=== PATIENT | female | born 1990 | race Caucasian/White ===

== ENCOUNTER 2020-12-25 11:16 | Emergency (ER) | payer OTHER, SELFPAY | END 2020-12-25 12:45 | disposition left against medical advice (07) | PROVIDERS: Emergency Provider Emergency Medicine; PCP Internal Medicine | DX: J45.909 Unspecified asthma, uncomplicated (principal) ==

== ENCOUNTER 2020-12-26 02:28 | Emergency (ER) | payer OTHER, SELFPAY ==
--- NOTE | ~2020-12-26 | XR_ITS ---
EXAMINATION: XR CHEST CLINICAL INFORMATION: Chest tightness COMPARISON: 06/10/2019 TECHNIQUE: 2 views of the chest were obtained. FINDINGS: No significant abnormality is noted involving the heart, lungs, mediastinum, bony thorax or soft tissues. XR/XR chest 2V IMPRESSION: Unremarkable examination.
[2020-12-26 02:38] VITALS: BP 138/81; PULSE 95; RESP 18; TEMP 36.7; O2SAT 100; BMI 29.4
[2020-12-26] MEDS: Albuterol Sulfate (0.083%) 2.5 MG/3 ML VIAL.NEB 5 MG INHALE ×2 (04:51→05:17)
[2020-12-26 04:52] VITALS: PULSE 86; O2SAT 100
--- NOTE | 2020-12-26 05:09 | ED.ASTHMA ---
HPI - Asthma General Chief Complaint: Asthma Stated Complaint: Asthma Time Seen by Provider: 12/26/20 03:57 Source: patient Mode of arrival: ambulatory History of Present Illness HPI Narrative: This is a patient with worsening shortness of breath for the past 3 days and states that her nebulizer machine was broken, but states she has been using her inhaler every 4 hours. Her last exacerbation was in August but she states she typically has 1 in the spring as well. She denies any fevers, chills, GI or symptoms. Related Data Previous Rx's Medication Instructions Recorded prednisone 40 mg PO DAILY 4 Days #8 tab 12/26/20 Allergies Allergy/AdvReac Type Severity Reaction Status Date / Time shellfish derived Allergy Severe ANAPHYLAXIS Unverified 12/26/20 04:48 [SHELLFISH DERIVED] ibuprofen [IBUPROFEN] Allergy Unknown UNKNOWN Unverified 12/26/20 04:48 pineapple [PINEAPPLE] Allergy Unknown RASH Unverified 12/26/20 04:48 SEASONAL ALLERGIES Allergy Unknown UNKNOWN Uncoded 12/26/20 04:48 Review of Systems Review of Systems: Pertinent positives and negatives as stated in HPI 10 point review of systems is otherwise negative. [facility] Past Medical History Source: nursing notes reviewed Social History Social History Advance Directives: No Advance Directives Information Provided: No Physical Exam Vital Signs: Vital Signs: Last Vital Signs Temp 98.1 F 12/26/20 02:38 Pulse 104 H 12/26/20 05:17 Resp 18 12/26/20 02:38 BP 138/81 12/26/20 02:38 Pulse Ox 100 12/26/20 02:38 Body Mass Index 29.4 VITAL SIGNS: Reviewed. GENERAL: Well developed, well nourished, in no acute distress. HEAD: Normocephalic/atraumatic NOSE: Nares patent bilateral OROPHARYNX: no oral lesions noted, posterior pharynx clear NECK: Supple, no adenopathy LUNGS: Diminished breath sounds bilaterally. Minimal expiratory wheezing expiratory bilateral, no retractions noted. SpO2<100> CARDIOVASCULAR: Regular rate and rhythm without noted murmurs ABDOMEN: Soft, non-tender, non-distended with bowel sounds. NEUROLOGIC: Alert and oriented x 4. Course Course Course Narrative: This is a 30-year-old female with evidence of mild asthma exacerbation and treated in the emergency department with 2 rounds of 5 mg hour long albuterol as as well as initial dose of prednisone 50 mg. On review of investigations and on re-evaluation on chest x-ray and patient reports complete resolution of her exacerbation symptoms. She was discharged in stable condition. Discharge Plan Discharge Clinical Impression: Asthma with acute exacerbation Patient Disposition: Home, Self-Care Instructions: Asthma (ED) Additional Instructions: Do not hesitate to return to the emergency department should you experience any acute worsening of your symptoms. Prescriptions: New prednisone 20 mg tablet 40 mg PO DAILY 4 Days Qty: 8 RF: 0 Referrals: Gigi Grimm MD [Primary Care Provider] - 2 days (Re-evaluation for asthma after being seen in the emergency department for acute exacerbation.)
[2020-12-26 05:17] VITALS: PULSE 104; O2SAT 99
[2020-12-26] MEDS: predniSONE 10 MG TABLET 50 MG PO (05:53)
== END 2020-12-26 06:22 | disposition home or self-care (01) ==
PROVIDERS: Emergency Provider Student in an Organized Health Care Education/Training Program; PCP Internal Medicine
DX: J45.901 Unspecified asthma with (acute) exacerbation (principal); Z79.899 Other long term (current) drug therapy
CPT/HCPCS: 71046; 94640; 94644; 94645; 99283; 99284

== ENCOUNTER 2021-02-15 17:05 | Emergency (ER) | payer OTHER, SELFPAY ==
--- NOTE | ~2021-02-15 | CT_ITS ---
EXAMINATION: CT ANGIOGRAM OF THE CHEST WITH AND WITHOUT CONTRAST (CT PULMONARY ANGIOGRAM FOR PE) CLINICAL INFORMATION: Reason for Exam chest pain, elevated ddimer, hemoptysis COMPARISON: Chest x-ray 02/15/2021 TECHNIQUE: Prior to contrast administration, noncontrast localization images were obtained. Subsequently, multidetector volumetric imaging was performed from the thoracic inlet to below the diaphragms following the administration of 65 mL Omnipaque 350 intravenous contrast. No contrast reaction reported Sagittal, coronal, and MIP oblique sagittal reformatted images were obtained on the CT workstation, uploaded to PACS, and reviewed. This CT examination was performed using dose optimization techniques as appropriate, variously including the following: *Automated exposure control *Adjustment of mA and/or kV according to patient size (this includes techniques or standardized protocols for targeted exams where dose is matched to indication/reason for exam; i.e. extremities or head) *Use of iterative reconstruction technique Total exam dose-length product 264 mGy-cm FINDINGS: QUALITY OF STUDY/CONTRAST BOLUS: Satisfactory. PULMONARY ARTERIES: No central or segmental pulmonary emboli. THORACIC AORTA: No aneurysm or dissection. LUNG: No focal consolidation, nodules or masses. PLEURA: No pleural effusion or pneumothorax. MEDIASTINUM: Normal heart size. No pericardial effusion. No hilar or mediastinal lymphadenopathy. No evidence of septal bowing or right heart strain. CHEST WALL/AXILLA: No axillary or internal mammary lymphadenopathy. OSSEOUS STRUCTURES: No acute or suspicious osseous abnormality. UPPER ABDOMEN: Unremarkable. No reflux of contrast into the hepatic veins to suggest elevated right heart pressures. CT/CT angio chest PE protocol IMPRESSION: Normal CT of chest. No evidence of pulmonary embolism. VTE: negative
--- NOTE | ~2021-02-15 | XR_ITS ---
EXAMINATION: XR CHEST CLINICAL INFORMATION: Shortness of breath. Blood-tinged sputum. COMPARISON: Chest radiograph dated 12/26/2020. TECHNIQUE: 2 views of the chest were obtained. FINDINGS: The lungs are clear. The cardiomediastinal silhouette is normal in size. There is no pleural effusion or pneumothorax. No acute osseous abnormality. XR/XR chest 2V IMPRESSION: No acute cardiopulmonary findings.
[2021-02-15 17:42] VITALS: BP 124/58; PULSE 98; RESP 20; TEMP 36.6; O2SAT 100; BMI 27.2
[2021-02-15 18:22] LABS: COVID-19 Test Positive (Negative)
[2021-02-15 18:24] LABS: UPreg QC Valid YES; Urine Pregnancy NEGATIVE (NEGATIVE)
--- NOTE | 2021-02-15 18:39 | ECG_ITS ---
Test Reason : SOB Blood Pressure : / mmHG Vent. Rate : 074 BPM Atrial Rate : 074 BPM P-R Int : 166 ms QRS Dur : 084 ms QT Int : 422 ms P-R-T Axes : 048 042 -06 degrees QTc Int : 468 ms Normal sinus rhythm Normal ECG No previous ECGs available Referred By: Annette Galvan Electronically Signed By:Yoni Clay
--- NOTE | 2021-02-15 19:02 | ED.ASTHMA ---
HPI - Asthma General Chief Complaint: Asthma Stated Complaint: asthma Time Seen by Provider: 02/15/21 18:39 Source: patient Mode of arrival: ambulatory Limitations: no limitations History of Present Illness MD complaint: asthma attack , shortness of breath and wheezing Onset (ago): day(s) (10) Severity: moderate Context: none known Associated symptoms: productive cough, chest pain and hemoptysis Asthma History: childhood onset Treatments Prior to Arrival: inhaled bronchodilator Related Data Previous Rx's Medication Instructions Recorded prednisone 40 mg PO DAILY 4 Days #8 tab 12/26/20 Allergies Allergy/AdvReac Type Severity Reaction Status Date / Time shellfish derived Allergy Severe ANAPHYLAXIS Verified 02/15/21 17:42 [SHELLFISH DERIVED] ibuprofen [IBUPROFEN] Allergy Unknown UNKNOWN Verified 02/15/21 17:42 pineapple [PINEAPPLE] Allergy Unknown RASH Verified 02/15/21 17:42 SEASONAL ALLERGIES Allergy Unknown UNKNOWN Uncoded 12/26/20 04:48 Review of Systems Review of Systems: Constitutional : No Fever, No Chills ENT/Mouth : No Hoarseness, No sore throat, No Rhinorrhea Eyes: No Redness, No Discharge, No Vision Changes Cardiovascular : No Chest Pain, positive SOB, positive Dyspnea on Exertion, No Edema Respiratory : positive Cough, pos Sputum, positive Wheezing, Gastrointestinal : No Nausea, No Vomiting, No Diarrhea, No abdominal Pain Genitourinary : No Dysuria, No Hematuria Musculoskeletal : No joint pain, No Myalgias Skin : No rash Neuro : No Weakness, No Numbness, No Headache Psych : No anxiety, depression Heme/Lymph: No Bruising, No Bleeding Endocrine : No Polyuria, No Polydipsia All other systems reviewed and are negative [facility] Past Medical History Attestation statement: The following information was validated with the patient. Medical History Asthma Social History Social History (Updated 02/15/21 @ 19:15 by Annette Galvan DO) Patient Tobacco Use Status: Never used Tobacco Use of substances other than those prescribed or required for medical reasons: No Advance Directives: No Advance Directives Information Provided: No Patient : No Physical Exam Vital Signs: Vital Signs: Last Vital Signs Temp 97.8 F 02/15/21 17:42 Pulse 71 02/15/21 19:03 Resp 20 02/15/21 17:42 BP 124/58 L 02/15/21 17:42 Pulse Ox 100 02/15/21 17:42 Body Mass Index 27.2 Appearance: Alert. Oriented X3. No acute distress. Eyes: Pupils equal, round and reactive to light. ENT: Pharynx normal. Neck: Normal inspection. Neck supple. CVS: Normal heart rate and rhythm. Pulses normal. Respiratory: No respiratory distress. Breath sounds decreased scant wheezes Abdomen: Soft and nontender. Skin: Skin warm and dry. Normal skin color. Normal skin turgor. Extremities: No lower extremity edema. No calf ttp Neuro: Oriented X 3. No motor deficit. No sensory deficit. Course Course Course Narrative: signed out to Dr. Damon pending CTA MDM - Asthma MDM Narrative Medical decision making narrative: 31 yo female with asthma here with 10 days of shortness of breath, chest tightness, cough with scant flecks of blood noted, HAD COVID VACCINE LAST ONE IN NOVEMBER [facility] AT [facility], at this time will need labs, COVID + from waiting room, IV steroids, neb, ddimer, EKG, CXR dispo per result and findings, no resp distress at this time Lab Data Result diagrams: 02/15/21 19:18 02/15/21 19:18 Labs: Lab Results 02/15/21 02/15/21 02/15/21 Range/Units 18:00 18:09 19:18 WBC 6.5 (4.8-10.8) X10*3/uL RBC 4.80 (4.20-5.50) X10*6/uL Hgb 12.4 (12.0-16.0) g/dl Hct 39.3 (37-47) % MCV 81.9 (80-98) fL MCH 25.8 L (27.0-33.0) pg MCHC 31.6 (31.0-35.0) g/dl RDW 12.4 (11.0-16.0) % Plt Count 234 (160-400) X10*3/uL MPV 9.2 L (9.4-12.3) fL Immature Gran % (Auto) 0.2 (0.0-0.4) % Neut % (Auto) 37.2 L (45-73) % Lymph % (Auto) 55.1 H (20-40) % [place] % (Auto) 6.7 (2-11) % Eos % (Auto) 0.5 (0-4) % Baso % (Auto) 0.3 (0-2) % Lymph # (Auto) 3.6 (1.2-4.9) X10*3/uL [place] # (Auto) 0.4 (0.1-1.2) X10*3/uL Eos # (Auto) 0.0 (0.0-0.4) X10*3/uL Baso # (Auto) 0.0 (0.0-0.2) X10*3/uL Abs Immat Gran (auto) 0.01 (0.00-0.03) X10*3/uL Absolute Neuts (auto) 2.4 (2.0-8.3) X10*3/uL Absolute Nucleated RBC 0.000 (0.0-0.012) X10*3/uL Nucleated RBC % (auto) 0.0 (0.0-0.2) /100WBC D-Dimer NG/ML Sodium (135-145) mmol/L Potassium (3.3-5.1) mmol/L Chloride (96-108) mmol/L Carbon Dioxide (22-29) mmol/L Anion Gap (12-20) BUN (9-16) mg/dL Creatinine (0.5-1.4) mg/dL Estim Creat Clear Calc Estimated GFR Random Glucose (60-115) mg/dL Calcium (8.4-10.2) mg/dL Troponin I High Sens (<3.5-17.0) ng/L Urine Test NEGATIVE (NEGATIVE) COVID-19 (CHIKIS) Positive A (Negative) COVID-19 Clin Com See Note 02/15/21 02/15/21 02/15/21 Range/Units 19:18 19:18 19:18 WBC (4.8-10.8) X10*3/uL RBC (4.20-5.50) X10*6/uL Hgb (12.0-16.0) g/dl Hct (37-47) % MCV (80-98) fL MCH (27.0-33.0) pg MCHC (31.0-35.0) g/dl RDW (11.0-16.0) % Plt Count (160-400) X10*3/uL MPV (9.4-12.3) fL Immature Gran % (Auto) (0.0-0.4) % Neut % (Auto) (45-73) % Lymph % (Auto) (20-40) % [place] % (Auto) (2-11) % Eos % (Auto) (0-4) % Baso % (Auto) (0-2) % Lymph # (Auto) (1.2-4.9) X10*3/uL [place] # (Auto) (0.1-1.2) X10*3/uL Eos # (Auto) (0.0-0.4) X10*3/uL Baso # (Auto) (0.0-0.2) X10*3/uL Abs Immat Gran (auto) (0.00-0.03) X10*3/uL Absolute Neuts (auto) (2.0-8.3) X10*3/uL Absolute Nucleated RBC (0.0-0.012) X10*3/uL Nucleated RBC % (auto) (0.0-0.2) /100WBC D-Dimer 402 NG/ML Sodium 143 (135-145) mmol/L Potassium 3.8 (3.3-5.1) mmol/L Chloride 107 (96-108) mmol/L Carbon Dioxide 25 (22-29) mmol/L Anion Gap 15 (12-20) BUN 13 (9-16) mg/dL Creatinine 0.79 (0.5-1.4) mg/dL Estim Creat Clear Calc 99.5 Estimated GFR > 60 Random Glucose 95 (60-115) mg/dL Calcium 9.1 (8.4-10.2) mg/dL Troponin I High Sens < 3.5 (<3.5-17.0) ng/L Urine Test (NEGATIVE) COVID-19 (CHIKIS) (Negative) COVID-19 Clin Com ECG Data Attestation: I personally reviewed and interpreted this ECG as follows: ECG interpretation date: 02/15/21 ECG interpretation time: 19:03 Interpretation: Rate: 74 Rhythm: NSR [place]: normal Normal P waves. Normal FARZANA. Normal QRS complex. ST T wave : inverted II and aVF, no SANTI qTC: normal prior studies: no acute ischemia The study has been interpreted contemporaneously by me. . Discharge Plan Discharge Clinical Impression: Asthma with acute exacerbation, COVID-19 Prescriptions: No Action prednisone 20 mg tablet 40 mg PO DAILY 4 Days Qty: 8 RF: 0
[2021-02-15 19:03] VITALS: PULSE 71; O2SAT 100
[2021-02-15] MEDS: Albuterol Sulfate (0.083%) 2.5 MG/3 ML VIAL.NEB 5 MG INHALE (19:03)
[2021-02-15] MEDS: methylPREDNISolone Sod Succ 125 MG/2 ML VIAL 60 MG IVPUSH (19:25)
[2021-02-15 19:39] LABS: MANUAL DIFF FLAG NO
[2021-02-15 19:40] LABS: Basophils Percent Auto 0.3 % (0-2); Eosinophils Percent Auto 0.5 % (0-4); Hematocrit 39.3 % (37-47); Hemoglobin 12.4 g/dl (12.0-16.0); Imm Gran Abs Auto 0.01 X10*3/uL (0.00-0.03); Imm Gran Pct Auto 0.2 % (0.0-0.4); Lymphocytes Absolute Auto 3.6 X10*3/uL (1.2-4.9); Lymphocytes Percent Auto 55.1 % (20-40); Mean Corpuscular HGB Conc 31.6 g/dl (31.0-35.0); Mean Corpuscular Hemoglobin 25.8 pg (27.0-33.0); Mean Corpuscular Volume 81.9 fL (80-98); Mean Platelet Volume 9.2 fL (9.4-12.3); Monocytes Absolute Auto 0.4 X10*3/uL (0.1-1.2); Monocytes Percent Auto 6.7 % (2-11); Neutrophils Absolute Auto 2.4 X10*3/uL (2.0-8.3); Neutrophils Percent Auto 37.2 % (45-73); Platelet Count 234 X10*3/uL (160-400); Red Cell Distribution Width 12.4 % (11.0-16.0); White Blood Count 6.5 X10*3/uL (4.8-10.8)
[2021-02-15 19:49] LABS: D Dimer 402 NG/ML
--- NOTE | 2021-02-15 19:54 | PC.NURSE ---
IV PLACED TO RAC, LABS DRAWN TO LAB, PT MEDICATED PER EMAR. PT HAD A BREATHING TREATMENT WITH RESPIRATORY AND STATES I FEEL BETTER . WILL CONTINUE TO MONITOR PT.
[2021-02-15 20:00] VITALS: BP 121/68; PULSE 88; RESP 18; O2SAT 100
[2021-02-15 20:07] LABS: Anion Gap 15 (12-20); Blood Urea Nitrogen 13 mg/dL (9-16); Calcium 9.1 mg/dL (8.4-10.2); Carbon Dioxide 25 mmol/L (22-29); Chloride 107 mmol/L (96-108); Creatinine Clr Calc Pharmacy 99.5; Estimated Glomerular Filt Rate > 60; Glucose Random 95 mg/dL (60-115); Potassium 3.8 mmol/L (3.3-5.1); Sodium 143 mmol/L (135-145)
[2021-02-15 20:16] LABS: Troponin-I High Sensitivity < 3.5 ng/L (<3.5-17.0)
--- NOTE | 2021-02-15 21:40 | PC.NURSE ---
PT RESTING IN STRETCHER AWAITING FOR PE STUDY. PT REQUESTING TO GO HOME. PT STATES IM FEELING BETTER EXPLAINED TO PT SHE SHOULD WAITING FOR STUDY. PT VERBALIZED U/S. WILL CONTINUE TO MONITOR PT.
[2021-02-15 21:43] VITALS: BP 112/54; PULSE 78; RESP 19; TEMP 36.9; O2SAT 99
[2021-02-15] MEDS: diphenhydrAMINE HCL 50 MG/ML VIAL 25 MG IVPUSH (22:30)
--- NOTE | 2021-02-15 22:36 | PC.NURSE ---
pt medicated p/t ct as per emar.
[2021-02-15] MEDS: iohexoL 350 MG/ML 100 ML INFUS..BTL 65 ML IV (23:29)
== END 2021-02-16 00:18 | disposition home or self-care (01) ==
PROVIDERS: Emergency Medicine; Emergency Medicine Emergency Medical Services; Emergency Provider Internal Medicine; PCP Internal Medicine
DX: U07.1 COVID-19 (principal); J45.901 Unspecified asthma with (acute) exacerbation
CPT/HCPCS: 36415; 71046; 71275; 80048; 81025; 84484; 85025; 85379; 87635; 93005; 94640; 94644; 96374; 96375; 99283; 99284; 99285; J1200; J2930; Q9967

== ENCOUNTER 2021-04-12 20:51 | Emergency (ER) | payer OTHER, SELFPAY ==
--- NOTE | ~2021-04-12 | CT_ITS ---
EXAMINATION: CT HEAD WITHOUT CONTRAST CLINICAL INFORMATION: Headache COMPARISON: 03/21/2020. TECHNIQUE: Contiguous axial imaging was performed from the skull base to vertex without intravenous administration of contrast. This CT examination was performed using dose optimization techniques as appropriate, variously including the following: *Automated exposure control *Adjustment of mA and/or kV according to patient size (this includes techniques or standardized protocols for targeted exams where dose is matched to indication/reason for exam; i.e. extremities or head) *Use of iterative reconstruction technique DLP: 798 mGy-cm FINDINGS: There is no evidence of acute intracranial hemorrhage or territorial infarction. No abnormal mass effect or midline shift is seen. Haynes to white matter differentiation is well preserved. No extra-axial fluid collections are identified. The ventricles are normal in size. There is no abnormal attenuation within the brain parenchyma. Right cavernous carotid arterial stent redemonstrated. The osseous structures and soft tissues are normal. The mastoid air cells and visualized portions of the paranasal sinuses are well aerated. CT/CT head/brain wo con IMPRESSION: No acute intracranial pathology.
[2021-04-12 21:00] VITALS: BP 114/63; PULSE 76; RESP 18; TEMP 36.5; O2SAT 99; BMI 28.8
--- NOTE | 2021-04-12 23:34 | ED.HA ---
HPI - Headache General Chief Complaint: Headache Stated Complaint: MIGRAINE Time Seen by Provider: 04/12/21 23:27 Source: patient Mode of arrival: ambulatory Limitations: no limitations History of Present Illness HPI Narrative: 31-year-old female came in for evaluation of headache. Headache started 3 days ago, patient describe it and bilateral temporal headache, associated with nausea, noise and light make it worse, no relieving factors, patient described it as typical for her migraine, pain started gradually 3 days ago and progressively getting worse. Patient is known to have cerebral aneurysm x2 status post coiling of 1 of the aneurysm and there is another small aneurysm is monitored by neurosurgeon patient is scheduled to have cerebral angiogram in 1 week. Related Data Previous Rx's Medication Instructions Recorded prednisone 40 mg PO DAILY 4 Days #8 tab 12/26/20 benzonatate [Tessalon Perles] 100 mg PO TID PRN #20 cap 02/15/21 dexamethasone [Decadron] 6 mg PO DAILY #7 tab 02/15/21 Allergies Allergy/AdvReac Type Severity Reaction Status Date / Time shellfish derived Allergy Severe ANAPHYLAXIS Verified 02/15/21 17:42 [SHELLFISH DERIVED] ibuprofen [IBUPROFEN] Allergy Unknown UNKNOWN Verified 02/15/21 17:42 pineapple [PINEAPPLE] Allergy Unknown RASH Verified 02/15/21 17:42 SEASONAL ALLERGIES Allergy Unknown UNKNOWN Uncoded 12/26/20 04:48 Review of Systems Review of Systems: All other systems are reviewed and are negative Constitutional: Reports as per HPI and Reports no additional constitutional complaints Eyes: Reports as per HPI and Reports no additional eye complaints Reports system reviewed and no additional complaints, except as documented Cardiovascular: Reports as per HPI and Reports no additional cardiovascular complaints Respiratory: Reports as per HPI and Reports no additional respiratory complaints Gastrointestinal: Reports as per HPI and Reports no additional gastrointestinal complaints Genitourinary: Reports no additional female genitourinary complaints Musculoskeletal: Reports no additional musculoskeletal complaints Skin/Breast: Reports system reviewed and no additional complaints, except as docu Psychiatric: Reports no additional psychiatric complaints Endocrine: Reports no additional endocrine complaints Hematologic/Lymphatic: Reports no additional hematologic/lymphatic complaints Allergic/Immunologic: Reports no additional allergic/immunologic complaints Reports system reviewed and no additional complaints, except as documented and Reports Abnormal speech present PMFSH Past Medical History Medical History Asthma Social History Social History Patient Tobacco Use Status: Never used Tobacco Advance Directives: No Advance Directives Information Provided: No Patient : No Physical Exam Vital Signs: Vital Signs: Last Vital Signs Temp 97.7 F 04/12/21 21:00 Pulse 76 04/12/21 21:00 Resp 16 04/13/21 01:23 BP 114/63 04/12/21 21:00 Pulse Ox 99 04/12/21 21:00 Body Mass Index 28.8 Vital signs have been reviewed as appeared to be correct. Blood pressure normal. Heart rate normal. Respiration rate normal. Temperature normal. Oxygen saturation normal. Appearance: Alert. Oriented X3. No acute distress. Head: Normal external exam. Normocephalic. Atraumatic. No [place] signs noted. No raccoon eyes noted Eyes: PERRLA. EOMI. Conjunctiva and sclera normal. Eyelids normal. No photophobia. ENT: TM's Normal. Pharynx normal. Uvula midline. Moist mucous membranes. No trismus noted. No drooling noted. No muffled voice noted. Neck: Normal inspection. Neck supple no stiffness, no rigidity.. FROM. No adenopathy. Thyroid Normal. No meningeal signs. No neck mass noted. CVS: Normal heart rate and rhythm. Heart sound normal. No murmurs noted. Pulses normal throughout. Respiratory: No respiratory distress. Painless inspiration. Breath sounds normal. No wheezes/rales/rhonchi noted. Chest nontender. No accessory muscle usage noted or decreased air movement noted. Abdomen: Soft and nontender. Bowel sounds normal in all 4 quadrants. No distention noted. No organomegaly noted. No visible injury noted. Back: No CVA tenderness. Full range of motion noted. Skin: Skin warm and dry. Normal skin color. Normal skin turgor. No rashes/lesions/lacerations noted. Extremities: No lower extremity edema. Extremities exhibit normal range of motion. Extremities nontender. Neuro: Oriented X 3. No motor deficit. No sensory deficit. Reflexes normal. Course Course Course Narrative: Assessment and plan. Acute on chronic migraine, patient receive narcotic in the past to control her bad migraine in the past, patient had a head CT showed no bleeding, patient schedule next week to have cerebral angiogram to follow-up on her cerebral aneurysm, there is no sign of intracranial bleed there is no meningeal sign, no neck stiffness or rigidity, no photophobia. Reevaluation(s) Reevaluation #1: Patient feels better after received 1 dose of IV morphine. Time: 01:52 MDM - Headache Imaging Data CT scan - head: Radiologist's impression: No acute intracranial pathology. Discharge Plan Discharge Clinical Impression: Migraine Qualifiers: Migraine type: unspecified Intractability: not intractable Patient Disposition: Home, Self-Care Instructions: Migraine Headache (ED) Prescriptions: No Action prednisone 20 mg tablet 40 mg PO DAILY 4 Days Qty: 8 RF: 0 dexamethasone [Decadron] 6 mg tablet 6 mg PO DAILY Qty: 7 RF: 0 benzonatate [Tessalon Perles] 100 mg capsule 100 mg PO TID PRN (Reason: cough) Qty: 20 RF: 0 Referrals: Gigi Grimm MD [Primary Care Provider] - 2 days Stand Alone Forms: Work/School Release
[2021-04-12] MEDS: methylPREDNISolone Sod Succ 125 MG/2 ML VIAL IVPUSH (23:55)
[2021-04-12] MEDS: diphenhydrAMINE HCL 50 MG/ML VIAL 25 MG IVPUSH (23:55)
[2021-04-13] MEDS: 0.9 % Sodium Chloride 1,000 ML 999 ML IVCONT
--- NOTE | 2021-04-13 00:01 | PC.NURSE ---
IV established, pt medicated per NOV. Off to CT.
[2021-04-13 01:23] VITALS: RESP 16
--- NOTE | 2021-04-13 01:23 | PC.NURSE ---
Pt sleeping in bed at this time, resting in NAD. Visible chest rise noted, continue to monitor.
[2021-04-13] MEDS: Morphine Sulfate 2 MG/ML CARTRIDGE IVPUSH (01:35)
[2021-04-13 02:14] VITALS: BP 99/48; PULSE 64; RESP 16; O2SAT 98
--- NOTE | 2021-04-13 02:17 | PC.NURSE ---
This RN at bedside for discharge. Pt continues reporting 8/10 pain to head despite pain medication. Plan for Tylenol, pt agreeable at this time. VSS.
[2021-04-13] MEDS: Acetaminophen 325 MG TABLET 650 MG PO (02:22)
== END 2021-04-13 02:34 | disposition home or self-care (01) ==
PROVIDERS: Emergency Provider Emergency Medicine; PCP Internal Medicine
DX: G43.909 Migraine, unspecified, not intractable, without status migrainosus (principal)
CPT/HCPCS: 70450; 96361; 96374; 96375; 99284; J1200; J2270; J2405; J2930

== ENCOUNTER 2021-12-09 17:51 | Emergency (ER) | payer OTHER, SELFPAY ==
--- NOTE | ~2021-12-09 | XR_ITS ---
EXAMINATION: XR CHEST CLINICAL INFORMATION: Right-sided pneumonia. COMPARISON: Chest x-ray 02/15/2021 TECHNIQUE: Frontal portable view of the chest was obtained. 9:23 PM FINDINGS: No significant abnormality is noted involving the heart, lungs, mediastinum, bony thorax or soft tissues. XR/XR chest 1V IMPRESSION: Unremarkable examination.
[2021-12-09 17:54] VITALS: BP 118/49; PULSE 83; RESP 18; TEMP 36.6; O2SAT 100; BMI 31.8
--- NOTE | 2021-12-09 17:57 | ECG_ITS ---
Test Reason : ASTHMA/CHEST PAIN Blood Pressure : / mmHG Vent. Rate : 074 BPM Atrial Rate : 074 BPM P-R Int : 162 ms QRS Dur : 078 ms QT Int : 380 ms P-R-T Axes : 031 023 -26 degrees QTc Int : 421 ms Normal sinus rhythm T wave abnormality, consider inferior ischemia Abnormal ECG When compared with ECG of 15-FEB-2021 18:58, No significant change was found Referred By: Generic ED Physician Electronically Signed By:LOGAN MAGALLON MD
[2021-12-09 18:40] LABS: MANUAL DIFF FLAG NO
[2021-12-09 18:43] LABS: Basophils Percent Auto 0.2 % (0-2); Eosinophils Absolute Auto 0.1 X10*3/uL (0.0-0.4); Eosinophils Percent Auto 0.5 % (0-4); Hematocrit 37.6 % (37.0-47.0); Hemoglobin 11.8 g/dl (12.0-16.0); Imm Gran Abs Auto 0.04 X10*3/uL (0.00-0.03); Imm Gran Pct Auto 0.3 % (0.0-0.4); Lymphocytes Absolute Auto 3.4 X10*3/uL (1.2-4.9); Lymphocytes Percent Auto 28.1 % (20-40); Mean Corpuscular HGB Conc 31.4 g/dl (31.0-35.0); Mean Corpuscular Volume 82.8 fL (80.0-98.0); Mean Platelet Volume 9.6 fL (9.4-12.3); Monocytes Absolute Auto 0.8 X10*3/uL (0.1-1.2); Monocytes Percent Auto 6.5 % (2-11); Neutrophils Absolute Auto 7.8 x10*3/uL (2.0-8.3); Neutrophils Percent Auto 64.4 % (45-73); Platelet Count 277 X10*3/uL (160-400); Red Blood Count 4.54 X10*6/uL (4.20-5.50); Red Cell Distribution Width 12.5 % (11.0-16.0); White Blood Count 12.2 X10*3/uL (4.8-10.8)
[2021-12-09 19:00] LABS: Anion Gap 13 (12-20); Blood Urea Nitrogen 11 mg/dL (9-16); Calcium 9.4 mg/dL (8.4-10.2); Carbon Dioxide 28 mmol/L (22-29); Chloride 105 mmol/L (96-108); Creatinine Clr Calc Pharmacy 98.4; Estimated Glomerular Filt Rate > 60; Glucose Random 90 mg/dL (60-115); Potassium 3.6 mmol/L (3.3-5.1); Sodium 142 mmol/L (135-145)
[2021-12-09 19:25] LABS: Influenza A PCR NEGATIVE (Negative); Influenza B PCR NEGATIVE (Negative); Resp Syncy Virus RNA Qual PCR NEGATIVE (Negative); SARS COV2 PCR INHOUSE NEGATIVE (Negative)
--- NOTE | 2021-12-09 21:17 | ED_ITS ---
HPI - General Adult General Chief complaint: General Medical Stated complaint: Asthma/Chest tighness Time Seen by Provider: 12/09/21 21:08 Source: patient Mode of arrival: ambulatory Limitations: no limitations History of Present Illness HPI narrative: Patient comes to the emergency room complaining of cough, right back pain every time she coughs, states her inhaler is not working. Patient denies fever chills Related Data Previous Rx's Medication Instructions Recorded prednisone 20 mg tablet 40 mg PO DAILY 4 Days #8 tab 12/26/20 benzonatate 100 mg capsule 100 mg PO TID PRN #20 cap 02/15/21 (Tessalon Perles) dexamethasone 6 mg tablet 6 mg PO DAILY #7 tab 02/15/21 (Decadron) acetaminophen 500 mg tablet 500 mg PO Q6H PRN #20 tab 12/09/21 albuterol sulfate 90 mcg/actuation 2 puff INHALATION Q4-6H PRN #8.5 g 12/09/21 aerosol inhaler guaifenesin 200 mg tablet 400 mg PO Q4H PRN #10 tab 12/09/21 prednisone 50 mg tablet 50 mg PO DAILY #5 tab 12/09/21 Allergies Allergy/AdvReac Type Severity Reaction Status Date / Time shellfish derived Allergy Severe ANAPHYLAXIS Verified 02/15/21 17:42 [SHELLFISH DERIVED] ibuprofen [IBUPROFEN] Allergy Unknown UNKNOWN Verified 02/15/21 17:42 pineapple [PINEAPPLE] Allergy Unknown RASH Verified 02/15/21 17:42 SEASONAL ALLERGIES Allergy Unknown UNKNOWN Uncoded 12/26/20 04:48 Review of Systems Review of Systems: Constitutional : No Weight loss, No Fever, No Chills, No Night Sweats, No Fatigue, No Malaise ENT/Mouth : No Hearing loss, No Ear Pain, No Nasal Congestion, No Sinus Pain, No Hoarseness, No sore throat, No Rhinorrhea, No Swallowing Difficulty Eyes: No Eye Pain, No Swelling, No Redness, No Foreign Body, No Discharge, No Vision Changes Cardiovascular : No Chest Pain, No SOB, No Dyspnea on Exertion, No Orthopnea, No Edema, No Palpitations Respiratory : Complaining of dry cough is causing pain in the right flank/right upper back No Sputum, complaining of intermittent Wheezing, No Smoke Exposure, complaining of intermittent Dyspnea Gastrointestinal : No Nausea, No Vomiting, No Diarrhea, No Constipation, No abdominal Pain, No Hematochezia, No Melena Genitourinary : no irregular bleeding, No Dysuria, No Urinary Frequency, No Hematuria, No Urinary Incontinence, No Urgency, No Flank Pain, No Urinary Flow Changes, No Hesitancy Musculoskeletal : No joint pain, No Myalgias, No Joint Swelling Skin : No Skin Lesions, No rash Neuro : No Weakness, No Numbness, No Paresthesias, No Loss of Consciousness, No Dizziness, No Headache Psych : No Anxiety/Panic, No Depression, No SI/HI/AH/VH, No Social Issues, Heme/Lymph: No Bruising, No Bleeding,No Lymphadenopathy Endocrine : No Polyuria, No Polydipsia, No Temperature Intolerance PMFSH Past Medical History Medical History Asthma Social History Social History Alcohol intake: never Patient Tobacco Use Status: Never used Tobacco Use of substances other than those prescribed or required for medical reasons: No Advance Directives: No Physical Exam ED Vital Signs: Vital Signs - 24 hr 12/09/21 17:54 12/09/21 21:38 Temperature 97.8 F 98.4 F Pulse Rate 83 82 Respiratory Rate 18 16 Blood Pressure 118/49 L 112/64 Pulse Oximetry 100 99 BMI result Body Mass Index 31.8 Const Other: Appearance: Alert. Oriented X3. No acute distress. Eyes: Pupils equal, round and reactive to light. ENT: Pharynx normal. Neck: Normal inspection. Neck supple. No lymph nodes noted. No crepitus CVS: Normal heart rate and rhythm. Pulses normal. Normal S1 and S2 Respiratory: No respiratory distress. Breath sounds normal. No Wheezing, good air movement, No rales , actively coughing, oxygen saturation 100% on room air Abdomen: Soft and nontender. No rigidity. No distention. Skin: Skin warm and dry. Normal skin color. Normal skin turgor. Extremities: No lower extremity edema. No Lacerations. No Rash Neuro: Oriented X 3. No motor deficit. No sensory deficit. Moving all extremi ties. No slurred speech. CN 2 through 12 grossly intact Psych: calm, cooperative, normal affect Course Course Course Narrative: Patient was given p.o. prednisone, no nebulization treatments needed, as patient is not wheezing, has good air movement and off since saturation is 100%. Patient was given 1 dose of p.o. sumatriptan. Patient is allergic to NSAIDs. Medical Decision Making Lab Data Result diagrams: 12/09/21 18:31 12/09/21 18:31 Labs: Lab Results 12/09/21 12/09/21 12/09/21 Range/Units 18:31 18:31 18:31 WBC 12.2 H (4.8-10.8) X10*3/uL RBC 4.54 (4.20-5.50) X10*6/uL Hgb 11.8 L (12.0-16.0) g/dl Hct 37.6 (37.0-47.0) % MCV 82.8 (80.0-98.0) fL MCH 26.0 L (27.0-33.0) pg MCHC 31.4 (31.0-35.0) g/dl RDW 12.5 (11.0-16.0) % Plt Count 277 (160-400) X10*3/uL MPV 9.6 (9.4-12.3) fL Immature Gran % (Auto) 0.3 (0.0-0.4) % Neut % (Auto) 64.4 (45-73) % Lymph % (Auto) 28.1 (20-40) % Mcmullen % (Auto) 6.5 (2-11) % Eos % (Auto) 0.5 (0-4) % Baso % (Auto) 0.2 (0-2) % Lymph # (Auto) 3.4 (1.2-4.9) X10*3/uL Mcmullen # (Auto) 0.8 (0.1-1.2) X10*3/uL Eos # (Auto) 0.1 (0.0-0.4) X10*3/uL Baso # (Auto) 0.0 (0.0-0.2) X10*3/uL Abs Immat Gran (auto) 0.04 H (0.00-0.03) X10*3/uL Absolute Neuts (auto) 7.8 (2.0-8.3) x10*3/uL Absolute Nucleated RBC 0.000 (0.0-0.012) X10*3/uL Nucleated RBC % (auto) 0.0 (0.0-0.2) /100WBC Sodium 142 (135-145) mmol/L Potassium 3.6 (3.3-5.1) mmol/L Chloride 105 (96-108) mmol/L Carbon Dioxide 28 (22-29) mmol/L Anion Gap 13 (12-20) BUN 11 (9-16) mg/dL Creatinine 0.83 (0.5-1.4) mg/dL Estim Creat Clear Calc 98.4 Estimated GFR > 60 Random Glucose 90 (60-115) mg/dL Calcium 9.4 (8.4-10.2) mg/dL Influenza Type A (PCR) NEGATIVE (Negative) Influenza Type B (PCR) NEGATIVE (Negative) RSV RNA Qual (PCR) NEGATIVE (Negative) SARS-CoV-2 RNA (RT-PCR) NEGATIVE (Negative) Discharge Plan Discharge Clinical Impression: Asthma, Headache Patient Disposition: Home, Self-Care Instructions: Asthma (ED), Acute Headache (ED) Additional Instructions: Please follow-up with your primary care physician tomorrow. If you have any worsening or new symptoms, please return to the emergency room or call 911 Prescriptions: New guaifenesin 200 mg tablet 400 mg PO Q4H PRN (Reason: cough) Qty: 10 0RF acetaminophen 500 mg tablet 500 mg PO Q6H PRN (Reason: pain) Qty: 20 0RF prednisone 50 mg tablet 50 mg PO DAILY Qty: 5 0RF albuterol sulfate 90 mcg/actuation HFA aerosol inhaler 2 puff inhalation Q4-6H PRN (Reason: shortness of breath or wheezing) Qty: 8.5 1RF No Action prednisone 20 mg tablet 40 mg PO DAILY 4 Days Qty: 8 0RF dexamethasone [Decadron] 6 mg tablet 6 mg PO DAILY Qty: 7 0RF benzonatate [Tessalon Perles] 100 mg capsule 100 mg PO TID PRN (Reason: cough) Qty: 20 0RF
[2021-12-09] MEDS: Acetaminophen 325 MG TABLET 650 MG PO (21:34)
[2021-12-09] MEDS: predniSONE 20 MG TABLET 60 MG PO (21:34)
[2021-12-09] MEDS: Benzonatate 100 MG CAPSULE PO (21:34)
[2021-12-09 21:38] VITALS: BP 112/64; PULSE 82; RESP 16; TEMP 36.9; O2SAT 99
[2021-12-09] MEDS: SUMAtriptan succinate 50 MG TABLET PO (22:42)
== END 2021-12-09 22:59 | disposition home or self-care (01) ==
PROVIDERS: Emergency Provider Emergency Medicine; PCP Internal Medicine
DX: J45.909 Unspecified asthma, uncomplicated (principal); R51.9 Headache, unspecified; Z20.822 Contact with and (suspected) exposure to COVID-19
CPT/HCPCS: 0241U; 71045; 80048; 85025; 93005; 99283; 99284

== ENCOUNTER 2021-12-16 19:48 | Emergency (ER) | payer OTHER, SELFPAY ==
--- NOTE | ~2021-12-16 | XR_ITS ---
EXAMINATION: XR CHEST CLINICAL INFORMATION: Cough and shortness of breath COMPARISON: Chest x-ray 12/09/2021 TECHNIQUE: 2 views of the chest were obtained. FINDINGS: Normal variant of a mild pectus excavatum. No acute abnormality of the chest. Normal aeration of lungs. Heart size is normal. The cardiac and mediastinal contours normal. There is no pulmonary vascular congestion. There is no pleural effusion and no pneumothorax. XR/XR chest 2V IMPRESSION: Unremarkable examination.
[2021-12-16 20:10] VITALS: BP 105/62; PULSE 90; RESP 18; TEMP 36.7; O2SAT 98; BMI 31.3
[2021-12-16 20:38] LABS: UPreg QC Valid YES; Urine Pregnancy NEGATIVE (NEGATIVE)
[2021-12-16 21:14] LABS: Influenza A PCR NEGATIVE (Negative); Influenza B PCR NEGATIVE (Negative); Resp Syncy Virus RNA Qual PCR NEGATIVE (Negative); SARS COV2 PCR INHOUSE NEGATIVE (Negative)
[2021-12-16] MEDS: Albuterol Sulfate (0.083%) 2.5 MG/3 ML VIAL.NEB 10 MG INHALE (22:18)
[2021-12-16 22:21] VITALS: PULSE 89; RESP 17; O2SAT 98
--- NOTE | 2021-12-16 22:26 | ED_ITS ---
HPI - Asthma General Chief Complaint: Asthma Stated Complaint: asthmatic, migraine,, chest pain when breathing Time Seen by Provider: 12/16/21 21:48 Source: patient Mode of arrival: ambulatory History of Present Illness HPI Narrative: 31-year-old female with a history of asthma just recently completed a prednisone taper and now presents with complaints again of feeling short of breath. Patient denies any associated sore throat, fever, chills but states she has been coughing quite a bit and reports that she does not smoke either marijuana or cigarettes and denies being exposed to either. In addition, patient states that she is taking seasonal allergy medications as well. Patient does have an appointment for follow-up with her primary care provider in January. Related Data Previous Rx's Medication Instructions Recorded prednisone 20 mg tablet 40 mg PO DAILY 4 Days #8 tab 12/26/20 benzonatate 100 mg capsule 100 mg PO TID PRN #20 cap 02/15/21 (Tessalon Perles) dexamethasone 6 mg tablet 6 mg PO DAILY #7 tab 02/15/21 (Decadron) acetaminophen 500 mg tablet 500 mg PO Q6H PRN #20 tab 12/09/21 albuterol sulfate 90 mcg/actuation 2 puff INHALATION Q4-6H PRN #8.5 g 12/09/21 aerosol inhaler guaifenesin 200 mg tablet 400 mg PO Q4H PRN #10 tab 12/09/21 prednisone 50 mg tablet 50 mg PO DAILY #5 tab 12/09/21 Allergies Allergy/AdvReac Type Severity Reaction Status Date / Time shellfish derived Allergy Severe ANAPHYLAXIS Verified 12/16/21 20:10 [SHELLFISH DERIVED] ibuprofen [IBUPROFEN] Allergy Unknown UNKNOWN Verified 12/16/21 20:10 pineapple [PINEAPPLE] Allergy Unknown RASH Verified 12/16/21 20:10 SEASONAL ALLERGIES Allergy Unknown UNKNOWN Uncoded 12/26/20 04:48 Review of Systems Review of Systems: Pertinent positives and negatives as stated in HPI 10 point review of systems is otherwise negative. PMFSH Past Medical History Source: nursing notes reviewed Medical History Asthma Social History Social History Alcohol intake: never Patient Tobacco Use Status: Never used Tobacco Advance Directives: No Advance Directives Information Provided: Yes Patient : No Physical Exam Vital Signs: Vital Signs: Last Vital Signs Temp 98.1 F 12/16/21 20:10 Pulse 111 H 12/16/21 23:16 Resp 22 H 12/16/21 23:16 BP 112/57 L 12/16/21 23:16 Pulse Ox 97 12/16/21 23:16 BMI result Body Mass Index 31.3 VITAL SIGNS: Reviewed. GENERAL: Well developed, well nourished, in no acute distress. HEAD: Normocephalic/atraumatic EYES: PERRLA, EOMI EARS: Ext canals without abnormality OROPHARYNX: no oral lesions noted, posterior pharynx clear LUNGS: Normal breath sounds , no stridor, minimal expiratory wheeze noted, no tachypnea. SpO2<98> CARDIOVASCULAR: Regular rate and rhythm without noted murmurs ABDOMEN: Soft, non-tender, non-distended with bowel sounds. SKIN: Inspection of the skin reveals no rashes NEUROLOGIC: Alert and oriented x 4. Strength and sensation to light touch were grossly intact x 4. Course Course Course Narrative: 31-year-old female with history and clinical presentation with persistent and recurring asthma symptoms. Patient will receive an hour long albuterol treatment but I am reluctant to place her on steroids again as there are minimal clinical findings to suggest asthma exacerbation. Will treat headache with Tylenol and cough with Tessalon. Review of all investigations otherwise negative for acute findings on re- evaluation patient is noted to be sleeping comfortably in bed and oxygenating well on room air without evidence of tachypnea. MDM - Asthma Lab Data Labs: Lab Results 12/16/21 12/16/21 Range/Units 20:21 20:25 Urine Test NEGATIVE (NEGATIVE) Influenza Type A (PCR) NEGATIVE (Negative) Influenza Type B (PCR) NEGATIVE (Negative) RSV RNA Qual (PCR) NEGATIVE (Negative) SARS-CoV-2 RNA (RT-PCR) NEGATIVE (Negative) Discharge Plan Discharge Clinical Impression: Asthma Patient Disposition: Home, Self-Care Instructions: Asthma (ED), Fluticasone (Into the nose), Loratadine (By mouth) Additional Instructions: 1. Recommend maximizing seasonal allergy, [id number] medications. May consider using Benadryl at night and non drowsy allergy medication throughout the day to include fluticasone ( Flonase). 2. In addition continue to use your inhaler, 2 puffs, every 4-6 hours. 3. Please follow-up with your primary care provider on Monday morning, a copy of this note will be sent over to the office. Return to the ER for worsening symptoms. Prescriptions: No Action prednisone 20 mg tablet 40 mg PO DAILY 4 Days Qty: 8 0RF dexamethasone [Decadron] 6 mg tablet 6 mg PO DAILY Qty: 7 0RF benzonatate [Tessalon Perles] 100 mg capsule 100 mg PO TID PRN (Reason: cough) Qty: 20 0RF guaifenesin 200 mg tablet 400 mg PO Q4H PRN (Reason: cough) Qty: 10 0RF acetaminophen 500 mg tablet 500 mg PO Q6H PRN (Reason: pain) Qty: 20 0RF prednisone 50 mg tablet 50 mg PO DAILY Qty: 5 0RF albuterol sulfate 90 mcg/actuation HFA aerosol inhaler 2 puff inhalation Q4-6H PRN (Reason: shortness of breath or wheezing) Qty: 8.5 1RF Referrals: Gigi Grimm III, MD [Primary Care Provider] - 2 days
[2021-12-16 23:16] VITALS: BP 112/57; PULSE 111; RESP 22; O2SAT 97
[2021-12-16] MEDS: Acetaminophen 325 MG TABLET 975 MG PO (23:18)
[2021-12-16] MEDS: Benzonatate 100 MG CAPSULE 200 MG PO (23:18)
[2021-12-17] MEDS: Butalb/Acetamin/Caff 50/325/40 TABLET 1 TAB PO (00:25)
== END 2021-12-17 01:13 | disposition home or self-care (01) ==
PROVIDERS: Emergency Provider Student in an Organized Health Care Education/Training Program; PCP Internal Medicine
DX: J45.909 Unspecified asthma, uncomplicated (principal); Z20.822 Contact with and (suspected) exposure to COVID-19; R51.9 Headache, unspecified
CPT/HCPCS: 0241U; 71046; 81025; 94640; 94644; 99284

== ENCOUNTER 2022-06-21 14:23 | Emergency (ER) | payer OTHER, SELFPAY ==
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
[2022-06-21 14:33] VITALS: BP 106/00; PULSE 78; O2SAT 99
[2022-06-21 14:35] VITALS: BP 104/56; PULSE 66; RESP 16; O2SAT 97; BMI 31.8
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
[2022-06-21] MEDS: Acetaminophen 325 MG TABLET 650 MG PO (15:09)
[2022-06-21] MEDS: Cyclobenzaprine HCl 10 MG TABLET PO (15:09)
[2022-06-21] MEDS: Ondansetron ODT 4 MG TAB.RAPDIS TRANSLINGU (17:45)
[2022-06-21] MEDS: Butalb/Acetamin/Caff 50/325/40 TABLET 1 TAB PO (17:56)
== END 2022-06-21 18:12 | disposition home or self-care (01) ==
PROVIDERS: Emergency Provider Emergency Medicine; PCP Internal Medicine
DX: S13.4XXA Sprain of ligaments of cervical spine, initial encounter (principal); M54.2 Cervicalgia; R51.9 Headache, unspecified; M54.50 Low back pain, unspecified; V43.52XA Car driver injured in collision with other type car in traffic accident, initial encounter; Y93.9 Activity, unspecified; Y92.410 Unspecified street and highway as the place of occurrence of the external cause; Y99.9 Unspecified external cause status; Z79.899 Other long term (current) drug therapy
CPT/HCPCS: 70450; 72125; 99283; 99284

== ENCOUNTER 2023-08-25 07:56 | Emergency (ER) | payer OTHER, SELFPAY ==
--- NOTE | 2023-08-25 08:04 | ED_ITS ---
HPI - General Adult General Chief complaint: Eye Problems Stated complaint: eye problem Time Seen by Provider: 08/25/23 08:03 Source: patient Mode of arrival: ambulatory Limitations: no limitations History of Present Illness HPI narrative: Patient is a 33 year old assigned female at with a history of being 29 weeks presenting to the emergency department today with right eye pain. Patient states that over the last day she has had right eye pain with mild swelling and itchiness. Patient denies any dizziness, lightheadedness, abdominal pain, nausea, vomiting, fever, chills, blurry vision, double vision, loss of vision, chest pain, difficulty breathing, shortness of breath, back pain, night sweats, pain with urination, increased urinary frequency, increased urinary urgency, blood in her urine or stool, syncope or a near syncopal episode, recent trauma or falls, bowel incontinence, bladder incontinence, bowel retention, bladder retention, or any other complaints at this time. Onset (ago): day(s) (1) Location: eyes and right Radiation: non-radiation Severity: mild Severity scale (1-10): 3 Quality: aching and dull Pain Consistency: constant Relieving factors: none Exacerbating factors: none Associated symptoms: denies other symptoms Treatments prior to arrival: none Related Data Previous Rx's Medication Instructions Recorded prednisone 20 mg tablet 40 mg (2 x 20 mg) PO DAILY 4 days 12/26/20 #8 tabs benzonatate 100 mg capsule 100 mg PO TID PRN cough #20 caps 02/15/21 (Tessalon Perles) dexamethasone 6 mg tablet 6 mg PO DAILY #7 tabs 02/15/21 (Decadron) acetaminophen 500 mg tablet 500 mg PO Q6H PRN pain #20 tabs 12/09/21 albuterol sulfate 90 mcg/actuation 2 puff inhalation Q4-6H PRN 12/09/21 aerosol inhaler shortness of breath or wheezing #8.5 grams guaifenesin 200 mg tablet 400 mg (2 x 200 mg) PO Q4H PRN 12/09/21 cough #10 tabs prednisone 50 mg tablet 50 mg PO DAILY #5 tabs 12/09/21 acetaminophen 500 mg tablet 500 mg PO Q6H PRN fever or pain 06/21/22 (Tylenol Extra Strength) #14 tabs cyclobenzaprine 5 mg tablet 5 mg PO Q8H PRN pain (scale score 06/21/22 7-10) 5 days #14 tabs lidocaine 5 % topical patch 1 patch topical DAILY PRN pain #30 06/21/22 (Lidoderm) ea erythromycin 5 mg/gram (0.5 %) eye 0.5 inch ophthalmic (eye) Q4H #3.5 08/25/23 ointment grams Allergies Allergy/AdvReac Type Severity Reaction Status Date / Time shellfish derived Allergy Severe ANAPHYLAXIS Verified 12/16/21 20:10 [SHELLFISH DERIVED] ibuprofen [IBUPROFEN] Allergy Unknown UNKNOWN Verified 12/16/21 20:10 pineapple [PINEAPPLE] Allergy Unknown RASH Verified 12/16/21 20:10 SEASONAL ALLERGIES Allergy Unknown UNKNOWN Uncoded 12/26/20 04:48 Review of Systems Constitutional: Constitutional: Reports no additional constitutional complaints, Denies chills, Denies fever(s) and Denies night sweats Eyes: Eyes: Reports no additional eye complaints, Denies blurry vision, Denies change in vision, Denies diplopia, Denies eye discharge, Reports irritation (right eye), Denies loss of vision and Reports eye pain (right eye) ENT: Denies dizziness Cardiovascular: Cardiovascular: Reports no additional cardiovascular complaints, Denies chest pain, Denies lightheadedness, Denies Loss of Consciousness and Denies dyspnea Respiratory: Respiratory: Reports no additional respiratory complaints and Denies dyspnea Gastrointestinal: Gastrointestinal: Reports no additional gastrointestinal complaints, Denies abdominal pain, Denies melena, Denies hematochezia, Denies change in bowel habits and Denies change in stool character Genitourinary: Genitourinary: Denies hematuria, Denies urinary frequency, Denies dysuria, Denies urinary incontinence, Denies urinary hesitancy and Denies urinary urgency Musculoskeletal: Musculoskeletal: Reports no additional musculoskeletal complaints, Denies numbness and Denies tingling Neurologic: Denies dizziness, Denies loss of vision, Denies numbness and Denies tingling Psychiatric: Psychiatric: Reports no additional psychiatric complaints Endocrine: Endocrine: Reports no additional endocrine complaints Hematologic/Lymphatic: Hematologic/Lymphatic: Reports no additional hematologic/lymphatic complaints Allergic/Immunologic: Allergic/Immunologic: Reports no additional allergic/immunologic complaints PMFSH Past Medical History Attestation statement: The following information was validated with the patient. Source: old records reviewed and nursing notes reviewed Medical History Asthma Social History Social History Alcohol intake: never Patient Tobacco Use Status: Never used Tobacco Smoked in Last 30 Days: No Advance Directives: No Advance Directives Information Provided: Yes Patient : Yes Physical Exam ED Vital Signs: Vital Signs - 24 hr 08/25/23 08:05 08/25/23 08:23 Temperature 97.9 F 97.9 F Pulse Rate 80 80 Respiratory Rate 16 16 Blood Pressure 115/49 L 115/49 L Pulse Oximetry 99 99 Oxygen Delivery Method Room Air Room Air BMI result Body Mass Index 37.1 Const General: cooperative, no acute distress, alert and awake Nutritional Appearance: well nourished Orientation/consciousness: patient oriented x3 Limitations: no limitations HENMT Head: Yes normal to inspection and Yes atraumatic Ears: hearing grossly normal bilaterally and external ears normal General nose exam: Normal external nose present, no nasal discharge noted and no epistaxis Face and sinus: Yes normal facial exam, No abrasion and No laceration Mouth: Normal oral and palatal mucosa present, no drooling and no muffled voice Eyes Other: minimal swelling to the surrounding right eye structures and irritation of the right eye present Conjunctivae: conjunctivae normal Pupils: Equal, round and reactive pupils present EOM: EOMs intact bilaterally Neck Neck: Yes normal visual inspection, Yes full ROM and Yes no lymphadenopathy Chest Chest palpation & inspection: normal inspection of the chest Resp Effort & Inspection: normal respiratory effort and able to speak in complete sentences GI Inspection: Yes normal to inspection Neuro General: patient oriented x3 and moves all extremities Cranial nerves: Yes Equal, round and reactive pupils present Cognition (Neuro): normal cognition Motor exam (neuro): 5/5 motor strength present throughout Sensory Exam: Normal double simultaneous stimulation for sensation Coordination: [id number] test normal Extrem General: Yes normal to inspection, Yes full ROM and Yes capillary refill normal Psych Appearance: grossly normal Mental Status: mental status grossly normal Affect: normal affect Attitude: cooperative Thought process: Normal thought process present Thought content: Normal thought content present Insight: Good insight present (Psych) Medical Decision Making Medical Decision Making MDM Narrative: Patient is a 33 year old assigned female at with a history of being 29 weeks presenting to the emergency department today with right eye pain / irritation. Patient's physical exam was as noted in the physical exam portion of this note. I explained my physical exam findings to the patient. I answered all questions asked by the patient. I stressed the importance of the patient taking her medication as prescribed. I stressed the importance of the patient following up with her primary care provider. I stressed the importance of the patient returning to the emergency department immediately if her symptoms were to worsen or if she were to develop any dizziness, shortness of breath, difficulty breathing, chest pain, blurry vision, loss of vision, nausea, vomiting, abdominal pain, fever, chills, back pain, or any other complaints. Patient verbalized agreement and understanding with this treatment plan and discharge. Differential Diagnosis Differential Diagnoses: The differential diagnosis associated with the present ation includes Conjunctivitis Eye irritation Seasonal allergies Prescription Management I considered prescription management with: Antibiotic (patient prescribed an antibiotic for right sided conjunctivitis) Discharge Plan Discharge Clinical Impression: Conjunctivitis Patient Disposition: Home, Self-Care Instructions: Conjunctivitis (ED) Additional Instructions: Follow up with your primary care provider. Return to the emergency department immediately if your symptoms worsen or if you develop any dizziness, shortness of breath, difficulty breathing, chest pain, blurry vision, loss of vision, nausea, vomiting, abdominal pain, fever, chills, back pain, or any other complaints. Prescriptions: New erythromycin 5 mg/gram (0.5 %) ointment 0.5 inch ophthalmic (eye) Q4H Qty: 3.5 0RF No Action prednisone 20 mg tablet 40 mg PO DAILY 4 Days Qty: 8 0RF dexamethasone [Decadron] 6 mg tablet 6 mg PO DAILY Qty: 7 0RF benzonatate [Tessalon Perles] 100 mg capsule 100 mg PO TID PRN (Reason: cough) Qty: 20 0RF guaifenesin 200 mg tablet 400 mg PO Q4H PRN (Reason: cough) Qty: 10 0RF acetaminophen 500 mg tablet 500 mg PO Q6H PRN (Reason: pain) Qty: 20 0RF prednisone 50 mg tablet 50 mg PO DAILY Qty: 5 0RF albuterol sulfate 90 mcg/actuation HFA aerosol inhaler 2 puff inhalation Q4-6H PRN (Reason: shortness of breath or wheezing) Qty: 8.5 1RF acetaminophen [Tylenol Extra Strength] 500 mg tablet 500 mg PO Q6H PRN (Reason: fever or pain) Qty: 14 0RF lidocaine [Lidoderm] 5 % adhesive patch,medicated 1 patch topical DAILY MDD remove after 12 hours PRN (Reason: pain) Qty: 30 0RF Rx Instructions: leave on most painful area for up to 12 hrs cyclobenzaprine 5 mg tablet 5 mg PO Q8H PRN (Reason: pain (scale score 7-10)) 5 Days Qty: 14 0RF Referrals: [facility] [place] [facility] [place]] (Call to establish and follow up with a primary care provider. If you already have a primary care provider, please follow up with them.) [facility] [place] [facility]] (Call to establish and follow up with a primary care provider. If you already have a primary care provider, please follow up with them.) [facility] [place] [facility] [[facility]] (Call to establish and follow up with a primary care provider. If you already have a primary care provider, please follow up with them.) Interventions: ED Discharge Assessment Last Done: 08/25/23 08:29 Discharge Date/Time: 08/25/23 08:42 Print Language: Welsh
[2023-08-25 08:05] VITALS: BP 115/49; PULSE 80; RESP 16; TEMP 36.6; O2SAT 99; BMI 37.1
[2023-08-25 08:23] VITALS: BP 115/49; PULSE 80; RESP 16; TEMP 36.6; O2SAT 99
== END 2023-08-25 08:42 | disposition home or self-care (01) ==
PROVIDERS: Emergency Provider Emergency Medicine; PCP Internal Medicine
DX: H10.9 Unspecified conjunctivitis (principal); Z79.899 Other long term (current) drug therapy
CPT/HCPCS: 99283; 99284

== ENCOUNTER 2024-04-17 11:37 | Emergency (ER) | payer OTHER, SELFPAY ==
--- NOTE | ~2024-04-17 | US_ITS ---
EXAMINATION: US ABDOMEN LIMITED CLINICAL INFORMATION: Right upper quadrant pain. COMPARISON: CT abdomen pelvis dated 06/16/2020. TECHNIQUE: Real-time imaging of the right upper quadrant abdominal viscera. FINDINGS: PANCREAS: Normal. LIVER: Normal. The liver is normal in size. The liver contour is normal. Parenchymal echogenicity is normal. No focal hepatic lesion. There is no intrahepatic biliary duct dilatation seen. GALLBLADDER: Normal. The gallbladder is physiologically distended without evidence of stones, sludge, polyps, wall thickening or pericholecystic fluid. COMMON BILE DUCT: Normal in caliber measuring 0.3 cm in diameter. RIGHT KIDNEY: No hydronephrosis. No renal calculi or focal parenchymal lesions. The kidney measures 11.1 cm in maximum dimension. FREE FLUID: None. US/US abdomen limited IMPRESSION: Normal right upper quadrant ultrasound.
[2024-04-17 11:44] VITALS: BP 127/61; PULSE 65; RESP 16; TEMP 36.8; O2SAT 100; BMI 32.4
--- NOTE | 2024-04-17 11:44 | ED_ITS ---
HPI - Abdominal Pain General Chief Complaint: Abdominal Pain Stated Complaint: Vomiting, pain upper R abd Time Seen by Provider: 04/17/24 12:06 Source: patient and old records reviewed Mode of arrival: ambulatory Limitations: no limitations History of Present Illness ED Provider: KATALINA CHOUDHURY narrative: 34 yo female with PMH of asthma has IUD not here with c/o RUQ pain fever on Monday - resolved n/v/d. Denies travel, sick contacts, food exposures. Has hx of fatty heavy foods bothering stomach so she tries to avoid. Last able to really eat something on Monday. Did not eat today. MD elicited complaint: abdominal pain Pertinent past history: none Onset (ago): day(s) (Monday) Pain Consistency: constant Location: RUQ Severity: severe Quality: stabbing Radiation: R flank and back Migration to: no migration Exacerbating factors: eating and movement Relieving factors: nothing Context: history of similar episodes Associated symptoms: nausea, vomiting, diarrhea, fever and chills Related Data Previous Rx's ?Medication ?Instructions ?Recorded prednisone 20 mg tablet 40 mg (2 x 20 mg) PO DAILY 4 days 12/26/20 #8 tabs benzonatate 100 mg capsule 100 mg PO TID PRN cough #20 caps 02/15/21 (Tessalon Perles) dexamethasone 6 mg tablet 6 mg PO DAILY #7 tabs 02/15/21 (Decadron) acetaminophen 500 mg tablet 500 mg PO Q6H PRN pain #20 tabs 12/09/21 albuterol sulfate 90 mcg/actuation 2 puff inhalation Q4-6H PRN 12/09/21 aerosol inhaler shortness of breath or wheezing #8.5 grams guaifenesin 200 mg tablet 400 mg (2 x 200 mg) PO Q4H PRN 12/09/21 cough #10 tabs prednisone 50 mg tablet 50 mg PO DAILY #5 tabs 12/09/21 acetaminophen 500 mg tablet 500 mg PO Q6H PRN fever or pain 06/21/22 (Tylenol Extra Strength) #14 tabs cyclobenzaprine 5 mg tablet 5 mg PO Q8H PRN pain (scale score 06/21/22 7-10) 5 days #14 tabs lidocaine 5 % topical patch 1 patch topical DAILY PRN pain #30 06/21/22 (Lidoderm) ea erythromycin 5 mg/gram (0.5 %) eye 0.5 inch ophthalmic (eye) Q4H #3.5 08/25/23 ointment grams omeprazole 20 mg capsule,delayed 20 mg PO DAILY #90 caps 04/17/24 release ondansetron 4 mg disintegrating 4 mg PO Q8H PRN nausea and 04/17/24 tablet vomiting #20 tabs Allergies Allergy/AdvReac Type Severity Reaction Status Date / Time shellfish derived Allergy Severe ANAPHYLAXIS Verified 04/17/24 11:46 [SHELLFISH DERIVED] ibuprofen [IBUPROFEN] Allergy Unknown UNKNOWN Verified 04/17/24 11:46 pineapple [PINEAPPLE] Allergy Unknown RASH Verified 04/17/24 11:46 SEASONAL ALLERGIES Allergy Unknown UNKNOWN Uncoded 12/26/20 04:48 Review of Systems Review of Systems Constitutional : No Weight loss, pos Fever, pos Chills ENT/Mouth : No sore throat, No Rhinorrhea Eyes: No Swelling, No Redness Cardiovascular : No Chest Pain, No SOB, NoEdema Respiratory : No Cough, No Sputum, No Wheezing Gastrointestinal : Positive Nausea, Positive Vomiting, positive Diarrhea, positive abdominal Pain, No Hematochezia, No Melena Genitourinary : No Dysuria, No Urinary Frequency, No Hematuria, No Urgency Musculoskeletal : No joint pain, No Myalgias, No Joint Swelling Skin : No Skin Lesions, No rash Neuro : No Weakness, No Numbness, No Dizziness, No Headache All other systems reviewed and are negative. [facility] Past Medical History Attestation statement: The following information was validated with the patient. Source: old records reviewed Medical History Asthma Social History Social History Alcohol intake: never Patient Tobacco Use Status: Never used Tobacco Advance Directives: No Advance Directives Information Provided: No Physical Exam ED Vital Signs: Vital Signs - 24 hr 04/17/24 11:44 04/17/24 14:43 Temperature 98.3 F 98.3 F Pulse Rate 65 57 Respiratory Rate 16 16 Blood Pressure 127/61 137/61 Pulse Oximetry 100 100 Oxygen Delivery Method Room Air Room Air BMI result Body Mass Index 32.4 Appearance: Alert. Oriented X3. No acute distress. Eyes: Pupils equal, round and reactive to light. ENT: Pharynx normal. Neck: Normal inspection. Neck supple. CVS: Normal heart rate and rhythm. Pulses normal. Respiratory: No respiratory distress. Breath sounds normal. Abdomen: Soft and moderate ttp in RUQ + manzanares's sign Skin: Skin warm and dry. Normal skin color. Normal skin turgor. Extremities: No lower extremity edema. Neuro: Oriented X 3. No motor deficit. No sensory deficit. Course Course Course Narrative: This is a Rapid Medical Examination (RME) performed by Moni Adler PA-C in triage. Full HPI, ROS, assessment and treatment plan per primary provider in the Main ED. 34 yo female here for eval of vomiting, loose watery stools, and RUQ abd pain x3d. reports pain radiation to right shoulder. no chest pain, palpitations, sob. No one else at home w/ similar symptoms. called PCP who advised to come to ED. Denies fever/chills, flank pain, dysuria, hematuria. pshx of hernia repair. no other abdominal surgeries. no travel outside [place]. no recent abx. + ttp of RUQ/ epigastric region. no rebound or guarding. Plan: labs, UA, +/- imaging Reevaluation(s) Reevaluation #1: no wbc count no shift not tachycardic afebrile here doubt perforation or acute infection if symptoms since Monday Medical Decision Making Medical Decision Making [facility] Narrative: 34 yo female with PMH of asthma here with c/o fevers, n/v/d and RUQ pain + manzanares's. At this time labs, IVF, IV morphine for pain, US to evaluate for biliary colic. Does not take NSAIDs low susp for perforation. No ACS risk factors it is very much reproduceable abdominal pain doubt VTE. Differential Diagnosis Differential Diagnoses: The differential diagnosis associated with the presentation includes gastritis, biliary colic, colitis Admission/Observation Consideration of admission/observation: Escalation of care including admission/observation considered labs and US reassuring slight blood in urine but R kidney normal at this time stable for DC Lab Data [facility] Lab Attestation statement: I reviewed the patient's lab results. 04/17/24 12:01 04/17/24 12:01 Labs: Lab Results 04/17/24 04/17/24 Range/Units 12:01 12:02 WBC 6.7 (4.8-10.8) X10*3/uL RBC 4.70 (4.20-5.50) X10*6/uL Hgb 12.4 (12.0-16.0) g/dl Hct 38.8 (37.0-47.0) % MCV 82.6 (80.0-98.0) fL MCH 26.4 L (27.0-33.0) pg MCHC 32.0 (31.0-35.0) g/dl RDW 13.0 (11.0-16.0) % Plt Count 220 (160-400) X10*3/uL MPV 9.3 L (9.4-12.3) fL Immature Gran % (Auto) 0.2 (0.0-0.4) % Neut % (Auto) 50.3 (45-73) % Lymph % (Auto) 41.4 H (20-40) % [place] % (Auto) 6.8 (2-11) % Eos % (Auto) 0.8 (0-4) % Baso % (Auto) 0.5 (0-2) % Lymph # (Auto) 2.8 (1.2-4.9) X10*3/uL [place] # (Auto) 0.5 (0.1-1.2) X10*3/uL Eos # (Auto) 0.1 (0.0-0.4) X10*3/uL Baso # (Auto) 0.0 (0.0-0.2) X10*3/uL Abs Immat Gran (auto) 0.01 (0.00-0.03) X10*3/uL Absolute Neuts (auto) 3.4 (2.0-8.3) x10*3/uL Absolute Nucleated RBC 0.000 (0.0-0.012) X10*3/uL Nucleated RBC % (auto) 0.0 (0.0-0.2) /100WBC Sodium 140 (135-145) mmol/L Potassium 3.8 (3.3-5.1) mmol/L Chloride 105 (96-108) mmol/L Carbon Dioxide 30 H (22-29) mmol/L Anion Gap 9 L (12-20) BUN 10 (9-16) mg/dL Creatinine 0.82 (0.5-1.4) mg/dL Estim Creat Clear Calc 101.4 Estimated GFR > 60 Random Glucose 93 (60-115) mg/dL Calcium 9.4 (8.4-10.2) mg/dL Magnesium 2.1 (1.6-2.6) mg/dL Total Bilirubin 1.0 (0.0-1.0) mg/dL AST 13 (5-31) U/L ALT 10 (0-31) U/L Alkaline Phosphatase 41 (39-117) U/L Troponin I High Sens < 2.7 (<3.5-17.0) ng/L Total Protein 7.0 (6.5-8.0) g/dL Albumin 4.2 (3.5-5.0) g/dL Lipase 14 (8-78) U/L Urine Color Yellow Urine Appearance Clear Urine pH 7.0 (5.0-9.0) Ur Specific [place] 1.025 (1.005-1.025) Urine Protein Trace (Neg-Trace) mg/dL Urine Glucose (UA) Negative (Negative) mg/dL Urine Ketones Trace (Negative) mg/dL Urine Blood Small (1+) H (Negative) Urine Nitrite Negative (Negative) Ur Leukocyte Esterase Trace H (Negative) Urine RBC >20 H (0-2) /HPF Urine WBC 0-5 (0-5) /HPF Ur Squamous Epith Cells 6-10 (0-2) /HPF Urine Bacteria None Seen (None Seen) Hyaline Casts 0-2 (0-2) /LPF Urine Test NEGATIVE (NEGATIVE) Independent Interpretation I performed an independent interpretation of an: Ultrasound (normal ) Radiology Impression Discussion of test interpretation with radiology: I have reviewed the radiologist's reading. External Record Review External record reviewed: Inpatient record Prescription Management I considered prescription management with: Pain Medication and Other Medications Administered Discontinued Medications Generic Name Dose Route Start Last Admin Trade Name Freq PRN Reason Stop Dose Admin Lactated Ringer's 1,000 mls @ 999 mls/hr 04/17/24 12:06 04/17/24 13:24 Lr IV 04/17/24 13:06 Infused .Q1H1M ONE Infusion Morphine Sulfate 4 mg 04/17/24 12:06 04/17/24 12:19 Morphine Sulfate 4 Mg/Ml Cartridge IVPUSH 04/17/24 12:07 4 mg ONCE ONE Administration Protocol Ondansetron HCl 4 mg 04/17/24 12:06 04/17/24 12:21 Ondansetron Hcl 4 Mg/2 Ml Vial IVPUSH 04/17/24 12:07 4 mg ONCE ONE Administration Discharge Plan Discharge Clinical Impression: Abdominal pain Qualifiers: Abdominal location: right upper quadrant Qualified Code(s): R10.11 - Right upper quadrant pain Patient Disposition: Home, Self-Care Instructions: Abdominal Pain (ED) Additional Instructions: labs reassuring no elevated white blood cell count, normal liver, kidney, pancreas only thing abnormal was slight blood in urine but kidney on R side no stones, no swelling, no sighs of blockage at this time will treat as possible gastritis - zofran and antacids return for any worsening pain, return of fevers, or any other concerns FINDINGS: PANCREAS: Normal. LIVER: Normal. The liver is normal in size. The liver contour is normal. Parenchymal echogenicity is normal. No focal hepatic lesion. There is no intrahepatic biliary duct dilatation seen. GALLBLADDER: Normal. The gallbladder is physiologically distended without evidence of stones, sludge, polyps, wall thickening or pericholecystic fluid. COMMON BILE DUCT: Normal in caliber measuring 0.3 cm in diameter. RIGHT KIDNEY: No hydronephrosis. No renal calculi or focal parenchymal lesions. The kidney measures 11.1 cm in maximum dimension. FREE FLUID: None. US/US abdomen limited IMPRESSION: Normal right upper quadrant ultrasound. Prescriptions: New ondansetron 4 mg tablet,disintegrating 4 mg PO Q8H PRN (Reason: nausea and vomiting) Qty: 20 0RF omeprazole 20 mg capsule,delayed release(DR/EC) 20 mg PO DAILY Qty: 90 0RF Rx Instructions: take daily for 2 weeks then as needed daily for stomach upset No Action prednisone 20 mg tablet 40 mg PO DAILY 4 Days Qty: 8 0RF dexamethasone [Decadron] 6 mg tablet 6 mg PO DAILY Qty: 7 0RF benzonatate [Tessalon Perles] 100 mg capsule 100 mg PO TID PRN (Reason: cough) Qty: 20 0RF guaifenesin 200 mg tablet 400 mg PO Q4H PRN (Reason: cough) Qty: 10 0RF acetaminophen 500 mg tablet 500 mg PO Q6H PRN (Reason: pain) Qty: 20 0RF prednisone 50 mg tablet 50 mg PO DAILY Qty: 5 0RF albuterol sulfate 90 mcg/actuation HFA aerosol inhaler 2 puff inhalation Q4-6H PRN (Reason: shortness of breath or wheezing) Qty: 8.5 1RF acetaminophen [Tylenol Extra Strength] 500 mg tablet 500 mg PO Q6H PRN (Reason: fever or pain) Qty: 14 0RF lidocaine [Lidoderm] 5 % adhesive patch,medicated 1 patch topical DAILY MDD remove after 12 hours PRN (Reason: pain) Qty: 30 0RF Rx Instructions: leave on most painful area for up to 12 hrs cyclobenzaprine 5 mg tablet 5 mg PO Q8H PRN (Reason: pain (scale score 7-10)) 5 Days Qty: 14 0RF erythromycin 5 mg/gram (0.5 %) ointment 0.5 inch ophthalmic (eye) Q4H Qty: 3.5 0RF Stand Alone Forms: Work/School Release Interventions: ED Discharge Assessment Last Done: 04/17/24 14:43 Discharge Date/Time: 04/17/24 14:49 Print Language: Montenegrin
[2024-04-17 12:06] LABS: MANUAL DIFF FLAG NO
[2024-04-17 12:07] LABS: Basophils Percent Auto 0.5 % (0-2); Eosinophils Absolute Auto 0.1 X10*3/uL (0.0-0.4); Eosinophils Percent Auto 0.8 % (0-4); Hematocrit 38.8 % (37.0-47.0); Hemoglobin 12.4 g/dl (12.0-16.0); Imm Gran Abs Auto 0.01 X10*3/uL (0.00-0.03); Imm Gran Pct Auto 0.2 % (0.0-0.4); Lymphocytes Absolute Auto 2.8 X10*3/uL (1.2-4.9); Lymphocytes Percent Auto 41.4 % (20-40); Mean Corpuscular Hemoglobin 26.4 pg (27.0-33.0); Mean Corpuscular Volume 82.6 fL (80.0-98.0); Mean Platelet Volume 9.3 fL (9.4-12.3); Monocytes Absolute Auto 0.5 X10*3/uL (0.1-1.2); Monocytes Percent Auto 6.8 % (2-11); Neutrophils Absolute Auto 3.4 x10*3/uL (2.0-8.3); Neutrophils Percent Auto 50.3 % (45-73); Platelet Count 220 X10*3/uL (160-400); White Blood Count 6.7 X10*3/uL (4.8-10.8)
[2024-04-17 12:09] LABS: Appearance Urine Clear; Color Urine Yellow; Glucose Urine UA Negative (Negative); Leukocyte Esterase Urine Trace (Negative); Nitrite Urine Negative (Negative); Specific Gravity - Urine 1.025 (1.005-1.025); UMIC TRIGGER UACC YES; Urine Blood Small (1+) (Negative); Urine Ketones Trace mg/dL (Negative); Urine Protein Trace mg/dL (Neg-Trace)
[2024-04-17 12:10] LABS: UPreg QC Valid YES; Urine Pregnancy NEGATIVE (NEGATIVE)
[2024-04-17 12:14] LABS: Bacteria Urine None Seen (None Seen); Hyaline Casts Urine 0-2 /LPF (0-2); RBC Urine >20 /HPF (0-2); WBC Urine 0-5 /HPF (0-5)
[2024-04-17] MEDS: Lactated Ringers 1,000 ML 999 ML IV (12:19)
[2024-04-17] MEDS: Morphine Sulfate 4 MG/ML CARTRIDGE IVPUSH (12:19)
[2024-04-17] MEDS: ondansetron HCL 4 MG/2 ML VIAL IVPUSH (12:21)
--- OUTSIDE RECORDS SUMMARY | 2024-04-17 12:21 | XMS_ITS | Continuity of Care Document ---
Author Organization [facility] Address [address] [address]- Care Team Providers Care Dumper Operator Name Role Phone Alfa ROSADO MD, Gigi Hahn Primary Care Physician Encounter [facility] Date(s): 06/17/20 - 07/17/20 [facility] [address] [address]- [facility] Allergies, Adverse Reactions, Alerts Substance Reaction Severity Status ibuprofen throat swelling body rash Active shellfish Active Pineapple Active Lobster Dust allergy Dogs Allergy to cats Active Immunizations Given and Recorded Vaccine Date Status Refusal Reason tetanus/diphtheria/pertussis, acel(Tdap) 01/25/17 Given pneumococcal 23-valent vaccine 03/31/16 Given Medications acetaminophen/butalbital/caffeine 325 mg-50 mg-40 mg oral tablet 1 tablet, By Mouth, Every 4 hours, PRN for headache, 0 Refills, Maintenance, 10/09/19 16:41:00 EST,Tablet Start Date: 10/09/19 Status: Ordered albuterol CFC free 90 mcg/inh inhalation aerosol 180 mcg, 2, puffs, Inhalation, Every 4 hours, PRN, # 1 each, Refills 2, Tot. Refills 2, Maintenance, 10/11/19 11:43:00 EST, Inhaler, Route to Pharmacy Electronically, [id number], [facility][id number], 160, cm, 10/11/19... Start Date: 10/11/19 Status: Ordered Aspirin Enteric Coated 81 mg oral delayed release tablet 1 tablet = 81 mg, By Mouth, Daily Start Date: 10/09/19 Status: Ordered clopidogrel 75 mg oral tablet 75 mg, 1, tablet, By Mouth, Daily, Refills 0, Maintenance, 10/09/19 16:40:00 EST Start Date: 10/09/19 Status: Ordered Colace sodium 100 mg oral capsule 100 mg, 1, capsule, By Mouth, 2 times a day, PRN, # 20 capsule, Refills 0, Tot. Refills 0, Maintenance, for constipation, 06/19/20 10:03:00 EDT, Route to Pharmacy Electronically, [facility][id number], 160, cm, 06/19/20 9:41:00 EDT, Height, 80.7... Start Date: 06/19/20 Status: Ordered fluconazole 150 mg oral tablet 1 tablet = 150 mg, By Mouth, Once, # 1 tablet, 0 Refills, Soft Stop, 07/10/20 14:15:00 EDT, Tablet,[facility] #[id number], 160, cm, 07/09/20 8:55:00 EDT, Height, 80.7, kg, 10/10/19 18:15:00 EST, Dry Weight Start Date: 07/10/20 Status: Ordered Liletta 52 mg intrauterine device 1 each = 52 mg, Once, 0 Refills, Maintenance, 10/09/19 16:58:00 EST Start Date: 10/09/19 Status: Ordered MiraLax oral powder for reconstitution = 17 Gm, By Mouth, Daily, dissolve in water before taking, # 527 Gm, 0 Refills, Maintenance, 06/19/20 10:23:00 EDT, REC Powder, [facility] #[id number], 17 Gm By Mouth Daily,Instr:dissolve in water before taking, 160, cm, 06/19/20 9:41:00 EDT, Hei... Start Date: 06/19/20 Status: Ordered Multivitamin Tablet 1 tablet, By Mouth, Daily, 0 Refills, Maintenance, 10/09/19 16:58:00 EST Start Date: 10/09/19 Status: Ordered Multivitamins with Folic Acid 1 mg oral tablet 1 tablet, By Mouth, Daily, # 30 tablet, 11 Refills, Maintenance, 02/05/20 17:12:00 EDT, [facility] #[id number], 1 tablet By Mouth Daily, 160, cm, 12/10/19 14:16:00 EDT, Height, 80.7, kg, 10/10/19 18:15:00 EST, Dry Weight Start Date: 02/05/20 Status: Ordered Vitamin B12 0 Refills, Maintenance, 06/19/20 9:45:00 EDT Start Date: 06/19/20 Status: Ordered Zofran 4 mg oral tablet 1 tablet = 4 mg, By Mouth, Every 8 hours, PRN Nausea & Vomiting, # 10 tablet, 0 Refills, Maintenance, 10/11/19 10:15:00 EST, Tablet, [facility] #[id number], 160, cm, 10/11/19 5:03:00 EST, Height, 80.7, kg, 10/10/19 18:15:00 EST, Dry Weight Start Date: 10/11/19 Status: Ordered Problem List Condition Effective Dates Status Health Status Inform ant Right ovarian cyst(Confirmed) Active Infertility, Female, Associa violette with Anovulation(Confirmed) Active Brain aneurysm(Confirmed) Active Asthma, mild intermittent(Confirmed) Active Pain in female pelvis(Confirmed) Active Encounter for liletta IUD insertion(Confirmed) 01/11/19 Active PCOS - Polycystic ovarian syndrome(Confirmed) Active Social History Social History Type Response Smoking Status Never (less than 100 in lifetime) entered on: 04/16/19 Sex
--- OUTSIDE RECORDS SUMMARY | 2024-04-17 12:22 | XMS_ITS | Continuity of Care Document ---
Author Organization [facility] Address [address] [place] [address], [address]t [address] [place] [id number]- Care Team Providers Care Water Meter Mechanic Name Role Phone Alfa ROSADO MD, Gigi Hahn Primary Care Physician En[facility] Date(s): 02/15/23 - 03/17/23 [facility] [address] [place] [address], [address]th [address] [place] [id number] Allergies, Adverse Reactions, Alerts Substance Reaction Severity Status ibuprofen throat swelling body rash Active shellfish Anaphylaxis Active Latex Rash Active Lobster Anaphylaxis Dust allergy Dogs Allergy to cats Active Pineapple Anaphylaxis Active Immunizations Given and Recorded Vaccine Date [...] 11:43:00 EST, Inhaler, Route to Pharmacy Electronically, [id number], [facility] #[id number], 160, cm, 10/11/19... Start Date: 10/11/19 Status: Ordered amiTRIPTYLINE By Mouth, Daily at bedtime, 0 Refills, Maintenance, 11/30/20 21:49:00 EDT, Partial fill upon patient request if the prescription is for a schedule II opioid drug. Start Date: 11/30/20 Status: Ordered Aspirin Enteric Coated 81 mg oral delayed release tablet 1 tablet = 81 mg, By Mouth, Daily Start Date: 10/09/19 Status: Ordered levothyroxine 0.025 mg oral tablet 1 tablet = 25 mcg, By Mouth, Daily, 0 Refills, Maintenance, 03/09/23 14:14:00 EDT, Partial fill upon patient request if the prescription is for a schedule II opioid drug. Start Date: 03/09/23 Status: Ordered Multivitamins with Folic Acid 1 mg oral tablet 1 tablet, By Mouth, Daily, # 30 tablet, 11 Refills, Maintenance, 02/03/23 17:52:00 EDT, Tablet, [facility]/pharmacy #[id number], Partial fill upon patient request if the prescription is for a schedule II opioid drug., 1 tablet By Mouth Daily, 163, cm, 02/03/23 16:... Start Date: 02/03/23 Status: Ordered Senna 8.6 mg oral tablet 1 or 2 tablets, By Mouth, Daily at bedtime, PRN, # 60 tablet, Refills 0, Tot. Refills 0, Maintenance, Constipation, 03/14/23 16:14:00 EDT, Route to Pharmacy Electronically, [facility]/pharmacy #[id number] Tablet,Partial fill upon patient request if the prescripti... Start Date: 03/14/23 Status: Ordered Problem List Condition Confirmation Course Effective Dates Status [facility] Informant Right ovarian cyst Confirmed Active Infertility, Female, Associated with Anovulation Confirmed Active Brain aneurysm Confirmed Active Migraine Confirmed Active Asthma, mild intermittent Confirmed Active Obese class I Confirmed Active Pain in female pelvis Confirmed Active Encounter for IUD removal Confirmed Active control counseling Confirmed Active PCOS - Polycystic ovarian syndrome Confirmed Active Social History Social History Type Response Smoking Status Never smoker; Tobacc o user in household: No entered on: 11/01/17 Sex Female Patient Care team information Care Team Personnel Name: Gigi Grimm III, MD Position: Reference Physician Member Role: PCP Address: Address: [address] [place] [address]- Name: Naila Martinez RN Position: [facility] RN Member Role: Primary Care Nurse Name: Lo Vernon RN Position: [facility] OB RN Member Role: Primary Care Nurse Name: Elena Cabrera RN Position: [facility] HBO Wound Member Role: Primary Care Nurse Care Team Related Persons Name: CHERELLE STINSON Address: home [address] Name: TOREY JIMENEZ Address: home [address] Name: TOREY JIMENEZ Address: home [address] Name: JAMIE JIMENEZ Address: home [address] [place] [address] Name: JAMIE JIMENEZ Address: home [address] [place] [address] Name: TOREY TRIVEDI Address: home [address] [place], [place] Name: JOCELYN SANTIAGO Address: home [address] [place] [address]
--- OUTSIDE RECORDS SUMMARY | 2024-04-17 12:22 | XMS_ITS | Continuity of Care Document ---
Author Organization [facility] Address [address] [address]- Care Team Providers Care Passenger Conductor Name Role Phone Alfa ROSADO MD, Gigi Hahn Primary Care Physician [place] [facility] [place] 07/[place]/22 [facility] [address] [address] Allergies, Adverse Reactions, Alerts Substance [...] 11:43:00 EST, Inhaler, Route to Pharmacy Electronically, [id number], [facility][id number], 160, cm, 10/11/19... Start Date: 10/11/19 Status: Ordered amiTRIPTYLINE By Mouth, Daily at bedtime, 0 Refills, Maintenance, 11/30/20 21:49:00 EDT, Partial fill upon patient request if the prescription is for a schedule II opioid drug. Start Date: 11/30/20 Status: Ordered Aspirin Enteric Coated 81 mg oral delayed release tablet 1 tablet = 81 mg, By Mouth, Daily Start Date: 10/09/19 Status: Ordered Lottie 0.35 mg oral tablet 1 tablet = 0.35 mg, By Mouth, Daily, # 84 tablet, 4 Refills, Maintenance, 07/08/22 8:47:00 EDT, Tablet, [id number], Partial fill upon patient request if the prescription is for a schedule II opioid drug., 163, cm, 07/08/22 8:40:00 EDT, Height,... Start Date: 07/08/22 Stop Date: 09/01/23 Status: Ordered Janie 30 mg oral tablet 1 tablet = 30 mg, By Mouth, Once, # 1 tablet, 1 Refills, Soft Stop, 07/08/22 8:53:00 EDT, Tablet, [id number], Partial fill upon patient request if the prescription is for a schedule II opioiddrug., 163, cm, 07/08/22 8:40:00 EDT, Height, 84.6,... Start Date: 07/08/22 Status: Ordered Multivitamins with Folic Acid 1 mg oral tablet 1 tablet, By Mouth, Daily, # 30 tablet, 11 Refills, Maintenance, 02/01/22 14:21:00 EDT, Tablet, [id number], Partial fill upon patient request if the prescription is for a schedule II opioid drug., 1 tablet By Mouth Daily, 163, cm, 02/01/22 13:... Start Date: 02/01/22 Status: Ordered Problem List Condition Confirmation Course Effective Dates Status Health [facility] atus Informant Right ovarian cyst Confirmed [...] in household: No entered on: 11/01/17 Sex Patient Care team information Care Team Personnel Name: Alfa ROSADO MD, Gigi Hahn Position: [facility] Ambulatory (view) Member Role: PCP Address: Address: [address] [place] [address]- Name: Naila Martinez RN Position: [facility] OB RN Member Role: Primary Care Nurse Name: Lo Vernon RN Position: [facility] OB RN Member Role: Primary Care Nurse Name: Elena Cabrera RN Position: [facility] HBO Wound Member Role: Primary Care Nurse Care Team Related Persons Name: CHERELLE STINSON Address: home [address] Name: TOREY JIMENEZ Address: home [address] Name: TOREY JIMENEZ Address: home [address] [address] Name: JAMIE JIMENEZ Address: home [address] [place] [address] Name: JAMIE JIMENEZ Address: home [address] [place] [address] Name: TOREY TRIVEDI Address: home [address] [place], [place] Name: JOCELYN SANTIAGO Address: home [address] [place] [address]
--- OUTSIDE RECORDS SUMMARY | 2024-04-17 12:22 | XMS_ITS | Continuity of Care Document ---
Author Organization [facility] Address Unknown Care Team Providers Care Community Health Nursing Director Name Role Phone Alfa ROSADO MD, Gigi Hahn Primary Care Physician [place] [facility] [place] 04/[place]/[facility] Allergies, Adverse Reactions, Alerts Substance Reaction Severity [...] 11:43:00 EST, Inhaler, Route to Pharmacy Electronically, [id number], [facility] #[id number], 160, cm, 10/11/19... Start Date: 10/11/19 Status: Ordered amiTRIPTYLINE By Mouth, Daily at bedtime, 0 Refills, Maintenance, 11/30/20 21:49:00 EDT, Partial fill upon patient request if the prescription is for a schedule II opioid drug. Start Date: 11/30/20 Status: Ordered Aspirin Enteric Coated 81 mg oral delayed release tablet 1 tablet = 81 mg, By Mouth, Daily Start Date: 10/09/19 Status: Ordered Benefiber oral powder for reconstitution = 3.5 Gm, By Mouth, 3 times a day, PRN as needed for constipation, # 477 Gm, 0 Refills, Maintenance, 01/25/21 9:00:00 EDT, REC Powder, [facility]/pharmacy #[id number], Partial fill upon patient request if the prescription is for a schedule II opioid drug., 3.5 Gm... Start Date: 01/25/21 Stop Date: 02/24/21 Status: Ordered Depo-Provera Contraceptive 150 mg/mL intramuscular suspension 1 mL = 150 mg, Intramuscular, Every 3 months, # 1 mL, 3 Refills, Maintenance, 02/04/21 10:33:00 EDT, Suspension, [id number], Partial fill upon patient request if the prescription is for a schedule II opioid drug., 160, cm, 02/04/21 10:18:00 ED... Start Date: 02/04/21 Status: Ordered Janie 30 mg oral tablet 1 tablet = 30 mg, By Mouth, Once, # 1 tablet, 0 Refills, Soft Stop, 04/22/22 17:13:00 EDT, Tablet, [id number], Partial fill upon patient request if the prescription is for a schedule II opioid drug., 163, cm, 04/12/22 15:12:00 EDT, Height, 82,... Start Date: 04/22/22 Status: Ordered Estrace 2 mg oral tablet 1 tablet = 2 mg, By Mouth, 2 times a day, # 42 tablet, 0 Refills, Maintenance, 03/07/22 15:02:00 EDT, Tablet, [id number], Partial fill upon patient request if the prescription is for a schedule II opioid drug., 163, cm, 02/01/22 13:49:00 EDT,... Start Date: 03/07/22 Stop Date: 03/28/22 Status: Ordered glycerin adult rectal suppository 1 supp, Rectally, Daily, PRN for constipation, # 24 supp, 6 Refills, Maintenance, 02/04/21 10:20:00EDT, Suppository, [id number], Partial fill upon patient request if the prescription is for a schedule II opioid drug., 160, cm, 01/25/21 8:23:0... Start Date: 02/04/21 Status: Ordered PNV Plus oral tablet 1 tablet, By Mouth, Daily, # 30 tablet, 11 Refills, Maintenance, 12/07/21 9:53:00 EDT, [id number], Partial fill upon patient request if the prescription is for a schedule II opioid drug., 1 tablet By Mouth Daily, 163, cm, 10/27/21 18:02:00 EST... Start Date: 12/07/21 Status: Ordered Multivitamins with Folic Acid 1 mg oral tablet 1 tablet, By Mouth, Daily, # 30 tablet, 11 Refills, Maintenance, 02/01/22 14:21:00 EDT, Tablet, [id number], Partial fill upon patient request if the prescription is for a schedule II opioid drug., 1 tablet By Mouth Daily, 163, cm, 02/01/22 13:... Start Date: 02/01/22 Status: Ordered Provera 10 mg oral tablet 10 mg, 1, tablet, By Mouth, Daily, # 10 tablet, Refills 0, Tot. Refills 0, Maintenance, 03/07/22 15:02:00 EDT, Route to Pharmacy Electronically, [id number], Partial fill upon patient request if the prescription is for a schedule II opioid drug... Start Date: 03/07/22 Stop Date: 03/17/22 Status: Ordered Provera 10 mg oral tablet 10 mg, 1, tablet, By Mouth, Daily, # 10 tablet, Refills 0, Tot. Refills 0, Maintenance, 02/04/22 15:01:00 EDT, Route to Pharmacy Electronically, [id number], Partial fill upon patient request if the prescription is for a schedule II opioid drug... Start Date: 02/04/22 Stop Date: 02/14/22 Status: Ordered Problem List Condition Effective Dates Status Health Status Inform ant Right ovarian cyst(Confirmed) Active Infertility, Female, Associa violette with Anovulation(Confirmed) Active Brain aneurysm(Confirmed) Active Migraine(Confirmed) Active Asthma, mild intermittent(Confirmed) Active Obese class I(Confirmed) Active Pain in female pelvis(Confirmed) Active Encounter for liletta IUD insertion(Confirmed) 01/11/19 Active PCOS - Polycystic ovarian syndrome(Confirmed) Active Social History Social History Type Response Smoking Status Never smoker; Tobacc o user in household: No entered on: 11/01/17 Sex
--- OUTSIDE RECORDS SUMMARY | 2024-04-17 12:22 | XMS_ITS | Continuity of Care Document ---
Author Organization [facility] Address [address] [place] [id number]- Care Team Providers Care Stamp Clerk Name Role Phone Alfa ROSADO MD, Gigi Hahn Primary Care Physician [phone] Encounter [facility] Date(s): 06/21/23 - 07/21/[address] [address] Allergies, Adverse Reactions, Alerts Substance Reaction Severity Status ibuprofen throat swelling body rash Active shellfish Anaphylaxis Active Pineapple Anaphylaxis Active Latex Rash Active Lobster Anaphylaxis Dust allergy Dogs Allergy to cats Active Immunizations Given and Recorded Vaccine Date Status Refusal Reason SARS-CoV-2 mRNA (xoauijb-[id number]-syqoe) vax 10/17/21 Recorded SARS-CoV-2 mRNA (taasqri-dmcp-zhbzu) vax 12/25/20 Recorded SARS-CoV-2 mRNA (lliprqn-ttea-ksqeq) vax 12/04/20 Recorded tetanus/diphtheria/pertussis, acel(Tdap) 01/25/17 Given pneumococcal 23-valent vaccine [...] 11:43:00 EST, Inhaler, Route to Pharmacy Electronically, [id number], [facility] #[id number], 160, cm, 10/11/19... Start Date: 10/11/19 Status: Ordered aspirin 81 mg oral tablet, chewable 162 mg, 2, tablet, Chew, Daily, # 180 tablet, Refills 3, Tot. Refills 3, Maintenance, 05/03/23 15:24:00 EDT, Route to Pharmacy Electronically, [facility]/pharmacy #[id number], Partial fill upon patient request ifthe prescription is for a schedule II opioid drug.,... Start Date: 05/03/23 Stop Date: 04/27/24 Status: Ordered levothyroxine 0.025 mg oral tablet 1 tablet = 25 mcg, By Mouth, Daily, 0 Refills, Maintenance, 03/09/23 14:14:00 EDT, Partial fill upon patient request if the prescription is for a schedule II opioid drug. Start Date: 03/09/23 Status: Ordered ondansetron 4 mg oral tablet, disintegrating 1 tablet = 4 mg, By Mouth, Every 8 hours, PRN as needed for nausea/vomiting, # 30 tablet, 1 Refills, Maintenance, 04/07/23 2:01:00 EDT, DIS Tablet, [facility]/pharmacy #[id number], Partial fill upon patient request if the prescription is for a schedule II opioid d... Start Date: 04/07/23 Status: Ordered ondansetron 8 mg oral tablet, disintegrating 1 tablet = 8 mg, By Mouth, 2 times a day, # 12 tablet, 0 Refills, Maintenance, 04/29/23 7:48:00 EDT, DIS Tablet, [facility]/pharmacy #[id number], Partial fill upon patient request if the prescription is for a schedule II opioid drug., 165, cm, 04/24/23 13:25:00 ED... Start Date: 04/29/23 Status: Ordered Multivitamins with Folic Acid 1 mg oral tablet 1 tablet, By Mouth, Daily, # 30 tablet, 11 Refills, Maintenance, 02/03/23 17:52:00 EDT, Tablet, [facility]/pharmacy #[id number], Partial fill upon patient request if the prescription is for a schedule II opioid drug., 1 tablet By Mouth Daily, 163, cm, 02/03/23 16:... Start Date: 02/03/23 Status: Ordered promethazine 25 mg rectal suppository 1 supp = 25 mg, Rectally, Every 4 hours, PRN for nausea/vomiting, # 12 supp, 0 Refills, Maintenance, 04/25/23 11:26:00 EDT, Suppository, [facility]/pharmacy #[id number], Partial fill upon patient request if the prescription is for a schedule II opioid drug., 165,... Start Date: 04/25/23 Status: Ordered pyridoxine 25 mg oral tablet 1 tablet = 25 mg, By Mouth, 3 times a day, PRN Nausea & Vomiting, # 100 tablet, 8 Refills, Maintenance, 03/27/23 17:46:00 EDT, Tablet, [facility]/pharmacy #[id number], Partial fill upon patient request if theprescription is for a schedule II opioid drug., 163, cm... Start Date: 03/27/23 Status: Ordered Reglan 10 mg oral tablet 1 tablet = 10 mg, By Mouth, 3 times a day, PRN Nausea & Vomiting, # 28 tablet, 2 Refills, Maintenance, 03/30/23 19:35:00 EDT, [facility]/pharmacy #[id number], Partial fill upon patient request if the prescription is for a schedule II opioid drug., 163, cm, ... Start Date: 03/30/23 Status: Ordered Senna 8.6 mg oral tablet 1 or 2 tablets, By Mouth, Daily at bedtime, PRN, # 60 tablet, Refills 0, Tot. Refills 0, Maintenance, Constipation, 03/14/23 16:14:00 EDT, Route to Pharmacy Electronically, [facility]/pharmacy #[id number] Tablet,Partial fill upon patient request if the prescripti... Start Date: 03/14/23 Status: Ordered Unisom 25 mg oral tablet 1 tablet = 25 mg, By Mouth, Daily at bedtime, PRN for sleep, # 32 tablet, 1 Refills, Maintenance, 07/21/23 15:16:00 EDT, Tablet, [id number], Partial fill upon patient request if the prescription is for a schedule II opioid drug., 165, cm, ... Start Date: 11/3/23 Status: Ordered Problem List Condition Confirmation Course Effective Dates Status H ealth Status Informant History of blood transfusion Confirmed Active Hx of preeclampsia, prior , currently Confirmed Active Hypothyroidism in Confirmed Active Brain aneurysm Confirmed Active Migraine Confirmed Active Asthma, mild intermittent Confirmed Active Nausea and vomiting during Confirmed Active Obese class I Confirmed Active Obesity in Confirmed Active Obstructive sleep apnea Confirmed Active PCOS - Polycystic ovarian syndrome Confirmed Active Confirmed Active Social History Social History Type Response Smoking Status Never smoker; Tobacc o user in household: No entered on: 11/01/17 Sex Female Patient Care team information Care Team Personnel Name: Alfa ROSADO MD, Gigi Hahn Position: Reference Physician Member Role: PCP Address: Address: [address] [place] [address]- Name: Naila Martinez RN Position: S OB RN Member Role: Primary Care Nurse Name: Lo Vernon RN Position: S OB RN Member Role: Primary Care Nurse Name: Elena Cabrera RN Position: S HBO Wound Member Role: Primary Care Nurse Care Team Related Persons Name: CHERELLE STINSON Address: home [address] Name: TOREY JIMENEZ Address: home [address] Name: TOREY JIMENEZ Address: home [address] Name: JAMIE JIMENEZ Address: home [address] [place], [place] Name: JAMIE JIMENEZ Address: home [address] [place] [address] Name: TOREY QUESADA Address: home [address] [place], [place] Name: JOCELYN SANTIAGO Address: home [address] [place] [address]
--- OUTSIDE RECORDS SUMMARY | 2024-04-17 12:22 | XMS_ITS | Continuity of Care Document ---
Author Organization [facility] ter Address [address] [place] [id number]- Care Team Providers Care Agricultural Engineering Technicians Name Role Phone Gigi Grimm III, MD Primary Care Physician Encounter [facility] [place] Date(s): 11/04/23 - 11/07/[address] [id number] Discharge Disposition: A-D/C Home Attending Physician: Rush RICHEY [OB], Neha Munroe Admitting Physician: Rush RICHEY [OB], Neha Munroe Referring Physician: Rush RICHEY [OB]Neha Allergies, Adverse Reactions, Alerts Substance Reaction Severity Status ibuprofen throat swelling body rash Active Pineapple Anaphylaxis Active shellfish Anaphylaxis Active Latex Rash Active Lobster Anaphylaxis Dust allergy Dogs Allergy to cats Active Immunizations Given and Recorded Vaccine Date Status Refusal Reason tetanus/diphtheria/pertussis, acel(Tdap) 08/18/23 Given tetanus/diphtheria/pertussis, acel(Tdap) 01/25/17 Given SARS-CoV-2 mRNA (nzhoxgx-tskl-hlfrd) vax 10/17/21 Recorded SARS-CoV-2 mRNA (alqovil-pnba-dfrlq) vax 12/25/20 Recorded SARS-CoV-2 mRNA (ktukrdw-ehph-wqbyp) vax 12/04/20 Recorded pneumococcal 23-valent vaccine 03/31/16 Given Varicella Virus Vaccine 08/14/13 Recorded Medications acetaminophen 325 mg oral tablet 975 mg, 3, tablet, By Mouth, Every 6 hours, PRN, # 50 tablet, Refills 0, Tot. Refills 0, Maintenance, Pain , Moderate, 11/07/23 7:35:00 EST, Route to Pharmacy Electronically, [facility]/pharmacy #[id number], Partial fill upon patient request if the prescription is... Start Date: 11/07/23 Status: Ordered Acetaminophen Tablet 650 mg, Tablet, By Mouth, Every 4 hours, PRN for Pain , Mild, (1-3), may give 325mg per patient preference and re-dose with 325mg within 4 hours, if needed. Patient should only receive a total of 650mg of Acetaminophen every 4 hours., Routine, 11/05... Start Date: 11/05/23 Stop Date: 11/07/23 Status: Discontinued albuterol CFC free 90 mcg/inh inhalation aerosol 180 mcg, 2, puffs, Inhalation, Every 4 hours, PRN, # 1 each, Refills 2, Tot. Refills 2, Maintenance, 10/11/19 11:43:00 EST, Inhaler, Route to Pharmacy Electronically, [id number], [facility] #[id number], 160, cm, 10/11/19... Start Date: 10/11/19 Status: Ordered aspirin 81 mg oral tablet 2 tablet = 162 mg, By Mouth, Daily, # 180 tablet, 2 Refills, Maintenance, 09/19/23 15:50:00 EST, Tablet, [facility]/pharmacy #[id number], Partial fill upon patient request if the prescription is for a schedule IIopioid drug., 165, cm, 09/19/23 15:26:00 EST, Heigh... Start Date: 09/19/23 Status: Ordered levothyroxine 0.025 mg oral tablet 1 tablet = 25 mcg, By Mouth, Daily, 0 Refills, Maintenance, 03/09/23 14:14:00 EDT, Partial fill upon patient request if the prescription is for a schedule II opioid drug. Start Date: 03/09/23 Status: Ordered magnesium oxide 400 mg oral tablet 1 tablet = 400 mg, By Mouth, Daily, for 7 days, # 7 tablet, 0 Refills, Acute 11/08/23 17:44:00 EST,11/01/23 17:44:00 EST, Tablet, [facility]/pharmacy #[id number], Partial fill upon patient request if the prescription is for a schedule II opioid drug., 165, cm, 02... Start Date: 11/01/23 Stop Date: 11/08/23 Status: Ordered MiraLax oral powder for reconstitution = 17 Gm, By Mouth, Daily, dissolve in water before taking, # 255 Gm, 0 Refills, Maintenance, 11/07/23 7:35:00 EST, REC Powder, [facility]/pharmacy #[id number], Partial fill upon patient request if the prescription is for a schedule II opioid drug., 17 Gm By Mouth... Start Date: 11/07/23 Status: Ordered Multivitamins with Folic Acid 1 mg oral tablet 1 tablet, By Mouth, Daily, # 30 tablet, 11 Refills, Maintenance, 02/03/23 17:52:00 EDT, Tablet, [facility]/pharmacy #[id number], Partial fill upon patient request if the prescription is for a schedule II opioid drug., 1 tablet By Mouth Daily, 163, cm, 02/03/23 16:... Start Date: 02/03/23 Status: Ordered Problem List Condition Confirmation Course Effective Dates Status H ealth Status Informant Hx of preeclampsia, prior , currently Confirmed Active Hypothyroidism in Confirmed Active Brain aneurysm Confirmed Active Migraine Confirmed Active Asthma, mild intermittent Confirmed Active Nausea and vomiting during Confirmed Active Obesity in Confirmed Active Obstructive sleep apnea Confirmed Active PCOS - Polycystic ovarian syndrome Confirmed Active Confirmed Active Vital Signs Most recent to oldest [Reference Range]: 1 2 3 Height 165 cm (11/07/23 7:48 AM) 165 cm (11/07/23 12:02 AM) 165 cm (11/06/23 3:59 PM) Weight 97.6 kg (11/04/23 4:38 PM) Oxygen Saturation [94-100 %] 96 % (11/07/23 12:02 AM) 100 % (11/05/23 3:17 PM) 100 % (11/05/23 9:05 AM) Pulse Rate [55-90 bpm] 75 bpm (11/07/23 7:48 AM) 75 bpm (11/07/23 12:02 AM) 80 bpm (11/06/23 3:59 PM) Body Mass Index [18.5-24.99 kg/m2] 35.85 kg/m2 *>HHI* (11/04/23 4:38 PM) Blood Pressure [90-138/55-84 mm Hg] 115/63mm Hg (11/07/23 7:48 AM) 115/57mm Hg (11/07/23 12:02 AM) 115/65mm Hg (11/06/23 5:53 PM) Respiratory Rate [16-30 br/min] 18 br/min (11/07/23 7:48 AM) 18 br/min (11/07/23 12:02 AM) 19 br/min (11/06/23 4:52 PM) Temperature [96.8-100.4 DegF] 98.7 DegF (11/07/23 7:48 AM) 98.8 DegF (11/07/23 12:02 AM) 98.2 DegF (11/06/23 3:59 PM) Mode of Delivery (Oxygen) Room air (11/07/23 12:02 AM) Room air (11/05/23 3:17 PM) Blood pressure sites Arm, right (11/07/23 7:48 AM) Arm, right (11/06/23 3:59 PM) Arm, right (11/06/23 8:58 AM) Temperature Route Oral (11/07/23 7:48 AM) Oral (11/07/23 12:02 AM) Oral (11/06/23 3:59 PM) Dry Weight 97.6 kg (11/04/23 4:38 PM) Social History Social History Type Response Smoking Status Never smoker; Tobacc o user in household: No entered on: 11/01/17 Sex Female History and physical note * Sylvia Bo MD: PERFORM Event Display: History and Physical Hospital Authored Date: [id number] Patient: ??CHRYSTAL TRIVEDI ? Age:??33 Years?Sex:??Female?:??1990?? OB Reason for Admission OB Reason for Admission Reason for admission: Induction of labor Reason for Induction: Other: bilateral cerebral aneurysms LMP/EGA/JV Gestational Age (EGA) and JV? * Note: EGA calculated as of 11/04/2023 ?? JV:??11/11/2023?EGA*:??39 weeks ? History?(1,0,2,1)?Method:??Last Menstrual Period??(02/04/2023) History of Present Illness Chrystal??is a 33 yo at 39+0 admitted for IOL for bilateral brain aneurysms. This has been complicated by bilateral renal dilation. The patient has a history??of hypothyroidism on levothyroxine, mild intermittent asthma, and migraines. She is allergic to latex and ibuprofen (stomachupset and itching).?? 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 Denies vaginal bleeding, leakage of fluid, and dfm.?? Physical Exam Vitals & Measurements T:??98.2?F?? HR:??76??(Peripheral)?? RR:??18?? BP:??129/71?? HT:??165??cm?? WT:??97.6??kg?? BMI:??35.85?? Constitutional:??Well-appearing. No acute distress. Respiratory:??Comfortable work of breathing on room air Cardiovascular:??No signs of fluid overload, skin warm and well perfused Abdomen/GI:??Soft, non-tender Extremities:??Normal ROM, no??calf asymmetry??or edema. Skin:??No rash or jaundice. Neurological/Psychiatric:??Mood and affect congruent and stable.?? EFW 3100 SVE 2/40/-3 Vtx by US OB Assessment Cervical Cervical Dilatation2 cm Cervical Fhbkywoubn92% Station-3 Assessment/Plan Assessment:??Chrystal??is a 33 yo at 39+0 admitted for IOL for bilateral brain aneurysms. FHTCat 1. Plan for induction with misoprostol and tipton. ?? Asthma, mild intermittent (J45.20):??Hasn't used inhaler in 3 months. Avoid hemabate. ?? Brain aneurysm (I67.1):? 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 Subsequently had diverter stenosis and angioplasty 10/2020. 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 Right ICA flow diverter with mild to moderate stenosis. Note: the left ICA aneurysm was alsoseen in 2019, stable since that time - Dr Travon Morgan (neurosurgery), last visit 04/29/22 at [facility]. Was supposed to go recently (gets yearly imaging) but he cancelled the imaging due to . ?? Hx of preeclampsia, prior , currently (O09.299):? Normotensive this , on babyscripts ?? Hypothyroidism in (O99.280):? 04/04: TSH high, T4 normal, started on Levothyroxine - Levothyroxine 25mcg daily; compliant - TSH, reflex T4 in each trimester (x) 1st tri: TSH wnl at NOB (x) 2nd tri: TSH wnl (x) 3rd tri: TSH 3.04 wnl ?? Migraine (G43.909):? - Follows with Neurology at [facility] - Receives Botox injections for migraine prevention - discussed at [facility] visit Botox can be continuedsafely if needed - Continue follow-up w/ neurology ?? Obstructive sleep apnea (G47.33):??CPAP ordered ?? Abnormal ultrasound (R93.89):? - At anatomy scan - Bilateral renal urinary dilation in the renal??pelvis (x) U/S at 32 weeks - persistent bilateral renal dilation (x) Pedi surg consult requested: Renal bladder ultrasound after 1 week of life, see note for additional recommendations ?? Obesity in (O99.210):? - BMI 31 at NOB - Patient could not tolerate??early 1hr GTT due to N/V (x) Fasting POC and early 1hr GTT in June normal (x) 28 week GTT; wnl (x) 32 week growth scan: EFW 14th %tile ?? Patient was seen by and plan of care discussed with Dr. Beverly,??attending physician Sylvia Bo, PGY1 OB History History?(1,0,2,1)? # 1 ?Baby 1 ?Outcome Date:??11/2015 ?Outcome or Result:??Spontaneous ?Gest Age:??-- ? Outcome:? Sex:??-- ?? # 2 ?Baby 1 ?Outcome Date:??05/2016 ?Outcome or Result:??Spontaneous ?Gest Age:??-- ? Outcome:? Sex:??-- ?? # 3 ?Baby 1 ?Outcome Date:??04/20/2017?Outcome or Result:??Vaginal ?Gest Age:??40 weeks ? Outcome:??Live ? Sex:??Female?Wt:?3930 g ?Maternal Complications:??Pre-eclampsia ?Hospital:??[facility] ?Comment:??BLood transfusion Labs Labs Labs & Tests Antibody Screen: Negative (10/31/23) Blood Type: A Positive (10/31/23) Chlamydia Trachomatis Amplified Probe: NEGATIVE (07/30/23) Creatinine-Blood: 0.6 mg/dL (04/24/23) Down Syndrome Age Risk FTS: Age Risk: (05/02/23) Down Syndrome Scrn Risk FTS: Screening Risk: (05/02/23) Glucose 50 Gm, +60 Minutes: 104 mg/dL (08/21/23) Hct:??30.8 %??Low (10/31/23) Hepatitis B Surface Antigen: NEGATIVE (04/24/23) Hepatitis C Ab: NEGATIVE (04/24/23) Hgb:??9.6 Gm/dL??Low (10/31/23) HIV 4th Generation Ab-Ag Result: NEGATIVE (04/24/23) RPR Titer Result: NOT INDICATED (08/21/23) Rubella IgG Ab: POSITIVE (04/24/23) Syphilis Screen by [facility]: NEGATIVE (08/21/23) Trisomy 18 Scrn Risk FTS: Screening Risk: (05/02/23) Urine Culture: Urine Culture (10/12/23) Varicella IgG Ab: NEGATIVE (04/24/23) Problem List Active Active Problem List Asthma, mild intermittent: (Medical) Brain aneurysm: (Medical) Hx of preeclampsia, prior , currently : (Medical) Hypothyroidism in : (Medical) Migraine: (Medical) Nausea and vomiting during : (Medical) Obesity in : (Medical) Obstructive sleep apnea: (Medical) PCOS - Polycystic ovarian syndrome: (Medical) : (Obstetric) (02/04/23) : (Medical) Procedure/Surgical History Colonoscopy: 07/01/21 Brain aneurysm: 07/29/19 Tonsillectomy and adenoidectomy: 1992 Hernia repair: 1991 Carotid artery Insertion of IUD Eye excision Shoulder incision Home Medications Albuterol: 180 mcg = 2 puffs, Inhalation, Every 4 hours, PRN (Wheezing/Shortness of Breath) Aspirin: 162 mg = 2 tablet, By Mouth, Daily Durable Medical Equipment: See Instructions, Abdominal Band for Levothyroxine: 25 mcg = 1 tablet, By Mouth, Daily Magnesium Oxide: 400 mg = 1 tablet, By Mouth, Daily Multivitamin, : 1 tablet, By Mouth, Daily Allergies Latex??(Rash) Lobster??(Anaphylaxis, Dust allergy, Dogs, Allergy to cats) Pineapple??(Anaphylaxis) ibuprofen??(throat swelling, body rash) shellfish??(Anaphylaxis) Social History Alcohol Other: Not with . Electronic Cigarette/Vaping Electronic Cigarette Use: Never. 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 Exercise Self assessment: Good condition. Regular exercise: Yes. Exercise type: Walking. Home/Environment Living situation: Home/Independent. Lives with: Children. Nutrition/Health Caffeine intake amount: 1 cup/day. Sexual Sexually involved in last 6 months: Yes. Gender identity: Identifies as female. Self described orientation: Straight or heterosexual. Substance Abuse Use: Never. Tobacco Never smoker, Tobacco user in household: No. Family History Mother: Asthma; Hypertension; Migraine; Thyroid disease Brother: Blood clot; Hypertension; Von Willebrand disease ?01-JUL-2016 21:52:25<$> Brother: Asthma; Kidney disease ?24-JAN-2015 22:16:31<$> Sister: Cancer of ovary; Hypertension; Sickle cell trait ? 02-JUL-2016 04:31:52<$> Mat. Grandmother: Diabetes mellitus Plan No Data Found * Rush RICHEY [OB], Neha R: PERFORM Event Display: History and Physical Hospital Authored Date: ?Attending Attestation:??I have seen and evaluated this patient. ??I have discussed the caseand its management with the resident and agree with the findings and plan as documented above in the resident???s note. ? Hospital Progress note * Isadora Adler RN: PERFORM, SIGN, VERIFY Event Display: Progress Note Hospital Authored Date: Patient: CHRYSTAL TRIVEDI Age: 33 years Sex: Female : 1990 Associated Diagnoses: None Author: Vitor LIZAMA, Isadora assumed care pt awake sitting in bed holding plan for today discussed self care reviewed infant care feeding and safety including safe sleep supplies for home given pt assessment and vs performed notified ob and pedi would be in pt aware of discharge plan encouraged to call for follow up appt for in 1-2 days call veloz at bedside po fluids given has ordered breakfast * Sylvia Bo MD: PERFORM Event Display: Progress Note Hospital Authored Date: [id number] Patient: ??CHRYSTAL TRIVEDI ? Age:??33 Years?Sex:??Female?:??1990?? Subjective Patient is feeling well with no acute concerns. States her pain is well controlled with PO pain medications. Her lochia is??like a normal period. She is ambulating, voiding spontaneously, and tolerating regular diet. Denies fever, chills, chest pain, shortness of breath,??persistent headache, vision changes, RUQ pain, calf tenderness, nausea, vomiting, or other??acute concerns.?? Review of Systems as per HPI Physical Exam Vitals & Measurements T:??97.9?F?? HR:??73??(Peripheral)?? RR:??18?? BP:??122/71?? SpO2:??100%?? HT:??165??cm?? WT:??97.6??kg?? BMI:??35.85?? Constitutional:??No acute distress, resting comfortably. Respiratory:??Comfortable work of breathing on room air Cardiovascular:??No signs of fluid overload, skin warm and well perfused? Abdomen/GI:??Soft, non-distended, no guarding, no rebound tenderness.??Fundus firm at??umbilicus with mild tenderness. Gynecologic:??Scant??lochia. No swelling or hematoma. Extremities:??No calf tenderness or edema. Skin:??No rash or jaundice. Neurological/Psychiatric:??Mood and affect congruent and stable. Assessment/Plan Assessment:??Chrystal??is a 33 yo at 39+0 admitted for IOL for bilateral brain aneurysms. Shehad a of a male on 11/05 over an intact perineum. She received a postplacental IUD. ?? Asthma, mild intermittent (J45.20):??Hasn't used inhaler in 3 months. Avoid hemabate. ?? Brain aneurysm (I67.1):? 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 Subsequently had diverter stenosis and angioplasty 10/2020. 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 Right ICA flow diverter with mild to moderate stenosis. Note: the left ICA aneurysm was alsoseen in 2019, stable since that time - Dr Travon Morgan (neurosurgery), last visit 04/29/22 at [facility]. Was supposed to go recently (gets yearly imaging) but he cancelled the imaging due to . ?? Hx of preeclampsia, prior , currently (O09.299):? Normotensive this , on babyscripts ?? Hypothyroidism in (O99.280):? 04/04: TSH high, T4 normal, started on Levothyroxine - Levothyroxine 25mcg daily; compliant - TSH, reflex T4 in each trimester (x) 1st tri: TSH wnl at NOB (x) 2nd tri: TSH wnl (x) 3rd tri: TSH 3.04 wnl ?? Migraine (G43.909):? - Follows with Neurology at [facility] - Receives Botox injections for migraine prevention - discussed at [facility] visit Botox can be continuedsafely if needed - Continue follow-up w/ neurology ?? Obstructive sleep apnea (G47.33):??CPAP ordered ?? state (Z39.2):? Continue routine care ?? Pain Management: continue Ibuprofen & Tylenol, ice packs on perineum ?? Lacerations/repairs: intact ?? Infant feeding:??both ?? Contraception: ppIUD placed at delivery ?? Circumcision:??Yes Plan for discharge: anticipate PPD2 ?? Follow up at [facility] in 6 weeks ?? Abnormal ultrasound (R93.89):? - At anatomy scan - Bilateral renal urinary dilation in the renal??pelvis (x) U/S at 32 weeks - persistent bilateral renal dilation (x) Pedi surg consult requested: Renal bladder ultrasound after 1 week of life, see note for additional recommendations ?? Obesity in (O99.210):? - BMI 31 at NOB - Patient could not tolerate??early 1hr GTT due to N/V (x) Fasting POC and early 1hr GTT in June normal (x) 28 week GTT; wnl (x) 32 week growth scan: EFW 14th %tile ?? OB Summary : 4 . Baby A - Weight: 3.033 kg Baby A - Date, Time of : 11/05/23 08:50:00 Baby A - Gender: Male Baby A - Complications: None EGA at Documented Date, Time: 39W 1D Weight at Delivery Baby A - Delivery Type: Vaginal Delivery Complications: None OB History History?(1,0,2,1)? # 1 ?Baby 1 ?Outcome Date:??11/2015 ?Outcome or Result:??Spontaneous ?Gest Age:??-- ? Outcome:? Sex:??-- ?? # 2 ?Baby 1 ?Outcome Date:??05/2016 ?Outcome or Result:??Spontaneous ?Gest Age:??-- ? Outcome:? Sex:??-- ?? # 3 ?Baby 1 ?Outcome Date:??04/20/2017?Outcome or Result:??Vaginal ?Gest Age:??40 weeks ? Outcome:??Live ? Sex:??Female?Wt:?3930 g ?Maternal Complications:??Pre-eclampsia ?Hospital:??[facility] ?Comment:??BLood transfusion Active Problem List Active Problem List Asthma, mild intermittent: (Medical) Brain aneurysm: (Medical) Hx of preeclampsia, prior , currently : (Medical) Hypothyroidism in : (Medical) Migraine: (Medical) Nausea and vomiting during : (Medical) Obesity in : (Medical) Obstructive sleep apnea: (Medical) PCOS - Polycystic ovarian syndrome: (Medical) : (Obstetric) (02/04/23) : (Medical) Home Medications Albuterol: 180 mcg = 2 puffs, Inhalation, Every 4 hours, PRN (Wheezing/Shortness of Breath) Aspirin: 162 mg = 2 tablet, By Mouth, Daily Durable Medical Equipment: See Instructions, Abdominal Band for Levothyroxine: 25 mcg = 1 tablet, By Mouth, Daily Magnesium Oxide: 400 mg = 1 tablet, By Mouth, Daily Multivitamin, : 1 tablet, By Mouth, Daily Medications Medications (6) Active SCHEDULED: (1) Levothyroxine 25 mcg Tablet (levothyroxine 0.025 mg oral tablet) ??25 mcg, By Mouth, Daily CONTINUOUS: (0) PRN: (5) Acetaminophen 325 mg Tablet (Acetaminophen Tablet) ??650 mg, By Mouth, Every 4 hours Albuterol 90mcg/Inhalation Inhaler HFA (albuterol CFC free 90 mcg/inh inhalation aerosol) ??180 mcg2 puffs, Inhalation, Every 4 hours Calcium Carbonate 500 mg (Calcium 200 mg) Chewable Tablet (Tums 500 mg Tablet) ??1,000 mg 2 tablet,Chew, 3 times a day Docusate Sodium 100 mg Capsule (Docusate Sodium Capsule) ??100 mg 1 capsule, By Mouth, 2 times a day Ondansetron 2mg/mL Inj (2mL Vial) (Ondansetron Inj) ??4 mg, IV Push, Every 8 hours * Naila Martinez RN: PERFORM, SIGN, VERIFY Event Display: Progress Note Hospital Authored Date: [id number] Patient: CHRYSTAL TRIVEDI Age: 33 years Sex: Female : 1990 Associated Diagnoses: None Author: Naila Martinez RN Findings Narrative/Incidental Pt out of bed ad richard ambulating in room frequently. Taking in food and fluids well without nausea as well as passing flatus and voiding without difficulty. Pt states pain is well controlled on current medication regime. Scant rubera flow with no clots noted. Involution process occurring. +Bonding with infant. VSS. Obstretrically stable. Frequent rounding in place. Call veloz in reach. . Discharge Information Case Management Discharge Plan : Case Management Discharge Plan Data 11/01/2023 18:15 EST Discharge Level of Care at Discharge Home/Penitentiary/[facility] Pulmonary Rehab Discharge : Pulmonary Rehab Discharge Status 11/04/2023 23:00 EST CPAP/BiPAP Mask Type Full CPAP/BiPAP Mask Size Large Note * Shena Melvin: PERFORM Event Display: Care Team Progress Note Authored Date: [id number] Patient: ??CHRYSTAL TRIVEDI ? Age:??33 Years?Sex:??Female?:??1990?? Subjective Mother. Mom rep baby fdg well. Offering formula between . Feeding up to??30-35 mlformula.??Mom's goal is to continue combo fdg. Feels confident with BFing. Exp BF 1st child for 3 yrs. Assessment/Plan Mom was at time of visit.?? Reviewed feeding frequency and duration to build and protect milk supply. Disc. benefits to paced btl fdg and recommended amounts of fmla per feed. All questions answered. Mom??going home today. No further concerns. ?? Provided mom with outpatient services information. ? OB Summary : 4 . Baby A - Weight: 3.033 kg Baby A - Date, Time of : 11/05/23 08:50:00 Baby A - Gender: Male Baby A - Complications: None EGA at Documented Date, Time: 39W 1D Weight at Delivery Baby A - Delivery Type: Vaginal Delivery Complications: None OB History History?(1,0,2,1)? # 1 ?Baby 1 ?Outcome Date:??11/2015 ?Outcome or Result:??Spontaneous ?Gest Age:??-- ? Outcome:? Sex:??-- ?? # 2 ?Baby 1 ?Outcome Date:??05/2016 ?Outcome or Result:??Spontaneous ?Gest Age:??-- ? Outcome:? Sex:??-- ?? # 3 ?Baby 1 ?Outcome Date:??04/20/2017?Outcome or Result:??Vaginal ?Gest Age:??40 weeks ? Outcome:??Live ? Sex:??Female?Wt:?3930 g ?Maternal Complications:??Pre-eclampsia ?Hospital:??[facility] ?Comment:??BLood transfusion Active Problem List Active Problem List Asthma, mild intermittent: (Medical) Brain aneurysm: (Medical) Hx of preeclampsia, prior , currently : (Medical) Hypothyroidism in : (Medical) Migraine: (Medical) Nausea and vomiting during : (Medical) Obesity in : (Medical) Obstructive sleep apnea: (Medical) PCOS - Polycystic ovarian syndrome: (Medical) : (Obstetric) (02/04/23) : (Medical) Home Medications Acetaminophen: 975 mg = 3 tablet, By Mouth, Every 6 hours, PRN (Pain , Moderate) Albuterol: 180 mcg = 2 puffs, Inhalation, Every 4 hours, PRN (Wheezing/Shortness of Breath) Aspirin: 162 mg = 2 tablet, By Mouth, Daily Levothyroxine: 25 mcg = 1 tablet, By Mouth, Daily Magnesium Oxide: 400 mg = 1 tablet, By Mouth, Daily Multivitamin, : 1 tablet, By Mouth, Daily Polyethylene Glycol 3350: 17 Gm, By Mouth, Daily, dissolve in water before taking Medications Medications (7) Active SCHEDULED: (2) Aspirin 81 mg Chew Tablet (aspirin 81 mg oral tablet, chewable) ??81 mg, By Mouth, Daily Levothyroxine 25 mcg Tablet (levothyroxine 0.025 mg oral tablet) ??25 mcg, By Mouth, Daily CONTINUOUS: (0) PRN: (5) Acetaminophen 325 mg Tablet (Acetaminophen Tablet) ??650 mg, By Mouth, Every 4 hours Albuterol 90mcg/Inhalation Inhaler HFA (albuterol CFC free 90 mcg/inh inhalation aerosol) ??180 mcg2 puffs, Inhalation, Every 4 hours Calcium Carbonate 500 mg (Calcium 200 mg) Chewable Tablet (Tums 500 mg Tablet) ??1,000 mg 2 tablet,Chew, 3 times a day Docusate Sodium 100 mg Capsule (Docusate Sodium Capsule) ??100 mg 1 capsule, By Mouth, 2 times a day Ondansetron 2mg/mL Inj (2mL Vial) (Ondansetron Inj) ??4 mg, IV Push, Every 8 hours * Arceri Kanika LIZAMA: PERFORM Event Display: Discharge/Transfer Note Hospital Authored Date: [id number] Nursing Discharge Note Entered On: 11/07/2023 12:07 EST Performed On: 11/07/2023 12:05 EST by Kanika Warren RN Nursing Discharge Note 2 Discharge Time : 11/07/2023 12:05 EST Discharge Level of Care at Discharge : Home/Penitentiary/Foster Care Patient Left Unit Via : Ambulatory Patient Accompanied Off Unit with : Responsible adult DC Instructions Provided & Signed by Pt : Yes Patient Understands D/C Instructions : Yes Patient Instructions Discharge Signed : Yes Did Pt have Specialty Bed or Wound Vac : No Kanika Warren RN - 11/07/2023 12:06 EST * Sylvia Bo MD: PERFORM Event Display: Discharge/Transfer Note Hospital Authored Date: [id number] Patient: ??CHRYSTAL TRIVEDI ? Age:??33 Years?Sex:??Female?:??1990?? Admit Date Admission Date: 11/04/2023 Discharge Date 11/07/2023 OB Reason for Admission OB Reason for Admission Reason for admission: Induction of labor Reason for Induction: Other: bilateral cerebral aneurysms [facility] Course Chrystal??is a 33 yo at 39+0 admitted for IOL for bilateral brain aneurysms. This has been complicated by bilateral renal dilation. The patient has a history??of hypothyroidism on levothyroxine, mild intermittent asthma, and migraines. She is allergic to latex and ibuprofen (stomachupset and itching).?? of??male ??11/05??with intact perineum??and IUD insertion. Lower extremity swelling noted but stable without concern for DVT or pre-e. Remaining course uncomplicated.? Patient is feeling well with no acute concerns. States her pain is well controlled with PO pain medications. Her lochia is??like a normal period. She is ambulating, voiding spontaneously, and tolerating regular diet. Denies fever, chills, chest pain, shortness of breath,??persistent headache, vision changes, RUQ pain, calf tenderness, nausea, vomiting, or other??acute concerns.??Mood is??appropriate and she is bonding well with her baby. Patient??reports that she has a??good support system at home. ?? Discussed warning signs such as fever/increased bleeding/unmanageable pain, signs of pre-eclampsia (unresolving KUMAR, vision changes, RUQ pain, extremity swelling), and signs of post- depression (inability to care for self/baby, not finding enjoyment in usual activities, depressed mood). Encouraged patient to call clinic with any concerning symptoms.?? Objective/Physical Exam on Day of Discharge Vitals & Measurements T:??98.8?F?? HR:??75??(Peripheral)?? RR:??18?? BP:??115/57?? SpO2:??96%?? HT:??165??cm?? WT:??97.6??kg?? BMI:??35.85?? Constitutional:??No acute distress, resting comfortably. Respiratory:??Comfortable work of breathing on room air Cardiovascular:??No signs of fluid overload, skin warm and well perfused? Abdomen/GI:??Soft, non-distended, no guarding, no rebound tenderness.??Fundus firm at??umbilicus with mild tenderness. Gynecologic:??Scant??lochia. No swelling or hematoma. Extremities:??No calf tenderness or edema. Skin:??No rash or jaundice. Neurological/Psychiatric:??Mood and affect congruent and stable. Assessment/Plan/Discharge Diagnosis Assessment:??Chrystal??is a 33 yo at 39+0 admitted for IOL for bilateral brain aneurysms. Shehad a of a male on 11/05 over an intact perineum. She received a postplacental IUD. She is meeting milestones and appropriate for discharge home. ?? Asthma, mild intermittent (J45.20):??Continue albuterol prn ?? Brain aneurysm (I67.1):? 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 Subsequently had diverter stenosis and angioplasty 10/2020. 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 Right ICA flow diverter with mild to moderate stenosis. Note: the left ICA aneurysm was alsoseen in 2019, stable since that time - Dr Travon Morgan (neurosurgery), last visit 04/29/22 at [facility]. Was supposed to go recently (gets yearly imaging) but he cancelled the imaging due to . - Continue ASA 81 mg ?? Hx of preeclampsia, prior , currently (O09.299):? Normotensive this , on babyscripts DC on babyscripts w/ 3 day BP check ?? Hypothyroidism in (O99.280):? 04/04: TSH high, T4 normal, started on Levothyroxine - Levothyroxine 25mcg daily; compliant - TSH, reflex T4 in each trimester (x) 1st tri: TSH wnl at NOB (x) 2nd tri: TSH wnl (x) 3rd tri: TSH 3.04 wnl ?? Migraine (G43.909):? - Follows with Neurology at [facility] - Receives Botox injections for migraine prevention - discussed at [facility] visit Botox can be continuedsafely if needed - Continue follow-up w/ neurology ?? Obstructive sleep apnea (G47.33):??CPAP ordered ?? state (Z39.2):? Continue routine care Pain Management: continue Ibuprofen & Tylenol, ice packs on perineum Lacerations/repairs: intact feeding:??both Contraception: ppIUD placed at delivery Circumcision:??Deferred to pediatric surgery given family history of von Willebrand disease Plan for discharge: anticipate PPD2 Follow up at [facility] in 6 weeks ?? Abnormal ultrasound (R93.89):? - At anatomy scan - Bilateral renal urinary dilation in the renal??pelvis (x) U/S at 32 weeks - persistent bilateral renal dilation (x) Pedi surg consult requested: Renal bladder ultrasound after 1 week of life, see note for additional recommendations not circumcised during admission due to family history of von Willebrand disease. Will defer timing of vWD testing and circumcision to pediatric surgery. Patient had plan for follow-up after renal bladder ultrasound. ?? Obesity in (O99.210):? - BMI 31 at NOB - Patient could not tolerate??early 1hr GTT due to N/V (x) Fasting POC and early 1hr GTT in June normal (x) 28 week GTT; wnl (x) 32 week growth scan: EFW 14th %tile ?? Patient was seen by and plan of care discussed with Steven Reina,??CNM Sylvia Bo, PGY1 Care: monitoring for hypertension Future Appointments Monday 2:20 PM EDT ?? With: Lise RICHEY, Aniya Where: [facility] - Primary [employer] Education Teacher [address] [place] [address]- Status: Pending Delivery Summary Delivery Summary Maternal Information ??Labor Information ?Baby A ?Labor Onset Methods: ??Induced ?Induction Methods: ??Amniotomy, Pitocin ??Delivery Information ?Gestational Age at Delivery: ??39W 1D ?Anesthesia OB: ??Epidural ??11/05/23 11:39:38, Epidural ??11/05/23 06:16:00 ?Obstetrical Laceration: ??Perineum intact ?Delivery Complications: ??None ?Blood Loss(ml): ??300 mL ? Baby A ??Delivery Information ?Delivery Type: ??Vaginal ?Date, Time of : ??11/05/23 08:50:00 ? Position: ??Semi-De Leon ?Foot of bed removed: ??No ?Delayed Cord Clamping: ??Yes ?Placenta Delivery Date/Time: ??11/05/23 08:55:00 ?Placenta Delivery Method: ??Assisted ?Placenta Appearance: ??Normal ?Placenta to Pathology: ??No ??Care Team ?Attending Provider: ??Jevon Burns MD ?Delivery Physician: ??Flakita Strickland MD ?Stone Cleaner Provider #1: ??Bhanu Cano DO ?plant hr manager #1: ??Sierra RN, Angelic ?plant hr manager #2: ??Jules RN, Lillie ?Manager Video: ??Perfecto Fuller DO ?Anesthesiology Attending: ??Wolf Arias DO ??Labor Information ?ROM Date, Time: ??11/05/23 07:38:00 ?ROM to Delivery Total Time: ??72 min ?3rd Stage, Length of Labor: ??5 min ? monitoring: ??External monitor ?? Information ? Outcome: ??Live ? Weight: ??3.033 kg ? Score 1 minute: ??8 ? Score 5 minute: ??9 ? Score 10 minute: ??9 ?Transferred To: ?? Care area with Family ?Umbilical Cord Description: ??3 vessel cord ? Complications: ??None ?Gender: ??Male ? Procedures Performed Vaginal delivery IUD insertion ?? Discharge Medications ???Acetaminophen (acetaminophen 325 mg oral tablet)???Albuterol (albuterol CFC free 90 mcg/inh inhalation aerosol)???Aspirin (aspirin 81 mg oral tablet)???Levothyroxine (levothyroxine 0.025 mg oral tablet)???Magnesium Oxide (magnesium oxide 400 mg oral tablet)???Multivitamin, ( Mult ivitamins with Folic Acid 1 mg oral tablet)???Polyethylene Glycol 3350 (MiraLax oral powder for reconstitution) Stop taking these medications ???Durable Medical Equipment ( Cradle) Immunizations during Hospitalization Vaccine Date Status tetanus/diphtheria/pertussis, acel(Tdap) 08/18/2023 Given SARS-CoV-2 mRNA (aavsfod-emdp-byjgu) vax 10/17/2021 Recorded SARS-CoV-2 mRNA (iejzoeq-qzhl-ksfyt) vax 12/25/2020 Recorded SARS-CoV-2 mRNA (tgocwsy-chtj-kqmls) vax 12/04/2020 Recorded tetanus/diphtheria/pertussis, acel(Tdap) 01/25/2017 Given pneumococcal 23-valent vaccine 03/31/2016 Given Varicella Virus Vaccine 08/14/2013 Recorded Contraception Post placental IUD ? Feeding Method [place] Feeding Method: (11/05/23 15:17:00) * Poppy Reina CNM: PERFORM Event Display: Discharge/Transfer Note Hospital Authored Date: [id number] This note was completed??by PGY1 Dr Bo, ??I personally performed all components of the visitincluding a chart review, the HPI, ROS, examination, and medical decision making. The note has beenverified for accuracy and I agree as written above.?? Pt continues to deny headaches and states shehas a follow up with her neurologist w/ imaging in November.?? Danger signs reviewed. Follow up in theoffice on December 17 and with neuro in November, sooner with any headaches. ?? * Kelvin LIZAMA, Kanika: PERFORM Event Display: Patient Education/Instruction Authored Date: [id number] Inpatient Adult Discharge Instructions. [place] [id number] Name: CHRYSTAL TRIVEDI : 1990?? Visit: 11/04/2023 16:11?? Current Date: 11/07/2023 10:47 ?? Account: [id number]?? Inpatient Adult Discharge Instructions We would like to thank you for allowing us to assist you with your healthcare needs. The following includes patient education materials and information regarding your injury/illness. Our entire staffstrives to provide an excellent experience for our patients and their families. PLEASE ENSURE YOU FOLLOW-UP PER THE INSTRUCTIONS BELOW! ?? YOUR OPINION IS IMPORTANT TO US! Please complete the survey you may receive by mail or email. Your feedback will be used to make improvements to the healthcare experiences of our patients and their families. Surveys are administered by [employer] ?? If further treatment with your primary care physician or another doctor is recommended, it is important for you to keep the appointment. Call your primary care physician or return to the Emergency Department immediately if your condition worsens, fails to improve, or new symptoms develop. If you need to find a doctor, you can call [facility] for a referral at [phone] or toll free at [phone]) or log in to [email or web address].. ?? [facility], in keeping with [facility] guidance, no longer requires face masks for staff, patientsor visitors in most situations. Similiar to time spent indoors at other locations, there is the chance that you were exposed to repiratory viruses during your time with us (such as flu or COVID-19). If you develop symptoms concerning for a viral respiratory infection, please seek testing (and treatment if indicated) from your medical provider or home test kit. ?? You can view and manage your care through the patient portal or by using a health care ambrocio of your choosing. [employer] is a website that allows you to securely view your medical information including your hospital discharge summary, office visit summaries, medications and follow-up visits. You can also request appointments, renew medications, and request access to your medical information using a health care ambrocio of your choosing, or just ask a question. You can enroll at [email or web address] or register during your next office visit. You have been discharged from [facility], Patient Care Unit: [facility]??. If you have any questions regarding these instructions, including results of studies pending, afteryou leave, please call us and we will be happy to assist you 10/04. [facility] Your Care Team Attending Physician Rush RICHEY [OB], Neha Munroe?? Consulting Providers Rush RICHEY [OB]Neha?? Discharging Providers Sylvia Bo MD Your Diagnosis Asthma, mild intermittent Brain aneurysm Hx of preeclampsia, prior , currently Hypothyroidism in Migraine Obstructive sleep apnea Encounter for induction of labor state Abnormal ultrasound Obesity in Tests Performed Below is a partial list of the tests performed during your hospitalization. You may have had other tests and procedures not included in this list. Please discuss all test results with your provider. CBC Type and Screen No tests performed during this visit.?? Primary Care Provider Gigi Grimm III, MD? Discharge Vitals Temperature: 98.7 DegF Height: 165 cm Pulse Rate: 75 bpm Weight: 97.6 kg Respiratory Rate: 18 br/min Body Mass Index:??35.85 kg/m2??Critical Systolic Blood Pressure: 115 mm Hg Body surface area: 2.12 Diastolic Blood Pressure: 63 mm Hg ?? Oxygen Saturation: 96 % ?? Studies Pending All studies ordered during this hospital stay have been completed unless listed below. Please discuss all pending results with your provider listed above in these instructions. ?? No incomplete studies found?? What to do next Instructions From Your Doctor ?? Orders? 11/07/23 10:34:00 EST?? Instructions from your Care Team Discharge Care Instructions for the New Mom?? Please take a few moments to read through these helpful instructions before you leave the hospital.??Your nurse will be glad to answer any questions you may have. ??You can also find this and more information throughout the purple??Becoming a Family??booklet,??[facility] New Beginnings Guide??and the?? Consultation Services Guide??given to you after the of your baby. ??You may also phone our nurses stations if you have further questions. ??[facility]: ??First Floor ([phone]), Second Floor ([phone]). ?? Please call your provider if you have any questions or concerns ??before your next appointment. For ongoing support??please?Like?us on our Facebook page?[facility] Beginnings?and sign up for our email newsletter at??[email or web address]. ??News and information will be sent to you??until your baby???s third birthday. Instructions for the New Mother Activity:?? For the next 2 weeks at home?no heavy lifting, avoid unnecessary stair climbing, and no driving (especially if you are taking medicine that may make you sleepy or feel that you are sleep deprived). ?? For the next 4-6 weeks - no tampons, no douches, no sexual intercourse. Use your hailey bottle to rinse your perineum until your vaginal flow stops. ??If you have stitches in your bottom, they generally dissolve within 7-10 days. ??Apply Tucks/witch miguel angel pads until your soreness subsides. ??Use your bathroom at home every 3 to 4 hours, rinse, and change your pads. Warm showers feel great on achy muscles, sore backs and sore bottoms. Exercise: Walking is the best form of exercise. ??Wait until your follow up appointment with your provider in4-6 weeks before engaging in more strenuous activity. Diet: Drink plenty of fluids to avoid constipation and to help support your recovery. Eat plenty of iron rich foods such as red meat, iron fortified cereals like Total and Cream of Wheat, raisins, prunes, greens and spinach. ??These will help to build your blood count back up as all women lose some blood after delivery. ??Also add foods rich in Vitamin C such as strawberries, oranges, papayas, kale and veloz peppers. Continue to take your vitamins if you are . ??If you are not follow the instructions of your provider. ??If you were prescribed iron supplements such as ferrous sulfate, it is important to continue these until your doctor or validation software facilitator tells you to stop. Breast Care for Nursing Mothers: Wear a comfortable fitting, supportive nursing bra. ??An underwire bra is not recommended. Express drops of breast milk and rub over your nipples and areola (brown area) before and after each feeding to protect and heal sensitive skin and then air dry your nipples. ??If you are experiencing any soreness, you may purchase nipple cream such as TenderCare or Lansinoh. ??Use it in the following manner: ??finish your feeding or pumping session, self-express colostrum onto your nipple and air dry, apply the nipple cream to the nipple and areola. ??Use only small amounts for best results. If you are having difficulty getting the baby to latch onto the breast due to swelling of the areola, try applying pressure with your fingers for a couple of minutes above and below your nipple and walk your fingers outward softening the area and pushing the swelling away. ??This technique is knownas reverse pressure softening. ??For demonstrations of this and other techniques such as the [place] Hand Expression technique, please refer to the resources section of the Consultation Services Guide that you received from services.?? When your milk first comes in, usually within 3 to 5 days after delivery, you may experience engorgement. ??Your breasts may become swollen and very tender. ??Cold compresses work great to help with discomfort and reduce swelling. It will get better in a couple of days. ??Continue to nurse your baby frequently. ?? Call [facility]???s Consultation Service at [phone], press 1 to schedule an outpatient appointment or press 3??and a telecommunications consultant will return your call that day or the next if you call after 3pm. Breast Care for Bottle Feeding Mothers: Engorgement may occur within the first week after delivery. ??Your breasts may become hard and verytender. ??A cool compress of cleaned raw green cabbage leaves applied to the breast and changed as leaves wilt has been proven helpful for many women. ??Ice packs or frozen bags of peas also work nicely to ease the discomfort. ??The soreness will only last a couple of days. Keep your back turned to the water while showering to decrease breast stimulation. Wear a snug fitting bra such as a sports bra. Control: Your doctor or validation software facilitator will discuss control methods with you [facility] or at your checkup. ??Be sure to let your provider know if you are . You had a Paragard IUD placed on . ??This control method is effective for 10 years. You had a Liletta placed on . ??This control method is effective for up to 5 years. You had a Nexplanon placed on . ??This control method is effective for up to 3 years. You received a Depo Provera injection on . ??This control method is effective as longas you repeat it every 3 months.?Schedule your next dose before . You have a prescription for control pills . ??It is important to take a pill everyday at around the same time of day for effective control protection. ?? Pain Management: Cramping after is common and increases in strength with each baby you have. ??If you experience painful cramps, and have no allergies to acetaminophen (Tylenol) or ibuprofen (Motrin), you may continue to take these medications as you did in the hospital. ??Ibuprofen is also helpful with back aches following epidurals, perineal pain following a vaginal delivery, and moderate incisional pain after a section or a tubal ligation. ?? If you experience gas distention, especially after surgery, you may take an over the counter medication called simethicone. ??Take these chewable tablets 4 times a day as needed and directed on the package. ??Keep moving. ??Walking or rocking in a chair, will help to move the gas along. ??Christopher tea made with heated christopher rosario (instead of water) and a tea bag, stirred to dissolve carbonation (bubbles) is a helpful drink to soothe a gassy stomach. Warning Signs of a Problem to Notify Your Doctor or Post Graduate Internship of: Heavy vaginal bleeding?which is??soaking a pad every hour??with bright red blood. Passing blood clots the size of an egg or larger. An incision that is not healing. A temperature greater than or equal to 100.4 especially if accompanied by any of the following symptoms?painful, frequent urination; extreme back or flank pain; lower belly pain with a foul smell to your vaginal flow; a red hard hot area on your breast. ?? Severe headache that does not go away after taking acetaminophen or ibuprofen. ?? A headache that changes your vision, including seeing spots or blurring. Right sided upper abdominal pain along the rib cage area. Pain in your legs that is warm and tender to the touch. depression signs may include?loss of interest in your baby, weepiness, difficulty focusing, weight loss with no appetite, exhaustion, feeling overwhelmed or anxious, feelings??of despair, or thoughts of harming yourself or your baby. ??These symptoms are important and should be discussed with your doctor or validation software facilitator. depression may develop over a period of time and needs prompt medical attention. ??Do not suffer in silence. ??In both the??Becoming a Family??booklet and the??[facility]??New Beginnings Guide??there is a screening tool used to identify women at risk, called the [place] Scale which you have taken in the office prior to delivery and again during your ho spital stay. ??Three to four weeks after your delivery, and before your check with your provider, take this test and share your results with your provider. ??Be sure to mention any score of 10 or more. ?? Many women, and even some partners, may experience the?baby blues?? . ??This is a state of feeling overwhelmed and weepy. ??Discomfort from childbirth, hormonal changes, exhaustion, changes to your body and lifestyle are a few of the things that contribute to the highs and lows new parents go through. ??Don???t be afraid to ask your partner or family and friends for some help at home so you can get some rest and a few minutes to yourself. ??The blues will quickly pass. Personal Safety: Every person has the right to feel safe at home and live free from physical or emotional harm. ??Ifyou have suffered mental or physical abuse at home, you are not alone. ??There is help. ??Please call HOTLINE or the [employer] [facility] Program at [phone]. Scheduled Follow-Up Appointments Monday 2:20 PM EDT ?? With: Aniya Lezama MD Where: [facility] - Primary Special Education Teacher [address] [place] [id number]- Status: Pending Discharge Medications CHRYSTAL TRIVEDI :1990 Visit Date:11/04/2023 Medications: Please continue your medications until treatment is completed or stopped by your provider. Medications not listed below should be discontinued. Discuss any questions related to medications with your provider. What How Much When Why Instructions Next Dose New Acetaminophen (acetaminophen 325 mg oral tablet) 3 tab(s) Oral Every 6 hours as needed for Pain , Moderate Asthma, mild intermittent Brain aneurysm Hx of preeclampsia, prior , currently Hypothyroidism in Migraine Obstructive sleep apnea Encounter for induction of labor state Pickup at [facility]/pharmacy #[id number] New Polyethylene Glycol 3350 (MiraLax oral powder for reconstitution) 17 gram Oral Daily Asthma, mild intermittent Brain aneurysm Hx of preeclampsia, prior , currently Hypothyroidism in Migraine Obstructive sleep apnea Encounter for induction of labor state dissolve in water before taking ?? Pickup at [facility]/pharmacy #[id number] Unchanged Albuterol (albuterol CFC free 90 mcg/ inh inhalation aerosol) 2 puff(s) Inhalation Every 4 hours as needed for Wheezing/Shortness of Breath Unchanged Aspirin (aspirin 81 mg oral tablet) 2 tab(s) Oral Daily Unchanged Levothyroxine (levothyroxine 0.025 mg oral tablet) 1 tab(s) Oral Daily Unchanged Magnesium Oxide (magnesium oxide 400 mg oral tablet) 1 tab(s) Oral Daily Duration: 7 Days Unchanged Multivitamin, ( Multivitamins with Folic Acid 1 mg oral tablet) 1 tab(s) Oral Daily Pharmacy Information [facility]/pharmacy #[id number]: [id number] [place] [phone] ?? What How Much When Comments Stop Taking Durable Medical Equipment ( Cradle) See instructions Abdominal Band for ?? Prescription Given During Visit Acetaminophen (acetaminophen 325 mg oral tablet) - 3 tablet = 975 mg, By Mouth, Every 6 hours, # 50tablet, 0 Refills, [facility] [facility]acy #[id number], [address] [place] [address] [phone]?? Polyethylene Glycol 3350 (MiraLax oral powder for reconstitution) - 17 Gm, By Mouth, Daily, # 255 Gm, 0 Refills, dissolve in water before taking, [facility]/pharmacy #[id number], [address] [place] [address] [id number]?? Laboratory Results Below is a partial list of the most recent Laboratory test results done prior to this discharge. You may have had other tests and procedures not included in this list. Please discuss all test resultswith your provider. CBC (11/04/2023) ???WBC - 9.1 k/mm3???RBC - 3.87 m/mm3???Hgb - 9.8 Gm/dL???Hct - 31.5 %???MCV - 81.4 femtoliters???MCH - 25.3 pg???MCHC - 31.1 g/dL???Platelet Count - 172 k/mm3???RDW-SD - 39.9 femtoliters???MPV - 11.5 femtoliters???Nucleated RBC (Automated) - 0.0 #/100 WBC'S???Abs. NRBC - 0.0 k/mm3 Type and Screen (11/04/2023) ???Blood Type - A Positive???Antibody Screen - Negative Allergies (NKA means No Known Allergies) Latex??(Rash) Lobster??(Anaphylaxis, Dust allergy, Dogs, Allergy to cats) Pineapple??(Anaphylaxis) ibuprofen??(throat swelling, body rash) shellfish??(Anaphylaxis) Problems Active Problems??(11) Asthma, mild intermittent?? Brain aneurysm?? Hx of preeclampsia, prior , currently ?? Hypothyroidism in ?? Migraine?? Nausea and vomiting during ?? Obesity in ?? Obstructive sleep apnea?? PCOS - Polycystic ovarian syndrome? Education Materials Below is the list of Educational Leaflet Providered with your Discharge Instructions. Valuables and Belongings I fully understand and agree that [facility] accepts no responsibility for all my personal property including clothing, toilet articles, radios, jewelry, dentures, hearing aids, rings, money, or any other property that is in my possession or is brought to me after admission. I understand certain valuables may be placed in a hospital safe for a short period of time. I understand that the hospital is not liable for loss or damage due to accident, fire, or other natural occurrence while said property is in the safe. I accept full responsibility for any personal property that I keep with me, and will not hold the hospital responsible in case of loss or disappearance. I acknowledge that i have been encouraged to send valuables and belongings home. ?? Review of Valuable and Belonging List: With patient Date for Pt to Sign Valuables/Belongings: 11/05/23 00:18:00 ?? Other Discharge Information ? Pulmonary Rehab Status?? Pulmonary Rehab Discharge Status?? CPAP/BiPAP Mask Type: Full CPAP/BiPAP Mask Size: Large Respiratory Rate: 18 br/min ? Common Emergency Awareness Tips IS IT A STROKE? Act FAST and Check for these signs: FACE Does the face look uneven? ARM Does one arm drift down? SPEECH Does their speech sound strange? TIME Call at any sign of stroke ?? Heart Attack Signs Chest discomfort: Most heart attacks involve discomfort in the center of the chest and lasts more than a few minutes, or goes away and comes back. It can feel like uncomfortable pressure, squeezing, fullness or pain. Discomfort in upper body: Symptoms can include pain or discomfort in one or both arms, back, neck, jaw or stomach. Shortness of breath: With or without discomfort. Other signs: Breaking out in a cold sweat, nausea, or lightheaded. Remember, MINUTES DO MATTER. If you experience any of these heart attack warning signs, call to get immediate medical attention! ?? Smoking can increase your chances of developing chronic health problems and can cause harmful effects to other family members in your house. If you smoke, you are strongly encouraged to quit. Please call [facility] at [phone] or [phone] ([phone]) or log in to [email or web address] for referrals to smoking cessation programs. ?? 295 Suicide & Crisis Lifeline is available 10/04 if you or someone you know needs to find a reason to keep living. By calling 864 you'll be connected to a skilled, trained counselor at a crisis center in your area. INPATIENT DISCHARGE INSTRUCTIONS SIGNATURE PAGE FAROOQMARYANNCHRYSTAL Location:[facility] Registration Date and Time:11/04/2023 16:11 EST Primary Care Physician: Alfa ROSADO MD, Gigi Hahn, Attending Physician: Rush RICHEY [OB], Neha Munroe, I CHRYSTAL TRIVEDI, have received the above patient education materials/instructions and have verbalized understanding. If ambulance or transport services are being used I further acknowledge being given a choice of service. ?? If you need to contact me, please call me at this number: . Patient/Box Maker Name: Patient/Box Maker Signature: Relationship to Patient: Witness Name/Signature: Date: * Shena Melvin: PERFORM Event Display: Care Team Progress Note Authored Date: Patient: ??CHRYSTAL TRIVEDI ? Age:??33 Years?Sex:??Female?:??1990?? Subjective . 27 hrs old. 2 wet diapers and 4 stools in last??24 hrs. Mom rep. BFing going well. Using mostly??football hold??while nursing.??Exp some soreness in nipples. Requested nipple cream. Hx of BFing first child for 3 yrs.??Goal is to breastfeed as long this time around. Rep??hx of??brain aneurysm.??Interested in pumping and possibly??supplementing with formula in the future.??Concerns about safety of contrast media used for scans while . Mom feels confident with . Decl. helping or observing feed. Mom needs help getting a pump for home. Assessment/Plan Disc. expectations and behavior. Enc. frequent feedings at the breast to promote lactogenesis. Disc. when to introduce pumping. Disc. safety and compatibility??of contrast media??with . Disc. nipple care.??Assisted mom with getting pump through insurance. ?? Basic education discussed with??motherincluding:? Positioning infant for optimal feeding Frequent breast stimulation for initiation and maintenance of milk supply Engorgement prevention and management Hand expression When to use a breast pump Consultation reference guide given to mother with contact information for services and ongoing support as needed.? Patient is aware she could still request visit while in hosp. Provided mom with outpatient servicess. ? OB Summary : 4 . Baby A - Weight: 3.033 kg Baby A - Date, Time of : 11/05/23 08:50:00 Baby A - Gender: Male Baby A - Complications: None EGA at Documented Date, Time: 39W 1D Weight at Delivery Baby A - Delivery Type: Vaginal Delivery Complications: None OB History History?(1,0,2,1)? # 1 ?Baby 1 ?Outcome Date:??11/2015 ?Outcome or Result:??Spontaneous ?Gest Age:??-- ? Outcome:? Sex:??-- ?? # 2 ?Baby 1 ?Outcome Date:??05/2016 ?Outcome or Result:??Spontaneous ?Gest Age:??-- ? Outcome:? Sex:??-- ?? # 3 ?Baby 1 ?Outcome Date:??04/20/2017?Outcome or Result:??Vaginal ?Gest Age:??40 weeks ? Outcome:??Live ? Sex:??Female?Wt:?3930 g ?Maternal Complications:??Pre-eclampsia ?Hospital:[facility] ?Comment:??[facility] Active Problem List Active Problem List Asthma, mild intermittent: (Medical) Brain aneurysm: (Medical) Hx of preeclampsia, prior , currently : (Medical) Hypothyroidism in : (Medical) Migraine: (Medical) Nausea and vomiting during : (Medical) Obesity in : (Medical) Obstructive sleep apnea: (Medical) PCOS - Polycystic ovarian syndrome: (Medical) : (Obstetric) (02/04/23) : (Medical) Home Medications Albuterol: 180 mcg = 2 puffs, Inhalation, Every 4 hours, PRN (Wheezing/Shortness of Breath) Aspirin: 162 mg = 2 tablet, By Mouth, Daily Durable Medical Equipment: See Instructions, Abdominal Band for Levothyroxine: 25 mcg = 1 tablet, By Mouth, Daily Magnesium Oxide: 400 mg = 1 tablet, By Mouth, Daily Multivitamin, : 1 tablet, By Mouth, Daily Medications Medications (6) Active SCHEDULED: (1) Levothyroxine 25 mcg Tablet (levothyroxine 0.025 mg oral tablet) ??25 mcg, By Mouth, Daily CONTINUOUS: (0) PRN: (5) Acetaminophen 325 mg Tablet (Acetaminophen Tablet) ??650 mg, By Mouth, Every 4 hours Albuterol 90mcg/Inhalation Inhaler HFA (albuterol CFC free 90 mcg/inh inhalation aerosol) ??180 mcg2 puffs, Inhalation, Every 4 hours Calcium Carbonate 500 mg (Calcium 200 mg) Chewable Tablet (Tums 500 mg Tablet) ??1,000 mg 2 tablet,Chew, 3 times a day Docusate Sodium 100 mg Capsule (Docusate Sodium Capsule) ??100 mg 1 capsule, By Mouth, 2 times a day Ondansetron 2mg/mL Inj (2mL Vial) (Ondansetron Inj) ??4 mg, IV Push, Every 8 hours Patient Care team information Care Team Personnel Name: Alfa ROSADO MD, Gigi Hahn Position: Reference Physician Member Role: PCP Address: Address: [address] [place] [address] - Name: Naila Martinez RN Position: S OB RN Member Role: Primary Care Nurse Name: Lo Vernon RN Position: S OB RN Member Role: Primary Care Nurse Name: Elena Cabrera RN Position: S HBO Wound Member Role: Primary Care Nurse Name: Naila Martinez RN Position: [facility] OB RN Name: Mae Norton RN Position: S OB RN Member Role: OB RN Care Team Related Persons Name: CHERELLE STINSON Address: home [address] Name: TOREY JIMENEZ Address: home [address] Name: TOREY JIMENEZ Address: home [address] Name: JAMIE JIMENEZ Address: home [address] [place] [address] Name: JAMIE JIMENEZ Address: home [address] [address] Name: TOREY QUESADA Address: home [address] [place] [address] Name: CHRYSTAL TRIVEDI Address: [id number] Address: home [address] [place] [address] Address: temporary 0 Name: JOCELYN SANTIAGO Address: home [address] [place] [address]
--- OUTSIDE RECORDS SUMMARY | 2024-04-17 12:22 | XMS_ITS | Continuity of Care Document ---
Author Organization [facility] Address [address] [place] [id number]- Care Team Providers Care French Translator Name Role Phone Alfa ROSADO MD, Gigi Hahn Primary Care Physician Encounter [facility] Date(s): 07/30/23 - 07/31/[address] [address] Discharge Disposition: A-D/C Home Attending Physician: Jevon Burns MD Admitting Physician: Jevon Burns MD Referring Physician: Jevon Burns MD Allergies, Adverse Reactions, Alerts Substance Reaction Severity Status ibuprofen throat swelling body rash Active Pineapple Anaphylaxis Active shellfish Anaphylaxis Active Latex Rash Active Lobster Anaphylaxis Dust allergy Dogs Allergy to cats Active Immunizations Given and Recorded Vaccine Date Status Refusal Reason SARS-CoV-2 mRNA (poiymcr-tqls-xaaot) vax 10/17/21 Recorded SARS-CoV-2 mRNA (jfdjecb-erci-aeems) vax 12/25/20 Recorded SARS-CoV-2 mRNA (yiefazn-gruy-zhgoz) vax 12/04/20 Recorded tetanus/diphtheria/pertussis, acel(Tdap) 01/25/17 Given [...] 11:43:00 EST, Inhaler, Route to Pharmacy Electronically, [id number], [id number], 160, cm, 10/11/19... Start Date: 10/11/19 Status: Ordered aspirin 81 mg oral tablet, chewable 162 mg, 2, tablet, Chew, Daily, # 180 tablet, Refills 3, Tot. Refills 3, Maintenance, 05/03/23 15:24:00 EDT, Route to Pharmacy Electronically, [facility] #[id number], Partial fill upon patient [...] Refills, Maintenance, 04/07/23 2:01:00 EDT, DIS Tablet, [id number], Partial fill upon patient request if the prescription is for a schedule II opioid d... Start Date: 04/07/23 Status: Ordered ondansetron 8 mg oral tablet, disintegrating 1 tablet = 8 mg, By Mouth, 2 times a day, # 12 tablet, 0 Refills, Maintenance, 04/29/23 7:48:00 EDT, DIS Tablet, [id number], Partial fill upon patient request if the prescription is for a schedule II opioid drug., 165, cm, 04/24/23 13:25:00 ED... Start Date: 04/29/23 Status: Ordered Multivitamins with Folic Acid 1 mg oral tablet 1 tablet, By Mouth, Daily, # 30 tablet, 11 Refills, Maintenance, 02/03/23 17:52:00 EDT, Tablet, [id number], Partial fill upon patient request if the prescription is for a schedule II opioid drug., 1 tablet By Mouth Daily, 163, cm, 02/03/23 16:... Start Date: 02/03/23 Status: Ordered promethazine 25 mg rectal suppository 1 supp = 25 mg, Rectally, Every 4 hours, PRN for nausea/vomiting, # 12 supp, 0 Refills, Maintenance, 04/25/23 11:26:00 EDT, Suppository, [facility]/pharmacy #[id number], Partial fill upon patient request if the prescription is for a schedule II opioid drug., 165,... Start Date: 04/25/23 Status: Ordered pyridoxine 25 mg oral tablet 1 tablet = 25 mg, By Mouth, 3 times a day, PRN Nausea & Vomiting, # 100 tablet, 8 Refills, Maintenance, 03/27/23 17:46:00 EDT, Tablet, [facility]/pharmacy #[id number], Partial fill upon patient request if theprescription is for a schedule II opioid drug., 163, cm... Start Date: 03/27/23 Status: Ordered Reglan 10 mg oral tablet 1 tablet = 10 mg, By Mouth, 3 times a day, PRN Nausea & Vomiting, # 28 tablet, 2 Refills, Maintenance, 03/30/23 19:35:00 EDT, [facility]/pharmacy #[id number], Partial fill upon patient request if the prescription is for a schedule II opioid drug., 163, cm, ... Start Date: 03/30/23 Status: Ordered Senna 8.6 mg oral tablet 1 or 2 tablets, By Mouth, Daily at bedtime, PRN, # 60 tablet, Refills 0, Tot. Refills 0, Maintenance, Constipation, 03/14/23 16:14:00 EDT, Route to Pharmacy Electronically, [id number] Tablet,Partial fill upon patient request if the prescripti... Start Date: 03/14/23 Status: Ordered Unisom 25 mg oral tablet 1 tablet = 25 mg, By Mouth, Daily at bedtime, PRN for sleep, # 32 tablet, 1 Refills, Maintenance, 07/21/23 15:16:00 EDT, Tablet, [id number], Partial fill upon patient request if the prescription is for a schedule II opioid drug., 165, cm, 110... Start Date: 07/21/23 Status: Ordered Problem List Condition Confirmation Course [...] Polycystic ovarian syndrome Confirmed Active Confirmed Active Results Orders for Microbiology Reports Name Date Urine Culture 07/30/23 Microbiology Reports TEST:Urine Culture STATUS:Auth (Verified) BODY SITE: SOURCE:URINE COLLECTED DATE/TIME:07/30/23 8:40 PM Urine Culture SPECIMEN DESCRIPTION : URINE CLEAN CATCH/MIDSTREAM SPECIAL REQUESTS : NONE CULTURE : <10,000 COL/ML REPORT STATUS : FINAL 07/31/2023 Radiology Reports * Exam Date Time Procedure Performing Provider Status 07/30/23 10:42 PM US Retroperitoneum Comp Jules Addison ey; Auth (Verified) Notes: (US Retroperitoneum Comp) Reason For Exam: Right flank pain;Pain RESULT: US Retroperitoneum Comp US Retroperitoneum Comp REASON: Pain; Right flank pain COMPARISON: None. FINDINGS: Right kidney: 12.7 cm in length. No hydronephrosis. Normal parenchymal thickness and echotexture. No stones. No suspicious mass. Left kidney: 12.2 cm in length. No hydronephrosis. Normal parenchymal thickness and echotexture. Nostones. No suspicious mass. Urinary bladder: Incompletely distended, but no evidence of stone, mass or debris. IMPRESSION: Normal kidneys and underdistended bladder. I have personally reviewed the images and I agree with this report. WSN: [id number] Ordering Physician: Suzanna Elmore Dictated By: Elly Sosa MD Dictated Date/Time: 07/30/23 11:15 p Reviewed By: Poppy Alatorre MD Signed By: Poppy Alatorre MD Signed Date/Time: 07/30/23 11:20 pm Transcribed By: CECIL Transcribed Date/Time: 07/30/23 10:54 pm Vital Signs Most recent to oldest [Reference Range]: 1 2 Weight 88.4 kg (07/30/23 8:10 PM) Oxygen Saturation [94-100 %] 100 % (07/30/23 8:10 PM) Pulse Rate [55-90 bpm] 74 bpm (07/30/23 8:10 PM) Blood Pressure [90-138/55-84 mm Hg] 106/ 52mm Hg (07/30/23 8:37 PM) 119/59mm Hg (07/30/23 8:10 PM) Respiratory Rate [16-30 br/min] 18 br/mi n (07/30/23 8:10 PM) Temperature [96.8-100.4 DegF] 98.3 DegF (07/30/23 8:10 PM) Mode of Delivery (Oxygen) Room air (07/30/23 8:10 PM) Blood pressure sites Arm, right (07/30/23 8:10 PM) Temperature Route Oral (07/30/23 8:10 PM) Dry Weight 88.4 kg (07/30/23 8:10 PM) Weight Obtained Via Standing scale (07/30/23 8:10 PM) Dry Weight Obtained Via Standing scale (07/30/23 8:10 PM) Social History Social History Type Response Smoking Status Never smoker; Tobacc o user in household: No entered on: 11/01/17 Sex Female Note * Mae Espinoza RN: PERFORM Event Display: Discharge/Transfer Note Hospital Authored Date: Nursing Discharge Note Entered On: 07/31/2023 0:26 EST Performed On: 07/31/2023 0:25 EST by Mae Espinoza RN Nursing Discharge Note 2 Discharge Time : 07/31/2023 0:25 EST Discharge Level of Care at Discharge : Home/Chcf/Foster Care Patient Left Unit Via : Ambulatory Patient Accompanied Off Unit with : Other: self DC Instructions Provided & Signed by Pt : Yes Patient Understands D/C Instructions : Yes Patient Instructions Discharge Signed : Yes Did Pt have Specialty Bed or Wound Vac : No Mae Espinoza RN - 07/31/2023 0:25 EST * Event Display: Discharge/Transfer Note Hospital Authored Date: * Mae Espinoza RN: PERFORM Event Display: Patient Education/Instruction Authored Date: Inpatient Adult Discharge Instructions [address] [id number] Name: JOSE TRIVEDI : 1990 Visit: 07/30/2023 20:07:00 Current Date: 07/30/2023 23:59 Account: [id number] Inpatient Adult Discharge Instructions We would like [...] and their families. Surveys are administered by [employer] ?? If further treatment with your primary care physician or another doctor is recommended, it is important for you to keep the appointment. Call your primary care physician or return to the Emergency Department immediately if your condition worsens, fails to improve, or new symptoms develop. If you need to find a doctor, you can call [facility] [employer] Link for a referral at [phone] or toll free at [phone] or log in to [email or web address].. ?? [facility], in keeping with [facility] guidance, no longer requires face masks for [...] a health care ambrocio of your choosing. [employer] is a website that allows you to securely view your medical information including your hospital discharge summary, office visit summaries, medications and follow-up visits. You can also request appointments, renew medications, and request access to your medical information using a health care ambrocio of your choosing, or just ask a question. You can enroll at [email or web address] or register during your next office visit. You have been discharged from [facility], Patient Care Unit: [id number]. If you have any questions regarding these instructions after you leave, please call us and we will be happy to assist you. [facility] Your Care Team Attending Physician Jevon Burns MD Tests Performed Below is a partial list of the tests performed during your hospitalization. You may have had other tests and procedures not included in this list. Please discuss all test results with your provider. Complete Urinalysis Retroperitoneum Comp US Primary Care Provider Gigi Grimm III, MD Advance Directive Health Care Proxy on File No Discharge Vitals Temperature: 98.3 DegF Weight: 88.4 kg Pulse Rate: 74 bpm ?? Respiratory Rate: 18 br/min ?? Systolic Blood Pressure: 106 mm Hg ?? Diastolic Blood Pressure:??52 mm Hg??Low ?? Oxygen Saturation: 100 % ?? Studies Pending All tests and labs ordered during this hospital stay have been completed unless listed below. Please discuss all pending results with your provider listed above in these instructions. ?? Chlamydia/N. Gonorrhoeae TMA (NAAT) Urine Culture What to do next Instructions From Your Doctor Discharge Orders Scheduled Follow-Up Appointments Monday 10:20 AM EST ?? With: Bhanu Cano DO Where: [facility] [address] [place] [id number]- Status: Pending Monday 11:40 AM EST ?? With: Bhanu Cano DO Where: [facility] [address] [place] [id number]- Status: Pending You Need to Schedule the Following Appointments Follow Up with??[facility] [phone] Discharge Medications JOSE TRIVEDI :1990 Visit Date:07/30/2023 Medications: Please continue your medications until treatment is completed or stopped by your provider. Medications not listed below should be discontinued. Discuss any questions related to medications with your provider. What How Much When Instructions Next Dose Unchanged Acetaminophen/ Butalbital/ Caffeine (acetaminophen/ butalbital/ caffeine 325 mg-50 mg-40 mg oral tablet) 1 tab(s) Oral Every 4 hours as needed for for headache Unchanged Albuterol (albuterol CFC free 90 mcg/ inh inhalation aerosol) 2 puff(s) Inhalation Every 4 hours as needed for Wheezing/Shortness of Breath Unchanged Aspirin (aspirin 81 mg oral tablet, chewable) 2 tab(s) Chew Daily Duration: 90 Days Unchanged Doxylamine (Unisom 25 mg oral tablet) 1 tab(s) Oral Daily at Bedtime as needed for for sleep Unchanged Levothyroxine (levothyroxine 0.025 mg oral tablet) 1 tab(s) Oral Daily Unchanged Metoclopramide (Reglan 10 mg oral tablet) 1 tab(s) Oral 3 times a day as needed for Nausea & Vomiting Unchanged Multivitamin, ( Multivitamins with Folic Acid 1 mg oral tablet) 1 tab(s) Oral Daily Unchanged Ondansetron (ondansetron 4 mg oral tablet, disintegrating) 1 tab(s) Oral Every 8 hours as needed for as needed for nausea/vomiting Unchanged Ondansetron (ondansetron 8 mg oral tablet, disintegrating) 1 tab(s) Oral Twice a day Unchanged Promethazine (promethazine 25 mg rectal suppository) 1 suppository(ies) Per rectum Every 4 hours as needed for for nausea/vomiting Unchanged Pyridoxine (pyridoxine 25 mg oral tablet) 1 tab(s) Oral 3 times a day as needed for Nausea & Vomiting Unchanged Senna (Senna 8.6 mg oral tablet) 1 or 2 tablets Oral Daily at Bedtime as needed for Constipation Test Results Below is a partial list of the most recent Laboratory test results done prior to this discharge. You may have had other tests and procedures not included in this list. Please discuss all test resultswith your provider. Complete Urinalysis (07/30/2023) ???Appear/Color, Urine - LIGHT YELLOW???Specific Anderson, Urine - 1.014???pH, Urine - 6.5???Albumin, Urine - NEGATIVE???Glucose, Urine - NEGATIVE???Ketones, Urine - NEGATIVE???Bilirubin, Urine - NEGATIVE???Hemoglobin, Urine - TRACE???Nitrite, Urine - NEGATIVE???Leukocyte, Urine - NEGATIVE???Urobilinogen - NORMAL???WBC's, Urine - NONE SEEN???RBC's, Urine - 4 /HPF???Squamous Epith - 1 /HPF???Mucus - SLIGHT Allergies (NKA means No Known Allergies) Latex??(Rash) Lobster??(Anaphylaxis, Dust allergy, Dogs, Allergy to cats) Pineapple??(Anaphylaxis) ibuprofen??(throat swelling, body rash) shellfish??(Anaphylaxis) Problems Active Problems??(13) Asthma, mild intermittent?? Brain aneurysm?? History of blood transfusion?? Hx of preeclampsia, prior , currently ?? Hypothyroidism in ?? Migraine?? Nausea and vomiting during ?? Obese class I?? Obesity in ?? Obstructive sleep apnea?? PCOS - Polycystic ovarian syndrome? Education Materials Below is the list of Educational Leaflet Providered with your Discharge Instructions. Kidney Stone with Pain?? Comfort Tips During ?? Adapting to : Second Trimester?? Valuables and Belongings I fully understand and agree that [facility] accepts no responsibility for all my [...] encouraged to send valuables and belongings home. ? Other Discharge Information ? Pulmonary Rehab Status?? Pulmonary Rehab Discharge Status?? Respiratory Rate: 18 br/min ? Common Emergency [...] are strongly encouraged to quit. Please call [facility] [employer] Link at [phone] or [phone] or log in to [email or web address] for referrals to smoking cessation programs. ?? 909 Suicide & Crisis Lifeline is available 10/04 if you or someone you know needs to find a reason to keep living. By calling 204 you'll be connected to a skilled, trained counselor at a crisis center in your area. INPATIENT DISCHARGE INSTRUCTIONS SIGNATURE PAGE JOSE TRIVEDI Location:[facility] Registration Date and Time:07/30/2023 20:07 EST Primary Care Physician: Alfa ROSADO MD, Gigi Hahn, Attending Physician: Jevon Burns MD, I JOSE TRIVEDI, have received the above patient education materials/instructions and have verbalized understanding. If ambulance or transport services are being used I further acknowledge being given a choice of service. ?? If you need to contact me, please call me at this number: . Patient/Assistant Floor Covering Printer Name: Patient/Assistant Floor Covering Printer Signature: Relationship to Patient: Witness Name/Signature: Date: * Mae Espinoza RN: PERFORM Event Display: Patient Education Leaflets Authored Date: Kidney Stone with Pain ?? [id number] Kidney Stone with Pain The sharp cramping pain on either side of your lower back and nausea or vomiting that you have are because of??a small stone that has formed in the kidney. It's now passing down a narrow tube (ureter) on its way to your bladder. Once the stone reaches your bladder, the pain will often decrease. Butit may come back as the stone continues to pass out of the bladder and through the urethra. The ston e may pass in your urine stream in 1 piece. The size may be 1/16 inch to 1/4 inch (1 mm to 6 mm). Or the stone may break up into juana-like fragments that you may not even notice. Once you have had a kidney stone, you may be at risk of getting another one in the future. There are 4 types of kidney stones. Eighty percent are calcium stones???mostly calcium oxalate but also somewith calcium phosphate. The other 3 types include uric acid stones, struvite stones (from a preceding infection) and, rarely, cystine stones. Most stones will pass on their own. But they may take from a few hours to a few days. Sometimes thestone is too large to pass by itself. In that case, the healthcare provider will need to use??otherways to remove the stone. These methods include: ??? Shock Wave Lithotripsy. This??noninvasive procedure uses high energy sound waves to break up the stone and allow it to easily pass. ??? Ureteroscopy. This??procedure inserts a tool through the urethra and bladder and into the ureter to pull out the stone. This procedure is done under anesthesia. ??? Surgery. You may need surgery to remove the stone. Home care The following are general care guidelines: ??? Drink plenty of fluids. This means at least 12, 8-ounce glasses of fluid???mostly water???a day. ??? Each time you pee (urinate), do so in a jar. Pour the urine from the jar through the strainer and into the toilet. Continue doing this until 24 hours after your pain stops. By then, if there was a kidney stone, it should pass from your bladder. Some stones dissolve into sand-like particles and pass right through the strainer. In that case, you won???t ever see a stone. ??? Save any stone that you find in the strainer and bring it to your healthcare provider for a detailed exam. It may be possible to stop certain types of stones from forming. Forthis reason, it's important to know what kind of stone you have. ??? Try to stay as active as possible. This will help the stone pass. Don't stay in bed unless your pain keeps you from getting up. You may notice a red, pink, or brown color to your urine. This is normal while passing a kidney stone.??? If you develop pain, you may take ibuprofen or naproxen for pain, unless another medicine was pr escribed.??Talk with your healthcare provider before using these medicines if you have chronic liver or kidney disease. Or if you've??had a stomach ulcer or digestive bleeding. ?? Preventing??stones Each year for the next 5 to??7 years,??you are at risk that??a??new stone will form. Your risk is a50% chance over this time period.??The risk is higher??if you have a family history of kidney stones or have certain chronic illnesses like high blood pressure, obesity, or??diabetes.?Making changes to your lifestyle and diet may lower your??risk for another stone. Most kidney stones are made of calcium. The following is advice for preventing another??calcium stone.??If you don???t know the type of stone you have, follow this advice until the cause of your stone is found. Things that help: ??? The most important thing you can do is to drink plenty of fluids each day. See home care above.? Eat foods that contain phytates. These include??wheat, rice, rye, barley, and beans. Phytates are substances that may lower your risk for??any type of stone to form. ??? Eat more fruits and vegetables.??Choose those that are??high in potassium. ??? Eat foods high in natural citrate, such as??fruit and low-sugar fruit juices, such as lemon juice. Citrate can protect againstkidney stones because it stops crystals from turning into stones ??? Having too little calcium in your diet can put you at risk for??calcium??kidney stones. Eat a normal amount of calcium in your diet and talk??with your healthcare provider??if you are taking calcium supplements. Cutting back on your calcium intake may raise your risk.??New research shows that eating calcium-rich and oxalate-richfoods together lowers your risk for stones by binding the minerals in the stomach and intestines before they can reach the kidneys. ? Limit salt intake to 2??grams (1??teaspoon) per day. High sodium in your diet will increase the amount of calcium sent into your urine. This can increase your chances of developing another stone. Use limited amounts when cooking, and don???t add salt at the table.??Processed and canned foods are usually high in salt.? Spinach, rhubarb, peanuts, cashews, almonds, grapefruit, and grapefruit juice are all high oxalate foods. You should limit how much of these you eat or??eat them with??calcium-rich foods. These include dairy products, dark leafy greens, soy products, and calcium-enriched foods. ??? Reducing the amount of animal meat, shellfish, and high protein foods in your diet may lower your risk for uric acid stones. These foods have high amounts of a natural chemical compound called purines. Eating a lot of food with purines can make your body produce more uric acid. Limiting alcohol is also recommended to decrease uric acid production. ??? Limit the amount of sugar (sucrose) and soft drinks with fructose in??your??diet.? If you take vitamin C as a supplement, don't take more than 1,000 mg a day. ??? A dietitian or your healthcareprovider can give you??information about??changes in your diet that will help prevent more??kidney stones from forming. ?? Follow-up care Follow up with your??healthcare provider, or as advised,??if the pain lasts more than 48 hours. Talk with your provider about urine and blood tests to find out the cause of your stone. If you had an X-ray, CT scan, or other diagnostic test, you will be told of any new findings that may affect your care. ?? Call 911 Call 911 if you have: ??? Weakness, dizziness, or fainting ?? When to get medical care Call your healthcare provider right away if any of these occur: ??? Pain that is not controlled by the medicine given ??? Repeated vomiting or unable to keep down fluids ??? Fever of 100.4??F (38??C)or higher, or as advised by your provider ??? Passage of solid red or brown urine (can't see through it) or urine with lots of blood clots ??? Foul-smelling or cloudy urine ??? Unable to pee for 8 hours and increasing bladder pressure ?? Last Reviewed Date: 2022 ?? 3084-5644 [employer]. All rights reserved. This information is not intended as a substitute for professional medical care. Always follow your healthcare professional's instructions. ?? * Mae Espinoza RN: PERFORM Event Display: Patient Education Leaflets Authored Date: [id number] Comfort Tips During ?? 50959 Comfort Tips During can bring discomfort of different kinds. Below are tips for ways to feel better.??Talk with your??healthcare provider before using pain-relieving medicine at any time during your . First trimester tips Easing nausea ??? Get up slowly. Eat a few unsalted crackers before you get out of bed. ??? Stay away from smellsthat bother you. ??? Eat small,??bland, low-fat, high- protein meals at frequent intervals. ??? Sip on water, weak??tea, or clear soft drinks, like christopher rosario.??Eat ice chips. ??? Try taking vitamin B6. Coping with fatigue ??? Take catnaps when you can. ??? Get regular exercise. ??? Accept help from others. ??? Practice good sleep habits, like going to bed and getting up at the same time each day. Use your bed only forsleep and sex. Calming mood swings ??? Talk about your feelings with others, including other mothers. ??? Limit sugar, chocolate, and caffeine. ??? Eat a healthy diet. Don???t skip meals. ??? Get regular exercise. Soothing headaches ??? Get fresh air and exercise. ??? Relax and get enough rest. ??? Check with your healthcare provider before taking any pain medicines. ?? Second trimester tips ??? To limit ankle swelling, sit with your feet raised or wear support hose. ??? If you have pain in your groin and stomach??(round ligament pain), don't make sudden twisting movements with your body. ??? For leg cramps, flexing your foot often brings immediate relief. Also try massaging your calf in long, downward strokes, or stretching your legs before going to bed. Get enough exercise and wear shoes with flexible soles. Eat foods rich in calcium. ?? Third trimester tips Reducing heartburn ??? Eat small, light meals throughout the day rather than 3 large ones. ??? Sleep with your upper body raised 6 inches. Don???t lie down until 2 hours after you eat. ??? Don't eat greasy, fried, or spicy foods. ??? Don't have citrus fruits or juices. Treating constipation ??? Eat foods high in fiber, such as whole-grain foods, and fresh fruit and vegetables. ??? Drink plenty of water. ??? Get regular exercise. ??? Ask about your healthcare provider about medicines that have docusate or psyllium. Taking care of your breasts ??? Don't use harsh soaps or alcohol, which can make your skin too dry. ??? Wear nursing bras. Theyprovide more support than regular bras and can be used after if you breastfeed. Getting a good night???s sleep ??? Take a warm shower before bed. ??? Sleep on a firm mattress. ???Lie on your side with one leg crossed over the other. ??? Use pillows to support your arms, legs, and belly. ?? Last Reviewed Date: 2023 ?? [employer]. All rights reserved. This information is not intended as a substitute for professional medical care. Always follow your healthcare professional's instructions. ?? * Mae Espinoza RN: PERFORM Event Display: Patient Education Leaflets Authored Date: [id number] Adapting to : Second Trimester ?? 76905 Adapting to : Second Trimester Keep up the healthy habits you started in your first trimester. You might be a little more tired than normal. So plan your day wisely. Look at the tips below and choose the ones that suit your lifestyle. Note If you have any questions, talk with your healthcare provider. ?? If you work If you can, adjust your work with your employer to fit your needs. Try these tips: ??? If you standfor long periods, find ways to do some tasks while sitting. Also, try to stand with 1 foot resting on a low stool or ledge. Shift your weight from foot to foot often. Wear low-heeled shoes. ??? If you sit, keep your knees level with your hips. Rest your feet on a firm surface. Sit tall with supportfor your low back. ??? If you work long hours, ask about adjusting your schedule. Try taking shorter breaks more often. ?? When you travel The second trimester may be the best time for any travel. Talk to your healthcare provider about any special plans you may need to make. Always: ??? Wear a seat belt. Fasten the lap part under your belly. Wear the shoulder part also. ??? Take breaks often during long trips by car or plane. Move around to stretch your legs. ??? Drink plenty of fluids on flights. The air in plane cabins is very dry. ??? Stay out of hot climates or high altitudes if you are not used to them. ??? Stay away from places where the food and water might make you sick. ??? Make sure you are up-to-date on all vaccines, including the flu vaccine. This is especially important when traveling overseas. ?? Taking time to relax Find time to rest and relax at work or at home: ??? Take short time-outs daily. Do relaxation exercises. ??? Breathe deeply during stressful times.??? Try not to take on too much. Plan tasks for times when you have the most energy. ??? Take naps when you can. Or just sit and relax. ??? After week 16, don't lie on your back for more than a few minutes. Instead, lie on your side. Switch sides often. ?? Having sex Unless your healthcare provider tells you otherwise, there is no reason to stop having sex now. Blood supply increases to the pelvic area in the second trimester. Because of this, sex might be more enjoyable. Try different positions and see what???s best. Also talk with your partner about any changes in desire. Spotting may happen after sex. Let your healthcare provider know if there is heavy bleeding. ?? Keeping your environment safe You can still clean your house and use scented products. Just take some simple precautions: ??? Wear gloves when using cleaning fluids. ??? Open windows to let in fresh air. Use a fan if you paint. ??? Stay away from secondhand smoke. ??? Don???t breathe fumes from nail chinese, hair spray, cleansers, or other chemicals. ?? How daily issues affect your health Many things in your daily life impact your health. This can include transportation, money problems,housing, access to food, and rn maternal child. If you can???t get to medical appointments, you may not receive the care you need. When money is tight, it may be difficult to pay for medicines. And living far from a grocery store can make it hard to buy healthy food. If you have concerns in any of these or other areas, talk with your healthcare team. They may know of local resources to assist you. Or they may have a staff person who can help. ?? Last Reviewed Date: 2021 ?? 3068-3398 [employer]. All rights reserved. This information is not intended as a substitute for professional medical care. Always follow your healthcare professional's instructions. ?? Patient Care team information Care Team Personnel Name: Alfa ROSADO MD, Gigi Hahn Position: Reference Physician Member Role: PCP Address: Address: [address] [place] [address], [place] - Name: Naila Martinez RN Position: S OB RN Member Role: Primary Care Nurse Name: Lo Vernon RN Position: [facility] OB RN Member Role: Primary Care Nurse Name: Elena Cabrera RN Position: S HBO Wound Member Role: Primary Care Nurse Name: Mae Espinoza RN Position: [facility] OB RN Member Role: OB RN Care Team Related Persons Name: CHERELLE STINSON Address: home [address] Name: TOREY JIMENEZ Address: home [address] Name: TOREY JIMENEZ Address: home [address] Name: JAMIE JIMENEZ Address: home [address] [address] Name: JAMIE JIMENEZ Address: home [address] [place], [place] Name: TOREY UQESADA Address: home [address], [place] Name: JOCELYN SANTIAGO Address: home [address] [place] [address]
--- OUTSIDE RECORDS SUMMARY | 2024-04-17 12:22 | XMS_ITS | Continuity of Care Document ---
Author Organization [facility] Address [address] [place] [address]- Care Team Providers Care Blanket Inspector Name Role Phone Alfa ROSADO MD, Gigi Hahn Primary Care Physician Encounter [facility] [place] Date(s): 10/20/23 - 10/20/[address] [address] Discharge Disposition: A-D/C Home Attending Physician: Genoveva Powers DO Admitting Physician: Genoveva Powers DO Referring Physician: Genoveva Powers DO Allergies, Adverse Reactions, Alerts Substance Reaction Severity Status ibuprofen throat swelling body rash Active shellfish Anaphylaxis Active Latex Rash Active Pineapple Anaphylaxis Active Lobster Anaphylaxis Dust allergy Dogs Allergy to cats Active Immunizations Given and Recorded Vaccine Date Status Refusal Reason tetanus/diphtheria/pertussis, acel(Tdap) 08/18/23 Given tetanus/diphtheria/pertussis, acel(Tdap) 01/25/17 Given SARS-CoV-2 mRNA (cnpkltt-hafs-kuwho) vax 10/17/21 Recorded SARS-CoV-2 mRNA (xasjzpw-zefs-yezab) vax 12/25/20 Recorded SARS-CoV-2 mRNA (kuamqqf-kahi-zfqwi) vax 12/04/20 Recorded pneumococcal 23-valent vaccine 03/31/16 Given Varicella Virus Vaccine 08/14/13 Recorded Medications albuterol CFC free 90 mcg/inh inhalation aerosol 180 mcg, 2, puffs, Inhalation, Every 4 hours, PRN, # 1 each, Refills 2, Tot. Refills 2, Maintenance, 10/11/19 11:43:00 EST, Inhaler, Route to Pharmacy Electronically, [id number], [facility] #[id number], 160, cm, 10/11/19... Start Date: 10/11/19 Status: Ordered aspirin 81 mg oral tablet 2 tablet = 162 mg, By Mouth, Daily, # 180 tablet, 2 Refills, Maintenance, 09/19/23 15:50:00 EST, Tablet, [facility]/pharmacy #[id number], Partial fill upon patient request [...] opioid drug. Start Date: 03/09/23 Status: Ordered Cradle See Instructions, # 1 capsule, Maintenance, Abdominal Band for , 08/06/23 4:02:00 EST, Compound, 165, cm, 07/21/23 14:34:00 EDT, Height, 88.4, kg, 07/30/23 20:29:00 EST, Dry Weight Start Date: 08/06/23 Status: Ordered Multivitamins with Folic Acid 1 mg oral tablet 1 tablet, By Mouth, Daily, # 30 tablet, 11 Refills, Maintenance, 02/03/23 17:52:00 EDT, Tablet, [facility]/pharmacy #[id number], Partial fill upon patient request if the [...] entered on: 11/01/17 Sex Female Note * Trenton Garcia RN: PERFORM Event Display: Patient Education/Instruction Authored Date: [id number] Inpatient Adult Discharge Instructions. [address] [address] Name: JOSE TRIVEDI : 1990?? Visit: 10/20/2023 10:51?? Current Date: 10/20/2023 11:33 ?? Account: [id number]?? Inpatient Adult Discharge Instructions We would like [...] and their families. Surveys are administered by [employer] ?? If further treatment with your primary care physician or another doctor is recommended, it is important for you to keep the appointment. Call your primary care physician or return to the Emergency Department immediately if your condition worsens, fails to improve, or new symptoms develop. If you need to find a doctor, you can call [facility] [place] [facility] Link for a referral at [phone] or toll free at [phone] ([phone]) or log in to [email or web address].. ?? [facility] [place] [facility], in keeping with [facility] guidance, no longer requires face [...] a health care ambrocio of your choosing. [employer] is a website that allows you to securely view your medical information including your hospital discharge summary, office visit summaries, medications and follow-up visits. You can also request appointments, renew medications, and request access to your medical information using a health care ambrocio of your choosing, or just ask a question. You can enroll at [email or web address] or register during your next office visit. You have been discharged from [facility], Patient Care Unit: WETU1??. If you have any questions regarding these instructions, including results of studies pending, afteryou leave, please call us and we will be happy to assist you 10/04. [facility] Your Care Team Attending Physician Genoveva Powers DO?? Consulting Providers Genoveva Powers DO?? Tests Performed Below is a partial list of the tests performed during your hospitalization. You may have had other tests and procedures not included in this list. Please discuss all test results with your provider. No tests performed during this visit.?? Primary Care Provider Alfa ROSADO MD, Gigi Hahn? Studies Pending All studies ordered during this hospital stay have been completed unless listed below. Please discuss all pending results with your provider listed above in these instructions. ?? No incomplete studies found?? What to do next Instructions From Your Doctor ?? Orders?? Scheduled Follow-Up Appointments Monday 9:00 AM EST ?? With: Ruth RICHEY [facility] Where: [facility] [employer] [facility] [address] [place] [address]- Status: Pending Monday 3:40 PM EST ?? With: Ca Gamino MD Where: [facility] [address] [place] [address]- Status: Pending Monday 3:20 PM EST ?? With: Mae Odonnell DO Where: [facility] [address] [place] [address]- Status: Pending Monday 4:40 PM EST ?? With: Mae Odonnell DO Where: [facility] [address] [place] [address]- Status: Pending Discharge Medications JOSE TRIVEDI :1990 Visit Date:10/20/2023 Medications: Please continue your medications until treatment is completed or stopped by your provider. Medications not listed below should be discontinued. Discuss any questions related to medications with your provider. What How Much When Instructions Next Dose Unchanged Albuterol (albuterol CFC free 90 mcg/ inh inhalation aerosol) 2 puff(s) Inhalation Every 4 hours as needed for Wheezing/Shortness of Breath Unchanged Aspirin (aspirin 81 mg oral tablet) 2 tab(s) Oral Daily Unchanged Durable Medical Equipment ( Cradle) See instructions Abdominal Band for ?? Unchanged Levothyroxine (levothyroxine 0.025 mg oral tablet) 1 tab(s) Oral Daily Unchanged Multivitamin, ( Multivitamins with Folic Acid 1 mg oral tablet) 1 tab(s) Oral Daily Prescription Given During Visit No new medications prescribed at time of discharge.?? Laboratory Results Below is a partial list of the most recent Laboratory test results done prior to this discharge. You may have had other tests and procedures not included in this list. Please discuss all test resultswith your provider. Allergies (NKA means No Known Allergies) Latex??(Rash) [...] Educational Leaflet Providered with your Discharge Instructions. Kick Counts?? Valuables and Belongings I fully understand and agree that [facility] accepts no responsibility for all my personal [...] to send valuables and belongings home. ? Common Emergency Awareness Tips IS IT [...] are strongly encouraged to quit. Please call [facility] Link at [phone] or 1-283-548-OjOs.com ([phone]) or log in to [email or web address] for referrals to smoking cessation programs. ?? 750 Suicide & Crisis Lifeline is available 10/04 if you or someone you know needs to find a reason to keep living. By calling 207 you'll be connected to a skilled, trained counselor at a crisis center in your area. INPATIENT DISCHARGE INSTRUCTIONS SIGNATURE PAGE JOSE TRIVEDI Location:[facility] Registration Date and Time:10/20/2023 10:51 EST Primary Care Physician: Alfa ROSADO MD, Gigi Hahn, Attending Physician: Genoveva Powers DO, I TRIVEDIMARYANNJOSE, have received the above patient education materials/instructions and have verbalized understanding. If ambulance or transport services are being used I further acknowledge being given a choice of service. ?? If you need to contact me, please call me at this number: . Patient/District Medical Examiner Name: Patient/District Medical Examiner Signature: Relationship to Patient: Witness Name/Signature: Date: * Trenton Garcia RN: PERFORM Event Display: Patient Education Leaflets Authored Date: [id number] Kick Counts ?? [address] Kick Counts It???s normal to worry about your baby???s health. Generally, you will feel your baby start to movein your 2nd trimester at around 16 to 24 weeks. Getting to know the pattern of your baby's movements is one way to know what's normal for you and baby. This is called a kick count. Talk with your healthcare provider about kick counts and your specific situation. Always follow your provider's instructions. How to count kicks Here is just one way to do kick counts. Always follow your healthcare provider's instructions. Starting at 28 weeks, count your baby's movements daily. Time how long it takes you to feel 10 kicks, flutters, swishes, or rolls. Ideally, you want to feel at least 10 movements in 2 hours. You will likely feel 10 movements in less time than that. Here are tips for counting kicks: ??? Choose a time when the baby is active, such as after a meal.? Sit comfortably or lie on your side.? The first time the baby moves,??write down??the time.? Count each movement until the baby has moved?? 10??times. This can take from 20 minutes to 2??hours.? If you haven't felt 10 kicks by the end of the second hour, wait a few hours. Then try again. ??? Try to do it at the same time each day. ?? When to call your healthcare provider Follow your provider's instructions about when to call about your baby's movements. Don't hesitate to call if you have concerns. Call your healthcare provider?? right away??if: ??? You do a couple sets of kick counts during the day and your baby moves fewer than 10??times in??2??hours. ??? Your baby moves much less often than on the??days before. ??? You haven't felt your baby move all day. ?? Last Reviewed Date: 2022 ?? 4725-5158 [employer]. All rights reserved. This information is not intended as a substitute for professional medical care. Always follow your healthcare professional's instructions. ?? Patient Care team information Care Team Personnel Name: Gigi Grimm III, MD Position: Reference Physician Member Role: PCP Address: Address: [address] [place] [address] Name: Naila Martinez RN Position: [facility] OB RN Member Role: Primary Care Nurse Name: Lo Vernon RN Position: [facility] OB RN Member Role: Primary Care Nurse Name: Elena Cabrera RN Position: [facility] HBO Wound Member Role: Primary Care Nurse Care Team Related Persons Name: CHERELLE STINSON Address: home [address] [address] Name: TOREY JIMENEZ Address: home [address] [address] Name: TOREY JIMENEZ Address: home [address] [facility] [address] [place], [place] Name: JAMIE JIMENEZ Address: home [address] [place] [address] Name: JAMIE JIMENEZ Address: home [address] [place] [address] Name: TOREY QUESADA Address: home [address] [place] [address] Name: JOCELYN SANTIAGO Address: home [address] [place] [address]
--- OUTSIDE RECORDS SUMMARY | 2024-04-17 12:22 | XMS_ITS | Continuity of Care Document ---
Author Organization [facility] Address [address] [address]- Care Team Providers Care Road Driver Name Role Phone Gigi Grimm III, MD Primary Care Physician [id number] [address] [address] Attending Physician: Not on Staff, Attending MD Referring Physician: Sandra Gomez CNM Allergies, Adverse Reactions, Alerts Substance Reaction Severity Status ibuprofen throat swelling body rash Active shellfish Active Latex Active Lobster Dust allergy Dogs Allergy to cats Active Pineapple Active Immunizations Given and Recorded Vaccine Date [...] 11:43:00 EST, Inhaler, Route to Pharmacy Electronically, [id number], [facility] #[id number], 160, cm, 10/11/19... Start Date: 10/11/19 Status: [...] Refills, Maintenance, 01/25/21 9:00:00 EDT, REC Powder, [id number], Partial fill upon patient request [...] 10:18:00 ED... Start Date: 02/04/21 Status: Ordered glycerin adult rectal suppository 1 supp, Rectally, Daily, PRN for constipation, # 24 supp, 6 Refills, Maintenance, 02/04/21 10:20:00EDT, Suppository, [id number], Partial fill upon patient request if the prescription is for a schedule II opioid drug., 160, cm, 01/25/21 8:23:0... Start Date: 02/04/21 Status: Ordered MiraLax oral powder for reconstitution = 17 Gm, By Mouth, Daily, for 30 days, dissolve in water before taking, # 510 Gm, 1 Refills, Acute 03/26/21 8:59:00 EDT, 01/25/21 8:59:00 EDT, REC Powder, [id number], Partial fill upon patient request if the prescription is for a schedule II o... Start Date: 01/25/21 Stop Date: 03/26/21 Status: Ordered NuLYTELY with Flavor Packs oral powder for reconstitution See Instructions, 4 liters By Mouth Once for colonoscopy, # 1 each, 0 Refills, Maintenance, 01/25/21 9:13:00 EDT, [facility] #[id number], Partial fill upon patient request if the prescription is for a schedule II opioid drug., 4 liters By Mouth Once for c... Start Date: 01/25/21 Status: Ordered Plavix 75 mg oral tablet 75 mg, 1, tablet, By Mouth, Daily, # 90 tablet, Refills 0, Maintenance, 11/30/20 21:48:00 EDT, Partial fill upon patient request if the prescription is for a schedule II opioid drug. Start Date: 11/30/20 Status: Ordered Problem List Condition Effective Dates Status Health Status Inform ant Right ovarian cyst(Confirmed) Active Infertility, Female, Associa violette with Anovulation(Confirmed) Active Brain aneurysm(Confirmed) Active Migraine(Confirmed) Active Asthma, mild intermittent(Confirmed) Active Pain in female pelvis(Confirmed) Active Encounter for liletta IUD insertion(Confirmed) 01/11/19 Active PCOS - Polycystic ovarian syndrome(Confirmed) Active Social History Social History Type Response Smoking Status Never smoker; Tobacc o user in household: No entered on: 11/01/17 Sex
--- OUTSIDE RECORDS SUMMARY | 2024-04-17 12:22 | XMS_ITS | Continuity of Care Document ---
Author Organization [facility] Address [address] [place] [address]- Care Team Providers Care Small Animal Veterinarian Name Role Phone Alfa ROSADO MD, Gigi Hahn Primary Care Physician Encounter [facility] [place] Date(s): 02/10/21 - 07/28/[address] [address] Attending Physician: Bernadine Funes MD Admitting Physician: Bernadine Funes MD Allergies, Adverse Reactions, Alerts Substance Reaction [...] 11:43:00 EST, Inhaler, Route to Pharmacy Electronically, [id number], [facility] #[id number], 160, cm, 10/11/19... Start Date: 10/11/19 Status: [...] 01/25/21 8:23:0... Start Date: 02/04/21 Status: Ordered Problem List Condition Effective Dates [...]
--- OUTSIDE RECORDS SUMMARY | 2024-04-17 12:22 | XMS_ITS | Continuity of Care Document ---
Author Organization [facility] Address [address] [place] [id number]- Care Team Providers Care Topstitcher Zigzag Name Role Phone Alfa ROSADO MD, Gigi Hahn Primary Care Physician [phone] [place] [facility] [facility] [place]): [place]23 - 06/02/23 [facility] [address] [place] [address] Attending Physician: Admtr, Ar8 Admitting Physician: Admtr, Ar8 Referring Physician: Admtr, Ar8 Allergies, Adverse Reactions, Alerts Substance Reaction Severity Status ibuprofen throat swelling body rash Active Pineapple Anaphylaxis Active shellfish Anaphylaxis Active Latex Rash Active Lobster Anaphylaxis Dust allergy Dogs Allergy to cats Active Immunizations Given and Recorded Vaccine Date Status Refusal Reason SARS-CoV-2 mRNA (xzjiwxe-yvss-bqiex) vax 10/17/21 Recorded SARS-CoV-2 mRNA (ghcrndv-rjaq-bgkwu) vax 12/25/20 Recorded SARS-CoV-2 mRNA (rfnclqt-xqdn-kkidd) vax 12/04/20 Recorded tetanus/diphtheria/pertussis, acel(Tdap) 01/25/17 Given [...] 11:43:00 EST, Inhaler, Route to Pharmacy Electronically, [id number], [id number], 160, cm, 10/11/19... Start Date: 10/11/19 Status: Ordered aspirin 81 mg oral tablet, chewable 162 mg, 2, tablet, Chew, Daily, # 180 tablet, Refills 3, Tot. Refills 3, Maintenance, 05/03/23 15:24:00 EDT, Route to Pharmacy Electronically, [facility]/pharmacy #[id number], Partial fill upon patient request [...] Refills, Maintenance, 04/07/23 2:01:00 EDT, DIS Tablet, [facility]/pharmacy #[id number], Partial fill upon patient request [...] 0 Refills, Maintenance, 04/25/23 11:26:00 EDT, Suppository, [facility]/pharmacy #[id number], Partial fill upon patient request if the prescription is for a schedule II opioid drug., 165,... Start Date: 04/25/23 Status: Ordered pyridoxine 25 mg oral tablet 1 tablet = 25 mg, By Mouth, 3 times a day, PRN Nausea & Vomiting, # 100 tablet, 8 Refills, Maintenance, 03/27/23 17:46:00 EDT, Tablet, [facility]/pharmacy #[id number], Partial fill upon patient request if theprescription is for a schedule II opioid drug., 163, cm... Start Date: 03/27/23 Status: Ordered Reglan 10 mg oral tablet 1 tablet = 10 mg, By Mouth, 3 times a day, PRN Nausea & Vomiting, # 28 tablet, 2 Refills, Maintenance, 03/30/23 19:35:00 EDT, [facility]/pharmacy #[id number], Partial fill upon patient request if the prescription is for a schedule II opioid drug., 163, cm, 2... Start Date: 03/30/23 Status: Ordered Senna 8.6 mg oral tablet 1 or 2 tablets, By Mouth, Daily at bedtime, PRN, # 60 tablet, Refills 0, Tot. Refills 0, Maintenance, Constipation, 03/14/23 16:14:00 EDT, Route to Pharmacy Electronically, [facility]/pharmacy #[id number] Tablet,Partial fill upon patient request if the prescripti... Start Date: 03/14/23 Status: Ordered Unisom 25 mg oral tablet 1 tablet = 25 mg, By Mouth, Daily at bedtime, PRN for sleep, # 32 tablet, 0 Refills, Maintenance, 03/27/23 17:46:00 EDT, Tablet, [facility]/pharmacy #[id number], Partial fill upon patient request if the prescription is for a schedule II opioid drug., 163, cm, 07/0... Start Date: 03/27/23 Status: Ordered Problem List Condition Confirmation Course [...] Reference Physician Member Role: PCP Address: Address: [address] [place] [id number] Name: Naila Martinez RN Position: [facility] RN Member Role: Primary Care Nurse Name: Lo Vernon RN Position: [facility] RN Member Role: Primary Care Nurse Name: Elena Cabrera RN Position: [facility] Wound Member Role: Primary Care Nurse Care Team Related Persons Name: CHERELLE STINSON Address: home [address] Name: TOREY JIMENEZ Address: home [address] Name: TOREY JIMENEZ Address: home [address] Name: JAMIE JIMENEZ Address: home [address] [place] [address] Name: JAMIE JIMENEZ Address: home [address] [place], [place] Name: TOREY QUESADA Address: home [address] [place], [place] Name: JOCELYN SANTIAGO Address: home [address] [place] [address]
--- OUTSIDE RECORDS SUMMARY | 2024-04-17 12:22 | XMS_ITS | Continuity of Care Document ---
Author Organization [facility] Address [address] [place] [address]- Care Team Providers Care Joint Setter Name Role Phone Alfa ROSADO MD, Gigi Hahn Primary Care Physician Encounter [facility] [place] Date(s): 04/21/23 - 04/22/[address] [address] Discharge Disposition: A-D/C Home Attending Physician: Zaida Jasso MD Admitting Physician: Zaida Jasso MD Referring Physician: Zaida Jasso MD Allergies, Adverse Reactions, Alerts Substance Reaction Severity Status ibuprofen throat swelling body rash Active shellfish Anaphylaxis Active Pineapple Anaphylaxis Active Latex Rash Active Lobster Anaphylaxis Dust allergy Dogs Allergy to cats Active Immunizations Given and Recorded Vaccine Date Status Refusal Reason SARS-CoV-2 mRNA (kgriyws-jtmz-ucddu) vax 10/17/21 Recorded SARS-CoV-2 mRNA (zvkfjyh-laye-dlipi) vax 12/25/20 Recorded SARS-CoV-2 mRNA (cpjucol-vrxn-zzvpm) vax 12/04/20 Recorded tetanus/diphtheria/pertussis, acel(Tdap) 01/25/17 Given [...] 11:43:00 EST, Inhaler, Route to Pharmacy Electronically, [id number], [facility] #[id number], 160, cm, 10/11/19... Start Date: 10/11/19 Status: [...] opioid d... Start Date: 04/07/23 Status: Ordered Multivitamins with Folic Acid 1 mg oral tablet 1 tablet, By Mouth, Daily, # 30 tablet, 11 Refills, Maintenance, 02/03/23 17:52:00 EDT, Tablet, [id number], Partial fill upon patient request if the prescription is for a schedule II opioid drug., 1 tablet By Mouth Daily, 163, cm, 02/03/23 16:... Start Date: 02/03/23 Status: Ordered pyridoxine 25 mg oral tablet 1 tablet = 25 mg, By Mouth, 3 times a day, PRN Nausea & Vomiting, # 100 tablet, 8 Refills, Maintenance, 03/27/23 17:46:00 EDT, Tablet, [id number], Partial fill upon patient request if theprescription is for a schedule II opioid drug., 163, cm... Start Date: 03/27/23 Status: Ordered Reglan 10 mg oral tablet 1 tablet = 10 mg, By Mouth, 3 times a day, PRN Nausea & Vomiting, # 28 tablet, 2 Refills, Maintenance, 03/30/23 19:35:00 EDT, [id number], Partial fill upon patient request [...] 0 Refills, Maintenance, 03/27/23 17:46:00 EDT, Tablet, [id number], Partial fill upon patient request if the prescription is for a schedule II opioid drug., 163, cm, ... Start Date: 03/27/23 Status: Ordered Problem List Condition Confirmation Course Effective Dates Status Health St atus Informant History of blood transfusion Confirmed Active Hx of preeclampsia, prior , currently Confirmed Active Brain aneurysm Confirmed Active Migraine Confirmed Active Asthma, mild intermittent Confirmed Active Obese class I Confirmed Active Obstructive sleep apnea Confirmed Active control counseling Confirmed Active PCOS - Polycystic ovarian syndrome Confirmed Active Vital Signs Most recent to oldest [Reference Range]: 1 Weight 84.3 kg (04/21/23 10:14 PM) Oxygen Saturation [94-100 %] 100 % (04/21/23 10:23 PM) Blood Pressure [90-138/55-84 mm Hg] 127/ 63mm Hg (04/21/23 10:23 PM) Respiratory Rate [16-30 br/min] 16 br/mi n (04/21/23 10:23 PM) Temperature [96.8-100.4 DegF] 97.5 DegF (04/21/23 10:14 PM) Mode of Delivery (Oxygen) Room air (04/21/23 10:23 PM) Blood pressure sites Arm, right (04/21/23 10:23 PM) Temperature Route Oral (04/21/23 10:14 PM) Dry Weight 84.3 kg (04/21/23 10:14 PM) Weight Obtained Via Standing scale (04/21/23 10:14 PM) Dry Weight Obtained Via Standing scale (04/21/23 10:14 PM) Social History Social History Type Response Smoking Status Never smoker; Tobacc o user in household: No entered on: 11/01/17 Sex Female Note * Amita Saenz RN: PERFORM Event Display: Discharge/Transfer Note Hospital Authored Date: [id number] Nursing Discharge Note Entered On: 04/22/2023 2:44 EDT Performed On: 04/22/2023 2:44 EDT by Amita Saenz RN Nursing Discharge Note 2 Discharge Time : 04/22/2023 2:44 EDT Discharge Level of Care at Discharge : Home/Care Home/Foster Care Patient Left Unit Via : Ambulatory Patient Accompanied Off Unit with : Other: self DC Instructions Provided & Signed by Pt : Yes Patient Understands D/C Instructions : Yes Verbalized Understanding of D/C Plan By : Patient Patient Instructions Discharge Signed : Yes Did Pt have Specialty Bed or Wound Vac : No Amita Saenz RN - 04/22/2023 2:44 EDT * Amita Saenz RN: PERFORM Event Display: Patient Education/Instruction Authored Date: [id number] Inpatient Adult Discharge Instructions [address] [address] Name: JOSE TRIVEDI : 1990 Visit: 04/21/2023 22:03:00 Current Date: 04/22/2023 02:08 Account: [id number] Inpatient Adult Discharge Instructions We would like [...] and their families. Surveys are administered by [employer] ?? If further treatment with your primary care physician or another doctor is recommended, it is important for you to keep the appointment. Call your primary care physician or return to the Emergency Department immediately if your condition worsens, fails to improve, or new symptoms develop. If you need to find a doctor, you can call [facility] [employer] for a referral at [phone] or toll free at [phone] ([phone]) or log in to [email or web address] [email or web address].. ?? You can view and manage your care through the patient portal or by using a health care ambrocio of your choosing. [employer] is a website that allows you to securely view your medical information including your hospital discharge summary, office visit summaries, medications and follow-up visits. You can also request appointments, renew medications, and request access to your medical information using a health care ambrocio of your choosing, or just ask a question. You can enroll at [email or web address] or register during your next office visit. You have been discharged from [facility], Patient Care Unit: WETU1. If you have any questions regarding these instructions after you leave, please call us and we will be happy to assist you. [facility] Your Care Team Attending Physician Zaida Jasso MD Tests Performed Below is a partial list of the tests performed during your hospitalization. You may have had other tests and procedures not included in this list. Please discuss all test results with your provider. Primary Care Provider Gigi Grimm III, MD Advance Directive Health Care Proxy on File No Patient has a Designated Caregiver: No Discharge Vitals Temperature: 97.5 DegF Weight: 84.3 kg Respiratory Rate: 16 br/min ?? Systolic Blood Pressure: 127 mm Hg ?? Diastolic Blood Pressure: 63 mm Hg ?? Oxygen Saturation: 100 % ?? Studies Pending All tests and labs ordered during this hospital stay have been completed unless listed below. Please discuss all pending results with your provider listed above in these instructions. ?? No incomplete studies found What to do next Instructions From Your Doctor Discharge Orders Scheduled Follow-Up Appointments Monday 1:00 PM EDT ?? With: Mae Odonnell DO Where: [facility] [address] [place] [address]- Status: Pending Discharge Medications JOSE TRIVEDI :1990 Visit Date:04/21/2023 Medications: Please continue your medications until treatment [...] as needed for Wheezing/Shortness of Breath Unchanged amiTRIPTYLINE Oral Daily at Bedtime Unchanged Aspirin (Aspirin Enteric Coated 81 mg oral delayed release tablet) 1 tab(s) Oral Daily Unchanged Doxylamine (Unisom 25 mg oral tablet) [...] needed for as needed for nausea/vomiting Unchanged Pyridoxine (pyridoxine 25 mg [...] ibuprofen??(throat swelling, body rash) shellfish??(Anaphylaxis) Problems Active Problems??(10) Asthma, mild intermittent?? control counseling?? Brain aneurysm?? History of blood transfusion?? Hx of preeclampsia, prior , currently ?? Migraine?? Obese class I?? Obstructive sleep apnea?? PCOS - Polycystic ovarian syndrome? Education Materials Below is the list of Educational Leaflet Providered with your Discharge Instructions. Morning Sickness: A Daily Struggle?? Hyperemesis Gravidarum?? M-Hyperemesis?? [place] Diet?? Valuables and Belongings I fully understand and agree that [facility] accepts no responsibility for all my [...] Status?? Pulmonary Rehab Discharge Status?? Respiratory Rate: 16 br/min ? Common Emergency Awareness Tips IS [...] are strongly encouraged to quit. Please call [facility] [employer] Link at [phone] or [phone] ([phone]) or log in to [email or web address] for referrals to smoking cessation programs. ?? 913 Suicide & Crisis Lifeline is available 10/04 if you or someone you know needs to find a reason to keep living. By calling 617 you'll be connected to a skilled, trained counselor at a crisis center in your area. INPATIENT DISCHARGE INSTRUCTIONS SIGNATURE PAGE JOSE TRIVEDI Location:[facility] Registration Date and Time:04/21/2023 22:03 EDT Primary Care Physician: Alfa ROSADO MD, Gigi Hahn, Attending Physician: Louisa RICHEY, Zaida Campbell, I JOSE TRIVEDI, have received the above patient education materials/instructions and have verbalized understanding. If ambulance or transport services are being used I further acknowledge being given a choice of service. ?? If you need to contact me, please call me at this number: . Patient/Dog License Officer Supervisor Name: Patient/Dog License Officer Supervisor Signature: Relationship to Patient: Witness Name/Signature: Date: * Amita Saenz RN: PERFORM Event Display: Patient Education Leaflets Authored Date: [id number] Morning Sickness: A Daily Struggle ?? Morning Sickness: A Daily Struggle - Video The challenges of parenthood can start before the baby is even born. Karlene Villagran discusses how she struggled to find food she could eat as she dealt with her morning sickness. To view the video go to this web address: [email or web address] Or, scan this QR code with your smart phone ?? [employer]. All rights reserved. This information is not intended as a substitute for professional medical care. Always follow your healthcare professional's instructions. ?? * Amita Saenz RN: PERFORM Event Display: Patient Education Leaflets Authored Date: [id number] Hyperemesis Gravidarum ?? [id number] Hyperemesis Gravidarum Upset stomach (nausea) and vomiting are common in . It is often called morning sickness. But it can happen at any time of day. Severe nausea and vomiting that doesn???t let up is not normal.This is known as hyperemesis gravidarum. It may develop around the 5th week and last until the 16thweek of . In some women, it may last longer. It can cause too much fluid loss (dehydration). And it can cause weight loss. This can be dangerous for the mother and baby.?? Morning sickness may be caused by an increase in some hormone levels. It is not clear why it???s more severe in some people. It may be more likely if you are carrying twins or more. You may need sometests. These are to check for other health conditions that can cause severe nausea and vomiting. The focus of treatment for severe morning sickness is to: ??? Ease your symptoms ??? Prevent weight loss ??? Prevent too much fluid loss (dehydration) Follow the advice below carefully. If your symptoms don't get better with home care, you may need to stay in the hospital. In the hospital, you may get IV (intravenous) fluids and medicines. In very severe cases, you may need more time in the hospital. You may need IV nutrition or tube feeding. If you need these, your healthcare provider will tell you more. Home care Diet ??? Keep a list of the foods you eat and how they affect your symptoms. Don't eat foods that trigger your symptoms. ??? Eat??small meals often rather than 3 large meals. This can help keep your stomach from being empty. An empty stomach??can make nausea worse. ??? Choose foods that are high in carbohydrates. Eating foods high in protein may also help. Limit greasy or spicy foods. ??? Before getting out of bed in the morning, try eating crackers or dry toast. This may help settle your stomach. ??? Drink cold, clear liquids. Drink small amounts of liquids with electrolytes, such as sports drinks. Medicine If needed, your healthcare provider may prescribe medicines to help ease nausea and vomiting. Your provider may suggest vitamin B6 and christopher. Don???t use any vceu-tya-mwtkpsd medicines or home remedies without talking with your provider first. ?? Follow-up care Follow up with your healthcare provider as advised. ?? When to get medical care Call your healthcare provider right away if you have any of these: ??? Dry mouth and extreme thirst??? Dark urine or small amounts of urine ??? Dizziness, weakness, or fainting ??? Vomiting that won???t stop ??? Inability to keep down liquids ??? Frequent diarrhea ??? Weight loss or no weight gainover a 2-week period ??? Severe constant pain in the lower right abdomen ??? Fever of 100.4??F (38??C) or higher, or as advised ?? Last Reviewed Date: 2021 ?? 0678-7517 [employer]. All rights reserved. This information is not intended as a substitute for professional medical care. Always follow your healthcare professional's instructions. ?? * Amita Saenz RN: PERFORM Event Display: Patient Education Leaflets Authored Date: [id number] M-Hyperemesis ?? 181 Discharge Diet: ??? Resume usual diet at home ??? Increase fluid intake as tolerated ??? Eating a bland diet may decrease nausea ??? Limit spicy foods ?? Activity: ??? No physical activity restrictions ??? Increase as tolerated ?? Special Instructions: Call physician for decreased movement Call physician for temp above 101 Call physician for contractions Call physician if unable to tolerate fluids Call physician for abdominal pain not relieved by Tylenol ? Patient Care team information Care Team Personnel Name: Alfa ROSADO MD, Gigi Hahn Position: Reference Physician Member Role: PCP Address: Address: [address] [place] [address]- Name: Naila Martinez RN Position: [facility] RN Member Role: Primary Care Nurse Name: Lo Vernon RN Position: [facility] RN Member Role: Primary Care Nurse Name: Elena Cabrear RN Position: [facility] Wound Member Role: Primary Care Nurse Care Team Related Persons Name: CHERELLE STINSON Address: home [address] [address] Name: TOREY JIMENEZ Address: home [address] [address] Name: TOREY JIMENEZ Address: home [address] [address] Name: JAMIE JIMENEZ Address: home [address] [place] [address] Name: JAMIE JIMENEZ Address: home [address] [place] [address] Name: TOREY TRIVEDI Address: home [address] [place] [address] Name: JOCELYN SANTIAGO Address: home [address] [place] [address]
--- OUTSIDE RECORDS SUMMARY | 2024-04-17 12:22 | XMS_ITS | Continuity of Care Document ---
Author Organization [facility] Address [address] [place] [address]- Care Team Providers Care Playground Worker Name Role Phone Gigi Grimm III, MD Primary Care Physician [phone] [place] [facility] [place]21 - 07/28/21 [facility] [address] [place] [address]- [place] Allergies, Adverse Reactions, Alerts Substance Reaction Severity [...] 11:43:00 EST, Inhaler, Route to Pharmacy Electronically, [id number], [facility][id number], 160, cm, 10/11/19... Start Date: 10/11/19 Status: [...]
--- OUTSIDE RECORDS SUMMARY | 2024-04-17 12:22 | XMS_ITS | Continuity of Care Document ---
Author Organization [facility] Address [address] [address]- Care Team Providers Care Multigraph Operator Name Role Phone Alfa ROSADO MD, Gigi Hahn Primary [id number] - 10/21/[facility] [address] [place] [address]- [facility] Attending Physician: Admtr, Ar8 Admitting Physician: Admtr, Lito8 Referring Physician: Admtr, Ar8 Allergies, Adverse Reactions, Alerts Substance Reaction Severity Status ibuprofen throat swelling body rash Active shellfish Active Lobster Dust allergy Dogs Allergy to [...] 11:43:00 EST, Inhaler, Route to Pharmacy Electronically, [id number], [facility][id number], 160, cm, 10/11/19... Start Date: 10/11/19 Status: Ordered Aspirin Enteric Coated 81 mg oral delayed release tablet 1 tablet = 81 mg, By Mouth, Daily Start Date: 10/09/19 Status: Ordered clopidogrel 75 mg oral tablet 75 mg, 1, tablet, By Mouth, Daily, Refills 0, Maintenance, 10/09/19 16:40:00 EST Start Date: 10/09/19 Status: Ordered Liletta 52 mg intrauterine device 1 each = 52 mg, Once, 0 Refills, Maintenance, 10/09/19 16:58:00 EST Start Date: 10/09/19 Status: Ordered Multivitamin Tablet 1 tablet, By Mouth, Daily, 0 Refills, Maintenance, 10/09/19 16:58:00 EST Start Date: 10/09/19 Status: Ordered Zofran 4 mg oral tablet 1 tablet = 4 mg, By Mouth, Every 8 hours, PRN Nausea & Vomiting, # 10 tablet, 0 Refills, Maintenance, 10/11/19 10:15:00 EST, Tablet, [facility][id number], 160, cm, 10/11/19 5:03:00 EST, Height, 80.7, kg, 10/10/19 18:15:00 EST, Dry Weight Start Date: 10/11/19 Status: Ordered Problem List Condition Effective Dates Status Health Status Inform ant H/O: (Confirmed) Active Infertility, Female, Associa violette with Anovulation(Confirmed) Active Asthma, mild intermittent(Confirmed) Active Pain in female pelvis(Confirmed) Active Encounter for liletta IUD insertion(Confirmed) 01/11/19 Active PCOS - Polycystic ovarian syndrome(Confirmed) Active Social History Social History Type Response Smoking Status Never (less than 100 in lifetime) entered on: 04/16/19 Sex
[2024-04-17 12:23] LABS: Alanine Aminotransferase 10 U/L (0-31); Albumin Level 4.2 g/dL (3.5-5.0); Alkaline Phosphatase 41 U/L (39-117); Anion Gap 9 (12-20); Aspartate Amino Transferase 13 U/L (5-31); Blood Urea Nitrogen 10 mg/dL (9-16); Calcium 9.4 mg/dL (8.4-10.2); Carbon Dioxide 30 mmol/L (22-29); Chloride 105 mmol/L (96-108); Creatinine Clr Calc Pharmacy 101.4; Estimated Glomerular Filt Rate > 60; Glucose Random 93 mg/dL (60-115); Lipase 14 U/L (8-78); Magnesium 2.1 mg/dL (1.6-2.6); Potassium 3.8 mmol/L (3.3-5.1); Sodium 140 mmol/L (135-145)
--- OUTSIDE RECORDS SUMMARY | 2024-04-17 12:23 | XMS_ITS | Continuity of Care Document ---
Author Organization [facility] Address [address] [place] [address], [address]t [place] [address]- Care Team Providers Care Software Development Specialist Name Role Phone Alfa ROSADO MD, Gigi Hahn Primary Care Phys[id number] [address] [place] [address], 4th [address] [place], [place] [address] Attending Physician: Zohreh Barnes MD Referring Physician: Chris Guthrie CNM Allergies, Adverse Reactions, Alerts Substance Reaction Severity Status ibuprofen throat swelling body rash Active Pineapple Anaphylaxis Active shellfish Anaphylaxis Active Latex Rash Active Lobster Anaphylaxis Dust allergy Dogs Allergy to cats Active Immunizations Given and Recorded Vaccine Date Status Refusal Reason SARS-CoV-2 mRNA (rlssoae-hdav-ixmnq) vax 10/17/21 Recorded SARS-CoV-2 mRNA (afvetlz-ylkz-kmeiw) vax 12/25/20 Recorded SARS-CoV-2 mRNA (dcjjcdq-webi-uksjf) vax 12/04/20 Recorded tetanus/diphtheria/pertussis, acel(Tdap) 01/25/17 Given [...] 11:43:00 EST, Inhaler, Route to Pharmacy Electronically, [id number], [facility][id number], 160, cm, 10/11/19... Start Date: 10/11/19 Status: [...] Refills, Maintenance, 04/07/23 2:01:00 EDT, DIS Tablet, [facility]/pharmacy #[id number], Partial fill upon patient request if the prescription is for a schedule II opioid d... Start Date: 04/07/23 Status: Ordered Multivitamins with Folic Acid 1 mg oral tablet 1 tablet, By Mouth, Daily, # 30 tablet, 11 Refills, Maintenance, 02/03/23 17:52:00 EDT, Tablet, [facility]/pharmacy #[id number], Partial fill upon patient request if the prescription is for a schedule II opioid drug., 1 tablet By Mouth Daily, 163, cm, 02/03/23 16:... Start Date: 02/03/23 Status: Ordered promethazine 25 mg rectal suppository 1 supp = 25 mg, Rectally, Every 4 hours, PRN for nausea/vomiting, # 12 supp, 0 Refills, Maintenance, 04/25/23 11:26:00 EDT, Suppository, [id number], Partial fill upon patient [...] a schedule II opioid drug., 163, cm, 0... Start Date: 03/27/23 Status: Ordered Problem List [...] Reference Physician Member Role: PCP Address: Address: [address] [place] [address]- Name: Naila Martinez RN Position: [facility] OB RN Member Role: Primary Care Nurse Name: Lo Vernon RN Position: [facility] OB RN Member Role: Primary Care Nurse Name: Elena Cabrera RN Position: [facility] HBO Wound Member Role: Primary Care Nurse Care Team Related Persons Name: CHERELLE STINSON Address: home [address] Name: TOREY JIMENEZ Address: home [address] Name: TOREY JIMENEZ Address: home [address] Name: JAMIE JIMENEZ Address: home [address] [place] [address] Name: JAMIE JIMENEZ Address: home [address] [place], [place] Name: TOREY TRIVEDI Address: home [address] [place], [place] Name: JOCELYN SANTIAGO Address: home [address] [place], [place]
--- OUTSIDE RECORDS SUMMARY | 2024-04-17 12:23 | XMS_ITS | Continuity of Care Document ---
Author Organization [facility] ter Address [address] [place] [address]- Care Team Providers Care Pipe Blanks Cut Off Saw Operator Name Role Phone Alfa ROSADO MD, Gigi Hahn Primary Care Physician Encounter [facility] Date(s): 10/09/19 - 10/11/[address] [address]- [facility] Encounter Diagnosis CAP (community acquired pneumonia)(Final) - 10/09/19 Discharge Disposition: A-D/C Home Attending Physician: Jose Nelson MD Admitting Physician: Gurpreet Lopez MD Referring Physician: Not on Staff, Referring MD Allergies, Adverse Reactions, Alerts Substance Reaction [...] 11:43:00 EST, Inhaler, Route to Pharmacy Electronically, [id number], [facility] #[id number], 160, cm, 10/11/19... Start Date: 10/11/19 Status: [...] 16:58:00 EST Start Date: 10/09/19 Status: Ordered oseltamivir 75 mg oral capsule 1 capsule = 75 mg, By Mouth, 2 times a day, for 4 days, # 8 capsule, 0 Refills, Acute 10/15/19 10:14:00 EST, 10/11/19 10:14:00 EST, Capsule, [id number], 160, cm, 10/11/19 5:03:00 EST, Height, 80.7, kg, 10/10/19 18:15:00 EST, Dry Weight Start Date: 10/11/19 Stop Date: 10/15/19 Status: Ordered Multivitamin Tablet 1 tablet, By Mouth, Daily, 0 Refills, Maintenance, 10/09/19 16:58:00 EST Start Date: 10/09/19 Status: Ordered Zofran 4 mg oral tablet 1 tablet = 4 mg, By Mouth, Every 8 hours, PRN Nausea & Vomiting, # 10 tablet, 0 Refills, Maintenance, 10/11/19 10:15:00 EST, Tablet, [facility][id number], 160, cm, 10/11/19 5:03:00 EST, Height, 80.7, kg, 10/10/19 18:15:00 EST, Dry Weight Start Date: 10/11/19 Status: Ordered Problem List Condition Effective Dates Status Health Status Inform ant H/O: (Confirmed) Active Infertility, Female, Associa violette with Anovulation(Confirmed) Active Asthma, mild intermittent(Confirmed) Active Pain in female pelvis(Confirmed) Active Encounter for liletta IUD insertion(Confirmed) 01/11/19 Active PCOS - Polycystic ovarian syndrome(Confirmed) Active Results Orders for Microbiology Reports Name Date Blood Culture 10/09/19 Blood Culture #2 10/09/19 Urine Culture (URINE CULTURE) 10/09/19 Microbiology Reports TEST:Blood Culture, Second Order STATUS:Unauthenticated BODY SITE: SOURCE:Blood COLLECTED DATE/TIME:10/09/19 4:32 PM Blood Culture, Second Order SPECIMEN DESCRIPTION : BLOOD L AC SPECIAL REQUESTS : NONE CULTURE : NO GROWTH AFTER 48 HOURS REPORT STATUS : PRELIMINARY REPORT TEST:Blood Culture STATUS:Unauthenticated BODY SITE: SOURCE:Blood COLLECTED DATE/TIME:10/09/19 4:10 PM Blood Culture SPECIMEN DESCRIPTION : BLOOD RAC SPECIAL REQUESTS : NONE CULTURE : NO GROWTH AFTER 48 HOURS REPORT STATUS : PRELIMINARY REPORT TEST:Urine Culture STATUS:Auth (Verified) BODY SITE: SOURCE:URINE COLLECTED DATE/TIME:10/09/19 3:01 PM Urine Culture SPECIMEN DESCRIPTION : URINE CLEAN CATCH/MIDSTREAM SPECIAL REQUESTS : NONE Reflexed from [id number] CULTURE : Mixed bacterial linda, indicative of urogenital contamination. REPORT STATUS : FINAL 10/10/2019 Radiology Reports * Exam Date Time Procedure Performing Provider Status 10/09/19 8:06 AM Chest 2 Views Frontal and Lat Tiffanie Vasquez; Auth (Verified) Notes: (Chest 2 Views Frontal and Lat) Reason For Exam: Fever;Cough RESULT: Chest 2 Views Frontal and Lat Chest 2 Views Frontal and Lat Refer to EMR; Reason: Cough; Fever; Clinical Question(s): Pneumonia; Hx of Present Illness: Pt with c o Chest pain, coughing, fever, chills, body aches, headaches, nausea, vomiting starting yesterday with rapid progression. 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 FINDINGS: LINES AND TUBES: None. LUNGS AND PLEURA: There is a hazy opacity in the right lower lobe. The left lung is clear. No pleural effusion. No pneumothorax. HEART, MEDIASTINUM AND IVY: Heart is normal in size. Normal mediastinal and hilar contour. BONES AND SOFT TISSUES: No acute abnormality. IMPRESSION: Hazy right lower lobe opacity could represent atelectasis and/or pneumonia. WSN: [id number] Dictated By: Darshan Cerda MD Dictated Date/Time: 10/09/19 8:57 am Reviewed By: Darshan Cerda MD Signed By: Darshan Cerda MD Signed Date/Time: 10/09/19 8:57 am Transcribed By: CECIL Transcribed Date/Time: 10/09/19 8:55 am Vital Signs Most recent to oldest [Reference Range]: 1 2 3 Height 160 cm (10/11/19 5:03 AM) 160 cm (10/10/19 9:24 PM) 160 cm (10/10/19 12:21 PM) Weight 80.7 kg (10/10/19 12:21 PM) Oxygen Saturation [94-100 %] 100 % (10/11/19 5:03 AM) 99 % (10/10/19 9:24 PM) 100 % (10/10/19 4:18 PM) Pulse Rate [55-90 bpm] 84 bpm (10/11/19 5:03 AM) 77 bpm (10/10/19 9:24 PM) 79 bpm (10/10/19 4:18 PM) Body Mass Index [18.5-24.99] 31.52 *>HHI* (10/10/19 12:21 PM) Blood Pressure [90-138/55-84 mm Hg] 101/54mm Hg (10/11/19 5:03 AM) 117/69mm Hg (10/10/19 9:24 PM) 109/70mm Hg (10/10/19 4:18 PM) Respiratory Rate [16-30 br/min] 18 br/min (10/11/19 5:03 AM) 17 br/min (10/11/19 4:51 AM) 17 br/min (10/11/19 3:51 AM) Temperature [96.8-100.4 DegF] 99.0 DegF (10/11/19 5:03 AM) 99.4 DegF (10/10/19 9:24 PM) 98.4 DegF (10/10/19 4:18 PM) Mode of Delivery (Oxygen) Room air (10/11/19 5:03 AM) Room air (10/10/19 9:24 PM) Room air (10/10/19 4:18 PM) Blood pressure sites Arm, left (10/11/19 5:03 AM) Arm, left (10/10/19 9:24 PM) Arm, left (10/10/19 4:18 PM) Temperature Route Oral (10/11/19 5:03 AM) Oral (10/10/19 9:24 PM) Oral (10/10/19 4:18 PM) Dry Weight 80.7 kg (10/10/19 12:21 PM) Sensory deficits None (10/10/19 12:21 PM) Mobility assistance Partial assistance (10/10/19 12:21 PM) Social History Social History Type Response Smoking Status Never (less than 100 in lifetime) entered on: 04/16/19 Sex
--- OUTSIDE RECORDS SUMMARY | 2024-04-17 12:23 | XMS_ITS | Continuity of Care Document ---
Author Organization [facility] Address [address] [place] [address]- Care Team Providers Care Answering Service Telephone Operator Name Role Phone Alfa ROSADO MD, Gigi Hahn Primary Care Physician [place] [facility] Date(s): 03/30/23 - 04/29/[address] [address] Allergies, Adverse Reactions, Alerts Substance Reaction Severity Status ibuprofen throat swelling body rash Active shellfish Anaphylaxis Active Latex Rash Active Lobster Anaphylaxis Dust allergy Dogs Allergy to cats Active Pineapple Anaphylaxis Active Immunizations Given and Recorded Vaccine Date Status Refusal Reason SARS-CoV-2 mRNA (lkeuavq-jrgi-czwjn) vax 10/17/21 Recorded SARS-CoV-2 mRNA (ybvzfxk-kzmz-yffzk) vax 12/25/20 Recorded SARS-CoV-2 mRNA (xsqlefs-oygn-gyobg) vax 12/04/20 Recorded tetanus/diphtheria/pertussis, acel(Tdap) 01/25/17 Given [...] 11:43:00 EST, Inhaler, Route to Pharmacy Electronically, [id number], [id number], 160, cm, 10/11/19... Start Date: 10/11/19 Status: [...] Refills, Maintenance, 04/07/23 2:01:00 EDT, DIS Tablet, [facility]/pharmacy #[id number], Partial fill upon patient request [...] 03/14/23 16:14:00 EDT, Route to Pharmacy Electronically, [facility]/pharmacy #[id number] Tablet,Partial fill upon patient request if [...] Reference Physician Member Role: PCP Address: Address: [address] [place] [address]- Name: Naila Martinez RN Position: S OB RN Member Role: Primary Care Nurse Name: Lo Vernon RN Position: S OB RN Member Role: Primary Care Nurse Name: Elena Cabrera RN Position: [facility] HBO Wound Member Role: Primary Care Nurse Care Team Related Persons Name: CHERELLE STINSON Address: home [address] [address] Name: TOREY JIMENEZ Address: home [address] [address] Name: TOREY JIMENEZ Address: home [address] Name: JAMIE JIMENEZ Address: home [address] [place] [address] Name: JAMIE JIMENEZ Address: home [address] [place] [address] Name: TOREY TRIVEDI Address: home [address] [place], [place] Name: JOCELYN SANTIAGO Address: home [address] [place] [address]
--- OUTSIDE RECORDS SUMMARY | 2024-04-17 12:23 | XMS_ITS | Continuity of Care Document ---
Author Organization [facility] Address [address] [place] [address]- Care Team Providers Care Plastic Fixture Builder Name Role Phone Alfa ROSADO MD, Gigi Hahn Primary Care Physician En[place] [facility] Date(s): 11/02/23 - 12/02/[address] [address]- Allergies, Adverse Reactions, Alerts Substance Reaction Severity Status ibuprofen throat swelling body rash Active shellfish Anaphylaxis Active Pineapple Anaphylaxis Active Latex Rash Active Lobster Anaphylaxis Dust allergy Dogs Allergy to cats Active Immunizations Given and Recorded Vaccine Date Status Refusal Reason tetanus/diphtheria/pertussis, acel(Tdap) 08/18/23 Given tetanus/diphtheria/pertussis, acel(Tdap) 01/25/17 Given SARS-CoV-2 mRNA (rdmnqcw-hcdu-lajnv) vax 10/17/21 Recorded SARS-CoV-2 mRNA (rgeuvhk-mopz-oqroj) vax 12/25/20 Recorded SARS-CoV-2 mRNA (vsvbonh-kacl-nspae) vax 12/04/20 Recorded pneumococcal 23-valent vaccine 03/31/16 Given Varicella Virus Vaccine 08/14/13 Recorded Medications acetaminophen 325 mg oral tablet 975 mg, 3, tablet, By Mouth, Every 6 hours, PRN, # 50 tablet, Refills 0, Tot. Refills 0, Maintenance, Pain , Moderate, 11/07/23 7:35:00 EST, Route to Pharmacy Electronically, [facility]/pharmacy #[id number], Partial fill upon patient request if the prescription is... Start Date: 11/07/23 Status: Ordered albuterol CFC free 90 mcg/inh inhalation aerosol 180 mcg, 2, puffs, Inhalation, Every 4 hours, PRN, # 1 each, Refills 2, Tot. Refills 2, Maintenance, 10/11/19 11:43:00 EST, Inhaler, Route to Pharmacy Electronically, [id number], [facility] #[id number], 160, cm, 10/11/19... Start Date: 10/11/19 Status: Ordered aspirin 81 mg oral tablet 2 tablet = 162 mg, By Mouth, Daily, # 180 tablet, 2 Refills, Maintenance, 09/19/23 15:50:00 EST, Tablet, [id number], Partial fill upon [...] opioid drug. Start Date: 03/09/23 Status: Ordered MiraLax oral powder for reconstitution = 17 Gm, By Mouth, Daily, dissolve in water before taking, # 255 Gm, 0 Refills, Maintenance, 11/07/23 7:35:00 EST, REC Powder, [id number], Partial fill upon [...] Reference Physician Member Role: PCP Address: Address: [address] [place] [address] [facility] Name: Naila Martinez RN Position: S OB RN Member Role: Primary Care Nurse Name: Lo Vernon RN [facility] RN Member Role: Primary Care Nurse Name: Elena Cabrera RN Position: [facility] HBO Wound Member Role: Primary Care Nurse Care Team Related Persons Name: CHERELLE STINSON Address: home [address] Name: JOSS BOBO Address: [address] Address: home [address] [place], [place] Name: TOREY JIMENEZ Address: home [address] Name: TOREY JIMENEZ Address: home [address] Name: JAMIE JIMENEZ Address: home [address] [place] [address] Name: JAMIE JIMENEZ Address: home [address] [address] Name: TOREY QUESADA Address: home [address] [place], [place] Name: JOCELYN SANTIAGO Address: home [address] [place] [address]
--- OUTSIDE RECORDS SUMMARY | 2024-04-17 12:23 | XMS_ITS | Continuity of Care Document ---
Author Organization [facility] Address [address] [address]- Care Team Providers Care Bilingual Teacher Assistant Name Role Phone Alfa ROSADO MD, Gigi Hahn Primary Care Physician [phone] Encounter [facility] Date(s): 07/05/22 - 08/04/22 [facility] [address] [address] Allergies, Adverse Reactions, Alerts Substance Reaction Severity [...] 11:43:00 EST, Inhaler, Route to Pharmacy Electronically, [id number], [facility][id number], 160, cm, 10/11/19... Start Date: 10/11/19 Status: [...] Name: Alfa ROSADO MD, Gigi Hahn Position: [facility] Ambulatory (view) Member Role: PCP Address: Address: [address] [place] [address]- Name: Naila Martinez RN Position: [facility] OB RN Member Role: Primary Care Nurse Name: Lo Vernon RN Position: [facility] OB RN Member Role: Primary Care Nurse Name: Elena Cabrera RN Position: [facility] HBO Wound Member Role: Primary Care Nurse Care Team Related Persons Name: CHERELLE STINSON Address: home [address] Name: TOREY JIMENEZ Address: home [address] Name: TOREY JIMENEZ Address: home [address] [address] Name: JAMIE JIMENEZ Address: home [address] [place] [address] Name: JAMIE JIMENEZ Address: home [address] [place] [address] Name: TOREY TRIVEDI Address: home [address] [place], [place] Name: JOCELYN SANTIAGO Address: home [address] [place] [address]
--- OUTSIDE RECORDS SUMMARY | 2024-04-17 12:23 | XMS_ITS | Continuity of Care Document ---
Author Organization [facility] Address [address] [place] [address]- Care Team Providers Care Small Products Assembler Name Role Phone Alfa ROSADO MD, Gigi Hahn Primary Care Physician [phone] Encounter [facility] Date(s): 03/27/23 - 03/27/[address] [address] Discharge Disposition: A-D/C Home Attending Physician: Unruly Martinez MD Admitting Physician: Unruly Martinez MD Referring Physician: Unruly Martinez MD Allergies, Adverse Reactions, Alerts Substance Reaction [...] 11:43:00 EST, Inhaler, Route to Pharmacy Electronically, [id number], [facility][id number], 160, cm, 10/11/19... Start Date: 10/11/19 Status: [...] 11 Refills, Maintenance, 02/03/23 17:52:00 EDT, Tablet, [facility]/pharmacy #[id number], Partial fill upon patient request if the prescription is for a schedule II opioid drug., 1 tablet By Mouth Daily, 163, cm, 02/03/23 16:... Start Date: 02/03/23 Status: Ordered pyridoxine 25 mg oral tablet 1 tablet = 25 mg, By Mouth, 3 times a day, PRN Nausea & Vomiting, # 100 tablet, 8 Refills, Maintenance, 03/27/23 17:46:00 EDT, Tablet, [facility]/pharmacy #[id number], Partial fill upon patient request if theprescription is for a schedule II opioid drug., 163, cm... Start Date: 03/27/23 Status: Ordered Senna 8.6 mg oral tablet 1 or 2 tablets, By Mouth, Daily at bedtime, PRN, # 60 tablet, Refills 0, Tot. Refills 0, Maintenance, Constipation, 03/14/23 16:14:00 EDT, Route to Pharmacy Electronically, [facility]/pharmacy #[id number] Tablet,Partial fill upon patient request if the prescripti... Start Date: 03/14/23 Status: Ordered Unisom 25 mg oral tablet 1 tablet = 25 mg, By Mouth, Daily at bedtime, PRN for sleep, # 32 tablet, 0 Refills, Maintenance, 03/27/23 17:46:00 EDT, Tablet, [id number], Partial fill upon patient request if the prescription is for a schedule II opioid drug., 163, cm, 070... Start Date: 03/27/23 Status: Ordered Problem List Condition Confirmation Course Effective Dates Status Health St atus Informant Right ovarian cyst Confirmed Active Infertility, Female, Associated with Anovulation Confirmed Active Brain aneurysm Confirmed Active Migraine Confirmed Active Asthma, mild intermittent Confirmed Active Obese class I Confirmed Active Obstructive sleep apnea Confirmed Active Pain in female pelvis Confirmed Active Encounter for IUD removal Confirmed Active control counseling Confirmed Active PCOS - Polycystic ovarian syndrome Confirmed Active Vital Signs Most recent to oldest [Reference Range]: 1 Weight 86.8 kg (03/27/23 1:25 PM) Oxygen Saturation [94-100 %] 100 % (03/27/23 1:25 PM) Pulse Rate [55-90 bpm] 73 bpm (03/27/23 1:25 PM) Blood Pressure [90-138/55-84 mm Hg] 124/ 72mm Hg (03/27/23 1:25 PM) Respiratory Rate [16-30 br/min] 17 br/mi n (03/27/23 1:25 PM) Temperature [96.8-100.4 DegF] 97.9 DegF (03/27/23 1:25 PM) Blood pressure sites Arm, right (03/27/23 1:25 PM) Temperature Route Oral (03/27/23 1:25 PM) Weight Obtained Via Standing scale (03/27/23 1:25 PM) Social History Social History Type Response Smoking Status Never smoker; Tobacc o user in household: No entered on: 11/01/17 Sex Female Note * Socorro Mccrary: PERFORM Event Display: Discharge/Transfer Note Hospital Authored Date: [id number] Nursing Discharge Note Entered On: 03/27/2023 18:20 EDT Performed On: 03/27/2023 18:19 EDT by Socorro Mccrary Nursing Discharge Note 2 Discharge Time : 03/27/2023 18:19 EDT Discharge Level of Care at Discharge : Home/Jail/Foster Care Patient Left Unit Via : Ambulatory Patient Accompanied Off Unit with : Significant other DC Instructions Provided & Signed by Pt : Yes Patient Understands D/C Instructions : Yes Patient Instructions Discharge Signed : Yes Did Pt have Specialty Bed or Wound Vac : No Socorro Mccrary - 03/27/2023 18:19 EDT * Mccrary Socorro: PERFORM Event Display: Patient Education/Instruction Authored Date: [id number] Inpatient Adult Discharge Instructions [address] [address] Name: JOSE TRIVEDI : 1990 Visit: 03/27/2023 12:44:00 Current Date: 03/27/2023 18:02 Account: [id number] Inpatient Adult Discharge Instructions We would like [...] and their families. Surveys are administered by [employer] ?? If further treatment with your primary care physician or another doctor is recommended, it is important for you to keep the appointment. Call your primary care physician or return to the Emergency Department immediately if your condition worsens, fails to improve, or new symptoms develop. If you need to find a doctor, you can call [facility] for a referral at [phone] or toll free at [phone]) or log in to [email or web address].. ?? You can view and manage your care through the patient portal or by using a health care ambrocio of your choosing. [employer] is a website that allows you to securely view your medical information including your hospital discharge summary, office visit summaries, medications and follow-up visits. You can also request appointments, renew medications, and request access to your medical information using a health care ambrocio of your choosing, or just ask a question. You can enroll at [email or web address] or register during your next office visit. You have been discharged from [facility], Patient Care Unit: WETU1. If you have any questions regarding these instructions after you leave, please call us and we will be happy to assist you. [facility] Your Care Team Attending Physician Unruly Martinez MD Your Diagnosis Nausea and vomiting in Tests Performed Below is a partial list of the tests performed during your hospitalization. You may have had other tests and procedures not included in this list. Please discuss all test results with your provider. Primary Care Provider Gigi Grimm III, MD Advance Directive Health Care Proxy on File No Discharge Vitals Temperature: 97.9 DegF Weight: 86.8 kg Pulse Rate: 73 bpm ?? Respiratory Rate: 17 br/min ?? Systolic Blood Pressure: 124 mm Hg ?? Diastolic Blood Pressure: 72 mm Hg ?? Oxygen Saturation: 100 % ?? Studies Pending All tests and labs ordered during this hospital stay have been completed unless listed below. Please discuss all pending results with your provider listed above in these instructions. ?? No incomplete studies found What to do next Instructions From Your Doctor Discharge Orders Scheduled Follow-Up Appointments Monday 10:00 AM EDT ?? Where: [facility] [address] [place] [address]- Status: Pending Monday 8:20 AM EDT ?? Where: [facility] [address] [place] [address]- Status: Pending Monday 9:40 AM EDT ?? 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 Keep scheduled appointments. Call office with questions or concerns. Discharge Medications JOSE TRIVEDI :1990 Visit Date:03/27/2023 Medications: Please continue your medications until treatment [...] oral tablet) 1 tab(s) Oral Daily Unchanged Pyridoxine (pyridoxine 25 mg oral tablet) [...] ibuprofen??(throat swelling, body rash) shellfish??(Anaphylaxis) Problems Active Problems??(12) Asthma, mild intermittent?? control counseling?? Brain aneurysm?? Encounter for IUD removal?? Infertility, Female, Associated with Anovulation?? Migraine?? Obese class I?? Obstructive sleep apnea?? Pain in female pelvis?? PCOS - Polycystic ovarian syndrome? Right ovarian cyst?? Education Materials Below is the list of Educational Leaflet Providered with your Discharge Instructions. Severe Morning Sickness (Hyperemesis Gravidarum)?? Valuables and Belongings I fully understand and agree that [facility] accepts no responsibility for all my personal [...] Status?? Pulmonary Rehab Discharge Status?? Respiratory Rate: 17 br/min ? Common Emergency Awareness Tips IS [...] are strongly encouraged to quit. Please call [facility] Link at [phone] or [phone]) or log in to [email or web address] for referrals to smoking cessation programs. ?? 629 Suicide & Crisis Lifeline is available 10/04 if you or someone you know needs to find a reason to keep living. By calling 894 you'll be connected to a skilled, trained counselor at a crisis center in your area. INPATIENT DISCHARGE INSTRUCTIONS SIGNATURE PAGE JOSE TRIVEDI Location:[facility] Registration Date and Time:03/27/2023 12:44 EDT Primary Care Physician: Alfa ROSADO MD, Gigi Hahn, Attending Physician: Unruly Martinez MD, I JOSE TRIVEDI, have received the above patient education materials/instructions and have verbalized understanding. If ambulance or transport services are being used I further acknowledge being given a choice of service. ?? If you need to contact me, please call me at this number: . Patient/Set Builder Name: Patient/Set Builder Signature: Relationship to Patient: Witness Name/Signature: Date: * Socorro Mccrary: PERFORM Event Display: Patient Education Leaflets Authored Date: [id number] Severe Morning Sickness (Hyperemesis Gravidarum) ?? [address] Severe Morning Sickness (Hyperemesis Gravidarum) Upset stomach (nausea) and vomiting are common in . It is often called morning sickness. But it can happen at any time of day. Severe nausea and vomiting that doesn???t let up is not normal.This is known as?? hyperemesis gravidarum.??It can cause too much fluid loss (dehydration). And it can cause a lot of weight loss. This can be dangerous for the mother and baby. If you have it, your healthcare provider can treat you. This is done to keep you and your baby safe. They can also help you get some relief.?? Symptoms of severe morning sickness Call your healthcare provider if you have symptoms like these: ??? Unable to keep down liquids ??? Severe nausea beyond the first few months of ??? Unable to empty your bladder? Urine that is dark and in small amounts? Dizziness or fainting ?? What causes severe morning sickness? Morning sickness may be caused by an increase in some hormone levels. It is not clear why it's moresevere in some people. It may be more likely if you are carrying twins or more. You may need some tests. These are to check for other health conditions that can cause severe nausea and vomiting. ?? Getting relief from morning sickness To help reduce nausea: ? Eat small amounts of food often. An empty stomach can make nausea worse. ??? Choose dry foods such as crackers. ??? Try sipping cold, clear drinks. ??? Take christopher, if your healthcare provider advises. ??? Your provider may advise that you try vitamin B-6 and a medicine called doxylamine. Thesecan help to ease the nausea. ??? Try acupuncture. In some cases, it can help manage nausea. ? Treating severe morning sickness The focus of treatment for??severe morning sickness??is to: ? Ease your symptoms ??? Prevent weight loss ??? Prevent too much fluid loss (dehydration) ?? If you are dehydrated or losing weight, you may need to be in the hospital for a short time. You will have IV (intravenous) fluids. This is to replace lost fluids. You may be given medicines that ease nausea. In very severe cases, you may need more time in the hospital. You may need IV nutrition ortube feeding. If you need these, your healthcare provider will tell you more. ?? Recovery and follow-up With treatment,??severe morning sickness??can be managed. Follow up with your healthcare provider. They want to make sure you are keeping down fluids. They need to check that you're gaining a healthyamount of weight. ?? When to get medical care Call your healthcare provider right away if you have any of these: ??? Signs of dehydration (see below) ??? Weight loss ??? Dizziness or fainting ??? Racing or pounding heart ??? Blood in your vomit Signs of dehydration include: ? Extreme thirst ??? Headache ??? Small amounts of urine ??? Very dark urine ??? A dry, sticky mouth ? Last Reviewed Date: 2021 ?? 4430-1027 [employer]. All rights reserved. This information is not intended as a substitute for professional medical care. Always follow your healthcare professional's instructions. ?? Patient Care team information Care Team Personnel Name: Alfa ROSADO MD, Gigi Hahn Position: Reference Physician Member Role: PCP Address: Address: [address] [place] [address]- Name: Naila Martinez RN Position: [facility] OB RN Member Role: Primary Care Nurse Name: Lo Vernon RN Position: [facility] OB RN Member Role: Primary Care Nurse Name: Elena Cabrera RN Position: [facility] HBO Wound Member Role: Primary Care Nurse Care Team Related Persons Name: CHERELLE STINSON Address: home [address] [address] Name: TOREY JIMENEZ Address: home [address] Name: TOREY JIMENEZ Address: home [address] [address] Name: JAMIE JIMENEZ Address: home [address] [place] [address] Name: JAMIE JIMENEZ Address: home [address] [address] Name: TOREY TRIVEDI Address: home [address] [place] [address] Name: JOCELYN SANTIAGO Address: home [address] [place] [address]
--- OUTSIDE RECORDS SUMMARY | 2024-04-17 12:23 | XMS_ITS | Continuity of Care Document ---
Author Organization [facility] Address [address] [place] [address]- Care Team Providers Care Metal Box Maker Name Role Phone Alfa ROSADO MD, Gigi Hahn [id number] - 07[facility]26/[address] [address] Attending Physician: Not on Staff, Attending MD Allergies, Adverse Reactions, Alerts Substance Reaction Severity Status ibuprofen throat swelling body rash Active Lobster Anaphylaxis Dust allergy Dogs Allergy to cats Active Pineapple Anaphylaxis Active shellfish Anaphylaxis Active Latex Rash Active Immunizations Given and Recorded Vaccine Date Status Refusal Reason SARS-CoV-2 mRNA (hogtmwn-ukws-sgkkg) vax 10/17/21 Recorded SARS-CoV-2 mRNA (zykqnej-ndqg-dgvnw) vax 12/25/20 Recorded SARS-CoV-2 mRNA (ydysnmv-rydw-hrsjy) vax 12/04/20 Recorded tetanus/diphtheria/pertussis, acel(Tdap) 01/25/17 Given [...] 11:43:00 EST, Inhaler, Route to Pharmacy Electronically, [id number], [facility] #[id number], 160, cm, 10/11/19... Start Date: 10/11/19 Status: Ordered aspirin 81 mg oral tablet, chewable 162 mg, 2, tablet, Chew, Daily, # 180 tablet, Refills 3, Tot. Refills 3, Maintenance, 05/03/23 15:24:00 EDT, Route to Pharmacy Electronically, [facility]/pharmacy #[id number], Partial fill upon patient request [...] 0 Refills, Maintenance, 04/25/23 11:26:00 EDT, Suppository, [facility]/pharmacy #[id number], Partial fill upon patient request if the prescription is for a schedule II opioid drug., 165,... Start Date: 04/25/23 Status: Ordered pyridoxine 25 mg oral tablet 1 tablet = 25 mg, By Mouth, 3 times a day, PRN Nausea & Vomiting, # 100 tablet, 8 Refills, Maintenance, 03/27/23 17:46:00 EDT, Tablet, [facility]/pharmacy #[id number], Partial fill upon patient request if theprescription is for a schedule II opioid drug., 163, cm... Start Date: 03/27/23 Status: Ordered Reglan 10 mg oral tablet 1 tablet = 10 mg, By Mouth, 3 times a day, PRN Nausea & Vomiting, # 28 tablet, 2 Refills, Maintenance, 03/30/23 19:35:00 EDT, [facility]/pharmacy #[id number], Partial fill upon patient request [...] opioid drug., 165, cm, ... Start Date: 07/21/23 Status: Ordered Problem List [...] Reference Physician Member Role: PCP Address: Address: [address] [place] [address] [facility] Name: Naila Martinez RN Position: [facility] OB RN Member Role: Primary Care Nurse Name: Lo Vernon RN Position: [facility] OB RN Member Role: Primary Care Nurse Name: Elena Cabrera RN Position: [facility] HBO Wound Member Role: Primary Care Nurse Care Team Related Persons Name: CHERELLE STINSON Address: home [address] Name: TOREY JIMENEZ Address: home [address] Name: TOREY JIMENEZ Address: home [address] Name: JAMIE JIMENEZ Address: home [address] [place], [place] Name: JAMIE JIMENEZ Address: home [address] [place] [address] Name: TOREY QUESADA Address: home [address] [place], [place] Name: JOCELYN SANTIAGO Address: home [address] [place] [address]
--- OUTSIDE RECORDS SUMMARY | 2024-04-17 12:23 | XMS_ITS | Continuity of Care Document ---
Author Organization [facility] Address Unknown Care Team Providers Care Library Cataloging Technician Name Role Phone Alfa ROSADO MD, Gigi Hahn Primary Care Physician Encounter [facility] Date(s): 08/05/21 - 09/04/21 [facility] Allergies, Adverse Reactions, Alerts Substance Reaction Severity [...] 11:43:00 EST, Inhaler, Route to Pharmacy Electronically, [id number], [facility][id number], 160, cm, 10/11/19... Start Date: 10/11/19 Status: [...]
--- OUTSIDE RECORDS SUMMARY | 2024-04-17 12:23 | XMS_ITS | Continuity of Care Document ---
Author Organization [facility] Address [address] [address]- Care Team Providers Care Soda Flaker Name Role Phone Alfa ROSADO MD, Gigi Hahn Primary Care Physician Encounter [facility] Date(s): 05/01/23 - 05/31/[address] [address] Attending Physician: Admtr, Lito8 Admitting Physician: Admtr, Lito8 Referring Physician: Admtr, Ar8 Allergies, Adverse Reactions, Alerts Substance Reaction Severity Status ibuprofen throat swelling body rash Active shellfish Anaphylaxis Active Latex Rash Active Lobster Anaphylaxis Dust allergy Dogs Allergy to cats Active Pineapple Anaphylaxis Active Immunizations Given and Recorded Vaccine Date Status Refusal Reason SARS-CoV-2 mRNA (cxnrpjn-dztq-zyawt) vax 10/17/21 Recorded SARS-CoV-2 mRNA (shwqlkg-oxln-suymj) vax 12/25/20 Recorded SARS-CoV-2 mRNA (vawdztx-nlhp-betzk) vax 12/04/20 Recorded tetanus/diphtheria/pertussis, acel(Tdap) 01/25/17 Given [...] 11:43:00 EST, Inhaler, Route to Pharmacy Electronically, [id number], [id number], 160, cm, 10/11/19... Start Date: 10/11/19 Status: Ordered aspirin 81 mg oral tablet, chewable 162 mg, 2, tablet, Chew, Daily, # 180 tablet, Refills 3, Tot. Refills 3, Maintenance, 05/03/23 15:24:00 EDT, Route to Pharmacy Electronically, [facility]/pharmacy #[id number], Partial fill upon patient request ifthe [...] 0 Refills, Maintenance, 04/25/23 11:26:00 EDT, Suppository, [facility]/pharmacy #0693, Partial fill upon patient request if the prescription is for a schedule II opioid drug., 165,... Start Date: 04/25/23 Status: Ordered pyridoxine 25 mg oral tablet 1 tablet = 25 mg, By Mouth, 3 times a day, PRN Nausea & Vomiting, # 100 tablet, 8 Refills, Maintenance, 03/27/23 17:46:00 EDT, Tablet, [facility]/pharmacy #0693, Partial fill upon patient request if theprescription is for a schedule II opioid drug., 163, cm... Start Date: 03/27/23 Status: Ordered Reglan 10 mg oral tablet 1 tablet = 10 mg, By Mouth, 3 times a day, PRN Nausea & Vomiting, # 28 tablet, 2 Refills, Maintenance, 03/30/23 19:35:00 EDT, [facility]/pharmacy #0693, Partial fill upon patient request if the prescription is for a schedule II opioid drug., 163, cm, ... Start Date: 03/30/23 Status: Ordered Senna 8.6 mg oral tablet 1 or 2 tablets, By Mouth, Daily at bedtime, PRN, # 60 tablet, Refills 0, Tot. Refills 0, Maintenance, Constipation, 03/14/23 16:14:00 EDT, Route to Pharmacy Electronically, [facility]/pharmacy #0693 Tablet,Partial fill upon patient request if the prescripti... Start Date: 03/14/23 Status: Ordered Unisom 25 mg oral tablet 1 tablet = 25 mg, By Mouth, Daily at bedtime, PRN for sleep, # 32 tablet, 0 Refills, Maintenance, 03/27/23 17:46:00 EDT, Tablet, [facility]/pharmacy #0693, Partial fill upon patient request if [...] Physician Member Role: PCP Address: Address: [address] [place] [address] - Name: Naila Martinez RN Position: [facility] RN Member Role: Primary Care Nurse Name: Lo Vernon RN Position: [facility] OB RN Member Role: Primary Care Nurse Name: Elena Cabrera RN Position: [facility] HBO Wound Member Role: Primary Care Nurse Care Team Related Persons Name: CHERELLE STINSON Address: home [address] Name: TOREY JIMENEZ Address: home [address] Name: TOREY JIMENEZ Address: home [address] Name: JAMIE JIMENEZ Address: home [address] [place] [address] Name: JAMIE JIMENEZ Address: home [address] [place] [address] Name: TOREY QUESADA Address: home [address] [place] [address] Name: JOCELYN SANTIAGO Address: home [address] [place] [address]
--- OUTSIDE RECORDS SUMMARY | 2024-04-17 12:23 | XMS_ITS | Continuity of Care Document ---
Author Organization [facility] Address [address] [place] [address], 4t [address] [place] [address]- Care Team Providers Care Piece Worker Name Role Phone Alfa ROSADO MD, Gigi Hahn Primary Care Physician [place] [facility] [place] 04[place]23 [facility] [address] [place] [address], 4th [address] [place] [address]- Allergies, Adverse Reactions, Alerts Substance Reaction Severity Status ibuprofen throat swelling body rash Active shellfish Anaphylaxis Active Latex Rash Active Lobster Anaphylaxis Dust allergy Dogs Allergy to cats Active Pineapple Anaphylaxis Active Immunizations Given and Recorded Vaccine Date Status Refusal Reason SARS-CoV-2 mRNA (ueaybpz-yhrk-irgwf) vax 10/17/21 Recorded SARS-CoV-2 mRNA (emkziwo-zkcr-tlywy) vax 12/25/20 Recorded SARS-CoV-2 mRNA (ssdlhzn-xmbn-xmnpu) vax 12/04/20 Recorded tetanus/diphtheria/pertussis, acel(Tdap) 01/25/17 Given [...] 11:43:00 EST, Inhaler, Route to Pharmacy Electronically, [id number], [facility] #[id number], 160, cm, 10/11/19... Start Date: 10/11/19 Status: [...] Refills, Maintenance, 04/07/23 2:01:00 EDT, DIS Tablet, [facility]/pharmacy #[id number], Partial fill upon patient request if the prescription is for a schedule II opioid d... Start Date: 04/07/23 Status: Ordered Multivitamins with Folic Acid 1 mg oral tablet 1 tablet, By Mouth, Daily, # 30 tablet, 11 Refills, Maintenance, 02/03/23 17:52:00 EDT, Tablet, [facility]/pharmacy #[id number], Partial fill upon patient [...] tablet, 2 Refills, Maintenance, 03/30/23 19:35:00 EDT, [facility]/pharmacy #[id number], Partial fill upon patient request if the prescription is for a schedule II opioid drug., 163, cm, 2... Start Date: 03/30/23 Status: Ordered Senna 8.6 mg oral tablet 1 or 2 tablets, By Mouth, Daily at bedtime, PRN, # 60 tablet, Refills 0, Tot. Refills 0, Maintenance, Constipation, 03/14/23 16:14:00 EDT, Route to Pharmacy Electronically, [facility]/pharmacy #[id number] Tablet,Partial fill upon patient request if the prescripti... Start Date: 03/14/23 Status: Ordered Unisom 25 mg oral tablet 1 tablet = 25 mg, By Mouth, Daily at bedtime, PRN for sleep, # 32 tablet, 0 Refills, Maintenance, 03/27/23 17:46:00 EDT, Tablet, [facility]/pharmacy #[id number], Partial fill upon patient [...] Reference Physician Member Role: PCP Address: Address: [address] [place] [id number] Name: Naila Martinez RN Position: [facility] RN Member Role: Primary Care Nurse Name: Lo Vernon RN Position: [facility] RN Member Role: Primary Care Nurse Name: Elena Cabrera RN Position: [facility] HBO Wound Member Role: Primary Care Nurse Care Team Related Persons Name: CHERELLE STINSON Address: home [address] Name: TOREY JIMENEZ Address: home [address] Name: TOREY JIMENEZ Address: home [address] Name: JAMIE JIMENEZ Address: home [address] [place] [address] Name: JAMIE JIMENEZ Address: home [address] [place] [address] Name: TOREY TRIVEDI Address: home [address], [place] Name: JOCELYN SANTIAGO Address: home [address] [place] [address]
--- OUTSIDE RECORDS SUMMARY | 2024-04-17 12:23 | XMS_ITS | Continuity of Care Document ---
Author Organization [facility] Address [address] [place] [address]- Care Team Providers Care Drop Worker Name Role Phone Alfa ROSADO MD, Gigi Hahn Primary Care Physician [place] [facility] [place] - 04/26/[address] [address] Allergies, Adverse Reactions, Alerts Substance Reaction Severity Status ibuprofen throat swelling body rash Active Latex Rash Active Pineapple Anaphylaxis Active shellfish Anaphylaxis Active Lobster Anaphylaxis Dust allergy Dogs Allergy to cats Active Immunizations Given and Recorded Vaccine Date Status Refusal Reason SARS-CoV-2 mRNA (qrenult-quvi-zsrit) vax 10/17/21 Recorded SARS-CoV-2 mRNA (cvzbzwm-xssm-enaqv) vax 12/25/20 Recorded SARS-CoV-2 mRNA (oakrywt-hylz-mitnx) vax 12/04/20 Recorded tetanus/diphtheria/pertussis, acel(Tdap) 01/25/17 Given [...] 11:43:00 EST, Inhaler, Route to Pharmacy Electronically, [id number], [facility] #[id number], 160, cm, 10/11/19... Start Date: 10/11/19 Status: [...] Reference Physician Member Role: PCP Address: Address: [address] [place] [address] Name: Naila Martinez RN Position: [facility] RN Member Role: Primary Care Nurse Name: Lo Vernon RN Position: [facility] OB RN Member Role: Primary Care Nurse Name: Elena Cabrera RN Position: [facility] HBO Wound Member Role: Primary Care Nurse Care Team Related Persons Name: CHERELLE STINSON Address: home [address] Name: TOREY JIMENEZ Address: home [address] Name: TOREY JIMENEZ Address: home [address] Name: JAMIE JIMENEZ Address: home [address] [address] Name: JAMIE JIMENEZ Address: home [address] [place] [address] Name: TOREY TRIVEDI Address: home [address] [place], [place] Name: JOCELYN SANTIAGO Address: home [address] [place] [address]
--- OUTSIDE RECORDS SUMMARY | 2024-04-17 12:23 | XMS_ITS | Continuity of Care Document ---
Author Organization [facility] Address Unknown Care Team Providers Care Market President Name Role Phone Gigi Grimm III, MD Primary Care Physician [phone] [place] [facility] [place] 08/05/21 - 09/15/21 [facility] Attending Physician: Not on Staff, Attending MD Referring Physician: Gigi Grimm III, MD Allergies, Adverse Reactions, Alerts Substance Reaction [...] 11:43:00 EST, Inhaler, Route to Pharmacy Electronically, [id number], [facility] #[id number], 160, cm, 10/11/19... Start Date: 10/11/19 Status: [...] Refills, Maintenance, 01/25/21 9:00:00 EDT, REC Powder, [facility]/pharmacy #[id number], Partial fill upon patient request [...]
--- OUTSIDE RECORDS SUMMARY | 2024-04-17 12:23 | XMS_ITS | Continuity of Care Document ---
Author Organization [facility] Address [address] [facility], [address] Floor, [address] [place] [address]- Care Team Providers Care Radiology Technician Name Role Phone Alfa ROSADO MD, Gigi Hahn Primary Care Physician [phone] [place] [facility] [place] Date(s): 06/10/20 - 07/10/20 [facility] [address], 3[address], [address] [place] [address]- [facility] Allergies, Adverse Reactions, Alerts Substance Reaction Severity [...] 11:43:00 EST, Inhaler, Route to Pharmacy Electronically, [id number], [facility] #[id number], 160, cm, 10/11/19... Start Date: 10/11/19 Status: [...] 06/19/20 10:03:00 EDT, Route to Pharmacy Electronically, [id number], 160, cm, 06/19/20 9:41:00 EDT, Height, 80.7... Start Date: 06/19/20 Status: Ordered fluconazole 150 mg oral tablet 1 tablet = 150 mg, By Mouth, Once, # 1 tablet, 0 Refills, Soft Stop, 07/10/20 14:15:00 EDT, Tablet,[facility] #[id number], 160, cm, 07/09/20 8:55:00 EDT, Height, 80.7, [...] Refills, Maintenance, 06/19/20 10:23:00 EDT, REC Powder, [facility] #[id number], 17 Gm By Mouth Daily,Instr:dissolve in water before taking, 160, cm, 06/19/20 9:41:00 EDT, Hei... Start Date: 06/19/20 Status: Ordered Multivitamin Tablet 1 tablet, By Mouth, Daily, 0 Refills, Maintenance, 10/09/19 16:58:00 EST Start Date: 10/09/19 Status: Ordered Multivitamins with Folic Acid 1 mg oral tablet 1 tablet, By Mouth, Daily, # 30 tablet, 11 Refills, Maintenance, 02/05/20 17:12:00 EDT, [facility] #[id number], 1 tablet By Mouth Daily, 160, cm, [...] 0 Refills, Maintenance, 10/11/19 10:15:00 EST, Tablet, [facility] #[id number], 160, cm, 10/11/19 5:03:00 EST, Height, 80.7, [...]
--- OUTSIDE RECORDS SUMMARY | 2024-04-17 12:23 | XMS_ITS | Continuity of Care Document ---
Author Organization [facility] Address [address] [place] [address] [address]- Care Team Providers Care Cosmetic Consultant Name Role Phone Alfa ROSADO MD, Gigi Hahn Primary Care Physician [phone] [id number] Date(s): 03/14/23 - 04/13/[address] [address] Allergies, Adverse Reactions, Alerts Substance Reaction Severity Status ibuprofen throat swelling body rash Active shellfish Anaphylaxis Active Latex Rash Active Lobster Anaphylaxis Dust allergy Dogs Allergy to cats Active Pineapple Anaphylaxis Active Immunizations Given and Recorded Vaccine Date Status Refusal Reason SARS-CoV-2 mRNA (acjkvox-ygil-mayqo) vax 10/17/21 Recorded SARS-CoV-2 mRNA (oglbfap-uukh-mjofp) vax 12/25/20 Recorded SARS-CoV-2 mRNA (ezxrsnm-dhbu-kdmdt) vax 12/04/20 Recorded tetanus/diphtheria/pertussis, acel(Tdap) 01/25/17 Given [...] 11:43:00 EST, Inhaler, Route to Pharmacy Electronically, [id number], [facility] #[id number], 160, cm, 10/11/19... Start Date: 10/11/19 Status: [...] 2 Refills, Maintenance, 03/30/23 19:35:00 EDT, [facility]/pharmacy #[id number], Partial fill upon patient request if the prescription is for a schedule II opioid drug., 163, cm, ... Start Date: 03/30/23 Status: Ordered Senna 8.6 mg oral tablet 1 or 2 tablets, By Mouth, Daily at bedtime, PRN, # 60 tablet, Refills 0, Tot. Refills 0, Maintenance, Constipation, 03/14/23 16:14:00 EDT, Route to Pharmacy Electronically, [facility]/pharmacy #[id number] Tablet,Partial fill upon patient request if the prescripti... Start Date: 03/14/23 Status: Ordered Unisom 25 mg oral tablet 1 tablet = 25 mg, By Mouth, Daily at bedtime, PRN for sleep, # 32 tablet, 0 Refills, Maintenance, 03/27/23 17:46:00 EDT, Tablet, [facility]/pharmacy #[id number], Partial fill upon patient request if [...] Reference Physician Member Role: PCP Address: Address: [address] [place] [id number] Name: Naila Martinez RN Position: [facility] OB RN Member Role: Primary Care Nurse Name: Lo Vernon RN Position: [facility] OB RN Member Role: Primary Care Nurse Name: Elena Cabrera RN Position: [facility] HBO Wound Member Role: Primary Care Nurse Care Team Related Persons Name: CHERELLE STINSON Address: [address] Name: TOREY JIMENEZ Address: home [address] Name: TOREY JIMENEZ Address: home [address] Name: JAMIE JIMENEZ Address: home [address] [place] [address] Name: JAMIE JIMENEZ Address: home [address] [place] [address] Name: TOREY TRIVEDI Address: home [address] [place], [place] Name: JOCELYN SANTIAGO Address: home [address] [place] [address]
--- OUTSIDE RECORDS SUMMARY | 2024-04-17 12:23 | XMS_ITS | Continuity of Care Document ---
Author Organization [facility] Address Unknown Care Team Providers Care Special Order Jeweler Name Role Phone Gigi Grimm III, MD Primary Care Physician [place] [facility] [place] 03/17/22 - 04/16/22 [facility] Allergies, Adverse Reactions, Alerts Substance Reaction Severity [...] 11:43:00 EST, Inhaler, Route to Pharmacy Electronically, [id number], [facility] #[id number], 160, cm, 10/11/19... Start Date: 10/11/19 Status: [...] Refills, Maintenance, 01/25/21 9:00:00 EDT, REC Powder, [facility]/pharmacy #[id number], Partial fill upon patient request [...] # 1 tablet, 0 Refills, Soft Stop, 03/17/22 15:07:00 EDT, Tablet, [facility] #[id number], Partial fill upon patient request if the prescription is for a schedule II opioid drug., 163, cm, 02/01/22 13:49:00 EDT, Height, 82,... Start Date: 03/17/22 Status: Ordered Estrace 2 mg oral tablet [...]
--- OUTSIDE RECORDS SUMMARY | 2024-04-17 12:23 | XMS_ITS | Continuity of Care Document ---
Author Organization [facility] Address [address] [place] [address], 4t [address] [place] [address]- Care Team Providers Care Bun Machine Operator Name Role Phone Alfa ROSADO MD, Gigi Hahn Primary Care Physician En[facility] [id number] Date(s): 04/12/22 - 05/12/22 [facility] [address] [place] [address], [address]th [address] [place] [address] Attending Physician: AdmBaldo dudley Admitting Physician: AdmtrBaldo Referring Physician: Admtr, Ar8 Allergies, Adverse Reactions, Alerts Substance Reaction Severity Status ibuprofen throat swelling body rash Active Latex Rash Active Lobster Anaphylaxis Dust allergy Dogs Allergy to cats Active Pineapple Anaphylaxis Active shellfish Anaphylaxis Active Immunizations Given and Recorded Vaccine [...] 11:43:00 EST, Inhaler, Route to Pharmacy Electronically, [id number], [facility] #[id number], 160, cm, 10/11/19... Start Date: 10/11/19 Status: [...] Refills, Maintenance, 01/25/21 9:00:00 EDT, REC Powder, [facility]/pharmacy #[id number], Partial fill upon patient request if the prescription is for a schedule II opioid drug., 3.5 Gm... Start Date: 01/25/21 Stop Date: 02/24/21 Status: Ordered Depo-Provera Contraceptive 150 mg/mL intramuscular suspension 1 mL = 150 mg, Intramuscular, Every 3 months, # 1 mL, 3 Refills, Maintenance, 02/04/21 10:33:00 EDT, Suspension, [facility]/pharmacy #[id number], Partial fill upon patient request if the prescription is for a schedule II opioid drug., 160, cm, 02/04/21 10:18:00 ED... Start Date: 02/04/21 Status: Ordered Janie 30 mg oral tablet 1 tablet = 30 mg, By Mouth, Once, # 1 tablet, 0 Refills, Soft Stop, 05/02/22 16:13:00 EDT, Tablet, [id number], Partial fill upon patient request if the prescription is for a schedule II opioid drug., 163, cm, 04/12/22 15:12:00 EDT, Height, 82,... Start Date: 05/02/22 Status: Ordered Janie 30 mg oral tablet 1 tablet = 30 mg, By Mouth, Once, # 1 tablet, 1 Refills, Soft Stop, 05/11/22 17:02:00 EDT, Tablet, [id number], Partial fill upon patient request if the prescription is for a schedule II opioid drug., 163, cm, 05/11/22 13:31:00 EDT, Height, 82,... Start Date: 05/11/22 Status: Ordered Estrace 2 mg oral tablet 1 tablet = 2 mg, By Mouth, 2 times a day, # 42 tablet, 0 Refills, Maintenance, 03/07/22 15:02:00 EDT, Tablet, [facility]/pharmacy #[id number], Partial fill upon patient request if the prescription is for a schedule II opioid drug., 163, cm, 02/01/22 13:49:00 EDT,... Start Date: 03/07/22 Stop Date: 03/28/22 Status: Ordered glycerin adult rectal suppository 1 supp, Rectally, Daily, PRN for constipation, # 24 supp, 6 Refills, Maintenance, 02/04/21 10:20:00EDT, Suppository, [facility]/pharmacy #[id number], Partial fill upon patient request if the prescription is for a schedule II opioid drug., 160, cm, 01/25/21 8:23:0... Start Date: 02/04/21 Status: Ordered Paragard IUD See Instructions, # 1 each, Refills 0, Tot. Refills 0, Maintenance, Please deliver device to [address] [place] [address], [address] [place] [address], 05/12/22 10:33:00 EDT, Supply, 163, cm, 05/11/22 13:31:00 EDT, Height, 82, kg, 10/27/21 18:02:00 EST, Dry... Start Date: 05/12/22 Status: Ordered PNV Plus oral tablet 1 [...] 03/07/22 15:02:00 EDT, Route to Pharmacy Electronically, [facility]/pharmacy #[id number], Partial fill upon patient request if the prescription is for a schedule II opioid drug... Start Date: 03/07/22 Stop Date: 03/17/22 Status: Ordered Provera 10 mg oral tablet 10 mg, 1, tablet, By Mouth, Daily, # 10 tablet, Refills 0, Tot. Refills 0, Maintenance, 02/04/22 15:01:00 EDT, Route to Pharmacy Electronically, [facility]/pharmacy #[id number], Partial fill upon patient [...] in household: No entered on: 11/01/17 Sex Care Team Personnel Name: Alfa ROSADO MD, Gigi Hahn Address: [address] [place] [address]
--- OUTSIDE RECORDS SUMMARY | 2024-04-17 12:23 | XMS_ITS | Continuity of Care Document ---
Author Organization [facility] Address [address] [place] [address]- Care Team Providers Care Study Abroad Advisor Name Role Phone Alfa ROSADO MD, Gigi Hahn Primary Care Physician [phone] Encounter [facility] [place] Date(s): 03/05/22 - 03/05/[address] [address] Attending Physician: Maddie Hinojosa MD Allergies, Adverse Reactions, Alerts Substance Reaction [...] 11:43:00 EST, Inhaler, Route to Pharmacy Electronically, [id number], [facility] #[id number], 160, cm, 10/11/19... Start Date: 10/11/19 Status: [...] Refills, Maintenance, 01/25/21 9:00:00 EDT, REC Powder, [facility]/pharmacy #[id number], Partial fill upon patient request if the prescription is for a schedule II opioid drug., 3.5 Gm... Start Date: 01/25/21 Stop Date: 02/24/21 Status: Ordered Depo-Provera Contraceptive 150 mg/mL intramuscular suspension 1 mL = 150 mg, Intramuscular, Every 3 months, # 1 mL, 3 Refills, Maintenance, 02/04/21 10:33:00 EDT, Suspension, [facility]/pharmacy #[id number], Partial fill upon patient request if the prescription is for a schedule II opioid drug., 160, cm, 02/04/21 10:18:00 ED... Start Date: 02/04/21 Status: Ordered glycerin adult rectal suppository 1 supp, Rectally, Daily, PRN for constipation, # 24 supp, 6 Refills, Maintenance, 02/04/21 10:20:00EDT, Suppository, [facility]/pharmacy #[id number], Partial fill upon patient request if the prescription is for a schedule II opioid drug., 160, cm, 01/25/21 8:23:0... Start Date: 02/04/21 Status: Ordered PNV Plus oral tablet 1 tablet, By Mouth, Daily, # 30 tablet, 11 Refills, Maintenance, 12/07/21 9:53:00 EDT, [facility]/pharmacy#0693, Partial fill upon patient request if the prescription is for a schedule II opioid drug., 1 tablet By Mouth Daily, 163, cm, 10/27/21 18:02:00 EST... Start Date: 12/07/21 Status: Ordered Multivitamins with Folic Acid 1 mg oral tablet 1 tablet, By Mouth, Daily, # 30 tablet, 11 Refills, Maintenance, 02/01/22 14:21:00 EDT, Tablet, [facility]/pharmacy #[id number], Partial fill upon patient request if the prescription is for a schedule II opioid drug., 1 tablet By Mouth Daily, 163, cm, 02/01/22 13:... Start Date: 02/01/22 Status: Ordered Provera 10 mg oral tablet 10 mg, 1, tablet, By Mouth, Daily, # 10 tablet, Refills 0, Tot. Refills 0, Maintenance, 02/04/22 15:01:00 EDT, Route to Pharmacy Electronically, [facility]/pharmacy #[id number], Partial fill upon patient request [...]
--- OUTSIDE RECORDS SUMMARY | 2024-04-17 12:24 | XMS_ITS | Continuity of Care Document ---
Author Organization [facility] Address [address] [place] [id number]- Care Team Providers Care Fisheries Management Biologist Name Role Phone Alfa ROSADO MD, Gigi Hahn Primary Care Physician Encounter [facility] [place] Date(s): 08/25/23 - 09/24/[address] [address] Allergies, Adverse Reactions, Alerts Substance Reaction Severity Status ibuprofen throat swelling body rash Active shellfish Anaphylaxis Active Latex Rash Active Lobster Anaphylaxis Dust allergy Dogs Allergy to cats Active Pineapple Anaphylaxis Active Immunizations Given and Recorded Vaccine Date Status Refusal Reason tetanus/diphtheria/pertussis, acel(Tdap) 08/18/23 Given tetanus/diphtheria/pertussis, acel(Tdap) 01/25/17 Given SARS-CoV-2 mRNA ([id number]) vax 10/17/21 Recorded SARS-CoV-2 mRNA ([id number]-bmbk-[id number]) vax 12/25/20 Recorded SARS-CoV-2 mRNA ([id number]-uapn-cnclp) vax 12/04/20 Recorded pneumococcal 23-valent vaccine 03/31/16 Given Medications acetaminophen/butalbital/caffeine [...] 11:43:00 EST, Inhaler, Route to Pharmacy Electronically, [id number], [address] [id number], 160, cm, 10/11/19... Start Date: 10/11/19 Status: Ordered aspirin 81 mg oral tablet 2 tablet = 162 mg, By Mouth, Daily, # 180 tablet, 2 Refills, Maintenance, 09/19/23 15:50:00 EST, Tablet, [facility]/pharmacy #[id number], Partial fill upon patient request if [...] Refills, Maintenance, 04/07/23 2:01:00 EDT, DIS Tablet, [facility]/pharmacy #[id number], Partial fill upon patient request if the prescription is for a schedule II opioid d... Start Date: 04/07/23 Status: Ordered ondansetron 8 mg oral tablet, disintegrating 1 tablet = 8 mg, By Mouth, 2 times a day, # 12 tablet, 0 Refills, Maintenance, 04/29/23 7:48:00 EDT, DIS Tablet, [facility]/pharmacy #[id number], Partial fill upon patient request if the prescription is for a schedule II opioid drug., 165, cm, 04/24/23 13:25:00 ED... Start Date: 04/29/23 Status: Ordered Cradle See Instructions, # 1 capsule, Maintenance, Abdominal Band for , 08/06/23 4:02:00 EST, Compound, 165, cm, 07/21/23 14:34:00 EDT, Height, 88.4, kg, 07/30/23 20:29:00 EST, Dry Weight Start Date: 08/06/23 Status: Ordered Multivitamins with Folic Acid 1 mg oral tablet 1 tablet, By Mouth, Daily, # 30 tablet, 11 Refills, Maintenance, 02/03/23 17:52:00 EDT, Tablet, [facility]/pharmacy #[id number], Partial fill upon patient request if the prescription is for a schedule II opioid drug., 1 tablet By Mouth Daily, 163, cm, 02/03/23 16:... Start Date: 02/03/23 Status: Ordered promethazine 25 mg rectal suppository 1 supp = 25 mg, Rectally, Every 4 hours, PRN for nausea/vomiting, # 12 supp, 0 Refills, Maintenance, 04/25/23 11:26:00 EDT, Suppository, [facility]/pharmacy #[id number], Partial fill upon patient request if the prescription is for a schedule II opioid drug., 165,... Start Date: 04/25/23 Status: Ordered pyridoxine 25 mg oral tablet 1 tablet = 25 mg, By Mouth, 3 times a day, PRN Nausea & Vomiting, # 100 tablet, 8 Refills, Maintenance, 03/27/23 17:46:00 EDT, Tablet, [facility]/pharmacy #[id number], Partial fill upon patient request if theprescription is for a schedule II opioid drug., 163, cm... Start Date: 03/27/23 Status: Ordered Reglan 10 mg oral tablet 1 tablet = 10 mg, By Mouth, 3 times a day, PRN Nausea & Vomiting, # 28 tablet, 2 Refills, Maintenance, 03/30/23 19:35:00 EDT, [facility]/pharmacy #[id number], Partial fill upon patient request if the prescription is for a schedule II opioid drug., 163, cm, ... Start Date: 03/30/23 Status: Ordered Saline Mist 0.65% nasal spray See Instructions, 2 sprays 4 times a day in each nostril, # 1 each, 0 Refills, Maintenance, 09/23/23 17:00:00 EST, [facility]/pharmacy #[id number], Partial fill upon patient request if the prescription is for a schedule II opioid drug., 2 sprays 4 times a day; in... Start Date: 09/23/23 Status: Ordered Senna 8.6 mg oral tablet 1 or 2 tablets, By Mouth, Daily at bedtime, PRN, # 60 tablet, Refills 0, Tot. Refills 0, Maintenance, Constipation, 03/14/23 16:14:00 EDT, Route to Pharmacy Electronically, [facility]/pharmacy #[id number] Tablet,Partial fill upon patient request if the prescripti... Start Date: 03/14/23 Status: Ordered Unisom 25 mg oral tablet 1 tablet = 25 mg, By Mouth, Daily at bedtime, PRN for sleep, # 32 tablet, 1 Refills, Maintenance, 07/21/23 15:16:00 EDT, Tablet, [facility]/pharmacy #[id number], Partial fill upon patient request if [...] Reference Physician Member Role: PCP Address: Address: [address] [place] [id number] Name: Naila Martinez RN Position: [facility] OB RN Member Role: Primary Care Nurse Name: Lo Vernon RN Position: [facility] OB RN Member Role: Primary Care Nurse Name: Elena Cabrera RN Position: [facility] HBO Wound Member Role: Primary Care Nurse Care Team Related Persons Name: CHERELLE STINSON Address: home [address] Name: TOREY JIMENEZ Address: home [address] Name: TOREY JIMENEZ Address: home [address] Name: JAMIE JIMENEZ Address: home [address] [place] [id number] Name: JAMIE JIMENEZ Address: home [address] [place] [id number] Name: TOREY QUESADA Address: home [address] [place] [id number] Name: JOCELYN SANTIAGO Address: home [address] [place] [id number]
--- OUTSIDE RECORDS SUMMARY | 2024-04-17 12:24 | XMS_ITS | Continuity of Care Document ---
Author Organization [facility] Address [address] [place] [address]- Care Team Providers Care Dairy Hand Name Role Phone Alfa ROSADO MD, Gigi Hahn Primary Care Physician Encounter [facility] Date(s): 04/06/23 - 04/07/[address] [address] Discharge Disposition: A-D/C Home Attending Physician: Amita George MD Admitting Physician: Amita George MD Referring Physician: Amita George MD Allergies, Adverse Reactions, Alerts Substance Reaction Severity Status ibuprofen throat swelling body rash Active shellfish Anaphylaxis Active Latex Rash Active Lobster Anaphylaxis Dust allergy Dogs Allergy to cats Active Pineapple Anaphylaxis Active Immunizations Given and Recorded Vaccine Date Status Refusal Reason SARS-CoV-2 mRNA (tsepbuk-wnoz-eoqdy) vax 10/17/21 Recorded SARS-CoV-2 mRNA (dhkjruo-vgvi-wxhrp) vax 12/25/20 Recorded SARS-CoV-2 mRNA (pzrvoac-ootu-rkxti) vax 12/04/20 Recorded tetanus/diphtheria/pertussis, acel(Tdap) 01/25/17 Given [...] 11:43:00 EST, Inhaler, Route to Pharmacy Electronically, [id number], [facility] #[id number], 160, cm, 10/11/19... Start Date: 10/11/19 Status: [...] Refills, Maintenance, 04/07/23 2:01:00 EDT, DIS Tablet, [facility]/pharmacy #[id number], Partial fill upon patient request if the prescription is for a schedule II opioid d... Start Date: 04/07/23 Status: Ordered Multivitamins with Folic Acid 1 mg oral tablet 1 tablet, By Mouth, Daily, # 30 tablet, 11 Refills, Maintenance, 02/03/23 17:52:00 EDT, Tablet, [facility]/pharmacy #[id number], Partial fill upon patient request if the prescription is for a schedule II opioid drug., 1 tablet By Mouth Daily, 163, cm, 02/03/23 16:... Start Date: 02/03/23 Status: Ordered pyridoxine 25 mg oral tablet 1 tablet = 25 mg, By Mouth, 3 times a day, PRN Nausea & Vomiting, # 100 tablet, 8 Refills, Maintenance, 03/27/23 17:46:00 EDT, Tablet, [facility]/pharmacy #[id number], Partial fill upon patient request [...] recent to oldest [Reference Range]: 1 Weight 85.5 kg (04/06/23 7:02 PM) Oxygen Saturation [94-100 %] 100 % (04/06/23 7:02 PM) Pulse Rate [55-90 bpm] 67 bpm (04/06/23 7:02 PM) Blood Pressure [90-138/55-84 mm Hg] 131/ 64mm Hg (04/06/23 7:02 PM) Respiratory Rate [16-30 br/min] 18 br/mi n (04/06/23 7:02 PM) Temperature [96.8-100.4 DegF] 97.9 DegF (04/06/23 7:02 PM) Mode of Delivery (Oxygen) Room air (04/06/23 7:02 PM) Blood pressure sites Arm, right (04/06/23 7:02 PM) Temperature Route Oral (04/06/23 7:02 PM) Dry Weight 85.5 kg (04/06/23 7:02 PM) Weight Obtained Via Standing scale (04/06/23 7:02 PM) Dry Weight Obtained Via Standing scale (04/06/23 7:02 PM) Social History Social History Type Response Smoking Status Never smoker; Tobacc o user in household: No entered on: 11/01/17 Sex Female Admission evaluation note * Ivory Gomez MD: PERFORM Event Display: Admission Note Authored Date: Patient: ??CHRYSTAL TRIVEDI ? Age:??33 Years?Sex:??Female?:??1990?? History of Present Illness Chrystal is a 33 yo at 8w6d gestation presenting with N/V. She reports taking scheduled B6, Unisom and Reglan without significant relief. She denies vaginal bleeding or cramping. Review of Systems ROS is negative except for what has been specified or noted in the history of present illness. Physical Exam Vitals & Measurements T:??97.9?F?? HR:??67??(Peripheral)?? RR:??18?? BP:??131/64?? SpO2:??100%?? WT:??85.5??kg?? Respiratory:??Unlabored respirations. Psych:??Mood and affect stable, appearance appropriate, good eye contact, talkative. Patient was sound asleep prior to discharge. Assessment/Plan Assessment:??33 yo at 8w6d gestation presenting with N/V. Trace ketones noted. We initially tried PO Zofran, however she vomited 1 hour later. Nausea and vomiting then resolved with IV Zofran and D5LR. She was tolerating PO intake (juice and crackers) with mild nausea prior to discharge. We offered Phenergan, however she declined. Prescription sent for Zofran, prn. We reviewed return precautions and answered all questions. ?? Patient seen with Dr. Jasso, attending. ?? Nausea and vomiting in (O21.9):? - Symptoms resolved with IV Zofran and D5LR (x) Prescription sent for PO Zofran - Previously confirmed IUP - Reviewed return precautions ?? 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 Event Name?? Event Result?? Last menstrual period 02/04/23 ? OB History History?(1,0,2,1)? # 1 ?Baby 1 ?Outcome Date:??11/2015 ?Outcome or Result:??Spontaneous ?Gest Age:??-- ? Outcome:? Sex:??-- ?? # 2 ?Baby 1 ?Outcome Date:??05/2016 ?Outcome or Result:??Spontaneous ?Gest Age:??-- ? Outcome:? Sex:??-- ?? # 3 ?Baby 1 ?Outcome Date:??04/20/2017?Outcome or Result:??Vaginal ?Gest Age:??40 weeks ? Outcome:??Live ? Sex:??Female?Wt:?3930 g ?Maternal Complications:??Pre-eclampsia ?Hospital:??[facility] ?Comment:??BLood transfusion Problem List Active and Resolved Active Problem List Asthma, mild intermittent: (Medical) control counseling: (Medical) Brain aneurysm: (Medical) History of blood transfusion: (Medical) Hx of preeclampsia, prior , currently : (Medical) Migraine: (Medical) Obese class I: (Medical) Obstructive sleep apnea: (Medical) PCOS - Polycystic ovarian syndrome: (Medical) : (Obstetric) (02/04/23) Procedure/Surgical History Colonoscopy: 07/01/21 Brain aneurysm: 07/29/19 Tonsillectomy and adenoidectomy: 1992 Hernia repair: 1991 Carotid artery Insertion of IUD Eye excision Shoulder incision Home Medications Acetaminophen/Butalbital/Caffeine: 1 tablet, By Mouth, Every 4 hours, PRN (for headache) Albuterol: 180 mcg = 2 puffs, Inhalation, Every 4 hours, PRN (Wheezing/Shortness of Breath) amiTRIPTYLINE: By Mouth, Daily at bedtime Aspirin: 81 mg = 1 tablet, By Mouth, Daily Doxylamine: 25 mg = 1 tablet, By Mouth, Daily at bedtime, PRN (for sleep) Levothyroxine: 25 mcg = 1 tablet, By Mouth, Daily Metoclopramide: 10 mg = 1 tablet, By Mouth, 3 times a day, PRN (Nausea & Vomiting) Multivitamin, : 1 tablet, By Mouth, Daily Ondansetron: 4 mg = 1 tablet, By Mouth, Every 8 hours, PRN (as needed for nausea/vomiting) Pyridoxine: 25 mg = 1 tablet, By Mouth, 3 times a day, PRN (Nausea & Vomiting) Senna: 1 or 2 tablets, By Mouth, Daily at bedtime, PRN (Constipation) Allergies Latex??(Rash) Lobster??(Anaphylaxis, Dust allergy, Dogs, Allergy [...] Never smoker, Tobacco user in household: No. Note * Mae Martinez RN: PERFORM Event Display: Discharge/Transfer Note Hospital Authored Date: [id number] Nursing Discharge Note Entered On: 04/07/2023 1:51 EDT Performed On: 04/07/2023 1:51 EDT by Mae Martinez RN Nursing Discharge Note 2 Discharge Time : 04/07/2023 1:50 EDT Discharge Level of Care at Discharge : Home/Correction/Foster Care Patient Left Unit Via : Ambulatory Patient Accompanied Off Unit with : Significant other DC Instructions Provided & Signed by Pt : Yes Patient Understands D/C Instructions : Yes Patient Instructions Discharge Signed : Yes Did Pt have Specialty Bed or Wound Vac : No Mae Martinez RN - 04/07/2023 1:51 EDT * Mae Martinez RN: PERFORM Event Display: Patient Education/Instruction Authored Date: [id number] Inpatient Adult Discharge Instructions [address] [address] Name: CHRYSTAL TRIVEDI : 1990 Visit: 04/06/2023 17:03:00 Current Date: 04/07/2023 01:36 Account: [id number] Inpatient Adult Discharge Instructions We would like [...] and their families. Surveys are administered by [employer] ?? If further treatment with your primary care physician or another doctor is recommended, it is important for you to keep the appointment. Call your primary care physician or return to the Emergency Department immediately if your condition worsens, fails to improve, or new symptoms develop. If you need to find a doctor, you can call [facility] Up for a referral at [phone] or toll free at [phone] ([phone]) or log in to [email or web address].. ?? You can view and manage your care through the patient portal or by using a health care ambrocio of your choosing. [employer] is a website that allows you to securely view your medical information including your hospital discharge summary, office visit summaries, medications and follow-up visits. You can also request appointments, renew medications, and request access to your medical information using a health care ambrocio of your choosing, or just ask a question. You can enroll at [email or web address] or register during your next office visit. You have been discharged from [facility], Patient Care Unit: WETU1. If you have any questions regarding these instructions after you leave, please call us and we will be happy to assist you. [facility] Your Care Team Attending Physician Amita George MD Tests Performed Below is a partial list of the tests performed during your hospitalization. You may have had other tests and procedures not included in this list. Please discuss all test results with your provider. Primary Care Provider Gigi Grimm III, MD Advance Directive Health Care Proxy on File No Discharge Vitals Temperature: 97.9 DegF Weight: 85.5 kg Pulse Rate: 67 bpm ?? Respiratory Rate: 18 br/min ?? Systolic Blood Pressure: 131 mm Hg ?? Diastolic Blood Pressure: 64 mm Hg ?? Oxygen Saturation: 100 % [...] EDT ?? With: Mae Odonnell DO Where: [facility] [place] [address] [place] [address]- Status: Pending You Need to Schedule the Following Appointments Follow Up with??Please follow up as scheduled for routine OB visits Discharge Medications CHRYSTAL TRIVEDI :1990 Visit Date:04/06/2023 Medications: Please continue your medications until treatment [...] Discharge Instructions. Morning Sickness: A Daily Struggle?? Common Discomforts During ?? Comfort Tips During ?? Adapting to : First Trimester?? Valuables and Belongings I fully understand and agree that [facility] accepts no responsibility for all [...] are strongly encouraged to quit. Please call [facility] at [phone] or [phone] ([phone]) or log in to [email or web address] for referrals to smoking cessation programs. ?? 270 Suicide & Crisis Lifeline is available 10/04 if you or someone you know needs to find a reason to keep living. By calling 547 you'll be connected to a skilled, trained counselor at a crisis center in your area. INPATIENT DISCHARGE INSTRUCTIONS SIGNATURE PAGE CHRYSTAL TRIVEDI Location:[facility] Registration Date and Time:04/06/2023 17:03 EDT Primary Care Physician: Alfa ROSADO MD, Gigi Hahn, Attending Physician: Amita George MD, I MARYANN TRIVEDIIAM, have received the above patient education materials/instructions and have verbalized understanding. If ambulance or transport services are being used I further acknowledge being given a choice of service. ?? If you need to contact me, please call me at this number: . Patient/Market Developer Name: Patient/Market Developer Signature: Relationship to Patient: Witness Name/Signature: Date: * Mae Martinez RN: PERFORM, SIGN, VERIFY Event Display: Patient Education Handout Authored Date: * Mae Martinez RN: PERFORM Event Display: Patient Education Leaflets Authored Date: Morning Sickness: A Daily Struggle ?? Morning Sickness: A Daily Struggle - Video The challenges of parenthood can start before the baby is even born. Karlene Villagran discusses how she struggled to find food she could eat as she dealt with her morning sickness. To view the video go to this web address: [email or web address] Or, scan this QR code with your smart phone ?? [employer]. All rights reserved. This information is not intended as a substitute for professional medical care. Always follow your healthcare professional's instructions. ?? * Mae Martinez RN: PERFORM Event Display: Patient Education Leaflets Authored Date: Common Discomforts During ?? [id number] Common Discomforts During Symptoms of discomfort due to vary from person to person. Below are some common discomforts. But each bvgjgl-im-[id number] may have different symptoms or none at all: ??? Nausea and vomiting. Abouthalf of all people have nausea and sometimes vomiting in the first trimester. This is alsocalled morning sickness. That's because symptoms are most severe in the morning. Some people may have nausea and vomiting throughout the .??Morning sickness may be due to the changes in hormone levels during . Morning sickness seems to be??made worse??by stress, traveling, and certain foods, like spicy or fatty foods. Eating small meals several times a day may help lessen the symptoms. A diet high in protein and complex carbohydrates (like whole-wheat bread, pasta, bananas, and green, leafy vegetables) may also help reduce the severity of the nausea. If vomiting is severe, causing you to lose fluids and weight, it may??be a sign of??a condition called hyperemesis gravidarum. Hyperemesis can lead to dehydration and may need a hospital stay for intravenous fluids and nutrition. Call your healthcare provider or piping supervisor if you are having constant or severe nausea and vomiting. ??? Fatigue. As the body works overtime to provide a nourishing environment for the fetus, it is no wonder a person often feels tired. In the first trimester, their blood volume and other fluids increase as their body adjusts to the . Sometimes anemia is the underlying cause of the fatigue. Anemia is a drop in the ability of red blood cells to carry oxygen. It is often due to low iron levels. A simple blood test done at a visit will check for anemia. ??? Hemorrhoids. Hemorrhoids are common in late . That's because of the increased pressure on the rectum and perineum, the increased blood volume, and the increased likelihood of becoming constipated as the progresses. Preventing constipation and straining may help to prevent hemorrhoids. Always check with your healthcare provider or piping supervisor before using any medicine to treat this condition.??? Varicose veins. Varicose veins???swollen, purple veins???are common in the legs and around the vaginal opening during late . In most cases, varicose veins are caused by the increased pressure on the legs and the pelvic veins. It is also caused by the increased blood volume. ??? Heartburn and indigestion. Heartburn and indigestion is caused by pressure on the intestines and stomach (which, in turn, pushes stomach contents back up into the esophagus). It can be prevented or reduced by eating smaller meals throughout the day and by not lying down shortly after eating. ??? Bleeding gums. Gums may become more spongy as blood flow increases during . This causes them to bleedeasily. A person should continue to take care of her teeth and gums and go to the dentist for regular checkups. This symptom usually disappears after . ??? Pica. Pica is a rare craving to eat substances other than food, like dirt, brayden, or coal. The craving may be a sign of a nutritional deficiency. ??? Swelling or fluid retention. Mild swelling is common during . But se suyapa swelling that??lasts may??be a sign of??preeclampsia (abnormal condition marked by high blood pressure). Lying on the left side, elevating the legs, and wearing support hose and comfortable shoes may help to relieve the swelling. Be sure to notify your??healthcare provider??or piping supervisor about sudden swelling, especially in the hands or face, or rapid weight gain. ??? Skin changes. Because of changes in hormone levels, including hormones that stimulate pigmentation of the skin, brown, blotchypatches may??happen on the face, forehead, or cheeks. This is often called the mask of , or chloasma. It often disappears soon after delivery. Using sunscreen when outside can reduce the amount of darkening that happens.?? Pigmentation may also increase in the skin surrounding the nipples,called the areola. A dark line??also often appears down the middle of the stomach. Freckles may darken, and moles may grow. ??? Stretch oconnell. Pinkish stretch oconnell may appear on the stomach, breasts, thighs, or buttocks. Stretch oconnell are generally caused by a rapid increase in weight. The oconnell us ually fade after . ??? Yeast infections. Due to hormone changes and increased vaginal discharge, also called leukorrhea, a person is more prone to yeast infections. Yeast infectionscause a thick, whitish discharge from the vagina and itching. Yeast infections are highly treatable. Always talk with your healthcare provider or piping supervisor before taking any medicine for this condition.? Congested or bloody nose. During , the lining of the respiratory tract receives more blood, often making it more congested. This congestion can also cause stuffiness in the nose or nosebleeds. Small blood vessels in the nose are also easily damaged due to the increased blood volume, causing nosebleeds. ??? Constipation. Increased pressure from the on the rectum and intestines can interfere with digestion and bowel movements. Hormone changes may also slow down the food being processed by the body. Increasing fluids, exercising regularly, and increasing the fiber in your diet are some of the ways to prevent constipation. Always check with your healthcare provider or piping supervisor before taking any medicine for this condition.? Backache. As a person's weight increases, their balance changes. Their center of gravity is pulled forward,??straining the back. Pelvic joints that begin to loosen in preparation for childbirth also contribute to this back strain. Correct posture and correct lifting methods throughout the can help reduce the strain on the back.??? Dizziness. Dizziness during is a common symptom. It may be caused by: o Low blood pressure due to the uterus compressing major arteries o Low blood sugar o Low iron o Quickly moving from a sitting position to a standing position o Dehydration To prevent injury from falling during episodes of dizziness, a person should stand up slowly and hold on to the boogie and other stable structures for support and balance. ??? Headaches. Hormonal changes may be the cause of headaches during , especially during the first trimester. Rest, correct nutrition, and adequate fluidintake may help??ease headache symptoms. Always talk with your healthcare provider or piping supervisor??before taking any medicine for this condition. If you have a severe headache or a headache that does notgo away, call your healthcare provider. It may be a sign of preeclampsia.?? Last Reviewed Date: 2022 ?? [id number] [employer]. All rights reserved. This information is not intended as a substitute for professional medical care. Always follow your healthcare professional's instructions. ?? * Mae Martinez RN: PERFORM Event Display: Patient Education Leaflets Authored Date: [id number] Comfort Tips During ?? 85139 Comfort Tips During can bring discomfort of [...] belly. ?? Last Reviewed Date: 2023 ?? [id number] [employer]. All rights reserved. This information is not intended as a substitute for professional medical care. Always follow your healthcare professional's instructions. ?? Patient Care team information Care Team Personnel Name: Alfa ROSADO MD, Gigi Hahn Position: Reference Physician Member Role: PCP Address: Address: [address] [place] [address]- Name: Naila Martinez RN Position: S OB RN Member Role: Primary Care Nurse Name: Lo Vernon RN Position: S OB RN Member Role: Primary Care Nurse Name: Elena Cabrera RN Position: S HBO Wound Member Role: Primary Care Nurse Care Team Related Persons Name: SHANTELL CHERELLE Address: home [address] [address] Name: TOREY JIMENEZ Address: home [address] [address] Name: TOREY JIMENEZ Address: home [address] [address] Name: JAMIE JIMENEZ Address: home [address] [place] [address] Name: JAMIE JIMENEZ Address: home [address] [address] Name: TOREY TRIVEDI Address: home [address] [place] [address] Name: JOCELYN SANTIAGO Address: home [address] [place] [address]
--- OUTSIDE RECORDS SUMMARY | 2024-04-17 12:24 | XMS_ITS | Continuity of Care Document ---
Author Organization [facility] Address [address] [place] [address]- Care Team Providers Care Early Head Start Director Name Role Phone Alfa ROSADO MD, Gigi Hahn [id number] Date[facility] 10/01/20 - 10/31/[address] [address]- Allergies, Adverse Reactions, Alerts Substance Reaction Severity [...] 11:43:00 EST, Inhaler, Route to Pharmacy Electronically, [id number], [facility] #[id number], 160, cm, 10/11/19... Start Date: 10/11/19 Status: Ordered Aspirin Enteric Coated 81 mg oral delayed release tablet 1 tablet = 81 mg, By Mouth, Daily Start Date: 10/09/19 Status: Ordered Lottie 0.35 mg oral tablet 1 tablet = 0.35 mg, By Mouth, Daily, # 90 tablet, 11 Refills, Maintenance, 10/06/20 9:11:00 EST, Tablet, [facility]/pharmacy #[id number], Partial fill upon patient request if the prescription is for a schedule IIopioid drug., 160, cm, 10/06/20 8:49:00 EST, Height... Start Date: 10/06/20 Status: Ordered clopidogrel 75 mg oral tablet 75 mg, 1, tablet, By Mouth, Daily, Refills 0, Maintenance, 10/09/19 16:40:00 EST Start Date: 10/09/19 Status: Ordered Colace sodium 100 mg oral capsule 100 mg, 1, capsule, By Mouth, 2 times a day, PRN, # 20 capsule, Refills 0, Tot. Refills 0, Maintenance, for constipation, 06/19/20 10:03:00 EDT, Route to Pharmacy Electronically, [facility][id number], 160, cm, 06/19/20 9:41:00 EDT, Height, 80.7... Start Date: 06/19/20 Status: Ordered Janie 30 mg oral tablet 1 tablet = 30 mg, By Mouth, Once, # 1 tablet, 0 Refills, Soft Stop, 10/21/20 15:20:00 EST, Tablet, [facility], Partial fill upon patient request if the prescription is for a scheduleII opioid drug., 160, cm, 10/06/20 8:49:00 EST, Hei... Start Date: 10/21/20 Status: Ordered Flagyl 500 mg oral tablet 1 tablet = 500 mg, By Mouth, Every 12 hours, do not drink alcohol, # 14 tablet, 0 Refills, Maintenance, 10/26/20 15:46:00 EST, [facility]/pharmacy #[id number], Partial fill upon patient request if the prescription is for a schedule II opioid drug., 160, cm, ... Start Date: 10/26/20 Stop Date: 11/02/20 Status: Ordered fluconazole 150 mg oral tablet 1 tablet = 150 mg, By Mouth, Once, # 1 tablet, 0 Refills, Soft Stop, 07/10/20 14:15:00 EDT, Tablet,[facility] #[id number], 160, cm, 07/09/20 8:55:00 EDT, Height, 80.7, [...] Refills, Maintenance, 06/19/20 10:23:00 EDT, REC Powder, [facility] #[id number], 17 Gm By Mouth Daily,Instr:dissolve in water before taking, 160, cm, 06/19/20 9:41:00 EDT, Hei... Start Date: 06/19/20 Status: Ordered Plan B One-Step 1.5 mg oral tablet 1.5 mg, 1, tablet, By Mouth, Once, use within 72 hours, # 1 tablet, Refills 1, Tot. Refills 1, SoftStop, 10/19/20 17:29:00 EST, Route to Pharmacy Electronically, [facility]/pharmacy #[id number], Partial fill upon patient request if the prescription is for a sched... Start Date: 10/19/20 Status: Ordered Multivitamin Tablet 1 tablet, By Mouth, Daily, 0 Refills, Maintenance, 10/09/19 16:58:00 EST Start Date: 10/09/19 Status: Ordered Multivitamins with Folic Acid 1 mg oral tablet 1 tablet, By Mouth, Daily, # 30 tablet, 11 Refills, Maintenance, 02/05/20 17:12:00 EDT, [facility] #[id number], 1 tablet By Mouth Daily, 160, cm, [...] 0 Refills, Maintenance, 10/11/19 10:15:00 EST, Tablet, [facility] #[id number], 160, cm, 10/11/19 5:03:00 EST, Height, 80.7, [...]
--- OUTSIDE RECORDS SUMMARY | 2024-04-17 12:24 | XMS_ITS | Continuity of Care Document ---
Author Organization [facility] Address [address] [place] [address]- Care Team Providers Care Caustic Mixer Name Role Phone Alfa ROSADO MD, Gigi Hahn Primary Care Physician Encounter [facility] [place] Date(s): 01/25/21 - 02/24/21 [facility] [address] [place] [address]- Attending Physician: Baldo Nunes Admitting Physician: AdmtrBaldo Referring Physician: Admtr ArRoshan Allergies, Adverse Reactions, Alerts Substance Reaction Severity [...] 11:43:00 EST, Inhaler, Route to Pharmacy Electronically, [id number], [facility] #[id number], 160, cm, 10/11/19... Start Date: 10/11/19 Status: [...] 10:18:00 ED... Start Date: 02/04/21 Status: Ordered GaviLyte-G oral powder for reconstitution See Instructions, 240 mL By Mouth Daily Substitutions allowed, # 4,000 mL, 0 Refills, Maintenance, 02/10/21 10:39:00 EDT, REC Powder, [id number], Partial fill upon patient request if the prescription is for a schedule II opioid drug., 240 mL... Start Date: 02/10/21 Status: Ordered glycerin adult rectal suppository 1 [...] 8:59:00 EDT, 01/25/21 8:59:00 EDT, REC Powder, [facility]/pharmacy #[id number], Partial fill upon patient request if the prescription is for a schedule II o... Start Date: 01/25/21 Stop Date: 03/26/21 Status: Ordered NuLYTELY with Flavor Packs oral powder for reconstitution See Instructions, 4 liters By Mouth Once for colonoscopy, # 1 each, 0 Refills, Maintenance, 01/25/21 9:13:00 EDT, [facility]/pharmacy #[id number], Partial fill upon patient request if [...]
--- OUTSIDE RECORDS SUMMARY | 2024-04-17 12:24 | XMS_ITS | Continuity of Care Document ---
Author Organization [facility] Address [address] [address]- Care Team Providers Care Paper Mill Superintendent Name Role Phone Alfa ROSADO MD, Gigi Hahn Primary Care Physician [place] [facility] [place]20 [facility] and [address] [address]- [facility] Attending Physician: [place], Baldo Admitting Physician: AdmtrBaldo Referring Physician: Admtr, Ar8 [...] 11:43:00 EST, Inhaler, Route to Pharmacy Electronically, [id number], [facility][id number], 160, cm, 10/11/19... Start Date: 10/11/19 Status: [...] 06/19/20 10:03:00 EDT, Route to Pharmacy Electronically, [id number], 160, cm, 06/19/20 9:41:00 EDT, Height, 80.7... Start Date: 06/19/20 Status: Ordered fluconazole 150 mg oral tablet 1 tablet = 150 mg, By Mouth, Once, # 1 tablet, 0 Refills, Soft Stop, 07/10/20 14:15:00 EDT, Tablet,[facility][id number], 160, cm, 07/09/20 8:55:00 EDT, Height, 80.7, [...] Refills, Maintenance, 06/19/20 10:23:00 EDT, REC Powder, [facility] #[id number], 17 Gm By Mouth Daily,Instr:dissolve in water before taking, 160, cm, 06/19/20 9:41:00 EDT, Hei... Start Date: 06/19/20 Status: Ordered Multivitamin Tablet 1 tablet, By Mouth, Daily, 0 Refills, Maintenance, 10/09/19 16:58:00 EST Start Date: 10/09/19 Status: Ordered Multivitamins with Folic Acid 1 mg oral tablet 1 tablet, By Mouth, Daily, # 30 tablet, 11 Refills, Maintenance, 02/05/20 17:12:00 EDT, [id number], 1 tablet By Mouth Daily, 160, cm, [...] 0 Refills, Maintenance, 10/11/19 10:15:00 EST, Tablet, [facility][id number], 160, cm, 10/11/19 5:03:00 EST, Height, 80.7, [...]
--- OUTSIDE RECORDS SUMMARY | 2024-04-17 12:24 | XMS_ITS | Continuity of Care Document ---
Author Organization [facility] Address [address] [address]- Care Team Providers Care Cylinder Block Hole Reliner Name Role Phone Gigi Grimm III, MD Primary Care Physician [id number]/13/[facility] - 05/03/23 [facility] [address] [address] Attending Physician: Not on Staff, Attending MD Referring Physician: Not on Staff, Referring MD Allergies, Adverse Reactions, Alerts Substance Reaction Severity Status ibuprofen throat swelling body rash Active shellfish Anaphylaxis Active Latex Rash Active Lobster Anaphylaxis Dust allergy Dogs Allergy to cats Active Pineapple Anaphylaxis Active Immunizations Given and Recorded Vaccine Date Status Refusal Reason SARS-CoV-2 mRNA (zqeyurz-srar-wmwgr) vax 10/17/21 Recorded SARS-CoV-2 mRNA (ymqehef-xmjx-ausyq) vax 12/25/20 Recorded SARS-CoV-2 mRNA (kgdgpuf-adkr-efbzf) vax 12/04/20 Recorded tetanus/diphtheria/pertussis, acel(Tdap) 01/25/17 Given [...] 11:43:00 EST, Inhaler, Route to Pharmacy Electronically, [id number], [facility] #[id number], 160, cm, 10/11/19... Start Date: 10/11/19 Status: Ordered aspirin 81 mg oral tablet, chewable 162 mg, 2, tablet, Chew, Daily, # 180 tablet, Refills 3, Tot. Refills 3, Maintenance, 05/03/23 15:24:00 EDT, Route to Pharmacy Electronically, [facility]/pharmacy #[id number], Partial fill upon patient request ifthe [...] 0 Refills, Maintenance, 04/25/23 11:26:00 EDT, Suppository, [facility]/pharmacy #[id number], Partial fill upon patient request if the prescription is for a schedule II opioid drug., 165,... Start Date: 04/25/23 Status: Ordered pyridoxine 25 mg oral tablet 1 tablet = 25 mg, By Mouth, 3 times a day, PRN Nausea & Vomiting, # 100 tablet, 8 Refills, Maintenance, 03/27/23 17:46:00 EDT, Tablet, [facility]/pharmacy #[id number], Partial fill upon patient request if theprescription is for a schedule II opioid drug., 163, cm... Start Date: 03/27/23 Status: Ordered Reglan 10 mg oral tablet 1 tablet = 10 mg, By Mouth, 3 times a day, PRN Nausea & Vomiting, # 28 tablet, 2 Refills, Maintenance, 03/30/23 19:35:00 EDT, [facility]/pharmacy #[id number], Partial fill upon patient request [...] a schedule II opioid drug., 163, cm, /0... Start Date: 03/27/23 Status: Ordered Problem List [...] Reference Physician Member Role: PCP Address: Address: [address] [place] [address] Name: Naila Martinez RN Position: S OB RN Member Role: Primary Care Nurse Name: Lo Vernon RN Position: S OB RN Member Role: Primary Care Nurse Name: Elena Cabrera RN Position: [facility] HBO Wound Member Role: Primary Care Nurse Care Team Related Persons Name: CHERELLE STINSON Address: home [address] Name: TOREY JIMENEZ Address: home [address] Name: TOREY JIMENEZ Address: home [address] Name: JAMIE JIMENEZ Address: home [address] [place] [address] Name: JAMIE JIMENEZ Address: home [address], [place] Name: TOREY TRIVEDI Address: home [address] [place], [place] Name: JOCELYN SANTIAGO Address: home [address] [place] [address]
--- OUTSIDE RECORDS SUMMARY | 2024-04-17 12:24 | XMS_ITS | Continuity of Care Document ---
Author Organization [facility] Address [address] [place] [address]- Care Team Providers Care Cop Breaker Name Role Phone Alfa ROSADO MD, Gigi Hahn Primary Care Physician [phone] Encounter [facility] [place] Date(s): 07/03/23 - 08/02/[address] [address] Allergies, Adverse Reactions, Alerts Substance Reaction Severity Status ibuprofen throat swelling body rash Active shellfish Anaphylaxis Active Latex Rash Active Pineapple Anaphylaxis Active Lobster Anaphylaxis Dust allergy Dogs Allergy to cats Active Immunizations Given and Recorded Vaccine Date Status Refusal Reason SARS-CoV-2 mRNA (xdpcuxk-abwu-tukwd) vax 10/17/21 Recorded SARS-CoV-2 mRNA (scsdpsc-xlry-ixjgi) vax 12/25/20 Recorded SARS-CoV-2 mRNA (fifrkeg-oyid-vqhty) vax 12/04/20 Recorded tetanus/diphtheria/pertussis, acel(Tdap) 01/25/17 Given [...] 11:43:00 EST, Inhaler, Route to Pharmacy Electronically, [id number], [id number], 160, cm, 10/11/19... Start Date: 10/11/19 Status: Ordered aspirin 81 mg oral tablet, chewable 162 mg, 2, tablet, Chew, Daily, # 180 tablet, Refills 3, Tot. Refills 3, Maintenance, 05/03/23 15:24:00 EDT, Route to Pharmacy Electronically, [facility]/pharmacy #[id number], Partial fill upon patient request ifthe [...] Refills, Maintenance, 04/07/23 2:01:00 EDT, DIS Tablet, [facility]/pharmacy #[id number], Partial fill upon patient request if the prescription is for a schedule II opioid d... Start Date: 04/07/23 Status: Ordered ondansetron 8 mg oral tablet, disintegrating 1 tablet = 8 mg, By Mouth, 2 times a day, # 12 tablet, 0 Refills, Maintenance, 04/29/23 7:48:00 EDT, DIS Tablet, [facility]/pharmacy #[id number], Partial fill upon patient request if the prescription is for a schedule II opioid drug., 165, cm, 04/24/23 13:25:00 ED... Start Date: 04/29/23 Status: Ordered Multivitamins with Folic Acid 1 mg oral tablet 1 tablet, By Mouth, Daily, # 30 tablet, 11 Refills, Maintenance, 02/03/23 17:52:00 EDT, Tablet, [facility]/pharmacy #[id number], Partial fill upon patient request if the prescription is for a schedule II opioid drug., 1 tablet By Mouth Daily, 163, cm, 02/03/23 16:... Start Date: 02/03/23 Status: Ordered promethazine 25 mg rectal suppository 1 supp = 25 mg, Rectally, Every 4 hours, PRN for nausea/vomiting, # 12 supp, 0 Refills, Maintenance, 04/25/23 11:26:00 EDT, Suppository, [facility]/pharmacy #[id number], Partial fill upon patient request if the prescription is for a schedule II opioid drug., 165,... Start Date: 04/25/23 Status: Ordered pyridoxine 25 mg oral tablet 1 tablet = 25 mg, By Mouth, 3 times a day, PRN Nausea & Vomiting, # 100 tablet, 8 Refills, Maintenance, 03/27/23 17:46:00 EDT, Tablet, [facility]/pharmacy #[id number], Partial fill upon patient request if theprescription is for a schedule II opioid drug., 163, cm... Start Date: 03/27/23 Status: Ordered Reglan 10 mg oral tablet 1 tablet = 10 mg, By Mouth, 3 times a day, PRN Nausea & Vomiting, # 28 tablet, 2 Refills, Maintenance, 03/30/23 19:35:00 EDT, [facility]/pharmacy #[id number], Partial fill upon patient request if the prescription is for a schedule II opioid drug., 163, cm, ... Start Date: 03/30/23 Status: Ordered Senna 8.6 mg oral tablet 1 or 2 tablets, By Mouth, Daily at bedtime, PRN, # 60 tablet, Refills 0, Tot. Refills 0, Maintenance, Constipation, 03/14/23 16:14:00 EDT, Route to Pharmacy Electronically, [facility]/pharmacy #[id number] Tablet,Partial fill upon patient request if the prescripti... Start Date: 03/14/23 Status: Ordered Unisom 25 mg oral tablet 1 tablet = 25 mg, By Mouth, Daily at bedtime, PRN for sleep, # 32 tablet, 1 Refills, Maintenance, 07/21/23 15:16:00 EDT, Tablet, [facility]/pharmacy #[id number], Partial fill upon patient request if [...] Reference Physician Member Role: PCP Address: Address: [address] [place] [address]- Name: Naila Martinez RN Position: S OB RN Member Role: Primary Care Nurse Name: Lo Vernon RN Position: S OB RN Member Role: Primary Care Nurse Name: Elena Cabrera RN Position: [facility] HBO Wound Member Role: Primary Care Nurse Care Team Related Persons Name: CHERELLE STINSON Address: home [address] Name: TOREY JIMENEZ Address: home [address] Name: TOREY JIMENEZ Address: home [address] Name: JAMIE JIMENEZ Address: home [address] [place] [address] Name: JAMIE JIMENEZ Address: home [address] [place] [address] Name: TOREY QUESADA Address: home [address] [place], [place] Name: JOCELYN SANTIAGO Address: home [address] [place] [address]
--- OUTSIDE RECORDS SUMMARY | 2024-04-17 12:24 | XMS_ITS | Continuity of Care Document ---
Author Organization [facility] Address [address] [place] [address]- Care Team Providers Care Direct Care Staffer Name Role Phone Alfa ROSADO MD, Gigi Hahn Primary Care Physician [place] [facility] [place]/14/23 - 09/14/[address] [address] Discharge Disposition: A-D/C Home Attending Physician: Jevon [...] Given tetanus/diphtheria/pertussis, acel(Tdap) 01/25/17 Given SARS-CoV-2 mRNA (lmztbul-rbsf-kaqld) vax 10/17/21 Recorded SARS-CoV-2 mRNA (krwoxsy-mniu-yujvy) vax 12/25/20 Recorded SARS-CoV-2 mRNA (tpxomoi-vgrb-pidtr) vax 12/04/20 Recorded pneumococcal 23-valent vaccine 03/31/16 [...] 11:43:00 EST, Inhaler, Route to Pharmacy Electronically, [id number], [id number], 160, cm, 10/11/19... Start Date: 10/11/19 Status: Ordered aspirin 81 mg oral tablet 2 tablet = 162 mg, By Mouth, Daily, # 180 tablet, 1 Refills, Maintenance, 09/13/23 6:56:00 EST, Tablet, [facility]/pharmacy #[id number], Partial fill upon patient request if the prescription is for a schedule II opioid drug., 165, cm, 09/01/23 11:54:00 EST, Height... Start Date: 09/13/23 Status: Ordered aspirin 81 mg oral tablet, chewable 162 mg, 2, tablet, Chew, Daily, # 180 tablet, Refills 3, Tot. Refills 3, Maintenance, 05/03/23 15:24:00 EDT, Route to Pharmacy Electronically, [facility]/pharmacy #[id number], Partial fill upon patient request ifthe [...] 03/14/23 16:14:00 EDT, Route to Pharmacy Electronically, [facility]/pharmacy #[id number] Tablet,Partial fill upon patient request if the prescripti... Start Date: 03/14/23 Status: Ordered Unisom 25 mg oral tablet 1 tablet = 25 mg, By Mouth, Daily at bedtime, PRN for sleep, # 32 tablet, 1 Refills, Maintenance, 07/21/23 15:16:00 EDT, Tablet, [facility]/pharmacy #0693, Partial fill upon patient request if the prescription is for a schedule II opioid drug., 165, cm, 0... Start Date: 07/21/23 Status: Ordered Problem List [...] Reference Physician Member Role: PCP Address: Address: [address] [place] [address] Name: Naila Martinez RN Position: [facility] OB RN Member Role: Primary Care Nurse Name: Lo Vernon RN Position: [facility] OB RN Member Role: Primary Care Nurse Name: Elena Cabrera RN Position: [facility] HBO Wound Member Role: Primary Care Nurse Name: Lona Salcido RN Position: [facility] OB RN Member Role: Patient Care Provider Care Team Related Persons Name: CHERELLE STINSON Address: home [address] Name: TOREY JIMENEZ Address: home [address] Name: TOREY JIMENEZ Address: home [address] [place], [place] Name: JAMIE JIMENEZ Address: home [address] [place] [address] Name: JAMIE JIMENEZ Address: home [address] [place] [address] Name: TOREY QUESADA Address: home [address] [place] [address] Name: JOCELYN SANTIAGO Address: home [address] [place] [address]
--- OUTSIDE RECORDS SUMMARY | 2024-04-17 12:24 | XMS_ITS | Continuity of Care Document ---
Author Organization [facility] Address Unknown Care Team Providers Care Guide Cruise Name Role Phone Alfa ROSADO MD, Gigi Hahn Primary Care Physician Encounter [facility] [place] Date(s): 10/06/21 - 11/24/21 [facility] Attending Physician: Irlanda Costa CNM Admitting Physician: Irlanda Costa CNM Referring Physician: Irlanda Costa CNM Allergies, Adverse Reactions, Alerts Substance Reaction [...] 11:43:00 EST, Inhaler, Route to Pharmacy Electronically, [id number], [facility] #[id number], 160, cm, 10/11/19... Start Date: 10/11/19 Status: [...] Refills, Maintenance, 01/25/21 9:00:00 EDT, REC Powder, [facility]/pharmacy #[id number], Partial fill upon patient request if the prescription is for a schedule II opioid drug., 3.5 Gm... Start Date: 01/25/21 Stop Date: 02/24/21 Status: Ordered Depo-Provera Contraceptive 150 mg/mL intramuscular suspension 1 mL = 150 mg, Intramuscular, Every 3 months, # 1 mL, 3 Refills, Maintenance, 02/04/21 10:33:00 EDT, Suspension, [facility]/pharmacy #0693, Partial fill upon patient [...] tablet, By Mouth, Daily, # 30 tablet, 0 Refills, Maintenance, 11/08/21 11:38:00 EST, [facility]/pharmacy#0693, Partial fill upon patient request if the prescription is for a schedule II opioid drug., 1 tablet By Mouth Daily, 163, cm, 10/27/21 18:02:00 EST... Start Date: 11/08/21 Status: Ordered Provera 10 mg oral tablet 10 mg, 1, tablet, By Mouth, Daily, # 10 tablet, Refills 0, Tot. Refills 0, Maintenance, 11/08/21 15:07:00 EST, Route to Pharmacy Electronically, [facility]/pharmacy #0883, Partial fill upon patient request if the prescription is for a schedule II opioid drug... Start Date: 11/08/21 Stop Date: 11/18/21 Status: Ordered Problem List Condition Effective Dates [...]
--- OUTSIDE RECORDS SUMMARY | 2024-04-17 12:24 | XMS_ITS | Continuity of Care Document ---
Author Organization [facility] Address Unknown Care Team Providers Care Paralegal Instructor Name Role Phone Alfa ROSADO MD, Gigi Hahn Primary Care Physician Encounter [facility] [place] Date(s): 10/28/21 - 11/27/[address] [facility] and [facility] Allergies, Adverse Reactions, Alerts Substance Reaction [...] 11:43:00 EST, Inhaler, Route to Pharmacy Electronically, [id number], [facility] #[id number], 160, cm, 10/11/19... Start Date: 10/11/19 Status: [...] 3 Refills, Maintenance, 02/04/21 10:33:00 EDT, Suspension, [facility]/pharmacy #0693, Partial fill upon [...] tablet, 0 Refills, Maintenance, 11/08/21 11:38:00 EST, [facility]/pharmacy#0693, Partial fill upon patient request if the prescription is for a schedule II opioid drug., 1 tablet By Mouth Daily, 163, cm, 10/27/21 18:02:00 EST... Start Date: 11/08/21 Status: Ordered Provera 10 mg oral tablet 10 mg, 1, tablet, By Mouth, Daily, # 10 tablet, Refills 0, Tot. Refills 0, Maintenance, 11/08/21 15:07:00 EST, Route to Pharmacy Electronically, [facility]/pharmacy #0641, Partial fill upon patient request if the [...]
--- OUTSIDE RECORDS SUMMARY | 2024-04-17 12:24 | XMS_ITS | Continuity of Care Document ---
Author Organization [facility] Address [address] [place] [address], [address] [place] [address]- Care Team Providers Care Cloth Washer Name Role Phone Alfa ROSADO MD, Gigi Hahn Primary Care Physician [phone] [place] [facility] [place] 11/08/21 - 12/08/21 [facility] Ar[facility]ruddy [facility] [address] [place] [address], [address] [place], [place] [address] Allergies, Adverse Reactions, Alerts Substance Reaction [...] 11:43:00 EST, Inhaler, Route to Pharmacy Electronically, [id number], [facility] #[id number], 160, cm, 10/11/19... Start Date: 1/24/20 Status: Ordered amiTRIPTYLINE By Mouth, Daily at [...] Refills, Maintenance, 01/25/21 9:00:00 EDT, REC Powder, [facility]/pharmacy #[id number], Partial fill upon patient request if the prescription is for a schedule II opioid drug., 3.5 Gm... Start Date: 01/25/21 Stop Date: 02/24/21 Status: Ordered Depo-Provera Contraceptive 150 mg/mL intramuscular suspension 1 mL = 150 mg, Intramuscular, Every 3 months, # 1 mL, 3 Refills, Maintenance, 02/04/21 10:33:00 EDT, Suspension, [facility]/pharmacy #0693, Partial fill upon patient request if [...] tablet, 11 Refills, Maintenance, 12/07/21 9:53:00 EDT, [facility]/pharmacy#0693, Partial fill upon patient request if the prescription is for a schedule II opioid drug., 1 tablet By Mouth Daily, 163, cm, 10/27/21 18:02:00 EST... Start Date: 12/07/21 Status: Ordered Provera 10 mg oral tablet 10 mg, 1, tablet, By Mouth, Daily, # 10 tablet, Refills 0, Tot. Refills 0, Maintenance, 11/08/21 15:07:00 EST, Route to Pharmacy Electronically, [facility]/pharmacy #[id number], Partial fill upon patient request if the [...]
--- OUTSIDE RECORDS SUMMARY | 2024-04-17 12:24 | XMS_ITS | Continuity of Care Document ---
Author Organization [facility] Address [address] [place] [address]- Care Team Providers Care Social Media Campaign Manager Name Role Phone Alfa ROSADO MD, Gigi Hahn Primary Care Physician [phone] [id number] - 06/10/[address] [address] Attending Physician: Baldo Nunes Admitting Physician: AdmtrBaldo Referring Physician: AdmtrBaldo Allergies, Adverse Reactions, Alerts Substance Reaction Severity [...] 11:43:00 EST, Inhaler, Route to Pharmacy Electronically, [id number], [facility] #[id number], 160, cm, 10/11/19... Start Date: 10/11/19 Status: [...] Refills, Maintenance, 01/25/21 9:00:00 EDT, REC Powder, [facility]/pharmacy #0693, Partial fill upon patient request if the prescription is for a schedule II opioid drug., 3.5 Gm... Start Date: 01/25/21 Stop Date: 02/24/21 Status: Ordered Depo-Provera Contraceptive 150 mg/mL intramuscular suspension 1 mL = 150 mg, Intramuscular, Every 3 months, # 1 mL, 3 Refills, Maintenance, 02/04/21 10:33:00 EDT, Suspension, [facility]/pharmacy #0693, Partial fill upon patient request if the prescription is for a schedule II opioid drug., 160, cm, 02/04/21 10:18:00 ED... Start Date: 02/04/21 Status: Ordered Janie 30 mg oral tablet 1 tablet = 30 mg, By Mouth, Once, # 1 tablet, 0 Refills, Soft Stop, 05/02/22 16:13:00 EDT, Tablet, [facility]/pharmacy #0693, Partial fill upon patient request if the prescription is for a schedule II opioid drug., 163, cm, 04/12/22 15:12:00 EDT, Height, 82,... Start Date: 05/02/22 Status: Ordered Janie 30 mg oral tablet 1 tablet = 30 mg, By Mouth, Once, # 1 tablet, 1 Refills, Soft Stop, 05/11/22 17:02:00 EDT, Tablet, [facility]/pharmacy #0693, Partial fill upon patient request if the prescription is for a schedule II opioid drug., 163, cm, 05/11/22 13:31:00 EDT, Height, 82,... Start Date: 05/11/22 Status: Ordered Estrace 2 mg oral tablet 1 tablet = 2 mg, By Mouth, 2 times a day, # 42 tablet, 0 Refills, Maintenance, 03/07/22 15:02:00 EDT, Tablet, [facility]/pharmacy #0693, Partial fill upon patient request if the prescription is for a schedule II opioid drug., 163, cm, 02/01/22 13:49:00 EDT,... Start Date: 03/07/22 Stop Date: 03/28/22 Status: Ordered glycerin adult rectal suppository 1 supp, Rectally, Daily, PRN for constipation, # 24 supp, 6 Refills, Maintenance, 02/04/21 10:20:00EDT, Suppository, [facility]/pharmacy #0693, Partial fill upon patient request if the prescription is for a schedule II opioid drug., 160, cm, 01/25/21 8:23:0... Start Date: 02/04/21 Status: Ordered Paragard IUD See Instructions, # 1 each, Refills 0, Tot. Refills 0, Maintenance, Please deliver device to [address] [place] [address], [address] [place] [address], 05/12/22 10:33:00 EDT, Supply, 163, cm, 05/11/22 13:31:00 EDT, Height, 82, kg, 10/27/21 18:02:00 EST, Dry... Start Date: 05/12/22 Status: Ordered Plan B One-Step 1.5 mg oral tablet 1.5 mg, 1, tablet, By Mouth, Once, # 1 tablet, Refills 0, Tot. Refills 0, Soft Stop, 05/31/22 11:44:00 EDT, Route to Pharmacy Electronically, [id number], Partial fill upon patient request if the prescription is for a schedule II opioid drug.,... Start Date: 05/31/22 Status: Ordered PNV Plus oral tablet 1 [...] on: 11/01/17 Sex Care Team Personnel Name: Gigi Grimm III, MD Address: [address] [place] [address]
--- OUTSIDE RECORDS SUMMARY | 2024-04-17 12:24 | XMS_ITS | Continuity of Care Document ---
Author Organization [facility] ter Address [address] [place] [address]- Care Team Providers Care Specialty Development Consultant Name Role Phone Janette RICHEY, Kiara Abbott Primary Care Physician Encounter [facility] Date(s): 07/06/22 - 08/18/[address] [address] Attending Physician: Shaniqua Angel CNM Admitting Physician: Shaniqua Angel CNM Referring Physician: Shaniqua Angel CNM Allergies, Adverse Reactions, Alerts Substance Reaction [...] 11:43:00 EST, Inhaler, Route to Pharmacy Electronically, [id number], [facility] #[id number], 160, cm, 10/11/19... Start Date: 10/11/19 Status: [...] Care team information Care Team Personnel Name: Naila Martinez RN Position: [facility] OB RN Member Role: Primary Care Nurse Name: Lo Vernon RN Position: [facility] OB RN Member Role: Primary Care Nurse Name: Elena Cabrera RN Position: [facility] HBO Wound Member Role: Primary Care Nurse Name: Kiara Savage MD Position: Reference Physician Member Role: PCP Address: Address: [address] [place] [address] [facility] [address] Care Team Related Persons Name: STINSON CHERELLE Address: home [address] [address] Name: TOREY JIMENEZ Address: home [address] [address] Name: TOREY JIMENEZ Address: home [address] [address] Name: JAMIE JIMENEZ Address: home [address] [place] [address] Name: JAMIE JIMENEZ Address: home [address] [address] Name: TOREY TRIVEDI Address: home [address] [place] [address] Name: JOCELYN SANTIAGO Address: home [address] [place] [address]
--- OUTSIDE RECORDS SUMMARY | 2024-04-17 12:24 | XMS_ITS | Continuity of Care Document ---
Author Organization [facility] Address [address] [place] [address]- Care Team Providers Care Signal Fitter Name Role Phone Alfa ROSADO MD, Gigi Hahn Primary Care Physician [phone] [id number] Date(s): 06/08/23 - 07/08/[address] [address] Allergies, Adverse Reactions, Alerts Substance Reaction Severity Status ibuprofen throat swelling body rash Active shellfish Anaphylaxis Active Latex Rash Active Lobster Anaphylaxis Dust allergy Dogs Allergy to cats Active Pineapple Anaphylaxis Active Immunizations Given and Recorded Vaccine Date Status Refusal Reason SARS-CoV-2 mRNA (fqgqcsi-qyga-tiscy) vax 10/17/21 Recorded SARS-CoV-2 mRNA (uqotttz-itrw-eckjw) vax 12/25/20 Recorded SARS-CoV-2 mRNA (rqbamig-zwjj-gcpsk) vax 12/04/20 Recorded tetanus/diphtheria/pertussis, acel(Tdap) 01/25/17 Given [...] 11:43:00 EST, Inhaler, Route to Pharmacy Electronically, [id number], [id number], 160, cm, 10/11/19... Start Date: 10/11/19 Status: Ordered aspirin 81 mg oral tablet, chewable 162 mg, 2, tablet, Chew, Daily, # 180 tablet, Refills 3, Tot. Refills 3, Maintenance, 05/03/23 15:24:00 EDT, Route to Pharmacy Electronically, [facility]/pharmacy #[id number], Partial fill upon patient request [...] Refills, Maintenance, 04/07/23 2:01:00 EDT, DIS Tablet, [facility]/pharmacy #[id number], Partial fill upon patient request if the prescription is for a schedule II opioid d... Start Date: 04/07/23 Status: Ordered ondansetron 8 mg oral tablet, disintegrating 1 tablet = 8 mg, By Mouth, 2 times a day, # 12 tablet, 0 Refills, Maintenance, 04/29/23 7:48:00 EDT, DIS Tablet, [facility]/pharmacy #[id number], Partial fill upon patient request if the prescription is for a schedule II opioid drug., 165, cm, 04/24/23 13:25:00 ED... Start Date: 04/29/23 Status: Ordered Multivitamins with Folic Acid 1 mg oral tablet 1 tablet, By Mouth, Daily, # 30 tablet, 11 Refills, Maintenance, 02/03/23 17:52:00 EDT, Tablet, [facility]/pharmacy #[id number], Partial fill upon patient request if the prescription is for a schedule II opioid drug., 1 tablet By Mouth Daily, 163, cm, 02/03/23 16:... Start Date: 02/03/23 Status: Ordered promethazine 25 mg rectal suppository 1 supp = 25 mg, Rectally, Every 4 hours, PRN for nausea/vomiting, # 12 supp, 0 Refills, Maintenance, 04/25/23 11:26:00 EDT, Suppository, [facility]/pharmacy #[id number], Partial fill upon patient request if the prescription is for a schedule II opioid drug., 165,... Start Date: 04/25/23 Status: Ordered pyridoxine 25 mg oral tablet 1 tablet = 25 mg, By Mouth, 3 times a day, PRN Nausea & Vomiting, # 100 tablet, 8 Refills, Maintenance, 03/27/23 17:46:00 EDT, Tablet, [facility]/pharmacy #[id number], Partial fill upon patient request if theprescription is for a schedule II opioid drug., 163, cm... Start Date: 03/27/23 Status: Ordered Reglan 10 mg oral tablet 1 tablet = 10 mg, By Mouth, 3 times a day, PRN Nausea & Vomiting, # 28 tablet, 2 Refills, Maintenance, 03/30/23 19:35:00 EDT, [facility]/pharmacy #[id number], Partial fill upon patient request if the prescription is for a schedule II opioid drug., 163, cm, 2... Start Date: 03/30/23 Status: Ordered Senna 8.6 mg oral tablet 1 or 2 tablets, By Mouth, Daily at bedtime, PRN, # 60 tablet, Refills 0, Tot. Refills 0, Maintenance, Constipation, 03/14/23 16:14:00 EDT, Route to Pharmacy Electronically, [facility]/pharmacy #[id number] Tablet,Partial fill upon patient request if the prescripti... Start Date: 03/14/23 Status: Ordered Unisom 25 mg oral tablet 1 tablet = 25 mg, By Mouth, Daily at bedtime, PRN for sleep, # 32 tablet, 0 Refills, Maintenance, 03/27/23 17:46:00 EDT, Tablet, [facility]/pharmacy #[id number], Partial fill upon patient request [...] Reference Physician Member Role: PCP Address: Address: [address] [place] [address] - Name: Naila Martinez RN Position: S OB RN Member Role: Primary Care Nurse Name: Lo Vernon RN Position: S OB RN Member Role: Primary Care Nurse Name: Elena Caberra RN Position: [facility] HBO Wound Member Role: Primary Care Nurse Care Team Related Persons Name: CHERELLE STINSON Address: home [address] Name: TOREY JIMENEZ Address: home [address] Name: TOREY JIMENEZ Address: home [address] Name: JAMIE JIMENEZ Address: home [address] [place], [place] Name: JAMIE JIMENEZ Address: home [address] [place] [address] Name: TOREY QUESADA Address: home [address] [place], [place] Name: JOCELYN SANTIAGO Address: home [address] [place] [address]
--- OUTSIDE RECORDS SUMMARY | 2024-04-17 12:24 | XMS_ITS | Continuity of Care Document ---
Author Organization [facility] Address [address] [place] [address]- Care Team Providers Care Pinball Machine Repairer Name Role Phone Alfa ROSADO MD, Gigi Hahn Primary Care Physician [place] [facility] Date(s): 09/04/23 - 10/04/[address] [address] Allergies, Adverse Reactions, Alerts Substance Reaction Severity Status ibuprofen throat swelling body rash Active shellfish Anaphylaxis Active Latex Rash Active Lobster Anaphylaxis Dust allergy Dogs Allergy to cats Active Pineapple Anaphylaxis Active Immunizations Given and Recorded Vaccine Date Status Refusal Reason tetanus/diphtheria/pertussis, acel(Tdap) 08/18/23 Given tetanus/diphtheria/pertussis, acel(Tdap) 01/25/17 Given SARS-CoV-2 mRNA (zgpqvwz-hquy-xiwqb) vax 10/17/21 Recorded SARS-CoV-2 mRNA (cnvpkld-lcyv-autmp) vax 12/25/20 Recorded SARS-CoV-2 mRNA (vshjinu-ytes-mtfwg) vax 12/04/20 Recorded pneumococcal 23-valent vaccine 03/31/16 Given Varicella Virus Vaccine 08/14/13 Recorded Medications albuterol CFC free 90 mcg/inh inhalation aerosol 180 mcg, 2, puffs, Inhalation, Every 4 hours, PRN, # 1 each, Refills 2, Tot. Refills 2, Maintenance, 10/11/19 11:43:00 EST, Inhaler, Route to Pharmacy Electronically, [id number], [facility] #[id number], 160, cm, 10/11/19... Start Date: 10/11/19 Status: [...] Reference Physician Member Role: PCP Address: Address: [address] [place] [address] [facility] Name: Naila Martinez RN Position: [facility] OB RN Member Role: Primary Care Nurse Name: Lo Vernon RN Position: [facility] OB RN Member Role: Primary Care Nurse Name: Elena Cabrera RN Position: [facility] HBO Wound Member Role: Primary Care Nurse Care Team Related Persons Name: CHERELLE STINSON Address: home [address] Name: TOREY JIMENEZ Address: home [address] Name: TOREY JIMENEZ Address: home [address] [address] Name: JAMIE JIMENEZ Address: home [address] [place] [address] Name: JAMIE JIMENEZ Address: home [address] [address] Name: TOREY QUESADA Address: home [address] [place] [address] Name: JOCELYN SANTIAGO Address: home [address] [place] [address]
--- OUTSIDE RECORDS SUMMARY | 2024-04-17 12:24 | XMS_ITS | Continuity of Care Document ---
Author Organization [facility] [employer] [facility] Address [address] [place] [address], 4t [place] [address]- Care Team Providers Care Production Support Supervisor Name Role Phone Alfa ROSADO MD, Gigi Hahn Primary Care Physician Encounter [facility] Date(s): 09/28/22 - 10/28/22 [facility] [employer] [employer] [facility] [address] [place] [address], 4th Floor [place], [place] [address] Allergies, Adverse Reactions, Alerts [...] 11:43:00 EST, Inhaler, Route to Pharmacy Electronically, [id number], [email or web address][id number], 160, cm, 10/11/19... Start Date: 1/24/20 Status: [...] # 1 tablet, 0 Refills, Soft Stop, 09/28/22 23:54:00 EST, Tablet, [id number], Partial fill upon patient request if the prescription is for a schedule II opioid drug., 163, cm, 07/08/22 8:40:00 EDT, Height, 84.6... Start Date: 09/28/22 Status: Ordered Multivitamins with Folic Acid 1 [...] Personnel Name: Gigi Grimm III, MD Position: [facility] Ambulatory (view) Member Role: PCP Address: Address: [address] [place] [address] - Name: Naila Martinez RN Position: [facility] OB RN Member Role: Primary Care Nurse Name: Lo Vernon RN Position: [facility] OB RN Member Role: Primary Care Nurse Name: Elena Cabrera RN Position: [facility] HBO Wound Member Role: Primary Care Nurse Care Team Related Persons Name: CHERELLE STINSON Address: home [address] Name: TOREY JIMENEZ Address: home [address] Name: TOREY JIMENEZ Address: home [address] Name: JAMIE JIMENEZ Address: home [address] [address] Name: JAMIE JIMENEZ Address: home [address] [place], [place] Name: TOREY TRIVEDI Address: home [address] [place], [place] Name: JOCELYN SANTIAGO Address: home [address] [place] [address]
--- OUTSIDE RECORDS SUMMARY | 2024-04-17 12:24 | XMS_ITS | Continuity of Care Document ---
Author Organization [facility] Address [address] [place] [address]- Care Team Providers Care Lan Engineer Name Role Phone Alfa ROSADO MD, Gigi Hahn Primary Care Physician [id number] Date(s): 06/26/20 - 07/26/[address] [address] Allergies, Adverse Reactions, Alerts [...] 11:43:00 EST, Inhaler, Route to Pharmacy Electronically, [id number], [email or web address] #[id number], 160, cm, 10/11/19... Start Date: 10/11/19 Status: [...] 06/19/20 10:03:00 EDT, Route to Pharmacy Electronically, [facility][id number], 160, cm, 06/19/20 9:41:00 EDT, Height, 80.7... Start Date: 06/19/20 Status: Ordered fluconazole 150 mg oral tablet 1 tablet = 150 mg, By Mouth, Once, # 1 tablet, 0 Refills, Soft Stop, 07/10/20 14:15:00 EDT, Tablet,[facility] #[id number], 160, cm, 07/09/20 8:55:00 EDT, Height, 80.7, [...] Refills, Maintenance, 06/19/20 10:23:00 EDT, REC Powder, [facility] #[id number], 17 Gm By Mouth Daily,Instr:dissolve in water before taking, 160, cm, 06/19/20 9:41:00 EDT, Hei... Start Date: 06/19/20 Status: Ordered Multivitamin Tablet 1 tablet, By Mouth, Daily, 0 Refills, Maintenance, 10/09/19 16:58:00 EST Start Date: 10/09/19 Status: Ordered Multivitamins with Folic Acid 1 mg oral tablet 1 tablet, By Mouth, Daily, # 30 tablet, 11 Refills, Maintenance, 02/05/20 17:12:00 EDT, [facility] #00771, 1 tablet By Mouth Daily, 160, cm, [...] 0 Refills, Maintenance, 10/11/19 10:15:00 EST, Tablet, [facility] #13759, 160, cm, 10/11/19 5:03:00 EST, Height, 80.7, [...]
--- OUTSIDE RECORDS SUMMARY | 2024-04-17 12:25 | XMS_ITS | Continuity of Care Document ---
Author Organization [facility] Address [address] [address]- Care Team Providers Care Real Time Analyst Name Role Phone Alfa ROSADO MD, Gigi Hahn Primary Care Physician En[facility] Date(s): 05/02/22 - 06/01/22 [facility] [address] [address] Allergies, Adverse Reactions, Alerts Substance Reaction [...] 11:43:00 EST, Inhaler, Route to Pharmacy Electronically, [id number], [email or web address] #[id number], 160, cm, 10/11/19... Start Date: 1/24/20 Status: [...] Refills, Maintenance, 01/25/21 9:00:00 EDT, REC Powder, [facility]/pharmacy #[id number], Partial fill upon patient request if the prescription is for a schedule II opioid drug., 3.5 Gm... Start Date: 01/25/21 Stop Date: 02/24/21 Status: Ordered Depo-Provera Contraceptive 150 mg/mL intramuscular suspension 1 mL = 150 mg, Intramuscular, Every 3 months, # 1 mL, 3 Refills, Maintenance, 02/04/21 10:33:00 EDT, Suspension, [facility]/pharmacy #[id number], Partial fill upon patient request if [...] 0 Refills, Maintenance, 03/07/22 15:02:00 EDT, Tablet, [facility]/pharmacy #[id number], Partial fill upon patient request if the prescription is for a schedule II opioid drug., 163, cm, 02/01/22 13:49:00 EDT,... Start Date: 03/07/22 Stop Date: 03/28/22 Status: Ordered glycerin adult rectal suppository 1 supp, Rectally, Daily, PRN for constipation, # 24 supp, 6 Refills, Maintenance, 02/04/21 10:20:00EDT, Suppository, [facility]/pharmacy #[id number], Partial fill upon patient request if the prescription is for a schedule II opioid drug., 160, cm, 01/25/21 8:23:0... Start Date: 02/04/21 Status: Ordered Paragard IUD See Instructions, # 1 each, Refills 0, Tot. Refills 0, Maintenance, Please deliver device to [address] [place] [address], [address] [place] [address], 05/12/22 10:33:00 EDT, Supply, 163, cm, 05/11/22 13:31:00 EDT, Height, 82, kg, 10/27/21 18:02:00 EST, Dry... Start Date: 05/12/22 Status: Ordered Plan B One-Step 1.5 mg oral tablet 1.5 mg, 1, tablet, By Mouth, Once, # 1 tablet, Refills 0, Tot. Refills 0, Soft Stop, 05/31/22 11:44:00 EDT, Route to Pharmacy Electronically, [facility]/pharmacy #[id number], Partial fill upon patient request if the prescription is for a schedule II opioid drug.,... Start Date: 05/31/22 Status: Ordered PNV Plus oral tablet 1 tablet, By Mouth, Daily, # 30 tablet, 11 Refills, Maintenance, 12/07/21 9:53:00 EDT, [facility]/pharmacy#[id number], Partial fill upon patient request if the [...] Personnel Name: Gigi Grimm III, MD Address: [address] [place] [id number]
--- OUTSIDE RECORDS SUMMARY | 2024-04-17 12:25 | XMS_ITS | Continuity of Care Document ---
Author Organization [facility] Address [address] [place] [address]- Care Team Providers Care Vocational Nurse Name Role Phone Alfa ROSADO MD, Gigi Hahn Primary Care Physician Encounter [facility] ACCT R [id number] Date(s): 10/12/23 - 11/11/[address] [address]- Allergies, Adverse Reactions, Alerts Substance Reaction Severity Status ibuprofen throat swelling body rash Active shellfish Anaphylaxis Active Latex Rash Active Lobster Anaphylaxis Dust allergy Dogs Allergy to cats Active Pineapple Anaphylaxis Active Immunizations Given and Recorded Vaccine Date Status Refusal Reason tetanus/diphtheria/pertussis, acel(Tdap) 08/18/23 Given tetanus/diphtheria/pertussis, acel(Tdap) 01/25/17 Given SARS-CoV-2 mRNA (xdeywui-dybg-lisum) vax 10/17/21 Recorded SARS-CoV-2 mRNA (nmosoxo-tjys-mhsot) vax 12/25/20 Recorded SARS-CoV-2 mRNA (ekhmlkr-gsvi-bhkid) vax 12/04/20 Recorded pneumococcal 23-valent vaccine 03/31/16 Given Varicella Virus Vaccine 08/14/13 Recorded Medications acetaminophen 325 mg oral tablet 975 mg, 3, tablet, By Mouth, Every 6 hours, PRN, # 50 tablet, Refills 0, Tot. Refills 0, Maintenance, Pain , Moderate, 11/07/23 7:35:00 EST, Route to Pharmacy Electronically, [facility]acy #[id number], Partial fill upon patient request if the prescription is... Start Date: 11/07/23 Status: Ordered albuterol CFC free 90 mcg/inh inhalation aerosol 180 mcg, 2, puffs, Inhalation, Every 4 hours, PRN, # 1 each, Refills 2, Tot. Refills 2, Maintenance, 10/11/19 11:43:00 EST, Inhaler, Route to Pharmacy Electronically, [id number], [facility] #[id number], 160, cm, 10/11/19... Start Date: 10/11/19 Status: [...] Physician Member Role: PCP Address: Address: [address] [place] [address] [facility] Name: Naila Martinez RN Position: S OB RN Member Role: Primary Care Nurse Name: Lo Vernon RN Position: [facility] OB RN Member Role: Primary Care Nurse Name: Elena Cabrera RN Position: [facility] HBO Wound Member Role: Primary Care Nurse Care Team Related Persons Name: CHERELLE STINSON Address: [address] Name: JOSS BOBO Address: [address] Address: home [address] [place] Name: TOREY JIMENEZ Address: home [address] Name: TOREY JIMENEZ Address: home [address] Name: JAMIE JIMENEZ Address: home [address] [place] [address] Name: JAMIE JIMENEZ Address: home [address] [address] Name: TOREY QUESADA Address: home [address] [place], [place] Name: JOCELYN SANTIAGO Address: home [address] [place] [address]
--- OUTSIDE RECORDS SUMMARY | 2024-04-17 12:25 | XMS_ITS | Continuity of Care Document ---
Author Organization [facility] Address [address] [facility], [address] Floor, [address] [place] [address]- Care Team Providers Care Racehorse Trainer Name Role Phone Gigi Grimm III, MD Primary Care Physician Encounter [facility] Date(s): 07/21/20 - 09/03/20 [facility] [address] [facility], 3rd Floor, [address] [place] [address] Attending Physician: Kevin Tapia MD Admitting Physician: Kevin Tapia MD Referring Physician: Gigi Grimm III, MD [...] 11:43:00 EST, Inhaler, Route to Pharmacy Electronically, [id number], [facility] #[id number], 160, cm, 10/11/19... Start Date: 10/11/19 Status: [...] 06/19/20 10:03:00 EDT, Route to Pharmacy Electronically, [facility][id number], 160, cm, 06/19/20 9:41:00 EDT, Height, 80.7... Start Date: 06/19/20 Status: Ordered fluconazole 150 mg oral tablet 1 tablet = 150 mg, By Mouth, Once, # 1 tablet, 0 Refills, Soft Stop, 07/10/20 14:15:00 EDT, Tablet,[facility] #[id number], 160, cm, 07/09/20 8:55:00 EDT, Height, 80.7, [...] Refills, Maintenance, 06/19/20 10:23:00 EDT, REC Powder, [facility] #[id number], 17 Gm By Mouth Daily,Instr:dissolve in water before taking, 160, cm, 06/19/20 9:41:00 EDT, Hei... Start Date: 06/19/20 Status: Ordered Multivitamin Tablet 1 tablet, By Mouth, Daily, 0 Refills, Maintenance, 10/09/19 16:58:00 EST Start Date: 10/09/19 Status: Ordered Multivitamins with Folic Acid 1 mg oral tablet 1 tablet, By Mouth, Daily, # 30 tablet, 11 Refills, Maintenance, 02/05/20 17:12:00 EDT, [facility] #[id number], 1 tablet By Mouth Daily, 160, cm, [...] 0 Refills, Maintenance, 10/11/19 10:15:00 EST, Tablet, [facility] #[id number], 160, cm, 10/11/19 5:03:00 EST, Height, 80.7, [...]
--- OUTSIDE RECORDS SUMMARY | 2024-04-17 12:25 | XMS_ITS | Continuity of Care Document ---
Author Organization [facility] Address [address] [place] [address]- Care Team Providers Care Proofsheet Corrector Name Role Phone Alfa ROSADO MD, Gigi Hahn Primary Care Physician [phone] En[place] [facility] [place] Date(s): 05/26/23 - 07/21/[address] [address] Attending Physician: Not on Staff, Attending MD Allergies, Adverse Reactions, Alerts Substance Reaction Severity Status ibuprofen throat swelling body rash Active Pineapple Anaphylaxis Active shellfish Anaphylaxis Active Latex Rash Active Lobster Anaphylaxis Dust allergy Dogs Allergy to cats Active Immunizations Given and Recorded Vaccine Date Status Refusal Reason SARS-CoV-2 mRNA (inulhwe-ffmx-yymwq) vax 10/17/21 Recorded SARS-CoV-2 mRNA (mxomclv-fulz-vhguj) vax 12/25/20 Recorded SARS-CoV-2 mRNA (rjcdmho-kciq-rwiqe) vax 12/04/20 Recorded tetanus/diphtheria/pertussis, acel(Tdap) 01/25/17 Given [...] 11:43:00 EST, Inhaler, Route to Pharmacy Electronically, [id number], [facility][id number], 160, cm, 10/11/19... Start Date: 10/11/19 Status: Ordered aspirin 81 mg oral tablet, chewable 162 mg, 2, tablet, Chew, Daily, # 180 tablet, Refills 3, Tot. Refills 3, Maintenance, 05/03/23 15:24:00 EDT, Route to Pharmacy Electronically, [facility]/pharmacy #[id number], Partial fill upon patient request [...] Refills, Maintenance, 04/07/23 2:01:00 EDT, DIS Tablet, [facility]/pharmacy #[id number], Partial fill upon patient request [...] 0 Refills, Maintenance, 04/25/23 11:26:00 EDT, Suppository, [facility]/pharmacy #[id number], Partial fill upon patient request if the prescription is for a schedule II opioid drug., 165,... Start Date: 04/25/23 Status: Ordered pyridoxine 25 mg oral tablet 1 tablet = 25 mg, By Mouth, 3 times a day, PRN Nausea & Vomiting, # 100 tablet, 8 Refills, Maintenance, 03/27/23 17:46:00 EDT, Tablet, [facility]/pharmacy #[id number], Partial fill upon patient request if theprescription is for a schedule II opioid drug., 163, cm... Start Date: 03/27/23 Status: Ordered Reglan 10 mg oral tablet 1 tablet = 10 mg, By Mouth, 3 times a day, PRN Nausea & Vomiting, # 28 tablet, 2 Refills, Maintenance, 03/30/23 19:35:00 EDT, [facility]/pharmacy #[id number], Partial fill upon patient request if the prescription is for a schedule II opioid drug., 163, cm, ... Start Date: 03/30/23 Status: Ordered Senna 8.6 mg oral tablet 1 or 2 tablets, By Mouth, Daily at bedtime, PRN, # 60 tablet, Refills 0, Tot. Refills 0, Maintenance, Constipation, 03/14/23 16:14:00 EDT, Route to Pharmacy Electronically, [facility]/pharmacy #[id number] Tablet,Partial fill upon patient request if the prescripti... Start Date: 03/14/23 Status: Ordered Unisom 25 mg oral tablet 1 tablet = 25 mg, By Mouth, Daily at bedtime, PRN for sleep, # 32 tablet, 1 Refills, Maintenance, 07/21/23 15:16:00 EDT, Tablet, [facility]/pharmacy #[id number], Partial fill upon patient request [...] Reference Physician Member Role: PCP Address: Address: [address] [place] [address] Name: Naila Martinez RN Position: [facility] OB RN Member Role: Primary Care Nurse Name: Lo Vernon RN Position: [facility] OB RN Member Role: Primary Care Nurse Name: Elena Cabrera RN Position: [facility] HBO Wound Member Role: Primary Care Nurse Care Team Related Persons Name: CHERELLE STINSON Address: home [address] Name: TOREY JIMENEZ Address: home [address] Name: TOREY JIMENEZ Address: home [address] Name: JAMIE JIMENEZ Address: home [address] [place], [place] Name: JAMIE JIMENEZ Address: home [address] [place] [address] Name: TOREY QUESADA Address: home [address] [place], [place] Name: JOCLEYN SANTIAGO Address: home [address] [place] [address]
--- OUTSIDE RECORDS SUMMARY | 2024-04-17 12:25 | XMS_ITS | Continuity of Care Document ---
Author Organization [facility] Address [address] [place] [address]- Care Team Providers Care Wheat Cleaner Name Role Phone Alfa ROSADO MD, Gigi Hahn Primary Care Physician [phone] En[facility] [id number] Date(s): 12/20/23 - 01/19/[address] [address] Attending Physician: Admtr, Lito8 Admitting Physician: Admtr, Ar8 Referring Physician: Admtr, Ar8 Allergies, Adverse Reactions, Alerts Substance Reaction Severity Status ibuprofen throat swelling body rash Active shellfish Anaphylaxis Active Latex Rash Active Lobster Anaphylaxis Dust allergy Dogs Allergy to cats Active Pineapple Anaphylaxis Active Immunizations Given and Recorded Vaccine Date Status Refusal Reason tetanus/diphtheria/pertussis, acel(Tdap) 08/18/23 Given tetanus/diphtheria/pertussis, acel(Tdap) 01/25/17 Given SARS-CoV-2 mRNA (mloxkue-tbvu-muksw) vax 10/17/21 Recorded SARS-CoV-2 mRNA (mfvkwqu-aypr-vsfej) vax 12/25/20 Recorded SARS-CoV-2 mRNA (fphswka-nfnc-dqwbc) vax 12/04/20 Recorded pneumococcal 23-valent vaccine 03/31/16 Given Varicella Virus Vaccine 08/14/13 Recorded Medications acetaminophen 325 mg oral tablet 975 mg, 3, tablet, By Mouth, Every 6 hours, PRN, # 50 tablet, Refills 0, Tot. Refills 0, Maintenance, Pain , Moderate, 11/07/23 7:35:00 EST, Route to Pharmacy Electronically, [facility]/pharmacy #[id number], Partial fill upon patient request if the prescription is... Start Date: 11/07/23 Status: Ordered albuterol CFC free 90 mcg/inh inhalation aerosol 180 mcg, 2, puffs, Inhalation, Every 4 hours, PRN, # 1 each, Refills 2, Tot. Refills 2, Maintenance, 10/11/19 11:43:00 EST, Inhaler, Route to Pharmacy Electronically, [id number], [facility] #[id number], 160, cm, 10/11/19... Start Date: 10/11/19 Status: Ordered aspirin 81 mg oral tablet 2 tablet = 162 mg, By Mouth, Daily, # 180 tablet, 2 Refills, Maintenance, 09/19/23 15:50:00 EST, Tablet, [facility]/pharmacy #[id number], Partial fill upon patient request if [...] Refills, Maintenance, 11/07/23 7:35:00 EST, REC Powder, [facility]/pharmacy #[id number], Partial fill upon patient request if the prescription is for a schedule II opioid drug., 17 Gm By Mouth... Start Date: 11/07/23 Status: Ordered Multivitamins with Folic Acid 1 mg oral tablet 1 tablet, By Mouth, Daily, # 30 tablet, 11 Refills, Maintenance, 02/03/23 17:52:00 EDT, Tablet, [facility]/pharmacy #[id number], Partial fill upon patient request if the prescription is for a schedule II opioid drug., 1 tablet By Mouth Daily, 163, cm, 02/03/23 16:... Start Date: 02/03/23 Status: Ordered Problem List Condition Confirmation Course Effective Dates Status Health St atus Informant Brain aneurysm Confirmed Active Migraine Confirmed Active Asthma, mild intermittent Confirmed Active Nausea and vomiting during Confirmed Active Obstructive sleep apnea Confirmed Active PCOS - Polycystic ovarian syndrome Confirmed Active Social History Social History Type Response Smoking Status Never smoker; Tobacc o user in household: No entered on: 11/01/17 Sex Female Patient Care team information Care Team Personnel Name: Elena Reilly RN Position: [facility] HBO Wound Member Role: Primary Care Nurse Name: Gigi Grimm III, MD Position: Reference Physician Member Role: PCP Address: Address: [address] [place] [address] [facility] Name: Naila Martinez RN Position: [facility] OB RN Member Role: Primary Care Nurse Name: Lo Vernon RN Position: [facility] OB RN Member Role: Primary Care Nurse Care Team Related Persons Name: STINSON CHERELLE Address: home [address] [address] Name: JOSS BOBO Address: [address] Address: home [address] [place] [address] Name: TOREY JIMENEZ Address: home [address] [address] Name: TOREY JIMENEZ Address: home [address] [address] Name: JAMIE JIMENEZ Address: home [address] [place] [address] Name: JAMIE JIMENEZ Address: home [address] [place] [address] Name: TOREY QUESADA Address: home [address] [place], [place] Name: JOCELYN SANTIAGO Address: home [address] [place] [address]
--- OUTSIDE RECORDS SUMMARY | 2024-04-17 12:25 | XMS_ITS | Continuity of Care Document ---
Author Organization [facility] Address [address] [place] [address]- Care Team Providers Care Geology Teacher Name Role Phone Alfa ROSADO MD, Gigi Hahn Primary Care Physician [id number] Date(s): 10/21/20 - 11/20/[address] [address] Allergies, Adverse Reactions, Alerts Substance [...] 11:43:00 EST, Inhaler, Route to Pharmacy Electronically, [id number], [facility] #[id number], 160, cm, 10/11/19... Start Date: 10/11/19 Status: Ordered Aspirin Enteric Coated 81 mg oral delayed release tablet 1 tablet = 81 mg, By Mouth, Daily Start Date: 10/09/19 Status: Ordered Depo-Provera Contraceptive 150 mg/mL intramuscular suspension 1 mL = 150 mg, Intramuscular, Every 3 months, # 1 mL, 3 Refills, Maintenance, 11/16/20 14:57:00 EST, Suspension, [id number], Partial fill upon patient request if the prescription is for a schedule II opioid drug., 160, cm, 11/16/20 14:50:00 ES... Start Date: 11/16/20 Status: Ordered Problem List Condition Effective Dates [...]
--- OUTSIDE RECORDS SUMMARY | 2024-04-17 12:25 | XMS_ITS | Continuity of Care Document ---
Author Organization [facility] Address [address] [place] [address]- Care Team Providers Care Transit Planning Director Name Role Phone Alfa ROSADO MD, Gigi Hahn Primary Care Physician [phone] Encounter [facility] [place] Date(s): 09/12/23 - 10/12/[address] [address] Allergies, Adverse Reactions, Alerts Substance Reaction Severity Status ibuprofen throat swelling body rash Active shellfish Anaphylaxis Active Latex Rash Active Lobster Anaphylaxis Dust allergy Dogs Allergy to cats Active Pineapple Anaphylaxis Active Immunizations Given and Recorded Vaccine Date Status Refusal Reason tetanus/diphtheria/pertussis, acel(Tdap) 08/18/23 Given tetanus/diphtheria/pertussis, acel(Tdap) 01/25/17 Given SARS-CoV-2 mRNA (zowpfmk-ltaa-mbcav) vax 10/17/21 Recorded SARS-CoV-2 mRNA (fmaenwy-rulq-gyayb) vax 12/25/20 Recorded SARS-CoV-2 mRNA (booyyyk-pqmw-rcdne) vax 12/04/20 Recorded pneumococcal 23-valent vaccine 03/31/16 Given Varicella Virus Vaccine 08/14/13 Recorded Medications albuterol CFC free 90 mcg/inh inhalation aerosol 180 mcg, 2, puffs, Inhalation, Every 4 hours, PRN, # 1 each, Refills 2, Tot. Refills 2, Maintenance, 10/11/19 11:43:00 EST, Inhaler, Route to Pharmacy Electronically, [id number], [facility] #[id number], 160, cm, 10/11/19... Start Date: 10/11/19 Status: [...] Physician Member Role: PCP Address: Address: [address] [place] [address] [facility] Name: Naila Martinez RN Position: [facility] OB RN Member Role: Primary Care Nurse Name: Lo Vernon RN Position: [facility] OB RN Member Role: Primary Care Nurse Name: Elena Cabrera RN Position: [facility] HBO Wound Member Role: Primary Care Nurse Care Team Related Persons Name: CHERELLE STINSON Address: home [address] Name: TOREY JIMENEZ Address: home [address] Name: TOREY JIMENEZ Address: home [address] [address] Name: JAMIE JIMENEZ Address: home [address] [place] [address] Name: JAMIE JIMENEZ Address: home [address] [address] Name: TOREY QUESADA Address: home [address] [place] [address] Name: JOCELYN SANTIAGO Address: home [address] [place] [address]
--- OUTSIDE RECORDS SUMMARY | 2024-04-17 12:25 | XMS_ITS | Continuity of Care Document ---
Author Organization [facility] Address Unknown Care Team Providers Care Internet Sales Representative Name Role Phone Alfa ROSADO MD, Gigi Hahn Primary Care Physician [phone] Encounter [facility] [place] Date(s): 04/23/21 - 05/23/21 [facility] Attending Physician: Admoctavia, Baldo Admitting Physician: Admtr, Ar8 Referring Physician: Admtr, [...] 11:43:00 EST, Inhaler, Route to Pharmacy Electronically, [id number], [facility] #[id number], 160, cm, 10/11/19... Start Date: 10/11/19 Status: [...] 01/25/21 8:23:0... Start Date: 02/04/21 Status: Ordered NuLYTELY with Flavor Packs oral powder for reconstitution See Instructions, 4 liters By Mouth Once for colonoscopy, # 1 each, 0 Refills, Maintenance, 01/25/21 9:13:00 EDT, [facility]/pharmacy #[id number], Partial fill upon patient [...]
--- OUTSIDE RECORDS SUMMARY | 2024-04-17 12:25 | XMS_ITS | Continuity of Care Document ---
Author Organization [facility] Address [address] [address]- Care Team Providers Care Farm Agent Name Role Phone Alfa ROSADO MD, Gigi Hahn Primary Care Physician [place] [facility] [place] 09[place] - 11/10/19 [facility] [address] [address]- [facility] Attending Physician: Not on Staff, Attending MD Referring Physician: Chris Guthrie CNM Allergies, [...] 11:43:00 EST, Inhaler, Route to Pharmacy Electronically, [id number], [facility] #[id number], 160, cm, 10/11/19... Start Date: 10/11/19 Status: [...] 0 Refills, Maintenance, 10/11/19 10:15:00 EST, Tablet, [facility] #[id number], 160, cm, 10/11/19 5:03:00 EST, Height, 80.7, [...]
--- OUTSIDE RECORDS SUMMARY | 2024-04-17 12:25 | XMS_ITS | Continuity of Care Document ---
Author Organization [facility] Address [address] [address]- Care Team Providers Care Papier Mache' Molder Name Role Phone Alfa ROSADO MD, Gigi Hahn Primary Care Physician [phone] Encounter [facility] [place] Date(s): 03/13/23 - 05/31/[address] [address] Attending Physician: Not on Staff, Attending MD Referring Physician: Not on Staff, Referring MD Allergies, Adverse Reactions, Alerts Substance Reaction Severity Status ibuprofen throat swelling body rash Active Pineapple Anaphylaxis Active shellfish Anaphylaxis Active Latex Rash Active Lobster Anaphylaxis Dust allergy Dogs Allergy to cats Active Immunizations Given and Recorded Vaccine Date Status Refusal Reason SARS-CoV-2 mRNA (tgrioyp-wgkf-omoro) vax 10/17/21 Recorded SARS-CoV-2 mRNA (psvirgz-mmdc-zknha) vax 12/25/20 Recorded SARS-CoV-2 mRNA (lxcokql-taal-cibjk) vax 12/04/20 Recorded tetanus/diphtheria/pertussis, acel(Tdap) 01/25/17 Given [...] 11:43:00 EST, Inhaler, Route to Pharmacy Electronically, [id number], [facility] #[id number], 160, cm, 10/11/19... Start Date: 10/11/19 Status: Ordered aspirin 81 mg oral tablet, chewable 162 mg, 2, tablet, Chew, Daily, # 180 tablet, Refills 3, Tot. Refills 3, Maintenance, 05/03/23 15:24:00 EDT, Route to Pharmacy Electronically, [facility]/pharmacy #[id number], Partial fill upon patient request [...] Refills, Maintenance, 04/25/23 11:26:00 EDT, Suppository, [facility]/pharmacy #[id number], Partial fill upon patient request if the prescription is for a schedule II opioid drug., 165,... Start Date: 04/25/23 Status: Ordered pyridoxine 25 mg oral tablet 1 tablet = 25 mg, By Mouth, 3 times a day, PRN Nausea & Vomiting, # 100 tablet, 8 Refills, Maintenance, 03/27/23 17:46:00 EDT, Tablet, [facility]/pharmacy #[id number], Partial fill upon patient request if theprescription is for a schedule II opioid drug., 163, cm... Start Date: 03/27/23 Status: Ordered Reglan 10 mg oral tablet 1 tablet = 10 mg, By Mouth, 3 times a day, PRN Nausea & Vomiting, # 28 tablet, 2 Refills, Maintenance, 03/30/23 19:35:00 EDT, [facility]/pharmacy #[id number], Partial fill upon patient request [...] Reference Physician Member Role: PCP Address: Address: [address] [place] [address]- Name: Naila Martinez RN Position: [facility] OB RN Member Role: Primary Care Nurse Name: Lo Vernon RN Position: S OB RN Member Role: Primary Care Nurse Name: Elena Cabrera RN Position: [facility] HBO Wound Member Role: Primary Care Nurse Care Team Related Persons Name: CHERELLE STINSON Address: home [address] Name: TOREY JIMENEZ Address: home [address] Name: TOREY JIMENEZ Address: home [address] Name: JAMIE JIMENEZ Address: home [address] [place] [address] Name: JAMIE JIMENEZ Address: home [address] [place], [place] Name: TOREY QUESADA Address: home [address] [place], [place] Name: JOCELYN SANTIAGO Address: home [address] [place] [address]
--- OUTSIDE RECORDS SUMMARY | 2024-04-17 12:25 | XMS_ITS | Continuity of Care Document ---
Author Organization [facility] Address [address] [place] [address]- Care Team Providers Care Sandstone Inspector Repairer Name Role Phone Alfa ROSADO MD, Gigi Hahn Primary Care Physician [phone] Encounter [facility] [place] Date(s): 09/14/23 - 10/14/[address] [address] Allergies, Adverse Reactions, Alerts Substance Reaction Severity Status ibuprofen throat swelling body rash Active shellfish Anaphylaxis Active Latex Rash Active Lobster Anaphylaxis Dust allergy Dogs Allergy to cats Active Pineapple Anaphylaxis Active Immunizations Given and Recorded Vaccine Date Status Refusal Reason tetanus/diphtheria/pertussis, acel(Tdap) 08/18/23 Given tetanus/diphtheria/pertussis, acel(Tdap) 01/25/17 Given SARS-CoV-2 mRNA (ilrhxoy-jreq-laauk) vax 10/17/21 Recorded SARS-CoV-2 mRNA (zehqhcl-tjwg-pgvhs) vax 12/25/20 Recorded SARS-CoV-2 mRNA (nolcdlk-jhgq-aqxgd) vax 12/04/20 Recorded pneumococcal 23-valent vaccine 03/31/16 Given Varicella Virus Vaccine 08/14/13 Recorded Medications albuterol CFC free 90 mcg/inh inhalation aerosol 180 mcg, 2, puffs, Inhalation, Every 4 hours, PRN, # 1 each, Refills 2, Tot. Refills 2, Maintenance, 10/11/19 11:43:00 EST, Inhaler, Route to Pharmacy Electronically, [id number], [facility] #[id number], 160, cm, 10/11/19... Start Date: 10/11/19 Status: [...] Reference Physician Member Role: PCP Address: Address: [address] [place] [address]- Name: Naila Martinez RN Position: S OB RN Member Role: Primary Care Nurse Name: Lo Venron RN Position: S OB RN Member Role: Primary Care Nurse Name: Elena Cabrera RN Position: [facility] HBO Wound Member Role: Primary Care Nurse Care Team Related Persons Name: CHERELLE STINSON Address: home [address] Name: TOREY JIMENEZ Address: home [address] Name: TOREY JIMENEZ Address: home [address] [address] Name: JAMIE JIMENEZ Address: home [address] [place] [address] Name: JAMIE JIMENEZ Address: [address] [address] Name: TOREY QUESADA Address: home [address] [place] [address] Name: JOCELYN SANTIAGO Address: home [address] [place] [address]
--- OUTSIDE RECORDS SUMMARY | 2024-04-17 12:25 | XMS_ITS | Continuity of Care Document ---
Author Organization [facility] Address [address] [place] [address], [address]t [address] [place] [address]- Care Team Providers Care Modeling Analyst Name Role Phone Alfa ROSADO MD, Gigi Hahn Primary Care Physician [place] [facility] [id number] Date(s): 03/09/23 - 04/08/23 [facility] [address] [place] [address], [address]th [address] [place], [place] [address] Attending Physician: Admoctavia, Baldo Admitting Physician: Admtr, Lito8 Referring Physician: Admtr, Ar8 Allergies, Adverse Reactions, Alerts Substance Reaction Severity Status ibuprofen throat swelling body rash Active shellfish Anaphylaxis Active Latex Rash Active Lobster Anaphylaxis Dust allergy Dogs Allergy to cats Active Pineapple Anaphylaxis Active Immunizations Given and Recorded Vaccine Date Status Refusal Reason SARS-CoV-2 mRNA (telgyjx-bqct-cmfmg) vax 10/17/21 Recorded SARS-CoV-2 mRNA (fjndqvz-hkvs-mbgls) vax 12/25/20 Recorded SARS-CoV-2 mRNA (hmbjjys-dnxu-epklt) vax 12/04/20 Recorded tetanus/diphtheria/pertussis, acel(Tdap) 01/25/17 Given [...] 11:43:00 EST, Inhaler, Route to Pharmacy Electronically, [id number], [facility] #[id number], 160, cm, 10/11/19... Start Date: 10/11/19 Status: [...] household: No entered on: 11/01/17 Sex Female Radiology * Jazmin Akins: PERFORM Event Display: Radiology Results Scanned Authored Date: [id number] * Jazmin Akins: PERFORM Event Display: Radiology Results Scanned Authored Date: [id number] * Lona Matthews: PERFORM Event Display: Radiology Results Scanned Authored Date: [id number] Patient Care team information Care Team Personnel Name: Alfa ROSADO MD, Gigi Hahn Position: Reference Physician Member Role: PCP Address: Address: [address] [place] [address] - Name: Naila Martinez RN Position: S OB RN Member Role: Primary Care Nurse Name: Lo Vernon RN Position: S OB RN Member Role: Primary Care Nurse Name: Elena Cabrera RN Position: [facility] HBO Wound Member Role: Primary Care Nurse Care Team Related Persons Name: CHERELLE STINSON Address: home [address] Name: TOREY JIMENEZ Address: home [address] Name: TOREY JIMENEZ Address: home [address] Name: JAMIE JIMENEZ Address: home [address] [place], [place] Name: JAMIE JIMENEZ Address: home [address] [place] [address] Name: TOREY TRIVEDI Address: home [address] [place], [place] Name: JOCELYN SANTIAGO Address: home [address] [place] [address]
--- OUTSIDE RECORDS SUMMARY | 2024-04-17 12:25 | XMS_ITS | Continuity of Care Document ---
Author Organization [facility] Marilu [employer]Block[employer] [facility] Address [address] [place] [address], [address] [place] [address]- Care Team Providers Care Design Printer Balloon Name Role Phone Alfa ROSADO MD, Gigi Hahn Primary Care Physician Encounter [facility] [id number] Date(s): 03/27/23 - 04/26/23 [facility] Paradiseruddy [employer] [facility] [address] [place] [address], [address] [place], [place] [address] Attending Physician: Admtr, [id number] Admitting Physician: Admtr, [id number] Referring Physician: Admtr, Ar8 Allergies, Adverse Reactions, Alerts Substance Reaction Severity Status ibuprofen throat swelling body rash Active shellfish Anaphylaxis Active Latex Rash Active Lobster Anaphylaxis Dust allergy Dogs Allergy to cats Active Pineapple Anaphylaxis Active Immunizations Given and Recorded Vaccine Date Status Refusal Reason SARS-CoV-2 mRNA (wvyzgac-mabp-bpbyz) vax 10/17/21 Recorded SARS-CoV-2 mRNA (mmbrfsv-xwvk-jpmec) vax 12/25/20 Recorded SARS-CoV-2 mRNA (ihkeixp-jgvy-yszpb) vax 12/04/20 Recorded tetanus/diphtheria/pertussis, acel(Tdap) 01/25/17 Given [...] 11:43:00 EST, Inhaler, Route to Pharmacy Electronically, [id number], [facility] #[id number], 160, cm, 10/11/19... Start Date: 10/11/19 Status: [...] Refills, Maintenance, 04/07/23 2:01:00 EDT, DIS Tablet, [facility]/pharmacy #[id number], Partial fill upon patient request if the prescription is for a schedule II opioid d... Start Date: 04/07/23 Status: Ordered Multivitamins with Folic Acid 1 mg oral tablet 1 tablet, By Mouth, Daily, # 30 tablet, 11 Refills, Maintenance, 02/03/23 17:52:00 EDT, Tablet, [facility]/pharmacy #[id number], [...] Reference Physician Member Role: PCP Address: Address: [address] [place], [place] - Name: Naila Martinez RN Position: S OB RN Member Role: Primary Care Nurse Name: Lo Vernon RN Position: S OB RN Member Role: Primary Care Nurse Name: Elena Cabrera RN Position: S HBO Wound Member Role: Primary Care Nurse Care Team Related Persons Name: CHERELLE STINSON Address: home [address] Name: TOREY JIMENEZ Address: home [address] Name: TOREY JIMENEZ Address: home [address] Name: JAMIE JIMENEZ Address: home [address] [place] [id number] Name: JAMIE JIMENEZ Address: home [address] [place] [address] Name: TOREY TRIVEDI Address: home [address] [place] [address] Name: JOCELYN SANTIAGO Address: home [address] [place] [address]
--- OUTSIDE RECORDS SUMMARY | 2024-04-17 12:25 | XMS_ITS | Continuity of Care Document ---
Author Organization [facility] Address [address] [place] [address]- Care Team Providers Care Continuous Pillowcase Cutter Name Role Phone Gigi Grimm III, MD Primary Care Physician Encounter [facility] Date(s): 06/07/22 - 06/07/[address] [address] Discharge Disposition: A-D/C Home Attending Physician: Mio Amador MD Admitting Physician: Mio Amador MD Referring Physician: Gigi Grimm III, MD [...] 11:43:00 EST, Inhaler, Route to Pharmacy Electronically, [id number], [facility] #[id number], 160, cm, 10/11/19... Start Date: 10/11/19 Status: [...] Maintenance, 01/25/21 9:00:00 EDT, REC Powder, [facility]/pharmacy #[id number], Partial fill upon patient [...] 0 Refills, Maintenance, 03/07/22 15:02:00 EDT, Tablet, [facility]/pharmacy #[id number], Partial fill upon patient request if the prescription is for a schedule II opioid drug., 163, cm, 02/01/22 13:49:00 EDT,... Start Date: 03/07/22 Stop Date: 03/28/22 Status: Ordered glycerin adult rectal suppository 1 supp, Rectally, Daily, PRN for constipation, # 24 supp, 6 Refills, Maintenance, 02/04/21 10:20:00EDT, Suppository, [facility]/pharmacy #[id number], Partial fill upon patient request if the prescription is for a schedule II opioid drug., 160, cm, 01/25/21 8:23:0... Start Date: 02/04/21 Status: Ordered Paragard IUD See Instructions, # 1 each, Refills 0, Tot. Refills 0, Maintenance, Please deliver device to [address] [place] [address], [address] [place] [address], 05/12/22 10:33:00 EDT, Supply, 163, cm, 05/11/22 13:31:00 EDT, Height, 82, kg, 10/27/21 18:02:00 EST, Dry... Start Date: 05/12/22 Status: Ordered Plan B One-Step 1.5 mg oral tablet 1.5 mg, 1, tablet, By Mouth, Once, # 1 tablet, Refills 0, Tot. Refills 0, Soft Stop, 05/31/22 11:44:00 EDT, Route to Pharmacy Electronically, [facility]/pharmacy #[id number], Partial fill upon patient request if the prescription is for a schedule II opioid drug.,... Start Date: 05/31/22 Status: Ordered PNV Plus oral tablet 1 tablet, By Mouth, Daily, # 30 tablet, 11 Refills, Maintenance, 12/07/21 9:53:00 EDT, [facility]/pharmacy#[id number], Partial fill upon patient request if the [...] Personnel Name: Gigi Grimm III, MD Address: [address] [place] [address]
--- OUTSIDE RECORDS SUMMARY | 2024-04-17 12:25 | XMS_ITS | Continuity of Care Document ---
Author Organization [facility] Address [address] [place] [address]- Care Team Providers Care Clinical Trial Assistant Name Role Phone Alfa ROSADO MD, Gigi Hahn [id number] 10/[facility] - 12/07/[address] [address]- Attending Physician: Not on Staff, Attending MD Allergies, Adverse Reactions, Alerts Substance Reaction Severity Status ibuprofen throat swelling body rash Active shellfish Anaphylaxis Active Latex Rash Active Lobster Anaphylaxis Dust allergy Dogs Allergy to cats Active Pineapple Anaphylaxis Active Immunizations Given and Recorded Vaccine Date Status Refusal Reason tetanus/diphtheria/pertussis, acel(Tdap) 08/18/23 Given tetanus/diphtheria/pertussis, acel(Tdap) 01/25/17 Given SARS-CoV-2 mRNA (pblxrjv-fpew-ibwlk) vax 10/17/21 Recorded SARS-CoV-2 mRNA (ozndrkc-wssa-ethrm) vax 12/25/20 Recorded SARS-CoV-2 mRNA (vgihxhs-tauq-dktrq) vax 12/04/20 Recorded pneumococcal 23-valent vaccine 03/31/16 Given Varicella Virus Vaccine 08/14/13 Recorded Medications acetaminophen 325 mg oral tablet 975 mg, 3, tablet, By Mouth, Every 6 hours, PRN, # 50 tablet, Refills 0, Tot. Refills 0, Maintenance, Pain , Moderate, 11/07/23 7:35:00 EST, Route to Pharmacy Electronically, [facility]/pharmacy #[id number], Partial fill upon patient request if the prescription is... Start Date: 11/07/23 Status: Ordered albuterol CFC free 90 mcg/inh inhalation aerosol 180 mcg, 2, puffs, Inhalation, Every 4 hours, PRN, # 1 each, Refills 2, Tot. Refills 2, Maintenance, 10/11/19 11:43:00 EST, Inhaler, Route to Pharmacy Electronically, [id number], [facility] #[id number], 160, cm, 10/11/19... Start Date: 10/11/19 Status: [...] Reference Physician Member Role: PCP Address: Address: [address] [place] [address] - Name: Naila Martinez RN Position: [facility] RN Member Role: Primary Care Nurse Name: Lo Vernon RN Position: [facility] OB RN Member Role: Primary Care Nurse Name: Elena Cabrera RN Position: [facility] HBO Wound Member Role: Primary Care Nurse Care Team Related Persons Name: CHERELLE STINSON Address: home [address] Name: JOSS BOBO Address: [address] Address: home [address] [place], [place] Name: TOREY JIMENEZ Address: home [address] Name: TOREY JIMENEZ Address: home [address] Name: JAMIE JIMENEZ Address: home [address] [place] [address] Name: JAMIE JIMENEZ Address: home [address] [place] [address] Name: TOREY QUESADA Address: home [address] [place], [place] Name: JOCELYN SANTIAGO Address: home [address] [place] [address]
--- OUTSIDE RECORDS SUMMARY | 2024-04-17 12:26 | XMS_ITS | Continuity of Care Document ---
Author Organization [facility] Address [address] [place] [address]- Care Team Providers Care Researcher Name Role Phone Alfa ROSADO MD, Gigi Hahn Primary Care Physician [phone] Encounter [facility] [place] Date(s): 07/13/23 - 08/12/[address] [address] Allergies, Adverse Reactions, Alerts Substance Reaction Severity Status ibuprofen throat swelling body rash Active shellfish Anaphylaxis Active Latex Rash Active Lobster Anaphylaxis Dust allergy Dogs Allergy to cats Active Pineapple Anaphylaxis Active Immunizations Given and Recorded Vaccine Date Status Refusal Reason SARS-CoV-2 mRNA (leivgim-rqcv-mgcxb) vax 10/17/21 Recorded SARS-CoV-2 mRNA (snedhmy-hhov-vqabk) vax 12/25/20 Recorded SARS-CoV-2 mRNA (wzvwdpw-efic-onkob) vax 12/04/20 Recorded tetanus/diphtheria/pertussis, acel(Tdap) 01/25/17 Given [...] 11:43:00 EST, Inhaler, Route to Pharmacy Electronically, [id number], [id number], 160, cm, 10/11/19... Start Date: 10/11/19 Status: Ordered aspirin 81 mg oral tablet, chewable 162 mg, 2, tablet, Chew, Daily, # 180 tablet, Refills 3, Tot. Refills 3, Maintenance, 05/03/23 15:24:00 EDT, Route to Pharmacy Electronically, [facility]/pharmacy #[id number], Partial fill upon patient [...] Refills, Maintenance, 04/07/23 2:01:00 EDT, DIS Tablet, [facility]/pharmacy #[id number], Partial fill upon patient request if the prescription is for a schedule II opioid d... Start Date: 04/07/23 Status: Ordered ondansetron 8 mg oral tablet, disintegrating 1 tablet = 8 mg, By Mouth, 2 times a day, # 12 tablet, 0 Refills, Maintenance, 04/29/23 7:48:00 EDT, DIS Tablet, [facility]/pharmacy #[id number], Partial fill upon patient [...] 11 Refills, Maintenance, 02/03/23 17:52:00 EDT, Tablet, [facility]/pharmacy #[id number], Partial fill upon patient request if the prescription is for a schedule II opioid drug., 1 tablet By Mouth Daily, 163, cm, 02/03/23 16:... Start Date: 02/03/23 Status: Ordered promethazine 25 mg rectal suppository 1 supp = 25 mg, Rectally, Every 4 hours, PRN for nausea/vomiting, # 12 supp, 0 Refills, Maintenance, 04/25/23 11:26:00 EDT, Suppository, [facility]/pharmacy #[id number], Partial fill upon patient request if the prescription is for a schedule II opioid drug., 165,... Start Date: 04/25/23 Status: Ordered pyridoxine 25 mg oral tablet 1 tablet = 25 mg, By Mouth, 3 times a day, PRN Nausea & Vomiting, # 100 tablet, 8 Refills, Maintenance, 03/27/23 17:46:00 EDT, Tablet, [facility]/pharmacy #[id number], Partial fill upon patient request if theprescription is for a schedule II opioid drug., 163, cm... Start Date: 03/27/23 Status: Ordered Reglan 10 mg oral tablet 1 tablet = 10 mg, By Mouth, 3 times a day, PRN Nausea & Vomiting, # 28 tablet, 2 Refills, Maintenance, 03/30/23 19:35:00 EDT, [facility]/pharmacy #[id number], Partial fill upon patient request if the prescription is for a schedule II opioid drug., 163, cm, ... Start Date: 03/30/23 Status: Ordered Senna 8.6 mg oral tablet 1 or 2 tablets, By Mouth, Daily at bedtime, PRN, # 60 tablet, Refills 0, Tot. Refills 0, Maintenance, Constipation, 03/14/23 16:14:00 EDT, Route to Pharmacy Electronically, [facility]/pharmacy #[id number] Tablet,Partial fill upon patient request if the prescripti... Start Date: 03/14/23 Status: Ordered Unisom 25 mg oral tablet 1 tablet = 25 mg, By Mouth, Daily at bedtime, PRN for sleep, # 32 tablet, 1 Refills, Maintenance, 07/21/23 15:16:00 EDT, Tablet, [facility]/pharmacy #[id number], Partial fill upon patient request if the [...] Physician Member Role: PCP Address: Address: [address] [place] [address] [facility] Name: Naila Martinez RN Position: [facility] OB RN Member Role: Primary Care Nurse Name: Lo Vernon RN Position: [facility] OB RN Member Role: Primary Care Nurse Name: Elena Cabrera RN Position: [facility] HBO Wound Member Role: Primary Care Nurse Care Team Related Persons Name: CHERELLE STINSON Address: home [address] Name: TOREY JIMENEZ Address: home [address] Name: TOREY JIMENEZ Address: home [address] Name: JAMIE JIMENEZ Address: home [address] [address] Name: JAMIE JIMENEZ Address: home [address] [place], [place] Name: TOREY QUESADA Address: home [address] [place], [place] Name: JOCELYN SANTIAGO Address: home [address] [place], [place]
--- OUTSIDE RECORDS SUMMARY | 2024-04-17 12:26 | XMS_ITS | Continuity of Care Document ---
Author Organization [facility] ter Address [address] [place] [id number]- Care Team Providers Care Distance Education Coordinator Name Role Phone Gigi Grimm III, MD Primary Care Physician Encounter [facility] Date(s): 11/09/23 - 11/09/[address] [address] Discharge Disposition: A-D/C Home Attending Physician: Landon Jeffrey MD Admitting Physician: Landon Jeffrey MD Referring Physician: Landon Jeffrey MD Allergies, Adverse Reactions, Alerts Substance Reaction Severity Status ibuprofen throat swelling body rash Active shellfish Anaphylaxis Active Latex Rash Active Lobster Anaphylaxis Dust allergy Dogs Allergy to cats Active Pineapple Anaphylaxis Active Immunizations Given and Recorded Vaccine Date Status Refusal Reason tetanus/diphtheria/pertussis, acel(Tdap) 08/18/23 Given tetanus/diphtheria/pertussis, acel(Tdap) 01/25/17 Given SARS-CoV-2 mRNA (xqdiqgv-eoii-wncxv) vax 10/17/21 Recorded SARS-CoV-2 mRNA (cychwqm-ganc-cwqcp) vax 12/25/20 Recorded SARS-CoV-2 mRNA (kywswrj-cwav-uatxv) vax 12/04/20 Recorded pneumococcal 23-valent vaccine 03/31/16 Given Varicella Virus Vaccine 08/14/13 Recorded Medications acetaminophen 325 mg oral tablet 975 mg, 3, tablet, By Mouth, Every 6 hours, PRN, # 50 tablet, Refills 0, Tot. Refills 0, Maintenance, Pain , Moderate, 11/07/23 7:35:00 EST, Route to Pharmacy Electronically, [facility]/pharmacy #[id number], Partial fill upon patient request if the prescription is... Start Date: 11/07/23 Status: Ordered albuterol CFC free 90 mcg/inh inhalation aerosol 180 mcg, 2, puffs, Inhalation, Every 4 hours, PRN, # 1 each, Refills 2, Tot. Refills 2, Maintenance, 10/11/19 11:43:00 EST, Inhaler, Route to Pharmacy Electronically, [id number], [id number], 160, cm, 10/11/19... Start Date: 10/11/19 Status: Ordered aspirin 81 mg oral tablet 2 tablet = 162 mg, By Mouth, Daily, # 180 tablet, 2 Refills, Maintenance, 09/19/23 15:50:00 EST, Tablet, [facility]/pharmacy #[id number], Partial [...] to oldest [Reference Range]: 1 2 3 Weight 91.9 kg (11/09/23 3:06 PM) Blood Pressure [90-138/55-84 mm Hg] 117/64mm Hg (11/09/23 4:25 PM) 116/69mm Hg (11/09/23 4:10 PM) 114/59mm Hg (11/09/23 3:55 PM) Respiratory Rate [16-30 br/min] 18 br/min (11/09/23 3:35 PM) Temperature [96.8-100.4 DegF] 98.6 DegF (11/09/23 3:06 PM) Blood pressure sites Arm, right (11/09/23 3:35 PM) Temperature Route Oral (11/09/23 3:06 PM) Dry Weight 91.9 kg (11/09/23 3:06 PM) Weight Obtained Via Standing scale (11/09/23 3:06 PM) Dry Weight Obtained Via Standing scale (11/09/23 3:06 PM) Social History Social History Type Response Smoking Status Never smoker; Tobacc o user in household: No entered on: 11/01/17 Sex Female History and physical note * Ivory Gomez MD: PERFORM Event Display: History and Physical Hospital Authored Date: [id number] Patient: ??CHRYSTAL TRIVEDI ? Age:??33 Years?Sex:??Female?:??1990?? History of Present Illness Chrystal is a 33 year old POD4 from an uncomplicated vaginal delivery presenting to [facility] with a headache. She reported a headache (7/) that started last night that resolved with 975mg Tylenol. She then woke up with a headache and felt dizzy. This resolved with hydration, breakfast and rest. Her headache then returned, however later resolved with??975mg Tylenol at 1130.??At this same time, she took her blood pressure and it was 130s/80s. Her headache is now a 3/10. It is characteristic of her normal headaches which she describes as dull and bitemporal. She denies blurry vision, chest pain, shortness of breath, RUQ pain or lower extremity edema.??She has a history of bilateral brain aneurysms with stent placement and was followed by Neurology pre-. She was also admitted several days prior to her induction of labor and have a negative neurology work-up (negative MRI brain, MRA/MRV). Review of Systems ROS is negative except for what has been specified or noted in the history of present illness. Physical Exam Vitals & Measurements T:??98.6?F?? HR:??78??(Monitored)?? RR:??18?? BP:??117/64?? WT:??91.9??kg?? Constitutional: No acute distress, resting comfortably. Respiratory: Normal work of breathing. Gynecologic: Minimal lochia. Extremities: No calf tenderness or edema. Skin: No rash or jaundice. Neurological/Psychiatric: Mood and affect congruent and stable. Assessment/Plan Assessment:??Chrystal is a 33 year old POD4 from an uncomplicated vaginal delivery [facility]. Her headache has significantly improved since this morning. Blood pressures remain normotensive. IV Reglan and Benadryl was offered however she declined. She has a Neurology appointment in early November however she stated that she would call her Neurologist (Dr. Sofy Wayne) tomorrow for a follow-up appointment on Monday. In the meantime, she will continue taking Tylenol/Ibuprofen and Magnesium oxide at home. She was encouraged to present to the ED should her headache worsen. She has no post- concerns. Bonding well with baby. ?? Patient discussed with Dr. Beverly, attending. ?? Headache (R51.9):? - Continue taking Tylenol and Magnesium oxide tablets - Call Neurologist FAIZAN - Reviewed return precautions ?? [employer] History Gynecologic History ?? Event Name?? Event Result?? Last menstrual period 02/04/23 ? OB History History?(2,0,2,2)? # 1 ?Baby 1 ?Outcome Date:??11/2015 ?Outcome or Result:??Spontaneous ?Gest Age:??-- ? Outcome:? Sex:??-- ?? # 2 ?Baby 1 ?Outcome Date:??05/2016 ?Outcome or Result:??Spontaneous ?Gest Age:??-- ? Outcome:? Sex:??-- ?? # 3 ?Baby 1 ?Outcome Date:??04/20/2017?Outcome or Result:??Vaginal ?Gest Age:??40 weeks ? Outcome:??Live ? Sex:??Female?Wt:?3930 g ?Maternal Complications:??Pre-eclampsia ?Hospital:[facility] ?Comment:??BL[facility] transfusion ?? # 4 ?Baby 1 ?Outcome Date:??11/05/2023?Outcome or Result:??Vaginal ?Gest Age:??39 weeks 1 days ? Outcome:??Live ? Sex:??Male?Wt:?3033 g ? Complications:??None Problem List Active and Resolved Active Problem List Asthma, mild intermittent: (Medical) Brain aneurysm: (Medical) Hx of preeclampsia, prior , currently : (Medical) Hypothyroidism in : (Medical) Migraine: (Medical) Nausea and vomiting during : (Medical) Obesity in : (Medical) Obstructive sleep apnea: (Medical) PCOS - Polycystic ovarian syndrome: (Medical) : (Medical) Procedure/Surgical History Colonoscopy: 07/01/21 Brain aneurysm: 07/29/19 Tonsillectomy and adenoidectomy: 1992 Hernia repair: 1991 Carotid artery Insertion of IUD Eye excision Shoulder incision Home Medications Acetaminophen: 975 mg = 3 tablet, By Mouth, Every 6 hours, PRN (Pain , Moderate) Albuterol: 180 mcg = 2 puffs, Inhalation, Every 4 hours, PRN (Wheezing/Shortness of Breath) Aspirin: 162 mg = 2 tablet, By Mouth, Daily Levothyroxine: 25 mcg = 1 tablet, By Mouth, Daily Multivitamin, : 1 tablet, By Mouth, Daily Polyethylene Glycol 3350: 17 Gm, By Mouth, Daily, dissolve in water before taking Allergies Latex??(Rash) Lobster??(Anaphylaxis, Dust allergy, Dogs, Allergy [...] Never smoker, Tobacco user in household: No. * Rush RICHEY [OB], Neha Munroe: PERFORM Event Display: History and Physical Hospital Authored Date: [id number] ?Attending Attestation:??I have seen and evaluated this patient. ??I have discussed the caseand its management with the resident and agree with the findings and plan as documented above in the resident???s note. ?Headache not severe, pt feels comfortable going home, BPs normal - recommended she reach out to her neurologist for future headaches with normal BPs, and pt will reach out to neurology int heAM Note * Genoveva Sylvester RN: PERFORM Event Display: Discharge/Transfer Note Hospital Authored Date: [id number] Nursing Discharge Note Entered On: 11/09/2023 17:43 EST Performed On: 11/09/2023 17:42 EST by Genoveva Sylvester RN Nursing Discharge Note 2 Discharge Time : 11/09/2023 17:40 EST Discharge Level of Care at Discharge : Home/Long Term/Foster Care Patient Left Unit Via : Ambulatory Patient Accompanied Off Unit with : Other: self DC Instructions Provided & Signed by Pt : Yes Patient Understands D/C Instructions : Yes Patient Instructions Discharge Signed : Yes Did Pt have Specialty Bed or Wound Vac : No Genoveva Sylvester RN - 11/09/2023 17:42 EST * Genoveva Sylvester RN: PERFORM Event Display: Patient Education/Instruction Authored Date: [id number] Inpatient Adult Discharge Instructions. [address] [address] Name: CHRYSTAL TRIVEDI : 1990?? Visit: 11/09/2023 14:59?? Current Date: 11/09/2023 17:00 ?? Account: [id number]?? Inpatient Adult Discharge Instructions We would like [...] and their families. Surveys are administered by [employer] ?? If further treatment with your primary care physician or another doctor is recommended, it is important for you to keep the appointment. Call your primary care physician or return to the Emergency Department immediately if your condition worsens, fails to improve, or new symptoms develop. If you need to find a doctor, you can call [facility] for a referral at [phone] or toll free at [phone]) or log in to [email or web address] ?? [facility], in keeping with [facility] guidance, no longer requires face masks for [...] a health care ambrocio of your choosing. [employer] is a website that allows you to securely view your medical information including your hospital discharge summary, office visit summaries, medications and follow-up visits. You can also request appointments, renew medications, and request access to your medical information using a health care ambrocio of your choosing, or just ask a question. You can enroll at [email or web address] or register during your next office visit. You have been discharged from [facility], Patient Care Unit: [facility]??. If you have any questions regarding these instructions, including results of studies pending, afteryou leave, please call us and we will be happy to assist you 10/04. [facility] Your Care Team Attending Physician Landon Jeffrey MD?? Consulting Providers Landon Jeffrey MD?? Tests Performed Below is a partial list of the tests performed during your hospitalization. You may have had other tests and procedures not included in this list. Please discuss all test results with your provider. No tests performed during this visit.?? Primary Care Provider Gigi Grimm III, MD? Discharge Vitals Temperature: 98.6 DegF Weight: 91.9 kg Respiratory Rate: 18 br/min ?? Systolic Blood Pressure: 117 mm Hg ?? Diastolic Blood Pressure: 64 mm Hg ?? Studies Pending All studies ordered during this hospital stay have been completed unless listed below. Please discuss all pending results with your provider listed above in these instructions. ?? No incomplete studies found?? What to do next Instructions From Your Doctor ?? Orders?? Scheduled Follow-Up Appointments Monday 2:20 PM EDT ?? With: Aniya Lezama MD Where: [facility] [employer] [facility] [address] [place] [address]- Status: Pending Discharge Medications CHRYSTAL TRIVEDI :1990 Visit Date:11/09/2023 Medications: Please continue your medications until treatment is completed or stopped by your provider. Medications not listed below should be discontinued. Discuss any questions related to medications with your provider. What How Much When Why Instructions Next Dose Unchanged Acetaminophen (acetaminophen 325 mg oral tablet) 3 tab(s) Oral Every 6 hours as needed for Pain , Moderate Asthma, mild intermittent Brain aneurysm Hx of preeclampsia, prior , currently Hypothyroidism in Migraine Obstructive sleep apnea Encounter for induction of labor state Unchanged Albuterol (albuterol CFC free 90 mcg/ inh inhalation aerosol) 2 puff(s) Inhalation Every 4 hours as needed for Wheezing/Shortness of Breath Unchanged Aspirin (aspirin 81 mg oral tablet) 2 tab(s) Oral Daily Unchanged Levothyroxine (levothyroxine 0.025 mg oral tablet) 1 tab(s) Oral Daily Unchanged Multivitamin, ( Multivitamins with Folic Acid 1 mg oral tablet) 1 tab(s) Oral Daily Unchanged Polyethylene Glycol 3350 (MiraLax oral powder for reconstitution) 17 gram Oral Daily Asthma, mild intermittent Brain aneurysm Hx of preeclampsia, prior , currently Hypothyroidism in Migraine Obstructive sleep apnea Encounter for induction of labor state dissolve in water before taking ?? Prescription Given During Visit No new medications [...] shellfish??(Anaphylaxis) Problems Active Problems??(10) Asthma, mild intermittent?? Brain aneurysm?? Hx of preeclampsia, prior , currently ?? Hypothyroidism in ?? Migraine?? Nausea and vomiting during ?? Obesity in ?? Obstructive sleep apnea?? PCOS - Polycystic ovarian syndrome? Education Materials Below is the list of Educational Leaflet Providered with your Discharge Instructions. [employer] Patient Education - Migraine Headache?? [employer] Patient Education - Incision Care After Vaginal ?? Valuables and Belongings I fully understand and agree that [facility] accepts no responsibility for all my [...] are strongly encouraged to quit. Please call [facility] [employer] Link at [phone] or [phone] ([phone]) or log in to [email or web address] for referrals to smoking cessation programs. ?? 536 Suicide & Crisis Lifeline is available 10/04 if you or someone you know needs to find a reason to keep living. By calling 221 you'll be connected to a skilled, trained counselor at a crisis center in your area. INPATIENT DISCHARGE INSTRUCTIONS SIGNATURE PAGE TRIVEDICHRYSTAL GALLAGHER Location:[facility] Registration Date and Time:11/09/2023 14:59 EST Primary Care Physician: Alfa ROSADO MD, Gigi Hahn, Attending Physician: Wojciech RICHEY, Landon Mahan, I CHRYSTAL TRIVEDI, have received the above patient education materials/instructions and have verbalized understanding. If ambulance or transport services are being used I further acknowledge being given a choice of service. ?? If you need to contact me, please call me at this number: . Patient/Making Line Worker Name: Patient/Making Line Worker Signature: Relationship to Patient: Witness Name/Signature: Date: * Genoveva Sylvester RN: PERFORM Event Display: Patient Education Leaflets Authored Date: [id number] Migraine Headache ?? [id number] Migraine Headache A migraine headache is an often severe type of headache. It's different from other types of headaches in that symptoms other than pain occur with it. For instance, a classic migraine headache means visual symptoms (or aura) such as flashes of light, blind spots, or other vision changes, warn you a headache is coming on. Nausea and vomiting, lightheadedness, sensitivity to light or sound, and other visual disturbances are common migraine symptoms.??The pain may last from a few hours to several days. It's not clear why migraines occur, but certain factors called triggers can raise the risk of having a migraine attack.??A migraine may be triggered by emotional stress??or depression, or by hormone changes during the menstrual cycle. Other triggers include certain control pills, overuse of migraine medicines, alcohol or caffeine, and foods with tyramine, such as aged cheese and wine. Eyestrain, weather changes, missed meals,??or too little or too much sleep can also trigger a migraine. Home care Follow these tips when taking care of yourself at home: ??? Don???t drive yourself home if you weregiven pain medicine for your headache or are having visual symptoms. Instead, have someone else drive you home. Try to sleep when you get home. You should feel much better when you wake up. ??? Cold can help ease migraine symptoms. Put an ice pack wrapped in a thin towel on your forehead or at the base of your skull. Put heat on the back of your neck to help ease any neck spasm. ??? Drink only clear liquids or eat a light diet until your symptoms get better. This will help you prevent nausea and vomiting. ?? How to prevent migraines Pay attention to what seems to trigger your headache. Try to stay away from the triggers when you can. If you have headaches often, consider keeping a headache diary. In it, write down what you were doing, feeling, or eating in the hours before each headache. Show this to your healthcare provider to help find the cause of your headaches. If stress seems to be a trigger for your headaches, figure out what is causing stress in your life.Learn new ways to handle your stress. Ideas include regular exercise, biofeedback, self-hypnosis, yoga, and meditation. Talk with your provider to find out more information about managing stress. Many books and digital media are also available on this subject. Tyramine is a substance found in many foods. It can trigger a migraine in some people. These foods contain tyramine: ??? Chocolate ??? Yogurt ??? All cheeses, but especially aged cheeses ??? Smoked or pickled fish and meat, including kay, caviar, bologna, pepperoni, and salami ??? Liver ??? Avocados ??? Bananas ??? Figs ??? Raisins ??? Red wine Try staying away from these foods for 1 to 2 months to see if you have fewer headaches. ?? How to treat future headaches ??? Take time out at the first sign of a headache, if possible. Find a quiet, dark, comfortable place to sit or lie down. Let yourself relax or sleep. ??? Put an ice pack wrapped in a thin towel on your forehead or on the area of greatest pain. A heating pad and massage may help if you are having a muscle spasm and tightness in your neck. ??? If you have been prescribed a medicine to stop a migraine headache, use this at the first warning sign of the headache for best results. First signs may be an aura or pain. ??? If you have been prescribed a medicine to prevent the headaches, it's important to take the medicine as directed. Many of these medicines may take a few weeks to start preventing headaches, so it's important to not give up on them right away. If you continue to have just as many headaches after taking these medicines for a while, talk with your healthcare provider to see if the dose needs to be changed or if a different medicine is advised. ??? If you need to take medicine often for your migraine, talk with your provider about other ways to prevent your headaches. ?? Follow-up care Follow up with your healthcare provider, or as advised. Talk with your provider if you have frequent headaches. They can figure out a treatment plan. Ask if you can have medicine to take at home the next time you get a bad headache. This may keep you from having to visit the emergency department inthe future. You may need to see a headache specialist (neurologist) if you continue to have headaches. ?? When to get medical care Call your healthcare provider right away??if any of these occur: ??? Your head pain gets worse, or doesn???t get better within 24 hours ??? You can???t keep liquids down (repeated vomiting) ??? Pain in your sinuses, ears, or throat ??? Fever of 100.4?? F (38?? C) or higher, or as advised by your provider ??? Stiff neck ??? Extreme drowsiness, confusion, or fainting ??? Dizziness, or dizziness with spinning sensation (vertigo) ??? Weakness or trouble feeling in an arm or leg, or on one side of your face ??? Trouble talking or seeing ?? Last Reviewed Date: 2022 ?? 9236-2201 [employer]. All rights reserved. This information is not intended as a substitute for professional medical care. Always follow your healthcare professional's instructions. ?? * Genoveva Sylvester RN: PERFORM Event Display: Patient Education Leaflets Authored Date: [id number] Incision Care After Vaginal ?? 98620 Incision Care After Vaginal After your baby???s , you may have needed stitches in the skin near your vagina. The stitches might have closed a cut that enlarged the opening of your vagina (episiotomy). Or you may have needed stitches to repair torn skin. Either way, your stitches should dissolve in weeks. Until then, use this handout as a guide to help ease any pain and aid healing. Keep clean You can reduce your risk of infection by keeping the area around the stitches clean. These hints can help: ??? Gently wipe from front to back after you urinate or have a bowel movement. ??? After wiping, spray warm water on the stitches. Pat dry. If you are too sore, just spray the area after urination and then pat dry without wiping.? Don't use soap or any solution except water unless instructed by your healthcare provider. ??? Change sanitary pads at least every 2 to 4 hours. ?? Eat to stay regular Having bowel movements is easier if you???re not constipated. Follow these tips: ??? Eat fresh fruit and vegetables, whole grains, and bran cereals. ??? Drink plenty of water. ??? Don???t strain to have a bowel movement. ??? Ask your healthcare provider about using a stool softener. ?? Reduce your discomfort Here are some tips to make you more comfortable: ??? Sit in a warm bath (sitz bath). ??? Place coldpacks or heat packs on your stitches. Keep a thin towel between the pack and your skin. ??? Sit on a firm seat so the stitches pull less. ??? Use medicated spray as ordered by your healthcare provider. ?? Call your healthcare provider?? Call your healthcare provider if you have: ??? Heavy or gushing bleeding from the vagina ??? Discharge that has a bad odor ??? Severe pain in the belly or increased pain near your stitches ??? If your episiotomy or tear opens ??? Fever or chills ??? No bowel movement within 1 week after the of your baby ??? Pain or urgency with urination, or inability to urinate ?? Last Reviewed Date: 2022 ?? 7159-2523 [employer]. All rights reserved. This information is not intended as a substitute for professional medical care. Always follow your healthcare professional's instructions. ?? Patient Care team information Care Team Personnel Name: Gigi Grimm III, MD Position: Reference Physician Member Role: PCP Address: Address: [address] [place] [id number] Name: Naila Martinez RN Position: [facility] OB RN Member Role: Primary Care Nurse Name: Lo Vernon RN Position: [facility] OB RN Member Role: Primary Care Nurse Name: Elena Cabrera RN Position: [facility] HBO Wound Member Role: Primary Care Nurse Name: Genoveva Sylvester RN Position: [facility] OB RN Member Role: OB RN Care Team Related Persons Name: CHERELLE STINSON Address: home [address] [address] Name: JOSS BOBO Address: [id number] Address: home [address] [place] [address] Name: TOREY JIMENEZ Address: home [address] [address] Name: TOREY JIMENEZ Address: home [address] [address] Name: JAMIE JIMENEZ Address: home [address] [address] Name: JAMIE JIMENEZ Address: home [address] [place] [address] Name: TOREY QUESADA Address: home [address] [place] [address] Name: JOCELYN SANTIAGO Address: home [address] [place] [address]
--- OUTSIDE RECORDS SUMMARY | 2024-04-17 12:26 | XMS_ITS | Continuity of Care Document ---
Author Organization [facility] Address [address] [place] [address]- Care Team Providers Care Wet Pour Mixer Name Role Phone Alfa ROSADO MD, Gigi Hahn Primary Care Physician Encounter [facility] Date(s): 04/24/23 - 05/24/[address] [address] Allergies, Adverse Reactions, Alerts Substance Reaction Severity Status ibuprofen throat swelling body rash Active Pineapple Anaphylaxis Active shellfish Anaphylaxis Active Latex Rash Active Lobster Anaphylaxis Dust allergy Dogs Allergy to cats Active Immunizations Given and Recorded Vaccine Date Status Refusal Reason SARS-CoV-2 mRNA (bnvdxrq-xijf-uvgdy) vax 10/17/21 Recorded SARS-CoV-2 mRNA (neqdwfo-jsyp-devfa) vax 12/25/20 Recorded SARS-CoV-2 mRNA (jdvqmmh-pcfh-gdtgv) vax 12/04/20 Recorded tetanus/diphtheria/pertussis, acel(Tdap) 01/25/17 Given [...] 11:43:00 EST, Inhaler, Route to Pharmacy Electronically, [id number], [facility] #[id number], 160, cm, 10/11/19... Start Date: 10/11/19 Status: Ordered aspirin 81 mg oral tablet, chewable 162 mg, 2, tablet, Chew, Daily, # 180 tablet, Refills 3, Tot. Refills 3, Maintenance, 05/03/23 15:24:00 EDT, Route to Pharmacy Electronically, [facility]/pharmacy #[id number], Partial fill upon [...] Refills, Maintenance, 04/07/23 2:01:00 EDT, DIS Tablet, [facility]/pharmacy #[id number], Partial fill upon [...] 0 Refills, Maintenance, 04/25/23 11:26:00 EDT, Suppository, [facility]/pharmacy #[id number], Partial fill upon patient request if the prescription is for a schedule II opioid drug., 165,... Start Date: 04/25/23 Status: Ordered pyridoxine 25 mg oral tablet 1 tablet = 25 mg, By Mouth, 3 times a day, PRN Nausea & Vomiting, # 100 tablet, 8 Refills, Maintenance, 03/27/23 17:46:00 EDT, Tablet, [facility]/pharmacy #[id number], Partial fill upon patient request if theprescription is for a schedule II opioid drug., 163, cm... Start Date: 03/27/23 Status: Ordered Reglan 10 mg oral tablet 1 tablet = 10 mg, By Mouth, 3 times a day, PRN Nausea & Vomiting, # 28 tablet, 2 Refills, Maintenance, 03/30/23 19:35:00 EDT, [facility]/pharmacy #[id number], Partial fill upon patient request if the prescription is for a schedule II opioid drug., 163, cm, 2... Start Date: 03/30/23 Status: Ordered Senna 8.6 mg oral tablet 1 or 2 tablets, By Mouth, Daily at bedtime, PRN, # 60 tablet, Refills 0, Tot. Refills 0, Maintenance, Constipation, 03/14/23 16:14:00 EDT, Route to Pharmacy Electronically, [facility]/pharmacy #[id number] Tablet,Partial fill upon patient request [...] Reference Physician Member Role: PCP Address: Address: [address] [place] [address] [facility] Name: Naila Martinez RN Position: [facility] OB RN Member Role: Primary Care Nurse Name: Lo Vernon RN Position: [facility] OB RN Member Role: Primary Care Nurse Name: Elena Cabrera RN Position: [facility] HBO Wound Member Role: Primary Care Nurse Care Team Related Persons Name: STINSON CHERELLE Address: home [address] Name: TOREY JIMENEZ Address: home [address] Name: TOREY JIMENEZ Address: home [address] Name: JAMIE JIMENEZ Address: home [address] [place], [place] Name: JAMIE JIMENEZ Address: home [address] [place] [address] Name: TOREY QUESADA Address: home [address] [place], [place] Name: JOCELYN SANTIAGO Address: home [address] [place] [address]
--- OUTSIDE RECORDS SUMMARY | 2024-04-17 12:26 | XMS_ITS | Continuity of Care Document ---
Author Organization [facility] Address [address] [place] [address]- Care Team Providers Care Cook Night Name Role Phone Alfa ROSADO MD, Gigi Hahn Primary Care Physician Encounter [facility] Date(s): 07/13/20 - 09/10/[facility] [address] [place] [address] Attending Physician: Neha Nobles MD Admitting Physician: Neha Nobles MD Referring Physician: Sandra Gomez CNM Allergies, [...] 11:43:00 EST, Inhaler, Route to Pharmacy Electronically, [id number], [facility] #[id number], 160, cm, 10/11/19... Start Date: 10/11/19 Status: [...] 06/19/20 10:03:00 EDT, Route to Pharmacy Electronically, [facility][id number], 160, cm, 06/19/20 9:41:00 EDT, Height, 80.7... Start Date: 06/19/20 Status: Ordered fluconazole 150 mg oral tablet 1 tablet = 150 mg, By Mouth, Once, # 1 tablet, 0 Refills, Soft Stop, 07/10/20 14:15:00 EDT, Tablet,[facility] #00333, 160, cm, 07/09/20 8:55:00 EDT, Height, 80.7, [...] Refills, Maintenance, 06/19/20 10:23:00 EDT, REC Powder, [facility] #[id number], 17 Gm By Mouth Daily,Instr:dissolve in water before taking, 160, cm, 06/19/20 9:41:00 EDT, Hei... Start Date: 06/19/20 Status: Ordered Multivitamin Tablet 1 tablet, By Mouth, Daily, 0 Refills, Maintenance, 10/09/19 16:58:00 EST Start Date: 10/09/19 Status: Ordered Multivitamins with Folic Acid 1 mg oral tablet 1 tablet, By Mouth, Daily, # 30 tablet, 11 Refills, Maintenance, 05/20/20 17:12:00 EDT, [facility] #[id number], 1 tablet By Mouth Daily, 160, cm, [...] 0 Refills, Maintenance, 10/11/19 10:15:00 EST, Tablet, [facility] #[id number], 160, cm, 10/11/19 5:03:00 EST, Height, 80.7, [...]
--- OUTSIDE RECORDS SUMMARY | 2024-04-17 12:26 | XMS_ITS | Continuity of Care Document ---
Author Organization [facility] Address [address] [place] [address]- Care Team Providers Care Urgent Care Physician Assistant Name Role Phone Alfa ROSADO MD, Gigi Hahn Primary Care Physician [id number] Date(s): 03/13/24 - 04/12/[address] [address]- Allergies, Adverse Reactions, Alerts Substance Reaction Severity Status ibuprofen throat swelling body rash Active Pineapple Anaphylaxis Active shellfish Anaphylaxis Active Latex Rash Active Lobster Anaphylaxis Dust allergy Dogs Allergy to cats Active Immunizations Given and Recorded Vaccine Date Status Refusal Reason tetanus/diphtheria/pertussis, acel(Tdap) 08/18/23 Given tetanus/diphtheria/pertussis, acel(Tdap) 01/25/17 Given SARS-CoV-2 mRNA (yoseyux-mlpo-awnwb) vax 10/17/21 Recorded SARS-CoV-2 mRNA (jpkvudm-ocjy-tegua) vax 12/25/20 Recorded SARS-CoV-2 mRNA (gxbudza-rodh-ljngu) vax 12/04/20 Recorded pneumococcal 23-valent vaccine 03/31/16 Given Varicella Virus Vaccine 08/14/13 Recorded Medications acetaminophen 325 mg oral tablet 975 mg, 3, tablet, By Mouth, Every 6 hours, PRN, # 50 tablet, Refills 0, Tot. Refills 0, Maintenance, Pain , Moderate, 11/07/23 7:35:00 EST, Route to Pharmacy Electronically, [facility]/pharmacy #[id number], Partial fill upon patient request if the prescription is... Start Date: 11/07/23 Status: Ordered albuterol CFC free 90 mcg/inh inhalation aerosol 180 mcg, 2, puffs, Inhalation, Every 4 hours, PRN, # 1 each, Refills 2, Tot. Refills 2, Maintenance, 10/11/19 11:43:00 EST, Inhaler, Route to Pharmacy Electronically, [id number], [facility] #[id number], 160, cm, 10/11/19... Start Date: 10/11/19 Status: [...] Team Personnel Name: Elena Reilly RN Position: S HBO Wound Member Role: Primary Care Nurse Name: Gigi Grimm III, MD Position: Reference Physician Member Role: PCP Address: Address: [address] [place] [address] [facility] Name: Naila Martinez RN Position: [facility] OB RN Member Role: Primary Care Nurse Name: Lo Vernon RN Position: [facility] OB RN Member Role: Primary Care Nurse Care Team Related Persons Name: CHERELLE STINSON Address: home [address] Name: JOSS BOBO Address: [address] Address: home [address] [place], [place] Name: TOREY JIMENEZ Address: home [address] Name: TOREY JIMENEZ Address: home [address] Name: JAMIE JIMENEZ Address: home [address] [place] [address] Name: JAMIE JIMENEZ Address: home [address] [place], [place] Name: TOREY QUESADA Address: home [address] [place], [place] Name: JOCELYN SANTIAGO Address: home [address] [place] [address]
--- OUTSIDE RECORDS SUMMARY | 2024-04-17 12:26 | XMS_ITS | Continuity of Care Document ---
Author Organization [facility] Address [address] [place] [address], [address] [place] [address]- Care Team Providers Care Ocean Export Agent Name Role Phone Alfa ROSADO MD, Gigi Hahn Primary Care Physician [phone] [id number]13[facility]23 - 04/12/23 [facility] [address] [place] [address], [address] [place], [place] [address] Allergies, Adverse Reactions, Alerts Substance Reaction Severity Status ibuprofen throat swelling body rash Active shellfish Anaphylaxis Active Latex Rash Active Lobster Anaphylaxis Dust allergy Dogs Allergy to cats Active Pineapple Anaphylaxis Active Immunizations Given and Recorded Vaccine Date Status Refusal Reason SARS-CoV-2 mRNA (zmbuogz-thdb-ojriq) vax 10/17/21 Recorded SARS-CoV-2 mRNA (eaptgtx-ralv-lgzeu) vax 12/25/20 Recorded SARS-CoV-2 mRNA (hgybtxj-uvik-elbtk) vax 12/04/20 Recorded tetanus/diphtheria/pertussis, acel(Tdap) 01/25/17 Given [...] 11:43:00 EST, Inhaler, Route to Pharmacy Electronically, [id number], [facility] #[id number], 160, cm, 10/11/19... Start Date: 10/11/19 Status: [...] tablet, 2 Refills, Maintenance, 03/30/23 19:35:00 EDT, [facility]/pharmacy #[id number], Partial fill upon patient request if the prescription is for a schedule II opioid drug., 163, cm, ... Start Date: 03/30/23 Status: Ordered Senna 8.6 mg oral tablet 1 or 2 tablets, By Mouth, Daily at bedtime, PRN, # 60 tablet, Refills 0, Tot. Refills 0, Maintenance, Constipation, 03/14/23 16:14:00 EDT, Route to Pharmacy Electronically, [facility]/pharmacy #[id number] Tablet,Partial fill upon patient request if the prescripti... Start Date: 03/14/23 Status: Ordered Unisom 25 mg oral tablet 1 tablet = 25 mg, By Mouth, Daily at bedtime, PRN for sleep, # 32 tablet, 0 Refills, Maintenance, 03/27/23 17:46:00 EDT, Tablet, [facility]/pharmacy #[id number], Partial fill upon patient request if [...] Reference Physician Member Role: PCP Address: Address: [address] [place] [address] Name: Naila Martinez RN Position: [facility] OB RN Member Role: Primary Care Nurse Name: Lo Vernon RN Position: [facility] OB RN Member Role: Primary Care Nurse Name: Elena Cabrera RN Position: [facility] HBO Wound Member Role: Primary Care Nurse Care Team Related Persons Name: CHERELLE STINSON Address: home [address] Name: TOREY JIMENEZ Address: home [address] Name: TOREY JIMENEZ Address: home [address] Name: JAMIE JIMENEZ Address: home [address] [place] [address] Name: JAMIE JIMENEZ Address: home [address] [place] [address] Name: TOREY TRIVEDI Address: home [address] [place] [address] Name: JOCELYN SANTIAGO Address: home [address] [place] [address]
--- OUTSIDE RECORDS SUMMARY | 2024-04-17 12:26 | XMS_ITS | Continuity of Care Document ---
Author Organization [facility] Address [address] [place] [address]- Care Team Providers Care It Infrastructure Manager Name Role Phone Alfa ROSADO MD, Gigi Hahn [id number]/20[facility] - 12/21/[address] [address]- Attending Physician: Not on Staff, Attending MD Allergies, Adverse Reactions, Alerts Substance Reaction Severity Status ibuprofen throat swelling body rash Active shellfish Anaphylaxis Active Pineapple Anaphylaxis Active Latex Rash Active Lobster Anaphylaxis Dust allergy Dogs Allergy to cats Active Immunizations Given and Recorded Vaccine Date Status Refusal Reason tetanus/diphtheria/pertussis, acel(Tdap) 08/18/23 Given tetanus/diphtheria/pertussis, acel(Tdap) 01/25/17 Given SARS-CoV-2 mRNA (akhdkco-khjq-zlqgq) vax 10/17/21 Recorded SARS-CoV-2 mRNA (mjjixwl-qoxb-jagbl) vax 12/25/20 Recorded SARS-CoV-2 mRNA (pfwrcbl-srbj-ripqe) vax 12/04/20 Recorded pneumococcal 23-valent vaccine 03/31/16 Given Varicella Virus Vaccine 08/14/13 Recorded Medications acetaminophen 325 mg oral tablet 975 mg, 3, tablet, By Mouth, Every 6 hours, PRN, # 50 tablet, Refills 0, Tot. Refills 0, Maintenance, Pain , Moderate, 11/07/23 7:35:00 EST, Route to Pharmacy Electronically, [facility]/pharmacy #[id number], Partial fill upon patient request if the prescription is... Start Date: 11/07/23 Status: Ordered albuterol CFC free 90 mcg/inh inhalation aerosol 180 mcg, 2, puffs, Inhalation, Every 4 hours, PRN, # 1 each, Refills 2, Tot. Refills 2, Maintenance, 10/11/19 11:43:00 EST, Inhaler, Route to Pharmacy Electronically, [id number], [facility] #[id number], 160, cm, 10/11/19... Start Date: 10/11/19 Status: [...] Condition Confirmation Course Effective Dates Status [facility] Informant Brain aneurysm Confirmed Active [...] Reference Physician Member Role: PCP Address: Address: [address] [place] [address] [facility] Name: Naila Martinez RN Position: S OB RN Member Role: Primary Care Nurse Name: Lo Vernon RN Position: [facility] OB RN Member Role: Primary Care Nurse Name: Elena Cabrera RN Position: [facility] HBO Wound Member Role: Primary Care Nurse Care Team Related Persons Name: SHANTELL CHERELLE Address: home [address] Name: JOSS BOBO Address: [address] Address: home [address] [place] [address] Name: TOREY JIMENEZ Address: home [address] Name: TOREY JIMENEZ Address: home [address] Name: JAMIE JIMENEZ Address: home [address] [place] [address] Name: JAMIE JIMENEZ Address: home [address] [place] [address] Name: TOREY QUESADA Address: home [address] [place] [address] Name: JOCELYN SANTIAGO Address: home [address] [place] [address]
--- OUTSIDE RECORDS SUMMARY | 2024-04-17 12:26 | XMS_ITS | Continuity of Care Document ---
Author Organization [facility] Address [address] [address]- Care Team Providers Care School Photographs Detailer Name Role Phone Alfa ROSADO MD, Gigi Hahn Primary Care Physician Encounter [facility] Date(s): 02/03/23 - 03/05/[address] [address] Attending Physician: Admtr, Lito8 Admitting Physician: Admtr, Baldo Referring Physician: Admtr, Ar8 Allergies, Adverse Reactions, [...] 11:43:00 EST, Inhaler, Route to Pharmacy Electronically, [id number], [facility] #[id number], 160, cm, 10/11/19... Start Date: 10/11/19 Status: Ordered amiTRIPTYLINE By Mouth, Daily at bedtime, 0 Refills, Maintenance, 11/30/20 21:49:00 EDT, Partial fill upon patient request if the prescription is for a schedule II opioid drug. Start Date: 11/30/20 Status: Ordered Aspirin Enteric Coated 81 mg oral delayed release tablet 1 tablet = 81 mg, By Mouth, Daily Start Date: 10/09/19 Status: Ordered Multivitamins with [...] Reference Physician Member Role: PCP Address: Address: [address] [place] [address] Name: Nail[facility] Martinez RN Position: [facility] OB RN Member Role: Primary Care Nurse Name: Lo Vernon RN Position: [facility] OB RN Member Role: Primary Care Nurse Name: Elena Cabrera RN Position: [facility] HBO Wound Member Role: Primary Care Nurse Care Team Related Persons Name: NIYA STINSONUEL Address: home [address] Name: TOREY JIMENEZ Address: home [address] Name: TOREY JIMENEZ Address: home [address] Name: JAMIE JIMENEZ Address: home [address] [address] Name: JAMIE JIMENEZ Address: home [address] [place] [address] Name: TOREY TRIVEDI Address: home [address] [place] [address] Name: JOCELYN SANTIAGO Address: home [address] [place] [address]
--- OUTSIDE RECORDS SUMMARY | 2024-04-17 12:26 | XMS_ITS | Continuity of Care Document ---
Author Organization [facility] Address [address] [place] [address]- Care Team Providers Care Emergency Management Director Name Role Phone Alfa ROSADO MD, Gigi Hahn Primary Care Physician [id number] Date[facility] 10/19/23 - 12/03/[address] [address]- Attending Physician: Not on Staff, Attending MD Allergies, Adverse Reactions, Alerts Substance Reaction Severity Status ibuprofen throat swelling body rash Active shellfish Anaphylaxis Active Latex Rash Active Lobster Anaphylaxis Dust allergy Dogs Allergy to cats Active Pineapple Anaphylaxis Active Immunizations Given and Recorded Vaccine Date Status Refusal Reason tetanus/diphtheria/pertussis, acel(Tdap) 08/18/23 Given tetanus/diphtheria/pertussis, acel(Tdap) 01/25/17 Given SARS-CoV-2 mRNA (tghawku-dffj-lfjpm) vax 10/17/21 Recorded SARS-CoV-2 mRNA (ccunnad-oynv-yhxol) vax 12/25/20 Recorded SARS-CoV-2 mRNA (zhlxoxw-vmsh-uleoh) vax 12/04/20 Recorded pneumococcal 23-valent vaccine 03/31/16 Given Varicella Virus Vaccine 08/14/13 Recorded Medications acetaminophen 325 mg oral tablet 975 mg, 3, tablet, By Mouth, Every 6 hours, PRN, # 50 tablet, Refills 0, Tot. Refills 0, Maintenance, Pain , Moderate, 11/07/23 7:35:00 EST, Route to Pharmacy Electronically, [facility]/pharmacy #[id number], Partial fill upon patient request if the prescription is... Start Date: 11/07/23 Status: Ordered albuterol CFC free 90 mcg/inh inhalation aerosol 180 mcg, 2, puffs, Inhalation, Every 4 hours, PRN, # 1 each, Refills 2, Tot. Refills 2, Maintenance, 10/11/19 11:43:00 EST, Inhaler, Route to Pharmacy Electronically, [id number], [facility] #[id number], 160, cm, 10/11/19... Start Date: 10/11/19 Status: Ordered aspirin 81 mg oral tablet 2 tablet = 162 mg, By Mouth, Daily, # 180 tablet, 2 Refills, Maintenance, 09/19/23 15:50:00 EST, Tablet, [facility]/pharmacy #[id number], Partial fill upon patient [...] Physician Member Role: PCP Address: Address: [address] [place] [address] - Name: Naila Martinez RN Position: [facility] OB RN Member Role: Primary Care Nurse Name: Lo Vernon RN Position: [facility] OB RN Member Role: Primary Care Nurse Name: Elena Cabrera RN Position: [facility] HBO Wound Member Role: Primary Care Nurse Care Team Related Persons Name: CHERELLE STINSON Address: home [address] Name: JOSS BOBO Address: [address] Address: home [address] [place] [address] Name: TOREY JIMENEZ Address: home [address] Name: TOREY JIMENEZ Address: home [address] Name: JAMIE JIMENEZ Address: home [address] [place] [address] Name: JAMIE JIMENEZ Address: home [address] [address] Name: TOREY QUESADA Address: home [address] [place], [place] Name: JOCELYN SANTIAGO Address: home [address] [place] [address]
--- OUTSIDE RECORDS SUMMARY | 2024-04-17 12:26 | XMS_ITS | Continuity of Care Document ---
Author Organization [facility] Address [address] [place] [address]- Care Team Providers Care Diabetologist Name Role Phone Alfa ROSADO MD, Gigi Hahn Primary Care Physician Encounter [facility] Date(s): 10/08/20 - 11/07/20 [facility] and [address] [address] Allergies, Adverse Reactions, Alerts Substance Reaction Severity [...] 11:43:00 EST, Inhaler, Route to Pharmacy Electronically, [id number], [facility] #[id number], 160, cm, 10/11/19... Start Date: 10/11/19 Status: Ordered Aspirin Enteric Coated 81 mg oral delayed release tablet 1 tablet = 81 mg, By Mouth, Daily Start Date: 10/09/19 Status: Ordered Lottie 0.35 mg oral tablet 1 tablet = 0.35 mg, By Mouth, Daily, # 90 tablet, 11 Refills, Maintenance, 10/06/20 9:11:00 EST, Tablet, [facility]/pharmacy #[id number], Partial [...] 06/19/20 10:03:00 EDT, Route to Pharmacy Electronically, [facility][id number], 160, cm, 06/19/20 9:41:00 EDT, Height, 80.7... Start Date: 06/19/20 Status: Ordered Janie 30 mg oral tablet 1 tablet = 30 mg, By Mouth, Once, # 1 tablet, 0 Refills, Soft Stop, 10/21/20 15:20:00 EST, Tablet, [facility], Partial fill upon patient request if the prescription is for a scheduleII opioid drug., 160, cm, 10/06/20 8:49:00 EST, Hei... Start Date: 10/21/20 Status: Ordered Flagyl 500 mg oral tablet 1 tablet = 500 mg, By Mouth, Every 12 hours, do not drink alcohol, # 14 tablet, 0 Refills, Maintenance, 10/26/20 15:46:00 EST, [facility]/pharmacy #[id number], Partial fill upon patient request if the prescription is for a schedule II opioid drug., 160, cm, ... Start Date: 10/26/20 Stop Date: 11/02/20 Status: Ordered fluconazole 150 mg oral tablet 1 tablet = 150 mg, By Mouth, Once, # 1 tablet, 0 Refills, Soft Stop, 07/10/20 14:15:00 EDT, Tablet,[facility] #[id number], 160, cm, 07/09/20 8:55:00 EDT, Height, 80.7, [...] Refills, Maintenance, 06/19/20 10:23:00 EDT, REC Powder, [facility] #[id number], 17 Gm By Mouth Daily,Instr:dissolve in water before taking, 160, cm, 06/19/20 9:41:00 EDT, Hei... Start Date: 06/19/20 Status: Ordered Plan B One-Step 1.5 mg oral tablet 1.5 mg, 1, tablet, By Mouth, Once, use within 72 hours, # 1 tablet, Refills 1, Tot. Refills 1, SoftStop, 10/19/20 17:29:00 EST, Route to Pharmacy Electronically, [facility]/pharmacy #[id number], Partial fill upon patient request if the prescription is for a sched... Start Date: 10/19/20 Status: Ordered Multivitamin Tablet 1 tablet, By Mouth, Daily, 0 Refills, Maintenance, 10/09/19 16:58:00 EST Start Date: 10/09/19 Status: Ordered Multivitamins with Folic Acid 1 mg oral tablet 1 tablet, By Mouth, Daily, # 30 tablet, 11 Refills, Maintenance, 02/05/20 17:12:00 EDT, [facility] #[id number], 1 tablet By Mouth Daily, 160, cm, [...] 0 Refills, Maintenance, 10/11/19 10:15:00 EST, Tablet, [facility] #[id number], 160, cm, 10/11/19 5:03:00 EST, Height, 80.7, [...]
--- OUTSIDE RECORDS SUMMARY | 2024-04-17 12:26 | XMS_ITS | Continuity of Care Document ---
Author Organization [facility] Address [address] [address]- Care Team Providers Care Judicial Assistant Name Role Phone Alfa ROSADO MD, Gigi Hahn Primary Care Physician Encounter [facility] Date(s): 07/05/22 - 08/04/[address] [address] Attending Physician: Admtr, Lito8 Admitting Physician: [...] 11:43:00 EST, Inhaler, Route to Pharmacy Electronically, [id number], [facility] #[id number], 160, cm, 10/11/19... Start Date: 10/11/19 Status: [...] Personnel Name: Gigi Grimm III, MD Position: [facility] Ambulatory (view) Member Role: PCP Address: Address: [address] [place], [place] [id number]- Name: Naila Martinez RN Position: [facility] OB RN Member Role: Primary Care Nurse Name: Lo Vernon RN Position: [facility] OB RN Member Role: Primary Care Nurse Name: Elena Cabrera RN Position: [facility] HBO Wound Member Role: Primary Care Nurse Care Team Related Persons Name: STINSON CHERELLE Address: [address] [address] Name: TOREY JIMENEZ Address: home [address] [address] Name: TOREY JIMENEZ Address: home [address] [address] Name: JAMIE JIMENEZ Address: home [address] [place] [address] Name: JAMIE JIMENEZ Address: home [address] [place] [address] Name: TOREY TRIVEDI Address: home [address] [place] [address] Name: JOCELYN SANTIAGO Address: home [address] [place] [address]
--- OUTSIDE RECORDS SUMMARY | 2024-04-17 12:26 | XMS_ITS | Continuity of Care Document ---
Author Organization [facility] Address [address] [place] [address]- Care Team Providers Care Harvesting Manager Name Role Phone Alfa ROSADO MD, Gigi Hahn Primary Care Physician [place] [facility] [place] [id number] Date(s): 10/12/23 - 11/11/[address] [address]- Allergies, Adverse Reactions, Alerts Substance Reaction Severity Status ibuprofen throat swelling body rash Active shellfish Anaphylaxis Active Latex Rash Active Lobster Anaphylaxis Dust allergy Dogs Allergy to cats Active Pineapple Anaphylaxis Active Immunizations Given and Recorded Vaccine Date Status Refusal Reason tetanus/diphtheria/pertussis, acel(Tdap) 08/18/23 Given tetanus/diphtheria/pertussis, acel(Tdap) 01/25/17 Given SARS-CoV-2 mRNA (nrnzuzp-lont-sblmc) vax 10/17/21 Recorded SARS-CoV-2 mRNA (wfyuhjw-vjtr-azbhf) vax 12/25/20 Recorded SARS-CoV-2 mRNA (whqkovh-rwgv-fiesj) vax 12/04/20 Recorded pneumococcal 23-valent vaccine 03/31/16 Given Varicella Virus Vaccine 08/14/13 Recorded Medications acetaminophen 325 mg oral tablet 975 mg, 3, tablet, By Mouth, Every 6 hours, PRN, # 50 tablet, Refills 0, Tot. Refills 0, Maintenance, Pain , Moderate, 11/07/23 7:35:00 EST, Route to Pharmacy Electronically, [facility]/pharmacy #[id number], Partial fill upon patient request if the prescription is... Start Date: 11/07/23 Status: Ordered albuterol CFC free 90 mcg/inh inhalation aerosol 180 mcg, 2, puffs, Inhalation, Every 4 hours, PRN, # 1 each, Refills 2, Tot. Refills 2, Maintenance, 10/11/19 11:43:00 EST, Inhaler, Route to Pharmacy Electronically, [id number], [facility] #[id number], 160, cm, 10/11/19... Start Date: 10/11/19 Status: [...] Physician Member Role: PCP Address: Address: [address] [place] [address] [facility] Name: Naila Martinez RN Position: S OB RN Member Role: Primary Care Nurse Name: Lo Vernon RN Position: [facility] OB RN Member Role: Primary Care Nurse Name: Elena Cabrera RN Position: [facility] HBO Wound Member Role: Primary Care Nurse Care Team Related Persons Name: CHERELLE STINSON Address: home [address] Name: JOSS BOBO Address: [id number] Address: home [address] [place], [place] Name: TOREY JIMENEZ Address: home [address] Name: TOREY JIMENEZ Address: home [address] Name: JAMIE JIMENEZ Address: home [address] [place] [address] Name: JAMIE JIMENEZ Address: home [address] [address] Name: TOREY QUESADA Address: home [address] [place], [place] Name: JOCELYN SANTIAGO Address: home [address] [place] [address]
--- OUTSIDE RECORDS SUMMARY | 2024-04-17 12:26 | XMS_ITS | Continuity of Care Document ---
Author Organization [facility] Address Unknown Care Team Providers Care Aircraft Servicer Name Role Phone Alfa ROSADO MD, Gigi Hahn Primary Care Physician [phone] [place] [facility] [place](s): 03/07/22 - 03/14/22 [facility] Attending Physician: Not on Staff, Attending MD Referring Physician: Maddie Hinojosa MD Allergies, Adverse Reactions, [...] 11:43:00 EST, Inhaler, Route to Pharmacy Electronically, [id number], [facility] #[id number], 160, cm, 10/11/19... Start Date: 10/11/19 Status: [...] Refills, Maintenance, 01/25/21 9:00:00 EDT, REC Powder, [facility] [...] 10:18:00 ED... Start Date: 02/04/21 Status: Ordered Estrace 2 mg oral tablet [...]
--- OUTSIDE RECORDS SUMMARY | 2024-04-17 12:26 | XMS_ITS | Continuity of Care Document ---
Author Organization [facility] Address Unknown Care Team Providers Care Robotics Technician Name Role Phone Alfa ROSADO MD, Gigi Hahn Primary Care Physician En[place] [facility] [place] ACCT R [id number] Date(s): 10/27/21 - 11/26/21 [facility] Attending Physician: Baldo Nunes Admitting Physician: AdmtrBaldo Referring Physician: Admtr, Ar8 [...] 11:43:00 EST, Inhaler, Route to Pharmacy Electronically, [id number], [facility] #[id number], 160, cm, 10/11/19... Start Date: 10/11/19 Status: [...] Maintenance, 01/25/21 9:00:00 EDT, REC Powder, [facility]/pharmacy #[id number], Partial fill upon patient request if the prescription is for a schedule II opioid drug., 3.5 Gm... Start Date: 01/25/21 Stop Date: 02/24/21 Status: Ordered Depo-Provera Contraceptive 150 mg/mL intramuscular suspension 1 mL = 150 mg, Intramuscular, Every 3 months, # 1 mL, 3 Refills, Maintenance, 02/04/21 10:33:00 EDT, Suspension, [facility]/pharmacy #[id number], Partial fill upon patient request if the prescription is for a schedule II opioid drug., 160, cm, 02/04/21 10:18:00 ED... Start Date: 02/04/21 Status: Ordered glycerin adult rectal suppository 1 supp, Rectally, Daily, PRN for constipation, # 24 supp, 6 Refills, Maintenance, 02/04/21 10:20:00EDT, Suppository, [facility]/pharmacy #[id number], Partial fill upon patient request if the prescription is for a schedule II opioid drug., 160, cm, 01/25/21 8:23:0... Start Date: 02/04/21 Status: Ordered PNV Plus oral tablet 1 tablet, By Mouth, Daily, # 30 tablet, 0 Refills, Maintenance, 11/08/21 11:38:00 EST, [facility]/pharmacy#[id number], Partial fill upon patient request if the prescription is for a schedule II opioid drug., 1 tablet By Mouth Daily, 163, cm, 10/27/21 18:02:00 EST... Start Date: 11/08/21 Status: Ordered Provera 10 mg oral tablet 10 mg, 1, tablet, By Mouth, Daily, # 10 tablet, Refills 0, Tot. Refills 0, Maintenance, 11/08/21 15:07:00 EST, Route to Pharmacy Electronically, [facility]/pharmacy #[id number], Partial fill upon patient request if the [...]
--- OUTSIDE RECORDS SUMMARY | 2024-04-17 12:26 | XMS_ITS | Continuity of Care Document ---
Author Organization [facility] Address [address] [place] [address]- Care Team Providers Care Mine Car Repairer Name Role Phone Alfa ROSADO MD, Gigi Hahn [id number] - 01/17/[address] [address]- Attending Physician: Not on Staff, Attending MD Allergies, Adverse Reactions, Alerts Substance Reaction Severity Status ibuprofen throat swelling body rash Active shellfish Anaphylaxis Active Pineapple Anaphylaxis Active Latex Rash Active Lobster Anaphylaxis Dust allergy Dogs Allergy to cats Active Immunizations Given and Recorded Vaccine Date Status Refusal Reason tetanus/diphtheria/pertussis, acel(Tdap) 08/18/23 Given tetanus/diphtheria/pertussis, acel(Tdap) 01/25/17 Given SARS-CoV-2 mRNA (qxbylkm-rasw-wmihf) vax 10/17/21 Recorded SARS-CoV-2 mRNA (csatumr-mlkt-rleso) vax 12/25/20 Recorded SARS-CoV-2 mRNA (jjgmgla-onvg-bvtel) vax 12/04/20 Recorded pneumococcal 23-valent vaccine 03/31/16 Given Varicella Virus Vaccine 08/14/13 Recorded Medications acetaminophen 325 mg oral tablet 975 mg, 3, tablet, By Mouth, Every 6 hours, PRN, # 50 tablet, Refills 0, Tot. Refills 0, Maintenance, Pain , Moderate, 11/07/23 7:35:00 EST, Route to Pharmacy Electronically, [facility]/pharmacy #[id number], Partial fill upon patient request if the prescription is... Start Date: 11/07/23 Status: Ordered albuterol CFC free 90 mcg/inh inhalation aerosol 180 mcg, 2, puffs, Inhalation, Every 4 hours, PRN, # 1 each, Refills 2, Tot. Refills 2, Maintenance, 10/11/19 11:43:00 EST, Inhaler, Route to Pharmacy Electronically, [id number], [facility] #[id number], 160, cm, 10/11/19... Start Date: 10/11/19 Status: [...] List Condition Confirmation Course Effective Dates Status [facility] St atus Informant Brain aneurysm Confirmed Active [...] Reference Physician Member Role: PCP Address: Address: [address] [place] [address] [facility] Name: Naila Martinez RN Position: [facility] OB RN Member Role: Primary Care Nurse Name: Lo Vernon RN Position: [facility] OB RN Member Role: Primary Care Nurse Care Team Related Persons Name: SHANTELL CHERELLE Address: home [address] Name: JOSS BOBO Address: [address] Address: home [address] [place] [address] Address: [facility] 0 Name: TOREY JIMENEZ Address: home [address] Name: TOREY JIMENEZ Address: home [address] Name: JAMIE JIMENEZ Address: home [address] [place] [address] Name: JAMIE JIMENEZ Address: home [address] [place] [address] Name: TOREY QUESADA Address: home [address] [place] [address] Name: JOCELYN SANTIAGO Address: home [address] [place] [address]
--- OUTSIDE RECORDS SUMMARY | 2024-04-17 12:26 | XMS_ITS | Continuity of Care Document ---
Author Organization [facility] Address [address] [place] [address]- Care Team Providers Care Tank Shop Supervisor Name Role Phone Alfa ROSADO MD, Gigi Hahn Primary Care Physician En[place] [facility] [place] Date(s): 08/11/20 - 09/10/20 [facility] [address] [place] [address]- Attending Physician: Baldo Nunes Admitting Physician: AdmtrBaldo [...] 11:43:00 EST, Inhaler, Route to Pharmacy Electronically, [id number], [facility] #[id number], 160, cm, 10/11/19... Start Date: 10/11/19 Status: [...] 06/19/20 10:03:00 EDT, Route to Pharmacy Electronically, [facility]#[id number], 160, cm, 06/19/20 9:41:00 EDT, Height, 80.7... Start Date: 06/19/20 Status: Ordered fluconazole 150 mg oral tablet 1 tablet = 150 mg, By Mouth, Once, # 1 tablet, 0 Refills, Soft Stop, 07/10/20 14:15:00 EDT, Tablet,[facility] #[id number], 160, cm, 07/09/20 8:55:00 EDT, Height, 80.7, [...] Refills, Maintenance, 06/19/20 10:23:00 EDT, REC Powder, [facility] #[id number], 17 Gm By Mouth Daily,Instr:dissolve in water before taking, 160, cm, 06/19/20 9:41:00 EDT, Hei... Start Date: 06/19/20 Status: Ordered Multivitamin Tablet 1 tablet, By Mouth, Daily, 0 Refills, Maintenance, 10/09/19 16:58:00 EST Start Date: 10/09/19 Status: Ordered Multivitamins with Folic Acid 1 mg oral tablet 1 tablet, By Mouth, Daily, # 30 tablet, 11 Refills, Maintenance, 02/05/20 17:12:00 EDT, [facility] #[id number], 1 tablet By Mouth Daily, 160, cm, [...] 0 Refills, Maintenance, 10/11/19 10:15:00 EST, Tablet, [facility] #[id number], 160, cm, 10/11/19 5:03:00 EST, Height, 80.7, [...]
--- OUTSIDE RECORDS SUMMARY | 2024-04-17 12:27 | XMS_ITS | Continuity of Care Document ---
Author Organization [facility] Address Unknown Care Team Providers Care Ream Cutter Name Role Phone Alfa ROSADO MD, Gigi Hahn Primary Care Physician [place] [facility] [place] [id number] Date(s): 08/16/21 - 09/15/21 [facility] Attending Physician: Baldo Nunes Admitting Physician: AdmtrBaldo [...] 11:43:00 EST, Inhaler, Route to Pharmacy Electronically, [id number], [facility] #[id number], 160, cm, 10/11/19... Start Date: 10/11/19 Status: [...] Refills, Maintenance, 01/25/21 9:00:00 EDT, REC Powder, [facility]/pharmacy #[id number], Partial fill upon patient request [...]
--- OUTSIDE RECORDS SUMMARY | 2024-04-17 12:27 | XMS_ITS | Continuity of Care Document ---
Author Organization [facility] Address [address] [place] [address]- Care Team Providers Care Customer Service Cashier Name Role Phone Alfa ROSADO MD, Gigi Hahn Primary Care Physician Encounter [facility] [place] Date(s): 10/30/23 - 11/29/[address] [address]- Allergies, Adverse Reactions, Alerts Substance Reaction Severity Status ibuprofen throat swelling body rash Active shellfish Anaphylaxis Active Latex Rash Active Lobster Anaphylaxis Dust allergy Dogs Allergy to cats Active Pineapple Anaphylaxis Active Immunizations Given and Recorded Vaccine Date Status Refusal Reason tetanus/diphtheria/pertussis, acel(Tdap) 08/18/23 Given tetanus/diphtheria/pertussis, acel(Tdap) 01/25/17 Given SARS-CoV-2 mRNA (tgcdoka-rglx-bjvnv) vax 10/17/21 Recorded SARS-CoV-2 mRNA (bdmuafb-zwzp-npxni) vax 12/25/20 Recorded SARS-CoV-2 mRNA (nlezatx-gqnt-rhyax) vax 12/04/20 Recorded pneumococcal 23-valent vaccine 03/31/16 Given Varicella Virus Vaccine 08/14/13 Recorded Medications acetaminophen 325 mg oral tablet 975 mg, 3, tablet, By Mouth, Every 6 hours, PRN, # 50 tablet, Refills 0, Tot. Refills 0, Maintenance, Pain , Moderate, 11/07/23 7:35:00 EST, Route to Pharmacy Electronically, [facility]/pharmacy #[id number], Partial fill upon patient request if the prescription is... Start Date: 11/07/23 Status: Ordered albuterol CFC free 90 mcg/inh inhalation aerosol 180 mcg, 2, puffs, Inhalation, Every 4 hours, PRN, # 1 each, Refills 2, Tot. Refills 2, Maintenance, 10/11/19 11:43:00 EST, Inhaler, Route to Pharmacy Electronically, [id number], [facility] #[id number], 160, cm, 10/11/19... Start Date: 10/11/19 Status: [...] Reference Physician Member Role: PCP Address: Address: [address] [place] [address] [facility] Name: Naila Martinez RN Position: S OB RN Member Role: Primary Care Nurse Name: Lo Vernon RN Position: [facility] OB RN Member Role: Primary Care Nurse Name: Elena Cabrera RN Position: [facility] HBO Wound Member Role: Primary Care Nurse Care Team Related Persons Name: CHERELLE STINSON Address: home [address] Name: JOSS BOBO Address: [address] Address: home [address] [place], [place] Name: TOREY JIMENEZ Address: home [address] Name: TOREY JIMENEZ Address: home [address] Name: JAMIE JIMENEZ Address: home [address] [place] [address] Name: JAMIE JIMENEZ Address: home [address] [address] Name: TOREY QUESADA Address: home [address] [place], [place] Name: JOCELYN SANTIAGO Address: home [address] [place] [address]
--- OUTSIDE RECORDS SUMMARY | 2024-04-17 12:27 | XMS_ITS | Continuity of Care Document ---
Author Organization [facility] Address [address] [place] [address], [address] [place] [address]- Care Team Providers Care Petal Shaper Hand Name Role Phone Alfa ROSADO MD, Gigi Hahn Primary Care Physician [phone] Encounter [place] Date(s): 09/21/22 - 10/21/22 [facility] Aramruddy Bey[facility] [address] [place] [address], [address] [place], [place] [address] Allergies, Adverse Reactions, Alerts Substance [...] 11:43:00 EST, Inhaler, Route to Pharmacy Electronically, [id number], [facility] #[id number], 160, cm, 10/11/19... Start Date: 10/11/19 Status: [...] o user in household: No entered on: 2/14/18 Sex Female Patient Care team information Care Team Personnel Name: Alfa ROSADO MD, Gigi Hahn Position: [facility] Ambulatory (view) Member Role: PCP Address: Address: [address] [place] [address]- Name: Naila Martinez RN Position: [facility] OB RN Member Role: Primary Care Nurse Name: Lo Vernon RN Position: [facility] OB RN Member Role: Primary Care Nurse Name: Elena Cabrera RN Position: [facility] HBO Wound Member Role: Primary Care Nurse Care Team Related Persons Name: CHERELLE STINSON Address: home [address] Name: TORYE JIMENEZ Address: home [address] Name: TOREY JIMENEZ Address: home [address] Name: JAMIE JIMENEZ Address: home [address] [place] [address] Name: JAMIE JIMENEZ Address: home [address] [place], [place] Name: TOREY TRIVEDI Address: home [address] [place], [place] Name: JOCELYN SANTIAGO Address: home [address] [place] [address]
--- OUTSIDE RECORDS SUMMARY | 2024-04-17 12:27 | XMS_ITS | Continuity of Care Document ---
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 Name Role Phone Gigi Grimm III, MD Primary Care Physician [phone] En[place] [facility] [place] [facility] [place] Date(s): 10/31/23 - 11/01/[address] [address]- Discharge Disposition: A-D/C Home Attending Physician: Jevon [...] Given tetanus/diphtheria/pertussis, acel(Tdap) 01/25/17 Given SARS-CoV-2 mRNA (dvqsrkb-tkzk-hvdhe) vax 10/17/21 Recorded SARS-CoV-2 mRNA (hpqtkga-qnpg-pdynj) vax 12/25/20 Recorded SARS-CoV-2 mRNA (xslntly-eayt-dpxwf) vax 12/04/20 Recorded pneumococcal 23-valent vaccine 03/31/16 Given Varicella Virus Vaccine 08/14/13 Recorded Medications acetaminophen 325 mg oral tablet 975 mg, Tablet, By Mouth, Every 6 hours, PRN for Pain , Moderate, Routine, 10/30/23 18:28:00 EST Start Date: 10/30/23 Stop Date: 11/02/23 Status: Discontinued albuterol CFC free 90 mcg/inh inhalation aerosol 180 mcg, 2, puffs, Inhalation, Every 4 hours, PRN, # 1 each, Refills 2, Tot. Refills 2, Maintenance, 10/11/19 11:43:00 EST, Inhaler, Route to Pharmacy Electronically, [id number], [id number], 160, cm, 10/11/19... Start Date: 10/11/19 Status: Ordered aspirin 81 mg oral tablet 2 tablet = 162 mg, By Mouth, Daily, # 180 tablet, 2 Refills, Maintenance, 09/19/23 15:50:00 EST, Tablet, [facility]/pharmacy #[id number], Partial fill upon [...] Acute 11/08/23 17:44:00 EST,11/01/23 17:44:00 EST, Tablet, [facility]/pharmacy #[id number], Partial fill upon patient request if the prescription is for a schedule II opioid drug., 165, cm, 02... Start Date: 11/01/23 Stop Date: 11/08/23 Status: Ordered Cradle See Instructions, # 1 [...] ovarian syndrome Confirmed Active Confirmed Active Results Radiology Reports * Exam Date Time Procedure Performing Provider Status 10/31/23 10:30 PM MRA/MRV Head W/O Contrast Octaviano Casas; Auth (Verified) Notes: (MRA/MRV Head W/O Contrast) Reason For Exam: Headache(s) RESULT: MRA/MRV Head W/O Contrast MRI Brain W/O Contrast, MRA/MRV Head W/O Contrast INDICATION: Headache(s); Clinical Question(s): Aneurysm; Order Comment: Please see Reference Text for complete list of contraindications Aneurysm TECHNIQUE: MRI of the brain was performed without contrast utilizing sagittal T1, axial T2, axial FLAIR, axial SWAN, and axial DWI sequences. MRA of head and MR venogram of head was obtained with 3-D ycyo-vx-wkxgwt technique. Multiple planesof MIP images were reconstructed. COMPARISON: MRI brain on 04/01/[address] of head on 11/04/2023. FINDINGS: BRAIN and EXTRA-AXIAL SPACES: The ventricles, cistern and sulci are within normal limits. No hydrocephalus is seen. There is no intracranial hemorrhage, tumor or acute infarct. No white matter disease is noted. The findings are similar to the prior study. EXTRACRANIAL SOFT TISSUES: Orbits are unremarkable. The mastoids are unremarkable. Mild mucosal thickening in the right maxillary sinus. BONES: Marrow signal is preserved. MRA of head without contrast: The left internal carotid artery at skull-base is normal in caliber and appearance. A stent has been placed over the right cavernous ICA. Otherwise no definite stenosis. No posterior communicating artery aneurysm is noted. Bilateral ACAs and MCAs as well as their branches appear normal in calibers and configuration. No evidence of stenosis, aneurysm or vascular malformation. Bilateral intracranial vertebral arteries appear normal in calibers. The basilar artery shows no definite stenosis. No basilar tip aneurysm is seen. Both folded cloth taper are within normal limits. MR venogram of head without contrast: There are normal venous flows within the superior sagittal sinus, the straight sinus, the vein of Armani as well as bilateral transverse and sigmoid sinuses. No filling defect is seen. There is no evidence of dural sinus thrombosis. IMPRESSION: Normal brain. Status post stent placement over the right cavernous ICA. Otherwise unremarkable MRA of head. No cutoff or high-grade stenosis of the major branches of the intracranial arteries. No evidence of dural sinus thrombosis WSN: [id number] Ordering Physician: Ivory Gomez Dictated By: Hayes Hall MD Dictated Date/Time: 11/01/23 9:09 am Reviewed By: Hayes Hall MD Signed By: Hayes Hall MD Signed Date/Time: 11/01/23 9:09 am Transcribed By: CECIL Transcribed Date/Time: 11/01/23 8:52 am * Exam Date Time Procedure Performing Provider Status 10/31/23 10:30 PM MRI Brain W/O Contrast Nimesh Casas; Giovani (Verified) Notes: (MRI Brain W/O Contrast) Reason For Exam: Headache(s) RESULT: MRI Brain W/O Contrast MRI Brain W/O Contrast, MRA/MRV Head W/O Contrast INDICATION: Headache(s); Clinical Question(s): Aneurysm; Order Comment: Please see Reference Text for complete list of contraindications Aneurysm TECHNIQUE: MRI of the brain was performed without contrast utilizing sagittal T1, axial T2, axial FLAIR, axial SWAN, and axial DWI sequences. MRA of head and MR venogram of head was obtained with 3-D pinx-dd-zssmrl technique. Multiple planesof MIP images were reconstructed. COMPARISON: MRI brain on 04/01/[address] of head on 11/04/2023. FINDINGS: BRAIN and EXTRA-AXIAL SPACES: The ventricles, cistern and sulci are within normal limits. No hydrocephalus is seen. There is no intracranial hemorrhage, tumor or acute infarct. No white matter disease is noted. The findings are similar to the prior study. EXTRACRANIAL SOFT TISSUES: Orbits are unremarkable. The mastoids are unremarkable. Mild mucosal thickening in the right maxillary sinus. BONES: Marrow signal is preserved. MRA of head without contrast: The left internal carotid artery at skull-base is normal in caliber and appearance. A stent has been placed over the right cavernous ICA. Otherwise no definite stenosis. No posterior communicating artery aneurysm is noted. Bilateral ACAs and MCAs as well as their branches appear normal in calibers and configuration. No evidence of stenosis, aneurysm or vascular malformation. Bilateral intracranial vertebral arteries appear normal in calibers. The basilar artery shows no definite stenosis. No basilar tip aneurysm is seen. Both folded cloth taper are within normal limits. MR venogram of head without contrast: There are normal venous flows within the superior sagittal sinus, the straight sinus, the vein of Armani as well as bilateral transverse and sigmoid sinuses. No filling defect is seen. There is no evidence of dural sinus thrombosis. IMPRESSION: Normal brain. Status post stent placement over the right cavernous ICA. Otherwise unremarkable MRA of head. No cutoff or high-grade stenosis of the major branches of the intracranial arteries. No evidence of dural sinus thrombosis WSN: [id number] Ordering Physician: Ivory Gomez Dictated By: Hayes Hall MD Dictated Date/Time: 11/01/23 9:09 am Reviewed By: Hayes Hall MD Signed By: Hayes Hall MD Signed Date/Time: 11/01/23 9:09 am Transcribed By: CECIL Transcribed Date/Time: 11/01/23 8:52 am * Exam Date Time Procedure Performing Provider Status 10/31/23 3:[address] Head/Brain W/O Contrast Omid Coleman; Auth (Verified) Notes: (CT Head/Brain W/O Contrast) Reason For Exam: Headache(s) RESULT: CT Head/Brain W/O Contrast CT Head/Brain W/O Contrast INDICATION: Reason: Headache(s); Clinical Question(s): Aneurysm; Hx of aneurysm; Order Comment: TECHNIQUE: Noncontrast head CT using axial technique and reconstructed in axial and coronal planes.Iterative reconstruction techniques are used to optimize dose and image quality. CTDIvol Head: 47.60 mGy, DLP Head: 772 mGy*cm. COMPARISON: None. FINDINGS: Admissions Gate Attendant view findings, lines and tubes: None. BRAIN AND EXTRA-AXIAL SPACES: No parenchymal hemorrhage, midline shift, or mass effect. Haynes-white matter differentiation is wellpreserved. No acute infarct. Negative insular ribbon and hyperdense vessel signs. Ventricles, sulci, and basilar cisterns are normal. No white matter lesions. No subarachnoid hemorrhage. No subdural or epidural collection. CALVARIUM, SKULL BASE, AND SOFT TISSUES: No fractures or suspicious bony lesions. The paranasal sinuses and mastoid air cells are clear. Visualized orbits and globes are intact. The extracranial soft tissues are unremarkable. IMPRESSION: No acute intracranial pathology. I have personally reviewed the images and I agree with this report. WSN: [id number] Ordering Physician: Alice Vieira Dictated By: John[Radiology] Osmani RICHEY Dictated Date/Time: 10/31/23 6:50 am Reviewed By: Terri Dumont MD Signed By: Terri Dumont MD Signed Date/Time: 10/31/23 6:55 am Transcribed By: CECIL Transcribed Date/Time: 10/31/23 6:30 am * Exam Date Time Procedure Performing Provider Status 10/30/23 9:38 PM US Doppler Ext Lower Venous Bilat Tommy Zaragoza; Auth (Verified) Notes: (US Doppler Ext Lower Venous Bilat) Reason For Exam: Pain/Tenderness Extremities RESULT: US Doppler Ext Lower Venous Bilat US Doppler Ext Lower Venous Bilat Reason: Pain Tenderness Extremities; Clinical Question(s): Thrombosis COMPARISON: None IMAGING TECHNIQUE: Ultrasound of the veins from the groin through the calf was performed using grayscale, color, and spectral Doppler ultrasound assessing for complete compressibility and normal flowcharacteristics. FINDINGS: RIGHT LOWER EXTREMITY: Common femoral vein: Patent. No thrombosis. Femoral vein: Patent. No thrombosis. Popliteal vein: Patent. No thrombosis. Gastrocnemius veins: The visualized portions are patent without evidence of thrombosis. Peroneal veins: The visualized portions are patent without evidence of thrombosis. Posterior tibial veins: The visualized portions are patent without evidence of thrombosis. LEFT LOWER EXTREMITY: Common femoral vein: Patent. No thrombosis. Femoral vein: Patent. No thrombosis. Popliteal vein: Patent. No thrombosis. Gastrocnemius veins: The visualized portions are patent without evidence of thrombosis. Peroneal veins: The visualized portions are patent without evidence of thrombosis. Posterior tibial veins: The visualized portions are patent without evidence of thrombosis. OTHER FINDINGS: None. IMPRESSION: No evidence of deep venous thrombosis. WSN: [id number] Ordering Physician: Alice Vieira Dictated By: Darshan Cerda MD Dictated Date/Time: 10/30/23 10:02 p Reviewed By: Darshan Cerda MD Signed By: Darshan Cerda MD Signed Date/Time: 10/30/23 10:02 pm Transcribed By: CECIL Transcribed Date/Time: 10/30/23 10:01 pm Vital Signs Most recent to oldest [Reference Range]: 1 2 3 Height 165 cm (10/31/23 2:14 AM) Weight 97.6 kg (10/31/23 2:14 AM) Oxygen Saturation [94-100 %] 98 % (11/01/23 3:37 PM) 98 % (11/01/23 11:33 AM) 99 % (11/01/23 11:11 AM) Pulse Rate [55-90 bpm] 70 bpm (10/31/23 2:14 AM) Body Mass Index [18.5-24.99 kg/m2] 35.85 kg/m2 *>HHI* (10/31/23 2:14 AM) Blood Pressure [90-138/55-84 mm Hg] 114/64mm Hg (11/01/23 3:37 PM) 107/58mm Hg (11/01/23 11:33 AM) 112/59mm Hg (11/01/23 11:11 AM) Respiratory Rate [16-30 br/min] 18 br/min (11/01/23 3:37 PM) 18 br/min (11/01/23 10:39 AM) 18 br/min (11/01/23 9:02 AM) Temperature [96.8-100.4 DegF] 97.9 DegF (11/01/23 3:37 PM) 97.8 DegF (11/01/23 9:02 AM) 97.8 DegF (10/31/23 7:59 PM) Mode of Delivery (Oxygen) Room air (10/31/23 4:58 PM) Room air (10/31/23 7:46 AM) Blood pressure sites Arm, right (10/31/23 2:14 AM) Arm, left (10/30/23 4:45 PM) Temperature Route Oral (11/01/23 3:37 PM) Oral (11/01/23 9:02 AM) Oral (10/31/23 7:59 PM) Dry Weight 97.6 kg (10/31/23 2:14 AM) Social History Social History Type Response Smoking Status Never smoker; Tobacc o user in household: No entered on: 11/01/17 Sex Female Hospital Progress note * Carolyn Dallas RN: PERFORM, SIGN, VERIFY Event Display: Progress Note Hospital Authored Date: Patient: CHRYSTAL MARTINEZ Age: 33 years Sex: Female : 1990 Associated Diagnoses: None Author: Carolyn Dallas RN Pt. A/OX4. VSS. Pt. medicated per NOV. Pt. reports having 4/[address] Gomez denieswanting HELLP labs at this time. Pt. medicated with prn tylenol and given IV mag bolus per Dr. gomez order with positive effect. Pt. reports KUMAR has decreased to 2/10. Pt. denies having any chest pain and or SOB. Pt. denies feeling dizzy and or light headed. Pt. reports having good movement. Pt. denies having any vaginal bleeding and or leaking of any fluid. Pt. reports having some ctx and increased pressure, Dr. Gomez aware. Pt. NST reactive, pt. okay to come off NST per Dr. Trinidad tee. Plan is for pt. to be discharge home. Call veloz within reach Findings Problem Related to Alteration in Comfort : Alteration in Comfort/new 11/01/2023 14:00 EST Alteration in Comfort Related to Other: KUMAR Goals & Outcomes: Comfort Pt will report acceptable level of comfort & pain control Interventions Implemented: Comfort Assess pain using appropriate pain scale/tools Goals/Interventions, Comfort Yes Comfort, Problem Start 11/01/2023 14:06 Reviewed plan with, Comfort Patient Patient Progression, Comfort Pt progressing according to plan Comfort, Problem Ongoing Yes . * Ivory Gomez MD: PERFORM Event Display: Progress Note Hospital Authored Date: [id number] Patient: ??CHRYSTAL MARTINEZ ? Age:??33 Years?Sex:??Female?:??1990?? LMP/EGA/JV Gestational Age (EGA) and JV? * Note: EGA calculated as of 11/01/2023 ?? JV:??11/11/2023?EGA*:??38 weeks 4 days ? History?(1,0,2,1)?Method:??Last Menstrual Period??(02/04/2023) Subjective Went in to see patient for morning rounds. Patient woke up from sleeping upon entering the room. She continues to endorse a 3/10 headache. She describes the pain as dull and diffuse. She also continues to endorse intermittent??black spots in her vision. She denies increased pelvic pressure, contract ions,??vaginal bleeding, loss of fluid or decreased movement. She denies chest pain, shortness of??breath, RUQ pain or edema.?? Physical Exam Vitals & Measurements T:??97.8?F?? HR:??74??(Monitored)?? RR:??18?? BP:??106/63?? SpO2:??97%?? HT:??165??cm?? WT:??97.6??kg?? BMI:??35.85?? Constitutional: No acute distress, resting comfortably. Respiratory: Normal work of breathing. Neurological/Psychiatric: Mood and affect congruent and stable. Review of Systems ROS is negative except for what has been specified or noted in the history of present illness. Assessment/Plan Assessment:??Chrystal is a 33 year old at 38w4d gestation admitted for further evaluation of a persistent headache. Medical history notable for prior bilateral brain aneurysms, s/p stent placement in 2020. S/p Neurology consult. Negative CT head, MRI brain, MRA or MRV. Headache now improving with Reglan and Benadryl. Will consider providing Magnesium for further symptomatic improvement. Likely discharge home today. ?? Headache (R51.9):? - s/p Tylenol, Reglan and Benadryl - Headache improves with Reglan/Benadryl - s/p Neurology consult - CT head: No acute intracranial abnormalities - MRI brain, MRA, MRV: wnl ?? Abdominal cramping (R10.9):? - Reactive NST - Cervical exam on presentation /-3 - Comfortable at this time ?? Abnormal ultrasound (R93.89):? - At anatomy scan - Bilateral renal urinary dilation in the renal??pelvis (x) U/S at 32 weeks - persistent bilateral renal dilation (x) Pedi surg consult requested: Renal bladder ultrasound after 1 week of life, see note for additional recommendations ?? Brain aneurysm (I67.1):? - Had right [...] Travon Morgan (neurosurgery), last visit 04/29/22 at [facility]. Was supposed to go recently (gets yearly imaging) but he cancelled the imaging due to . ?? Hx of preeclampsia, prior , currently (O09.299):? - Continue BabyScripts - Normotensive during admission ?? Hypothyroidism in (O99.280):? 04/04: TSH high, T4 normal, started on Levothyroxine - Levothyroxine 25mcg daily; compliant - TSH, reflex T4 in each trimester (x) 1st tri: TSH wnl at NOB (x) 2nd tri: TSH wnl (x) 3rd tri: TSH 3.04 wnl ?? Lower extremity pain (M79.606):? - Bilateral dopplers wnl ?? Migraine (G43.909):? - Follows with Neurology at [facility] - Receives Botox injections for migraine prevention - discussed at [facility] visit Botox can be continuedsafely if needed - Continue follow-up w/ neurology ?? Obesity in (O99.210):? - BMI 31 at NOB - Patient could not tolerate??early 1hr GTT due to N/V (x) Fasting POC and early 1hr GTT in June normal (x) 28 week GTT; wnl (x) 32 week growth scan: EFW 14th %tile ?? OB History History?(1,0,2,1)? # 1 ?Baby 1 [...] syndrome: (Medical) : (Obstetric) (02/04/23) : (Medical) Medications Medications (6) Active SCHEDULED: (3) Aspirin 81 mg Chew Tablet (aspirin 81 mg oral tablet, chewable) ??162 mg, By Mouth, Daily Levothyroxine 25 mcg Tablet (levothyroxine 0.025 mg oral tablet) ??25 mcg, By Mouth, Daily Multivitamin Tablet ??1 tablet, By Mouth, Daily CONTINUOUS: (0) PRN: (3) Acetaminophen 325 mg Tablet (acetaminophen 325 mg oral tablet) ??975 mg, By Mouth, Every 6 hours Albuterol 90mcg/Inhalation Inhaler HFA (albuterol CFC free 90 mcg/inh inhalation aerosol) ??180 mcg2 puffs, Inhalation, Every 4 hours Calcium Carbonate 500 mg (Calcium 200 mg) Chewable Tablet (Tums 500 mg Tablet) ??1,000 mg 2 tablet,Chew, 3 times a day * Ivory Gomez MD: PERFORM Event Display: Progress Note Hospital Authored Date: Headache has improved to a 2/10 following 1g Magnesium bolus. Anticipate discharge this evening with prescription for PO Magnesium. * Shnoda Bahena RN: PERFORM, SIGN, VERIFY Event Display: Progress Note Hospital Authored Date: Patient: CHRYSTAL MARTINEZ Age: 33 years Sex: Female : 1990 Associated Diagnoses: None Author: Shonda Bahena RN Pt's VSS. Pt continues to report a headache, slightly relieved by reglan and benadryl. Pt intermittently reporting visual changes. Pt states these symptoms are similar to when she had preeclampsia last . Dr Vieira and Dr. Branham aware of pt's current headache. Pt oob ambulating and voiding independently. Awaiting MRI results. Pt being monitored via NST BID. Reactive overnight. Pt reports intermittent pressure that she has felt for weeks and intermittent contractions. Pt will notify this RN of any worsening symptoms to notify provider for repeat exam. Continue with plan of care. Consult note * Mary Infante NP: PERFORM, MODIFY Event Display: Consultation Note Authored Date: [id number] Patient: ??CHRYSTAL MARTINEZ ? Age:??33 Years?Sex:??Female?:??1990?? Chief Complaint/Reason for Consult CC: headache History of Present Illness Ms. Martinez??33-year-old right-handed female??with past medical history of??john, ??migraines and history of right ophthalmic internal carotid artery aneurysm, unruptured, status post flow diverter embolization in July/2019 with Neurosurgery at [facility] whom she last seen on April 29, 2022 with plans of repeat imaging, who is now 38 weeks 3 days??gestation who is being seen by neurology forheadache after she had presented to [facility] with decreased movement and headaches. ?? Patient reports that she had recent headaches lasting a week, occurring daily, encompassing her whole head, feeling dull like achy, lasting majority of the day.?? These headaches resolved for a day or 2 and came back 3 days ago with similar presentation.?? However she since headaches returned developed seeing black spots in her eyes that come and go without any loss or blurring of vision or any other focal neurological deficits. These are not positional. She otherwise at home as been doing well, denied any recent illness, no report or fever or chills. She has been feeling warm. She has had associated nausea but no vomiting. She has not any light, noise or smell sensitivity and these headaches are different and not as severe as her migraines ?? She reports that her blood pressures at home have been elevated with systolics reported to be 135-147, she has been normotensive here.?? She has been evaluated with a head CT that was unremarkable.?? Her exam is also nonfocal.??Overnight, neurology was called and an MRA of the head and MRV have b een recommended, if head CT is negative.?? As far as her headaches they have responded to Tylenol Reglan and Benadryl bringing her head ache pain down from an 04/27 to a 12/26 Review of Systems + headache tingling in hands and feet LE edema Physical Exam Vitals & Measurements T:??97.9?F?? HR:??89??(Monitored)?? RR:??16?? BP:??116/61?? SpO2:??100%?? HT:??165??cm?? WT:??97.6??kg?? BMI:??35.85? GENERAL APPERANCE:?? in NAD. HEENT:??NC/AT NECK: supple LUNGS: ??Normal I:E SKIN: mild bLE edema NEURO:?? awake and alert oriented to her name, age, place, mo/yr and situation no word finding difficulties follows commands appropriately Cranial Nerves:?? Pupils: PERRL, ? mild left ptosis Visual:??VFF Extra ocular movements: Intact Facial sensation:??intact, no FD. Hearing: intact bilaterally to finger rub Speech: clear, fluent, appropriate Tongue: Protrudes Midline Gag: soft palate raises equally Shoulder shru/5 Neck musculature: 5/5 Motor Exam: Strength:??5/5 in bl UEs and LEs. Sensory: sensation to light touch intact and equal bilaterally to face, bilateral upper extremities, and bilateral lower extremities Coordination: FTN intact, Moe symmetric, NO pronator drift Stance and Gait:??not tested ? (10/30/2023 21:38 EST US Doppler Ext Lower Venous Bilat) IMPRESSION:? No evidence of deep venous thrombosis. ?? WSN: [id number] ?? [1] ? (10/31/2023 03:[address] Head/Brain W/O Contrast) IMPRESSION: ?? No acute intracranial pathology. ?? I have personally reviewed the images and I agree with this report. WSN: [id number] ? [2] Assessment/Plan 33-year-old right-handed female??with past medical history of??john, ??migraines and history of right ophthalmic internal carotid artery aneurysm, unruptured, status post flow diverter embolization with Neurosurgery at [facility] whom she last seen on April 29, 2022 with plans ofrepeat imaging, who is now 38 weeks 3 days??gestation who is being seen by neurology for headache after she had presented to [facility] with decreased movement and headaches. ??Patient??in the last week and a half??developed??dull, achy??type headaches??localized to her whole head??associated with some nausea but no vomiting,??no light noise or smell sensitivities.?? These were??gradual in onset,she did not have??WH0L,??these have been??waxing and waning in severity??and only as of the last 3 days associated with some visual??distortions where she reports seeing??black spots??off-and-on??and headaches are??continuous??and did not have any??positional??nature??of??their severity.?? Her??vital signs??have been reassuring, she is not hypertensive.?? Head CT also did not show any??acute findings.?? Her exam is nonfocal and she had not had any??focal neurological deficits??with??the onset of these??headaches??aside as mentioned the visual??change??that is also??been intermittent.?? She has shown a good response to Tylenol, Reglan and Benadryl.?? Given that she is?? and that these headaches??have not been bothersome??earlier in her but only??occurring??as of recently??but suggest further imaging with brain MRI without eamon, MRA of the head??without eamon and MRV of thehead with eamon??to further evaluate for??any abnormalities??in the brain that could explain her headache??and also look for any??vascular??abnormalities given her history of aneurysm??and also??rulingout venous sinus thrombosis.?? Continue to treat headache??with??current regimen as she is responding??well.?? She??was not able??to fully??report whether 1 medication??has worked better than others??given her longstanding history of migraines??therefore would continue with the plan as is??as again??seems to show response. ?? kendell Quiroz. Will follow Please call for any questions. Problem List/Past Medical History Ongoing Asthma, mild intermittent Brain aneurysm Hx of preeclampsia, prior , currently Hypothyroidism in Migraine Nausea and vomiting during Obesity in Obstructive sleep apnea PCOS - Polycystic ovarian syndrome Procedure/Surgical History Colonoscopy: 07/01/21 Brain aneurysm: 07/29/19 Tonsillectomy and adenoidectomy: 1992 Hernia repair: 1991 Carotid artery Insertion of IUD Shoulder incision Eye excision Home Medications Albuterol: 180 mcg = 2 [...] Brother: Blood clot; Hypertension; Von Willebrand disease ?14-OCT-2016 21:52:25<$> Brother: Asthma; Kidney disease ?09-MAY-2015 22:16:31<$> Sister: Cancer of ovary; Hypertension; Sickle cell trait ? 02-JUL-2016 04:31:52&l t;$> Mat. Grandmother: Diabetes mellitus [1]??US Doppler Ext Lower Venous Bilat; Prashant RICHEY, Devrim 10/30/2023 21:38 EST [2]??CT Head/Brain W/O Contrast; Julia RICHEY, Terri 10/31/2023 03:29 EST * Marty Quiroz MD: PERFORM Event Display: Consultation Note Authored Date: [id number] Attending PA/DATABASE DEVELOPER Attestation:??I have reviewed the patient's medical history, findings on examination, diagnosis and treatment plan as documented in the PA/DATABASE DEVELOPER note. Case and its management discussed with PA/DATABASE DEVELOPER. * Mary Infante NP: PERFORM Event Display: Consultation Note Authored Date: [id number] Patient's brain MRI, MRA/V all unremarkable. She appears to continue to have dull headaches, but responding to current regimen, suggest to continue the course. Neurology signing off. Please call back with any further questions. Note * Carolyn Dallas RN: PERFORM Event Display: Discharge/Transfer Note Hospital Authored Date: [id number] Nursing Discharge Note Entered On: 11/01/2023 18:20 EST Performed On: 11/01/2023 18:15 EST by Carolyn Dallas RN Nursing Discharge Note 2 Discharge Time : 11/01/2023 18:15 EST Discharge Level of Care at Discharge : Home/Senior Care/Foster Care Spectacle Truer Utilized : No Patient Left Unit Via : Ambulatory Patient Accompanied Off Unit with : Parent DC Instructions Provided & Signed by Pt : Yes Patient Understands D/C Instructions : Yes Verbalized Understanding of D/C Plan By : Patient Patient Instructions Discharge Signed : Yes Did Pt have Specialty Bed or Wound Vac : No Carolyn Dallas RN - 11/01/2023 18:20 EST * Bujouves MD, Ivory: PERFORM Event Display: Discharge/Transfer Note Hospital Authored Date: [id number] Patient: ??CHRYSTAL MARTINEZ ? Age:??33 Years?Sex:??Female?:??1990?? Admit Date Admission Date: 10/31/2023 Discharge Date 11/01/2023 [facility] Chrystal is a 33 year old at 38w3d gestation admitted for further evaluation of a persistent headache. Medical history notable for prior bilateral brain aneurysms, s/p stent placement in 2020. Headache mildly improved with Tylenol, Reglan and Benadryl. CT head within normal limits. Bilateral lower dopplers obtained??and within normal limits.??MRA/MRV??and MRI brain were normal. S/p Neurology consult, encouraged to continue current medication regimen. She received a??1g Magnesium bolus andher headache had subsided to a 2/10 in severity. SROM check and cervical exam were performed prior to discharge as patient was worried she may have broke her water. SROM check was negative and cervical exam unchanged since admission. Patient was appropriate for discharge on HD2. She will continue BabyScripts at home for blood pressure monitoring. She has her induction scheduled for 11/04/23 at 39 weeks gestation.?? Objective/Physical Exam on Day of Discharge Vitals & Measurements T:??97.9?F?? HR:??85??(Monitored)?? RR:??18?? BP:??114/64?? SpO2:??98%?? HT:??165??cm?? WT:??97.6??kg?? BMI:??35.85?? Constitutional: No acute distress, resting comfortably. Respiratory: Normal work of breathing.?? Gynecologic:? Speculum: Negative pooling.? Bimanual: 1/50/-3.?? Extremities: No calf tenderness or edema. Skin: No rash or jaundice. Neurological/Psychiatric: Mood and affect congruent and stable. Assessment/Plan/Discharge Diagnosis Assessment:??Chrystal is a 33 year old at 38w4d gestation admitted for further evaluation of a persistent headache. Medical history notable for prior bilateral brain aneurysms, s/p stent placement in 2020. S/p Neurology consult. Negative CT head, MRI brain, MRA or MRV. Headache significantly improved following 1g Magnesium bolus. Negative SROM check (pooling, nitrazine or fern test) and unchanged cervical exam. Appropriate for discharge home with return precautions. Prescription sent for Magnesium oxide tablets. IOL scheduled for??11/04/23. ?? Headache (R51.9):? - s/p Tylenol, Reglan, Benadryl and 1g Magnesium bolus - Headache significantly improved (10/28 at time of discharge) - s/p Neurology consult - CT head: No acute intracranial abnormalities - MRI brain, MRA, MRV: wnl ?? Abdominal cramping (R10.9):? - Reactive NST - Cervical exam on presentation --> prior to discharge (different examiner) - Negative SROM check prior to discharge ?? Abnormal ultrasound (R93.89):? - At anatomy scan - Bilateral renal urinary dilation in the renal??pelvis (x) U/S at 32 weeks - persistent bilateral renal dilation (x) Pedi surg consult requested: Renal bladder ultrasound after 1 week of life, see note for additional recommendations ?? Brain aneurysm (I67.1):? - Had right [...] Travon Morgan (neurosurgery), last visit 04/29/22 at [facility]. Was supposed to go recently (gets yearly imaging) but he cancelled the imaging due to . ?? Hx of preeclampsia, prior , currently (O09.299):? - Continue BabyScripts - Normotensive during admission ?? Hypothyroidism in (O99.280):? 04/04: TSH high, T4 normal, started on Levothyroxine - Levothyroxine 25mcg daily; compliant - TSH, reflex T4 in each trimester (x) 1st tri: TSH wnl at NOB (x) 2nd tri: TSH wnl (x) 3rd tri: TSH 3.04 wnl ?? Lower extremity pain (M79.606):? - Bilateral dopplers wnl ?? Migraine (G43.909):? - Follows with Neurology at [facility] - Receives Botox injections for migraine prevention - discussed at [facility] visit Botox can be continuedsafely if needed - Continue follow-up w/ neurology ?? Obesity in (O99.210):? - BMI 31 at NOB - Patient could not tolerate??early 1hr GTT due to N/V (x) Fasting POC and early 1hr GTT in June normal (x) 28 week GTT; wnl (x) 32 week growth scan: EFW 14th %tile ?? Future Appointments Monday 3:40 PM EST ?? With: Ca Gamino MD Where: [facility] [address] [place] [address]- Status: Pending Discharge Medications ???Albuterol (albuterol CFC free 90 mcg/inh inhalation aerosol)???Aspirin (aspirin 81 mg oral tablet)???Durable Medical Equipment ( Cradle)???Levothyroxine (levothyroxine 0.025 mg oral tablet)???Magnesium Oxide (magnesium oxide 400 mg oral tablet)???Multivitamin, ( Multivitamins with Folic Acid 1 mg oral tablet) Immunizations during Hospitalization Vaccine Date Status tetanus/diphtheria/pertussis, acel(Tdap) 08/18/2023 Given SARS-CoV-2 mRNA (dvkxpxd-hhht-gjgbx) vax 10/17/2021 Recorded SARS-CoV-2 mRNA (gcocpxf-srxi-gxluw) vax 12/25/2020 Recorded SARS-CoV-2 mRNA (ecmsvxz-otzw-ngegq) vax 12/04/2020 Recorded tetanus/diphtheria/pertussis, acel(Tdap) 01/25/2017 Given pneumococcal 23-valent vaccine 03/31/2016 Given Varicella Virus Vaccine 08/14/2013 Recorded Patient Education Titles WebMD Ignite Patient Education - Pelvic Pain in : Unclear (2???3 Trimester)?? WebMD Ignite Patient Education - Kick Counts?? WebMD Ignite Patient Education - False Labor?? WebMD Ignite Patient Education - Headache, Unspecified?? * Genoveva Powers DO: PERFORM Event Display: Discharge/Transfer Note Hospital Authored Date: [id number] Attending Attestation:??I have seen and evaluated this patient. ??I have discussed the case and itsmanagement with the resident and agree with the findings and plan as documented in the resident???snote. ?? Suzi, DO?? * Burt LIZAMA, [place]: PERFORM Event Display: Patient Education/Instruction Authored Date: [id number] Inpatient Adult Discharge Instructions. [place] [id number] Name: CHRYSTAL MARTINEZ : 1990?? Visit: 10/31/2023 01:58?? Current Date: 11/01/2023 17:49 ?? Account: [id number]?? Inpatient Adult Discharge Instructions We would like [...] and their families. Surveys are administered by [employer] ?? If further treatment with your primary care physician or another doctor is recommended, it is important for you to keep the appointment. Call your primary care physician or return to the Emergency Department immediately if your condition worsens, fails to improve, or new symptoms develop. If you need to find a doctor, you can call [facility] [facility] for a referral at [phone] or toll free at [phone] ([phone]) or log in to [email or web address].. ?? [facility], in keeping with [facility] guidance, no longer requires face masks [...] a health care ambrocio of your choosing. [employer] is a website that allows you to securely view your medical information including your hospital discharge summary, office visit summaries, medications and follow-up visits. You can also request appointments, renew medications, and request access to your medical information using a health care ambrocio of your choosing, or just ask a question. You can enroll at [email or web address] or register during your next office visit. You have been discharged from [facility], Patient Care Unit: [facility]??. If you have any questions regarding these instructions, including results of studies pending, afteryou leave, please call us and we will be happy to assist you 10/04. [facility] Your Care Team Attending Physician Jevon Burns MD?? Consulting Providers Jevon Burns MD?? Your Diagnosis Abdominal cramping Abnormal ultrasound Brain aneurysm Headache Hx of preeclampsia, prior , currently Hypothyroidism in Lower extremity pain Migraine Obesity in Tests Performed Below is a partial list of the tests performed during your hospitalization. You may have had other tests and procedures not included in this list. Please discuss all test results with your provider. CBC Type and Screen Brain MRI W/O Contrast CT Head/Brain W/O Contrast Doppler Venous Ext Lower Bilat (US) MRA/MRV Head W/O Contrast No tests performed during this visit.?? Primary Care Provider Gigi Grimm III, MD? Discharge Vitals Temperature: 97.9 DegF Height: 165 cm Pulse Rate: 70 bpm Weight: 97.6 kg Respiratory Rate: 18 br/min Body Mass Index:??35.85 kg/m2??Critical Systolic Blood Pressure: 114 mm Hg Body surface area: 2.12 Diastolic Blood Pressure: 64 mm Hg ?? Oxygen Saturation: 98 % ?? Studies Pending All studies ordered during this hospital stay have been completed unless listed below. Please discuss all pending results with your provider listed above in these instructions. ?? No incomplete studies found?? What to do next Instructions From Your Doctor ?? Orders?? Scheduled Follow-Up Appointments Monday 3:40 PM EST ?? With: Ca Gamino MD Where: [facility] [address] [place] [address]- Status: Pending Discharge Medications CHRYSTAL MARTINEZ :1990 Visit Date:10/31/2023 Medications: Please continue your medications until treatment is completed or stopped by your provider. Medications not listed below should be discontinued. Discuss any questions related to medications with your provider. What How Much When Instructions Next Dose New Magnesium Oxide (magnesium oxide 400 mg oral tablet) 1 tab(s) Oral Daily Duration: 7 Days Pickup at [facility]/pharmacy #06 11/02/23 Unchanged Albuterol (albuterol CFC free 90 mcg/ inh inhalation aerosol) 2 puff(s) Inhalation Every 4 hours as needed for Wheezing/Shortness of Breath 11/01/23 as needed Unchanged Aspirin (aspirin 81 mg oral tablet) 2 tab(s) Oral Daily 11/01/23 Unchanged Durable Medical Equipment ( Cradle) See instructions Abdominal Band for ?? Unchanged Levothyroxine (levothyroxine 0.025 mg oral tablet) 1 tab(s) Oral Daily 11/02/23 Unchanged Multivitamin, ( Multivitamins with Folic Acid 1 mg oral tablet) 1 tab(s) Oral Daily 11/02/23 Pharmacy Information [facility]/pharmacy #[id number]: [address] [place] [id number] [phone] Prescription Given During Visit Magnesium Oxide (magnesium oxide 400 mg oral tablet) - 1 tablet = 400 mg, By Mouth, Daily, # 7 tablet, 0 Refills, [facility]/pharmacy #[id number], [address] [place] [address] [phone]?? Laboratory Results Below is a partial list of the most recent Laboratory test results done prior to this discharge. You may have had other tests and procedures not included in this list. Please discuss all test resultswith your provider. CBC (10/31/2023) ???WBC - 8.8 k/mm3???RBC - 3.84 m/mm3???Hgb - 9.6 Gm/dL???Hct - 30.8 %???MCV - 80.2 femtoliters???MCH - 25.0 pg???MCHC - 31.2 g/dL???Platelet Count - 159 k/mm3???RDW-SD - 38.6 femtoliters???MPV - 12.2 femtoliters???Nucleated RBC (Automated) - 0.0 #/100 WBC'S???Abs. NRBC - 0.0 k/mm3 Type and Screen (10/31/2023) ???Blood Type - A Positive???Antibody Screen - [...] Discharge Instructions. WebMD Ignite Patient Education - Pelvic Pain in : Unclear (2???3 Trimester)?? WebMD Ignite Patient Education - Kick Counts?? WebMD Ignite Patient Education - False Labor?? WebMD Ignite Patient Education - Headache, Unspecified?? Valuables and Belongings I fully understand and agree that [facility] accepts no responsibility for all my [...] patient Date for Pt to Sign Valuables/Belongings: 10/31/23 02:23:00 ?? Other Discharge Information ? Pulmonary Rehab [...] are strongly encouraged to quit. Please call [facility] [employer] [facility] at [phone] or [phone] ([phone]) or log in to [email or web address] for referrals to smoking cessation programs. ?? 495 Suicide & Crisis Lifeline is available 10/04 if you or someone you know needs to find a reason to keep living. By calling 967 you'll be connected to a skilled, trained counselor at a crisis center in your area. INPATIENT DISCHARGE INSTRUCTIONS SIGNATURE PAGE CHRYSTAL MARTINEZ Location:[facility] Registration Date and Time:10/31/2023 01:58 EST Primary Care Physician: Alfa ROSADO MD, Gigi Hahn Attending Physician: Jevon Burns MD, I CHRYSTAL MARTINEZ, have received the above patient education materials/instructions and have verbalized understanding. If ambulance or transport services are being used I further acknowledge being given a choice of service. ?? If you need to contact me, please call me at this number: . Patient/Engineering Supervisor Name: Patient/Engineering Supervisor Signature: Relationship to Patient: Witness Name/Signature: Date: * Carolyn Dallas RN: PERFORM Event Display: Patient Education Leaflets Authored Date: [id number] Pelvic Pain in : Unclear (2???3 Trimester) ?? [id number] Pelvic Pain in : Unclear (2???3 Trimester) You are well into your and are having pain and pressure in your pelvic area. This is yourlower belly (abdomen). Mild pelvic pressure or heaviness is very common in the later stages of a healthy . It is due to the growing uterus (womb). Although the exact cause of your pain is not certain, it doesn't seem to be dangerous. It may be due to ligaments in your belly stretching to peralta pport your uterus as it grows. The weight of your baby may also be causing pressure and pain. Pain can be caused by the bones of your pelvis shifting as your body makes room for the baby to pass through. This is known as symphysis pubis dysfunction (SPD). SPD can cause quite a bit of pain and discomfort as the due date nears. Home care Here are general care guidelines: ??? Don't do any strenuous activities or stand for a long time. Bed rest is not needed unless your healthcare provider has advised it. ??? Exercise for 30 minutes all or most days of the week. This will promote muscle tone, strength, and endurance. Ask your provider what exercises to do and to not do. ??? Sit in a warm (not hot) bath. This helps relax tight, painful muscles. ??? Sleep on your side with a pillow between your legs. This helps align your pelvis. ??? Eat frequent, light meals. Choose foods that are easy to digest. ??? Ask your healthcare providerif a support belt could help you. ??? If told to by your healthcare provider, take an over -the-counter medicine, such as acetaminophen, to ease pain. Follow instructions carefully for how much to take and how often to take it. Don't take aspirin or nonsteroidal anti-inflammatory drugs (NSAIDs) such as ibuprofen unless your provider tells you to do so. ?? Follow-up care Follow up with your healthcare provider, or as advised. ?? When to get medical care Call your healthcare provider right away if any of these occur:? Belly pain that is sudden or that slowly gets worse ??? Fainting, dizziness, or weakness when standing ??? Any vaginal bleeding ??? Fluid leaking from the vagina ??? Baby is moving less ??? Repeated vomiting or diarrhea ??? Pain that seems to settle in 1 area, especially the lower right belly ??? Blood in vomit or bowel movements (dark red or black color) ??? Fever of 100.4??F (38??C) or higher, or as advised by your provider ?? Last Reviewed Date: 2022 ?? [employer]. All rights reserved. This information is not intended as a substitute for professional medical care. Always follow your healthcare professional's instructions. ?? * Burt LIZAMA, [place]: PERFORM Event Display: Patient Education Leaflets Authored Date: [id number] Kick Counts ?? 30095 Kick Counts It???s normal to worry about [...] day. ?? Last Reviewed Date: 2022 ?? [id number] [employer]. All rights reserved. This information is not intended as a substitute for professional medical care. Always follow your healthcare professional's instructions. ?? * Burt LIZAMA [place]: PERFORM Event Display: Patient Education Leaflets Authored Date: [id number] False Labor ?? [id number] False Labor If your is at 37 weeks or longer and you are having contractions that are not true labor,you are having false labor. It's not time yet to give to your baby. True labor contractions can start unevenly but soon take on a regular pattern. As time goes on, thecontractions will get stronger. Also, the intervals between the contractions will get shorter. Evenat the onset, these contractions last at least 30 seconds and may increase to a minute.??True laborcontractions often start in the back and then move to the front. False labor contractions can be strong, frequent, and painful, but there is no regular pattern. Theintensity can vary from strong to mild to strong again.??False labor contractions are most often felt in the front.??While true labor contractions don???t stop no matter what you are doing, false labor contractions may stop on their own??or when you rest or move around. False labor contractions might make you feel anxious or lose sleep. But they don???t mean that you are sick or that anything is wrong with your baby. You don???t need to take any medicine for false labor. Sometimes, it may be too hard to tell false labor from true labor. In such cases, you may need to have a vaginal exam. This allows your healthcare provider to check for changes in the cervix that only occur with true labor. Home care ??? It may help to drink plenty of water and take warm baths. Do what you can ahead of time to prepare for giving so you???ll have less to worry about later. ??? Keep a record of yourcontractions. Write down what time each one starts and how long it lasts. A stopwatch is helpful. Look for the pattern of regularly spaced out contractions with a gradual increase in the time each one lasts. ??? Don???t be embarrassed about going to the hospital with a ???false alarm.?? Think of it as good practice for the real thing. ? Follow-up care Follow up with your healthcare provider, or as advised. If you are very worried, confused, can???t eat or sleep, or have questions about your health or ,??schedule an appointment with your provider. ?? When to seek medical advice Call your healthcare provider right away if any of these occur: ??? You are fewer than 37 weeks along in your and you???re having contractions. ??? You have contractions that are regular, getting longer, stronger, and closer together. ??? Your water breaks. ??? You have vaginal bleeding. ??? You feel a decrease in your baby???s movement or any other unusual changes.? You???re not sure if you are having false or true labor. ?? Last Reviewed Date: 2021 ?? [id number] [employer]. All rights reserved. This information is not intended as a substitute for professional medical care. Always follow your healthcare professional's instructions. ?? Patient Care team information Care Team Personnel Name: Gigi Grimm III, MD Position: Reference Physician Member Role: PCP Address: Address: [address] [place] [address]- Name: Naila Martinez RN Position: [facility] RN Member Role: Primary Care Nurse Name: Lo Vernon RN Position: [facility] RN Member Role: Primary Care Nurse Name: Elena Cabrera RN Position: [facility] Wound Member Role: Primary Care Nurse Name: Poonam Angeles RN Position: [facility] RN Member Role: OB RN Name: Yarely Nick RN Position: [facility] RN Member Role: Patient Care Provider Care Team Related Persons Name: CHERELLE STINSON Address: home [address] Name: TOREY JIMENEZ Address: home [address] Name: TOREY JIMENEZ Address: home [address] Name: JAMIE JIMENEZ Address: home [address] [place] [address] Name: JAMIE JIMENEZ Address: home [address] [place] [address] Name: TOREY QUESADA Address: home [address] [place] [address] Name: JOCELYN SANTIAGO Address: home [address] [place] [address]
--- OUTSIDE RECORDS SUMMARY | 2024-04-17 12:27 | XMS_ITS | Continuity of Care Document ---
Author Organization [facility] Address [address] [place] [id number]- Care Team Providers Care Application Performance Engineer Name Role Phone Gigi Grimm III, MD Primary Care Physician [phone] Encounter [facility] Date(s): 08/19/20 - 09/24/[address] [address] Attending Physician: Gigi Grimm III, MD Admitting Physician: Gigi Grimm III, MD Referring Physician: Gigi Grimm III, MD [...] 11:43:00 EST, Inhaler, Route to Pharmacy Electronically, [id number], [facility] #[id number], 160, cm, 10/11/19... Start Date: 10/11/19 Status: [...] 06/19/20 10:03:00 EDT, Route to Pharmacy Electronically, [facility]#[id number], 160, cm, 06/19/20 9:41:00 EDT, Height, 80.7... Start Date: 06/19/20 Status: Ordered fluconazole 150 mg oral tablet 1 tablet = 150 mg, By Mouth, Once, # 1 tablet, 0 Refills, Soft Stop, 07/10/20 14:15:00 EDT, Tablet,[facility] #[id number], 160, cm, 07/09/20 8:55:00 EDT, Height, 80.7, [...] Refills, Maintenance, 06/19/20 10:23:00 EDT, REC Powder, [facility] #[id number], 17 Gm By Mouth Daily,Instr:dissolve in water before taking, 160, cm, 06/19/20 9:41:00 EDT, Hei... Start Date: 06/19/20 Status: Ordered Multivitamin Tablet 1 tablet, By Mouth, Daily, 0 Refills, Maintenance, 10/09/19 16:58:00 EST Start Date: 10/09/19 Status: Ordered Multivitamins with Folic Acid 1 mg oral tablet 1 tablet, By Mouth, Daily, # 30 tablet, 11 Refills, Maintenance, 02/05/20 17:12:00 EDT, [facility] #[id number], 1 tablet By Mouth Daily, 160, cm, [...] 0 Refills, Maintenance, 10/11/19 10:15:00 EST, Tablet, [facility] #[id number], 160, cm, 10/11/19 5:03:00 EST, Height, 80.7, [...]
--- OUTSIDE RECORDS SUMMARY | 2024-04-17 12:27 | XMS_ITS | Continuity of Care Document ---
Author Organization [facility] Address Unknown Care Team Providers Care Mechanic General Operational Test Name Role Phone Alfa ROSADO MD, Gigi Hahn Primary Care Physician Encounter [facility] Date(s): 04/12/22 - 04/19/22 [facility] Attending Physician: Maureen Nava MD Referring Physician: Mayra Min MD Allergies, Adverse Reactions, Alerts Substance Reaction [...] 11:43:00 EST, Inhaler, Route to Pharmacy Electronically, [id number], [facility] #[id number], 160, cm, 10/11/19... Start Date: 10/11/19 Status: [...] Refills, Maintenance, 01/25/21 9:00:00 EDT, REC Powder, [facility]/pharmacy #[id number], Partial fill upon patient request [...] Active PCOS - Polycystic ovarian syndrome(Confirmed) Active Vital Signs Most recent to oldest [Reference Range]: 1 Height 163 cm (04/12/22 3:12 PM) Weight 85.4 kg (04/12/22 3:12 PM) Pulse Rate [55-90 bpm] 74 bpm (04/12/22 3:12 PM) Body Mass Index [18.5-24.99] 32.14 *>HHI* (04/12/22 3:12 PM) Blood Pressure [90-138/55-84 mm Hg] 125/ 74mm Hg (04/12/22 3:12 PM) Blood pressure sites Arm, right (04/12/22 3:12 PM) Weight Obtained Via Standing scale (04/12/22 3:12 PM) Social History Social History Type Response Smoking Status Never smoker; Tobacc o user in household: No entered on: 11/01/17 Sex
--- OUTSIDE RECORDS SUMMARY | 2024-04-17 12:27 | XMS_ITS | Continuity of Care Document ---
Author Organization [facility] Address [address] [place] [address], 4t [address] [place] [address]- Care Team Providers Care Lighting Fixtures Decorator Name Role Phone Alfa ROSADO MD, Gigi Hahn Primary Care Physician [phone] Encounter [facility] Date(s): 03/09/23 - 03/16/23 [facility] [address] [place] [address], 4th Floor [address] [place] [address] Attending Physician: Katya RICHEY, Yumiok Ambrose Referring Physician: Gigi Grimm III, MD Allergies, [...] 11:43:00 EST, Inhaler, Route to Pharmacy Electronically, [id number], [facility] #[id number], 160, cm, 10/11/19... Start Date: 10/11/19 Status: [...] 11 Refills, Maintenance, 02/03/23 17:52:00 EDT, Tablet, [facility]/pharmacy #[id number], Partial fill upon patient request if the prescription is for a schedule II opioid drug., 1 tablet By Mouth Daily, 163, cm, 02/03/23 16:... Start Date: 02/03/23 Status: Ordered Senna 8.6 mg oral tablet 1 or 2 tablets, By Mouth, Daily at bedtime, PRN, # 60 tablet, Refills 0, Tot. Refills 0, Maintenance, Constipation, 03/14/23 16:14:00 EDT, Route to Pharmacy Electronically, [facility]/pharmacy #[id number] Tablet,Partial fill upon patient request [...] oldest [Reference Range]: 1 Height 163 cm (03/09/23 2:08 PM) Weight 88 kg (03/09/23 2:08 PM) Pulse Rate [55-90 bpm] 66 bpm (03/09/23 2:08 PM) Body Mass Index [18.5-24.99 kg/m2] 33.12 kg/m2 *>HHI* (03/09/23 2:08 PM) Blood Pressure [90-138/55-84 mm Hg] 115/ 57mm Hg (03/09/23 2:08 PM) Blood pressure sites Arm, right (03/09/23 2:08 PM) Weight Obtained Via Standing scale (03/09/23 2:08 PM) Social History Social History Type Response Smoking Status Never smoker; Tobacc o user in household: No entered on: 11/01/17 Sex Female Note * Ofelia Zepeda MA: VERIFY, PERFORM, SIGN Event Display: Patient Education/Instruction Authored Date: [id number] [facility] *[facility] Clinical Summary Name JOSE TRIVEDI Age 33 Years 1990 PCP Alfa ROSADO MD, Gigi Hahn PCP Visit Date 03/09/2023 13:57:00 Additional Instructions: Scheduled Appointments?? Future Appointments ?No Future Appointments Scheduled Follow-Up Instructions ?? Diagnosis Medications: Please continue your medications until treatment is completed or stopped by your provider. Discuss any questions related to medications with your provider. Medications to Continue with No Changes These medications were not printed or sent to your pharmacy Acetaminophen/Butalbital/Caffeine (acetaminophen/butalbital/caffeine 325 mg-50 mg-40 mg oral tablet) 1 tab(s) Oral every 4 hours as needed for headache. Next Dose: Albuterol (albuterol CFC free 90 mcg/inh inhalation aerosol) 2 puff(s) Inhalation every 4 hours as needed Wheezing/Shortness of Breath. Refills: 2. Next Dose: amiTRIPTYLINE Oral Daily at Bedtime. Next Dose: Aspirin (Aspirin Enteric Coated 81 mg oral delayed release tablet) 1 tab(s) Oral Daily. Next Dose: Levothyroxine (levothyroxine 0.025 mg oral tablet) 1 tab(s) Oral Daily. Next Dose: Multivitamin, ( Multivitamins with Folic Acid 1 mg oral tablet) 1 tab(s) Oral Daily. Refills: 11. Next Dose: Allergy Info:?? Pineapple; Lobster; Latex; shellfish; ibuprofen Medications Given This Visit Future Orders ?HCG Plus Beta (Females and Males)? Order Date:03/09/23?- Complete by?03/09/23 ?FSH? Order Date:03/09/23?- Complete by?03/09/23 ?Estradiol (Female >= 16yrs)? Order Date:03/09/23?- Complete by?03/09/23 ?Prolactin Level? Order Date:03/09/23?- Complete by?03/09/23 ?TSH with T4 Reflex (Adults Only)? Order Date:03/09/23?- Complete by?03/09/23 ?LH? Order Date:03/09/23?- Complete by?03/09/23 ?Anti Mullerian Hormone? Order Date:03/09/23?- Complete on or after?03/09/23 ?Chlamydia/N. Gonorrhoeae TMA (NAAT)? Order Date:03/09/23?- Complete by?03/09/23 ?Varicella Zoster IgG Ab? Order Date:03/09/23?- Complete by?03/09/23 Vital Signs Height 163 cm Weight 88 kg BMI 33.12 kg/m2 Blood Pressure 115 mm Hg/57 mm Hg Temperature Pulse Rate 66 bpm Respiratory Rate 02 Sat Mode of Delivery / You can now view a summary of your hospital visit from the comfort of your home through a free online portal called [employer]. The Echo System is a website that allows you to securely view your medical information including discharge summary, medications and follow-up visits. ??You can alsosend a secure electronic message to your doctor???s office to request appointments, renew medications or just ask a question. You can enroll at [email or web address] or register during your next office visit. Disclaimer:?? The information provided is of a general nature and is intended to be used in conjunction with the recommendations and advice of your health care practitioner. ??Every effort has been made to ensure that the information provided is accurate and complete at the time it is provided to you however, as your needs change, or, as new ??information becomes available, different or additional instructions may be required. If you have questions, please consult with your primary care provider or pharmacist, as appropriate. ??This information is not intended to serve as substitution for assessment and evaluation by a qualified health care provider. If you do not have a primary care provider, you may find a [facility] provider by calling [facility] at [phone]. For information about the plan of care including goals and instructions for your diagnosis, please see the patient education orders section of this document. Patient Education Materials?? The content of this educational material or handout may have been modified, supplemented, or adapted from its original content and format to support your individualized medical care. Additional Provider Instructions: PT to follow provider instructions Patient Care team information Care Team Personnel Name: Gigi Grimm III, MD Position: Reference Physician Member Role: PCP Address: Address: [address] [place] [address] Name: Naila Martinez RN Position: OB RN Member Role: Primary Care Nurse Name: Lo Vernon RN [facility] OB RN Member Role: Primary Care Nurse Name: Elena Cabrera RN Position: [facility] HBO Wound Member Role: Primary Care Nurse Care Team Related Persons Name: CHERELLE STINSON Address: home [address] Name: TOREY JIMENEZ Address: home [address] Name: TOREY JIMENEZ Address: home [address] Name: JAMIE JIMENEZ Address: home [address] [place], [place] Name: JAMIE JIMENEZ Address: home [address] [place] [address] Name: TOREY TRIVEDI Address: home [address] [place], [place] Name: JOCELYN SANTIAGO Address: home [address] [place] [address]
--- OUTSIDE RECORDS SUMMARY | 2024-04-17 12:27 | XMS_ITS | Continuity of Care Document ---
Author Organization [facility] Address Unknown Care Team Providers Care Medical Cash Poster Name Role Phone Alfa ROSADO MD, Gigi Hahn Primary Care Physician En[facility] Date(s): 02/05/21 - 05/23/21 [facility] Attending Physician: Not on Staff, Attending MD Referring Physician: Joseline Lea CNM Allergies, Adverse Reactions, Alerts Substance Reaction [...] 11:43:00 EST, Inhaler, Route to Pharmacy Electronically, [id number], [facility] #[id number], 160, cm, 10/11/19... Start Date: 10/11/19 Status: [...] Maintenance, 01/25/21 9:00:00 EDT, REC Powder, [facility]/pharmacy #[id number], Partial fill upon patient [...] 0 Refills, Maintenance, 01/25/21 9:13:00 EDT, [facility] #[id number], Partial fill upon patient [...]
--- OUTSIDE RECORDS SUMMARY | 2024-04-17 12:27 | XMS_ITS | Continuity of Care Document ---
Author Organization [facility] Address Unknown Care Team Providers Care Primary Class Teacher Name Role Phone Alfa ROSADO MD, Gigi Hahn Primary Care Physician [phone] Encounter [facility] Date(s): 02/01/22 - 03/03/22 [facility] Attending Physician: Admtr, Baldo Admitting Physician: Admtr, Ar8 Referring Physician: [...] 11:43:00 EST, Inhaler, Route to Pharmacy Electronically, [id number], [facility] #[id number], 160, cm, 10/11/19... Start Date: 10/11/19 Status: [...] 11 Refills, Maintenance, 02/01/22 14:21:00 EDT, Tablet, [facility]/pharmacy #[id number], Partial fill upon patient request if the prescription is for a schedule II opioid drug., 1 tablet By Mouth Daily, 163, cm, 02/01/22 13:... Start Date: 02/01/22 Status: Ordered Provera 10 mg oral tablet 10 mg, 1, tablet, By Mouth, Daily, # 10 tablet, Refills 0, Tot. Refills 0, Maintenance, 02/04/22 15:01:00 EDT, Route to Pharmacy Electronically, [facility]/pharmacy #[id number], Partial fill upon [...]
--- OUTSIDE RECORDS SUMMARY | 2024-04-17 12:27 | XMS_ITS | Continuity of Care Document ---
Author Organization [facility] Address [address] [place] [address]- Care Team Providers Care Integrity Specialist Name Role Phone Alfa ROSADO MD, Gigi Hahn Primary Care Physician [id number] Date(s): 11/09/23 - 12/09/[address] [address]- Attending Physician: Admtr, Lito8 Admitting Physician: Admtr, Ar8 Referring Physician: Admtr, Ar8 Allergies, Adverse Reactions, Alerts Substance Reaction Severity Status ibuprofen throat swelling body rash Active shellfish Anaphylaxis Active Lobster Anaphylaxis Dust allergy Dogs Allergy to cats Active Pineapple Anaphylaxis Active Latex Rash Active Immunizations Given and Recorded Vaccine Date Status Refusal Reason tetanus/diphtheria/pertussis, acel(Tdap) 08/18/23 Given tetanus/diphtheria/pertussis, acel(Tdap) 01/25/17 Given SARS-CoV-2 mRNA (tmqekwh-bezu-gmwpz) vax 10/17/21 Recorded SARS-CoV-2 mRNA (gsdxgtq-bwyb-lnlza) vax 12/25/20 Recorded SARS-CoV-2 mRNA (aagjnlb-misa-whmfp) vax 12/04/20 Recorded pneumococcal 23-valent vaccine 03/31/16 Given Varicella Virus Vaccine 08/14/13 Recorded Medications acetaminophen 325 mg oral tablet 975 mg, 3, tablet, By Mouth, Every 6 hours, PRN, # 50 tablet, Refills 0, Tot. Refills 0, Maintenance, Pain , Moderate, 11/07/23 7:35:00 EST, Route to Pharmacy Electronically, [facility]/pharmacy #[id number], Partial fill upon patient request if the prescription is... Start Date: 11/07/23 Status: Ordered albuterol CFC free 90 mcg/inh inhalation aerosol 180 mcg, 2, puffs, Inhalation, Every 4 hours, PRN, # 1 each, Refills 2, Tot. Refills 2, Maintenance, 10/11/19 11:43:00 EST, Inhaler, Route to Pharmacy Electronically, [id number], [facility] #[id number], 160, cm, 10/11/19... Start Date: 10/11/19 Status: Ordered aspirin 81 mg oral tablet 2 tablet = 162 mg, By Mouth, Daily, # 180 tablet, 2 Refills, Maintenance, 09/19/23 15:50:00 EST, Tablet, [facility]/pharmacy #0693, Partial fill upon patient request if [...] Refills, Maintenance, 11/07/23 7:35:00 EST, REC Powder, [facility]/pharmacy #0693, Partial fill upon patient request if the prescription is for a schedule II opioid drug., 17 Gm By Mouth... Start Date: 11/07/23 Status: Ordered Multivitamins with Folic Acid 1 mg oral tablet 1 tablet, By Mouth, Daily, # 30 tablet, 11 Refills, Maintenance, 02/03/23 17:52:00 EDT, Tablet, [facility]/pharmacy #0693, Partial fill upon patient request if [...] Reference Physician Member Role: PCP Address: Address: [address] [place] [address] - Name: Naila Martinez RN Position: S OB RN Member Role: Primary Care Nurse Name: Lo Vernon RN Position: S OB RN Member Role: Primary Care Nurse Name: Elena Cabrera RN Position: [facility] HBO Wound Member Role: Primary Care Nurse Care Team Related Persons Name: CHERELLE STINSON Address: home [address] Name: JOSS BOBO Address: [address] Address: home [address] [place] [address] Name: TOREY JIMENEZ Address: home [address] Name: TOREY JIMENEZ Address: home [address] Name: JAMIE JIMENEZ Address: home [address] [place] [address] Name: JAMIE JIMENEZ Address: home [address] [place], [place] Name: TOREY QUESADA Address: home [address] [place], [place] Name: JOCELYN SANTIAGO Address: home [address] [place] [address]
--- OUTSIDE RECORDS SUMMARY | 2024-04-17 12:27 | XMS_ITS | Continuity of Care Document ---
Author Organization [facility] Address Unknown Care Team Providers Care Econometrician Name Role Phone Alfa ROSADO MD, Gigi Hahn Primary Care Physician [phone] [place] [facility] [place] 11/04/21 - 12/04/21 [facility] Allergies, Adverse Reactions, Alerts Substance Reaction Severity [...] 11:43:00 EST, Inhaler, Route to Pharmacy Electronically, [id number], [facility] #[id number], 160, cm, 10/11/19... Start Date: 10/11/19 Status: [...] Refills, Maintenance, 01/25/21 9:00:00 EDT, REC Powder, [facility]/pharmacy #[id number], Partial fill upon patient [...] tablet, 0 Refills, Maintenance, 11/08/21 11:38:00 EST, [facility], Partial fill upon patient request if the prescription is for a schedule II opioid drug., 1 tablet By Mouth Daily, 163, cm, 10/27/21 18:02:00 EST... Start Date: 11/08/21 Status: Ordered Provera 10 mg oral tablet 10 mg, 1, tablet, By Mouth, Daily, # 10 tablet, Refills 0, Tot. Refills 0, Maintenance, 11/08/21 15:07:00 EST, Route to Pharmacy Electronically, [facility]/pharmacy #0647, Partial fill upon patient request if the [...]
--- OUTSIDE RECORDS SUMMARY | 2024-04-17 12:27 | XMS_ITS | Continuity of Care Document ---
Author Organization [facility] Address [address] [place] [address]- Care Team Providers Care Hard Rock Drill Operator Name Role Phone Gigi Grimm III, MD Primary Care Physician [id number] Date(s): 12/30/22 - 02/04/[address] [address] Attending Physician: Kinga Steve DO Admitting Physician: Kinga Steve DO Referring Physician: Dawn Chandra MD Allergies, Adverse Reactions, Alerts Substance Reaction [...] 11:43:00 EST, Inhaler, Route to Pharmacy Electronically, [id number], [facility] #[id number], 160, cm, 01/24/20... Start Date: 10/11/19 Status: Ordered amiTRIPTYLINE By [...] Physician Member Role: PCP Address: Address: [address] [place] [address] [facility] Name: Naila Martinez RN Position: [facility] OB RN Member Role: Primary Care Nurse Name: Lo Vernon RN Position: [facility] OB RN Member Role: Primary Care Nurse Name: Elena Cabrera RN Position: [facility] HBO Wound Member Role: Primary Care Nurse Care Team Related Persons Name: CHERELLE STINSON Address: home [address] Name: TOREY JIMENEZ Address: home [address] Name: TOREY JIMENEZ Address: home [address] Name: JAMIE JIMENEZ Address: home [address] [place] [address] Name: JAMIE JIMENEZ Address: home [address] [address] Name: TOREY TRIVEDI Address: home [address] [place], [place] Name: JOCELYN SANTIAGO Address: home [address] [place] [address]
--- OUTSIDE RECORDS SUMMARY | 2024-04-17 12:27 | XMS_ITS | Continuity of Care Document ---
Author Organization [facility] Address [address] [facility], [address], [address] [place] [address]- Care Team Providers Care Mechanical Engineering Manager Name Role Phone Alfa ROSADO MD, Gigi Hahn Primary Care Physician Encounter [facility] Date(s): 08/04/20 - 09/03/20 [facility] [address] [facility], [address]rd Floor, [address] [place] [address]- Attending Physician: Baldo Nunes Admitting Physician: AdmBaldo dudley Referring Physician: AdmtrLito8 Allergies, Adverse Reactions, Alerts Substance Reaction Severity [...] 11:43:00 EST, Inhaler, Route to Pharmacy Electronically, [id number], [facility] #[id number], 160, cm, 10/11/19... Start Date: 10/11/19 Status: [...] 06/19/20 10:03:00 EDT, Route to Pharmacy Electronically, [facility]#43410, 160, cm, 06/19/20 9:41:00 EDT, Height, 80.7... Start Date: 06/19/20 Status: Ordered fluconazole 150 mg oral tablet 1 tablet = 150 mg, By Mouth, Once, # 1 tablet, 0 Refills, Soft Stop, 07/10/20 14:15:00 EDT, Tablet,[facility] #[id number], 160, cm, 07/09/20 8:55:00 EDT, Height, 80.7, [...] Refills, Maintenance, 06/19/20 10:23:00 EDT, REC Powder, [facility] #68326, 17 Gm By Mouth Daily,Instr:dissolve in water before taking, 160, cm, 06/19/20 9:41:00 EDT, Hei... Start Date: 06/19/20 Status: Ordered Multivitamin Tablet 1 tablet, By Mouth, Daily, 0 Refills, Maintenance, 10/09/19 16:58:00 EST Start Date: 10/09/19 Status: Ordered Multivitamins with Folic Acid 1 mg oral tablet 1 tablet, By Mouth, Daily, # 30 tablet, 11 Refills, Maintenance, 02/05/20 17:12:00 EDT, [facility] #[id number], 1 tablet By Mouth Daily, 160, cm, [...] 0 Refills, Maintenance, 10/11/19 10:15:00 EST, Tablet, [facility] #[id number], 160, cm, 10/11/19 5:03:00 EST, Height, 80.7, [...]
--- OUTSIDE RECORDS SUMMARY | 2024-04-17 12:27 | XMS_ITS | Continuity of Care Document ---
Author Organization [facility] Address [address] [place] [address]- Care Team Providers Care Mds Nurse Name Role Phone Alfa ROSADO MD, Gigi Hahn Primary Care Physician [id number] Date(s): 11/16/20 - 12/16/[address] [address] Attending Physician: AdmBaldo dudley Admitting Physician: [...] 11:43:00 EST, Inhaler, Route to Pharmacy Electronically, [id number], [facility] #[id number], 160, cm, 10/11/19... Start Date: 10/11/19 Status: [...] Refills, Maintenance, 11/16/20 14:57:00 EST, Suspension, [id number], Partial fill upon patient request if the prescription is for a schedule II opioid drug., 160, tiesha, 11/16/20 14:50:00 ES... Start Date: 11/16/20 Status: Ordered Plavix 75 mg oral tablet [...]
--- OUTSIDE RECORDS SUMMARY | 2024-04-17 12:27 | XMS_ITS | Continuity of Care Document ---
Author Organization [facility] Address [address] [place] [address]- Care Team Providers Care Silver Solderer Name Role Phone Gigi Grimm III, MD Primary Care Physician Encounter [facility] Date(s): 06/21/21 - 07/21/21 [facility] [address] [place] [address]- [place] Allergies, Adverse Reactions, Alerts Substance Reaction [...] 11:43:00 EST, Inhaler, Route to Pharmacy Electronically, [id number], [facility] #[id number], 160, cm, 10/11/19... Start Date: 10/11/19 Status: [...]
--- OUTSIDE RECORDS SUMMARY | 2024-04-17 12:27 | XMS_ITS | Continuity of Care Document ---
Author Organization [facility] Address [address] [place] [address]- Care Team Providers Care Animal Attendant Name Role Phone Alfa ROSADO MD, Gigi Hahn Primary Care Physician [place] [facility] 06/[place]/23 - 07/26/23 [facility] [address] [place] [address] Attending Physician: Baldo Nunes Admitting Physician: AdmtrBaldo Referring Physician: Admtr, Ar8 Allergies, Adverse Reactions, Alerts Substance Reaction Severity Status ibuprofen throat swelling body rash Active shellfish Anaphylaxis Active Latex Rash Active Lobster Anaphylaxis Dust allergy Dogs Allergy to cats Active Pineapple Anaphylaxis Active Immunizations Given and Recorded Vaccine Date Status Refusal Reason SARS-CoV-2 mRNA (wtlnaaf-qrda-uengn) vax 10/17/21 Recorded SARS-CoV-2 mRNA (vufddzc-oiui-sodot) vax 12/25/20 Recorded SARS-CoV-2 mRNA (ergdbut-czhp-ratfq) vax 12/04/20 Recorded tetanus/diphtheria/pertussis, acel(Tdap) 01/25/17 Given [...] 11:43:00 EST, Inhaler, Route to Pharmacy Electronically, [id number], [facility] #[id number], 160, cm, 10/11/19... Start Date: 10/11/19 Status: Ordered aspirin 81 mg oral tablet, chewable 162 mg, 2, tablet, Chew, Daily, # 180 tablet, Refills 3, Tot. Refills 3, Maintenance, 05/03/23 15:24:00 EDT, Route to Pharmacy Electronically, [facility]/pharmacy #[id number], Partial fill upon patient request [...] Refills, Maintenance, 03/27/23 17:46:00 EDT, Tablet, [facility]/pharmacy #[id number], Partial fill upon patient request [...] Reference Physician Member Role: PCP Address: Address: [address] [place], [place] [address] Name: Naila Martinez RN Position: S OB RN Member Role: Primary Care Nurse Name: Lo Vernon RN Position: S OB RN Member Role: Primary Care Nurse Name: Elena Cabrera RN Position: [facility] HBO Wound Member Role: Primary Care Nurse Care Team Related Persons Name: CHERELLE STINSON Address: home [address] Name: TOREY JIMENEZ Address: home [address] Name: TOREY JIMENEZ Address: home [address] Name: JAMIE JIMENEZ Address: home [address] [place] [address] Name: JAMIE JIMENEZ Address: home [address] [place], [place] Name: TOREY QUESADA Address: home [address] [place], [place] Name: JOCELYN SANTIAGO Address: home [address] [place] [address]
--- OUTSIDE RECORDS SUMMARY | 2024-04-17 12:27 | XMS_ITS | Continuity of Care Document ---
Author Organization [facility] Address [address] [place] [address]- Care Team Providers Care Fire Claims Adjuster Name Role Phone Alfa ROSADO MD, Gigi Hahn Primary Care Physician [phone] [id number] Date[facility]s): 10/19/23 - 12/14/[address] [address]- Attending Physician: Not on Staff, Attending MD Allergies, Adverse Reactions, Alerts Substance Reaction Severity Status ibuprofen throat swelling body rash Active Pineapple Anaphylaxis Active shellfish Anaphylaxis Active Latex Rash Active Lobster Anaphylaxis Dust allergy Dogs Allergy to cats Active Immunizations Given and Recorded Vaccine Date Status Refusal Reason tetanus/diphtheria/pertussis, acel(Tdap) 08/18/23 Given tetanus/diphtheria/pertussis, acel(Tdap) 01/25/17 Given SARS-CoV-2 mRNA (goxmcmh-miud-dlnlp) vax 10/17/21 Recorded SARS-CoV-2 mRNA (sjmyokv-twlp-qfoqb) vax 12/25/20 Recorded SARS-CoV-2 mRNA (rzdcmdn-sqzp-kpmjq) vax 12/04/20 Recorded pneumococcal 23-valent vaccine 03/31/16 Given Varicella Virus Vaccine 08/14/13 Recorded Medications acetaminophen 325 mg oral tablet 975 mg, 3, tablet, By Mouth, Every 6 hours, PRN, # 50 tablet, Refills 0, Tot. Refills 0, Maintenance, Pain , Moderate, 11/07/23 7:35:00 EST, Route to Pharmacy Electronically, [facility]/pharmacy #[id number], Partial fill upon patient request if the prescription is... Start Date: 11/07/23 Status: Ordered albuterol CFC free 90 mcg/inh inhalation aerosol 180 mcg, 2, puffs, Inhalation, Every 4 hours, PRN, # 1 each, Refills 2, Tot. Refills 2, Maintenance, 10/11/19 11:43:00 EST, Inhaler, Route to Pharmacy Electronically, [id number], [facility] #[id number], 160, cm, 10/11/19... Start Date: 10/11/19 Status: Ordered aspirin 81 mg oral tablet 2 tablet = 162 mg, By Mouth, Daily, # 180 tablet, 2 Refills, Maintenance, 09/19/23 15:50:00 EST, Tablet, [facility]/pharmacy #[id number], Partial fill [...] Reference Physician Member Role: PCP Address: Address: [address] [place] [address] - Name: Naila Martinez RN Position: [facility] OB RN Member Role: Primary Care Nurse Name: Lo Vernon RN Position: [facility] OB RN Member Role: Primary Care Nurse Name: Elena Cabrera RN Position: [facility] HBO Wound Member Role: Primary Care Nurse Care Team Related Persons Name: CHERELLE STINSON Address: home [address] Name: JOSS BOBO Address: [address] Address: home [address] [place] [address] Name: TOREY JIMENEZ Address: home [address] Name: TOREY JIMENEZ Address: home [address] Name: JAMIE JIMENEZ Address: home [address] [place] [address] Name: JAMIE JIMENEZ Address: home [address] [place] [address] Name: TOREY QUESADA Address: home [address] [place], [place] Name: JOCELYN SANTIAGO Address: home [address] [place] [address]
--- OUTSIDE RECORDS SUMMARY | 2024-04-17 12:27 | XMS_ITS | Continuity of Care Document ---
Author Organization [facility] Address [address] [place] [address]- Care Team Providers Care Seismic Engineer Name Role Phone Alfa ROSADO MD, Gigi Hahn Primary Care Physician [id number] Date[facility]s): [facility]/26/23 - 08/17/[address] [address]- Attending Physician: Charlotte Rojas CNM Admitting Physician: Charlotte Rojas CNM Allergies, Adverse Reactions, Alerts Substance Reaction Severity Status ibuprofen throat swelling body rash Active shellfish Anaphylaxis Active Latex Rash Active Lobster Anaphylaxis Dust allergy Dogs Allergy to cats Active Pineapple Anaphylaxis Active Immunizations Given and Recorded Vaccine Date Status Refusal Reason SARS-CoV-2 mRNA (ejabtyo-szvp-huiiz) vax 10/17/21 Recorded SARS-CoV-2 mRNA (hwaeuib-paef-pymhr) vax 12/25/20 Recorded SARS-CoV-2 mRNA (gnmxouz-lvgv-yogjh) vax 12/04/20 Recorded tetanus/diphtheria/pertussis, acel(Tdap) 01/25/17 Given [...] 11:43:00 EST, Inhaler, Route to Pharmacy Electronically, [id number], [id number], 160, cm, 10/11/19... Start Date: 10/11/19 Status: Ordered aspirin 81 mg oral tablet, chewable 162 mg, 2, tablet, Chew, Daily, # 180 tablet, Refills 3, Tot. Refills 3, Maintenance, 05/03/23 15:24:00 EDT, Route to Pharmacy Electronically, [facility]/pharmacy #[id number], Partial fill upon patient [...] Refills, Maintenance, 04/07/23 2:01:00 EDT, DIS Tablet, [facility]/pharmacy #[id number], Partial fill upon patient request if the prescription is for a schedule II opioid d... Start Date: 04/07/23 Status: Ordered ondansetron 8 mg oral tablet, disintegrating 1 tablet = 8 mg, By Mouth, 2 times a day, # 12 tablet, 0 Refills, Maintenance, 04/29/23 7:48:00 EDT, DIS Tablet, [facility]/pharmacy #[id number], Partial fill upon patient [...] 11 Refills, Maintenance, 02/03/23 17:52:00 EDT, Tablet, [facility]/pharmacy #[id number], Partial fill upon patient request if the prescription is for a schedule II opioid drug., 1 tablet By Mouth Daily, 163, cm, 02/03/23 16:... Start Date: 02/03/23 Status: Ordered promethazine 25 mg rectal suppository 1 supp = 25 mg, Rectally, Every 4 hours, PRN for nausea/vomiting, # 12 supp, 0 Refills, Maintenance, 04/25/23 11:26:00 EDT, Suppository, [facility]/pharmacy #[id number], Partial fill upon patient request if the prescription is for a schedule II opioid drug., 165,... Start Date: 04/25/23 Status: Ordered pyridoxine 25 mg oral tablet 1 tablet = 25 mg, By Mouth, 3 times a day, PRN Nausea & Vomiting, # 100 tablet, 8 Refills, Maintenance, 03/27/23 17:46:00 EDT, Tablet, [facility]/pharmacy #[id number], Partial fill upon patient request if theprescription is for a schedule II opioid drug., 163, cm... Start Date: 03/27/23 Status: Ordered Reglan 10 mg oral tablet 1 tablet = 10 mg, By Mouth, 3 times a day, PRN Nausea & Vomiting, # 28 tablet, 2 Refills, Maintenance, 03/30/23 19:35:00 EDT, [facility]/pharmacy #[id number], Partial fill upon patient request if the prescription is for a schedule II opioid drug., 163, cm, ... Start Date: 03/30/23 Status: Ordered Senna 8.6 mg oral tablet 1 or 2 tablets, By Mouth, Daily at bedtime, PRN, # 60 tablet, Refills 0, Tot. Refills 0, Maintenance, Constipation, 03/14/23 16:14:00 EDT, Route to Pharmacy Electronically, [facility]/pharmacy #[id number] Tablet,Partial fill upon patient request if the prescripti... Start Date: 03/14/23 Status: Ordered Unisom 25 mg oral tablet 1 tablet = 25 mg, By Mouth, Daily at bedtime, PRN for sleep, # 32 tablet, 1 Refills, Maintenance, 07/21/23 15:16:00 EDT, Tablet, [facility] #[id number], Partial fill upon patient request if the [...] Physician Member Role: PCP Address: Address: [address] [place] [address]- Name: Naila Martinez RN Position: [facility] OB RN Member Role: Primary Care Nurse Name: Lo Vernon RN Position: [facility] OB RN Member Role: Primary Care Nurse Name: Elena Cabrera RN Position: [facility] HBO Wound Member Role: Primary Care Nurse Care Team Related Persons Name: CHERELLE STINSON Address: home [address] Name: TOREY JIMENEZ Address: home [address] Name: TOREY JIMENEZ Address: home [address] Name: JAMIE JIMENEZ Address: home [address] [place] [address] Name: JAMIE JIMENEZ Address: home [address] [place] [address] Name: TOREY QUESADA Address: home [address] [place] [address] Name: JOCELYN SANTIAGO Address: home [address] [place] [address]
--- OUTSIDE RECORDS SUMMARY | 2024-04-17 12:27 | XMS_ITS | Continuity of Care Document ---
Author Organization [facility] Address [address] [place] [address]- Care Team Providers Care Toll Test Worker Name Role Phone Alfa ROSADO MD, Gigi Hahn Primary Care Physician Encounter [facility] Date(s): 04/06/23 - 05/06/[address] [address] Allergies, Adverse Reactions, Alerts Substance Reaction Severity Status ibuprofen throat swelling body rash Active shellfish Anaphylaxis Active Latex Rash Active Lobster Anaphylaxis Dust allergy Dogs Allergy to cats Active Pineapple Anaphylaxis Active Immunizations Given and Recorded Vaccine Date Status Refusal Reason SARS-CoV-2 mRNA (goupeve-esoc-gymyy) vax 10/17/21 Recorded SARS-CoV-2 mRNA (tkdnxnp-ufhj-pcdmr) vax 12/25/20 Recorded SARS-CoV-2 mRNA (ucdmdqe-nwxd-lwjis) vax 12/04/20 Recorded tetanus/diphtheria/pertussis, acel(Tdap) 01/25/17 Given [...] 11:43:00 EST, Inhaler, Route to Pharmacy Electronically, [id number], [id number], 160, cm, 10/11/19... Start Date: 10/11/19 Status: Ordered aspirin 81 mg oral tablet, chewable 162 mg, 2, tablet, Chew, Daily, # 180 tablet, Refills 3, Tot. Refills 3, Maintenance, 05/03/23 15:24:00 EDT, Route to Pharmacy Electronically, [facility]/pharmacy #[id number], Partial fill upon patient request ifthe [...] Maintenance, 04/07/23 2:01:00 EDT, DIS Tablet, [facility]/pharmacy #[id number], Partial fill upon patient request if the prescription is for a schedule II opioid d... Start Date: 04/07/23 Status: Ordered ondansetron 8 mg oral tablet, disintegrating 1 tablet = 8 mg, By Mouth, 2 times a day, # 12 tablet, 0 Refills, Maintenance, 04/29/23 7:48:00 EDT, DIS Tablet, [facility]/pharmacy #[id number], Partial fill upon patient request if the prescription is for a schedule II opioid drug., 165, cm, 04/24/23 13:25:00 ED... Start Date: 04/29/23 Status: Ordered Multivitamins with Folic Acid 1 mg oral tablet 1 tablet, By Mouth, Daily, # 30 tablet, 11 Refills, Maintenance, 02/03/23 17:52:00 EDT, Tablet, [facility]/pharmacy #[id number], Partial fill upon patient request if the prescription is for a schedule II opioid drug., 1 tablet By Mouth Daily, 163, cm, 02/03/23 16:... Start Date: 02/03/23 Status: Ordered promethazine 25 mg rectal suppository 1 supp = 25 mg, Rectally, Every 4 hours, PRN for nausea/vomiting, # 12 supp, 0 Refills, Maintenance, 04/25/23 11:26:00 EDT, Suppository, [facility]/pharmacy #[id number], Partial fill upon patient request if the prescription is for a schedule II opioid drug., 165,... Start Date: 04/25/23 Status: Ordered pyridoxine 25 mg oral tablet 1 tablet = 25 mg, By Mouth, 3 times a day, PRN Nausea & Vomiting, # 100 tablet, 8 Refills, Maintenance, 03/27/23 17:46:00 EDT, Tablet, [facility]/pharmacy #[id number], Partial fill upon patient request if theprescription is for a schedule II opioid drug., 163, cm... Start Date: 03/27/23 Status: Ordered Reglan 10 mg oral tablet 1 tablet = 10 mg, By Mouth, 3 times a day, PRN Nausea & Vomiting, # 28 tablet, 2 Refills, Maintenance, 03/30/23 19:35:00 EDT, [facility]/pharmacy #[id number], Partial fill upon patient request if the prescription is for a schedule II opioid drug., 163, cm, 2... Start Date: 03/30/23 Status: Ordered Senna 8.6 mg oral tablet 1 or 2 tablets, By Mouth, Daily at bedtime, PRN, # 60 tablet, Refills 0, Tot. Refills 0, Maintenance, Constipation, 03/14/23 16:14:00 EDT, Route to Pharmacy Electronically, [facility]/pharmacy #[id number] Tablet,Partial fill upon patient request if the prescripti... Start Date: 03/14/23 Status: Ordered Unisom 25 mg oral tablet 1 tablet = 25 mg, By Mouth, Daily at bedtime, PRN for sleep, # 32 tablet, 0 Refills, Maintenance, 03/27/23 17:46:00 EDT, Tablet, [facility]/pharmacy #[id number], Partial fill upon patient request if [...] Physician Member Role: PCP Address: Address: [address] [place] [address] - Name: Naila Martinez RN Position: [facility] RN Member Role: Primary Care Nurse Name: Lo Vernon RN Position: [facility] RN Member Role: Primary Care Nurse Name: Elena Cabrera RN Position: [facility] HBO Wound Member Role: Primary Care Nurse Care Team Related Persons Name: CHERELLE STINSON Address: home [address] Name: TOREY JIMENEZ Address: home [address] Name: TOREY JIMENEZ Address: home [address] Name: JAMIE JIMENEZ Address: home [address] [place] [address] Name: JAMIE JIMENEZ Address: home [address] [place] [address] Name: TOREY QUESADA Address: home [address] [place], [place] Name: JOCELYN SANTIAGO Address: home [address] [place] [address]
--- OUTSIDE RECORDS SUMMARY | 2024-04-17 12:28 | XMS_ITS | Continuity of Care Document ---
Author Organization [facility] Address [address] [place] [address]- Care Team Providers Care Oil Fire Specialist Name Role Phone Alfa ROSADO MD, Gigi Hahn Primary Care Physician Encounter [facility] [place] Date(s): 04/29/23 - 04/29/[address] [address] Discharge Disposition: A-D/C Home Attending Physician: Thuy Schumacher MD Admitting Physician: Thuy Schumacher MD Referring Physician: Thuy Schumacher MD Allergies, Adverse Reactions, Alerts Substance Reaction Severity Status ibuprofen throat swelling body rash Active shellfish Anaphylaxis Active Latex Rash Active Lobster Anaphylaxis Dust allergy Dogs Allergy to cats Active Pineapple Anaphylaxis Active Immunizations Given and Recorded Vaccine Date Status Refusal Reason SARS-CoV-2 mRNA (vmkgfdb-bmmm-xcyqh) vax 10/17/21 Recorded SARS-CoV-2 mRNA (dscbcyg-ilze-oysuy) vax 12/25/20 Recorded SARS-CoV-2 mRNA (wnyvujj-bcgd-xpumb) vax 12/04/20 Recorded tetanus/diphtheria/pertussis, acel(Tdap) 01/25/17 Given [...] 11:43:00 EST, Inhaler, Route to Pharmacy Electronically, [id number], [facility] #[id number], 160, cm, 10/11/19... Start Date: 10/11/19 Status: [...] 16:14:00 EDT, Route to Pharmacy Electronically, [facility]/pharmacy #[id number] Tablet,Partial fill upon patient [...] recent to oldest [Reference Range]: 1 Weight 83.2 kg (04/29/23 2:40 AM) Oxygen Saturation [94-100 %] 100 % (04/29/23 2:40 AM) Pulse Rate [55-90 bpm] 70 bpm (04/29/23 2:40 AM) Blood Pressure [90-138/55-84 mm Hg] 121/ 58mm Hg (04/29/23 2:40 AM) Respiratory Rate [16-30 br/min] 18 br/mi n (04/29/23 2:40 AM) Temperature [96.8-100.4 DegF] 97.9 DegF (04/29/23 2:40 AM) Mode of Delivery (Oxygen) Room air (04/29/23 2:40 AM) Blood pressure sites Arm, right (04/29/23 2:40 AM) Temperature Route Oral (04/29/23 2:40 AM) Dry Weight 83.2 kg (04/29/23 2:40 AM) Weight Obtained Via Standing scale (04/29/23 2:40 AM) Dry Weight Obtained Via Standing scale (04/29/23 2:40 AM) Social History Social History Type Response Smoking Status Never smoker; Tobacc o user in household: No entered on: 11/01/17 Sex Female Note * Mae Espinoza RN: PERFORM Event Display: Discharge/Transfer Note Hospital Authored Date: [id number] Nursing Discharge Note Entered On: 04/29/2023 6:48 EDT Performed On: 04/29/2023 6:48 EDT by Mae Espinoza RN Nursing Discharge Note 2 Discharge Time : 04/29/2023 6:41 EDT Discharge Level of Care at Discharge : Home/Halfway/Foster Care Patient Left Unit Via : Ambulatory Patient Accompanied Off Unit with : Other: self DC Instructions Provided & Signed by Pt : Yes Patient Understands D/C Instructions : Yes Patient Instructions Discharge Signed : Yes Did Pt have Specialty Bed or Wound Vac : No Mae Espinoza RN - 04/29/2023 6:48 EDT * Mae Espinoza RN: PERFORM Event Display: Patient Education/Instruction Authored Date: [id number] Inpatient Adult Discharge Instructions [address] [address] Name: JOSE TRIVEDI : 1990 Visit: 04/29/2023 00:51:00 Current Date: 04/29/2023 06:36 Account: [id number] Inpatient Adult Discharge Instructions We would like [...] and their families. Surveys are administered by [employer] ?? If further treatment with your primary care physician or another doctor is recommended, it is important for you to keep the appointment. Call your primary care physician or return to the Emergency Department immediately if your condition worsens, fails to improve, or new symptoms develop. If you need to find a doctor, you can call [facility] [employer] for a referral at [phone] or toll free at [phone] ([phone]) or log in to [email or web address].. ?? You can view and manage your care through the patient portal or by using a health care ambrocio of your choosing. [employer] is a website that allows you to securely view your medical information including your hospital discharge summary, office visit summaries, medications and follow-up visits. You can also request appointments, renew medications, and request access to your medical information using a health care ambrocio of your choosing, or just ask a question. You can enroll at [email or web address] or register during your next office visit. You have been discharged from [facility], Patient Care Unit: WETU1. If you have any questions regarding these instructions after you leave, please call us and we will be happy to assist you. [facility] Your Care Team Attending Physician Kwartin MD, Thuy E Tests Performed Below is a partial list of the tests performed during your hospitalization. You may have had other tests and procedures not included in this list. Please discuss all test results with your provider. Primary Care Provider Gigi Grimm III, MD Advance Directive Health Care Proxy on File No Discharge Vitals Temperature: 97.9 DegF Weight: 83.2 kg Pulse Rate: 70 bpm ?? Respiratory Rate: 18 br/min ?? Systolic Blood Pressure: 121 mm Hg ?? Diastolic Blood Pressure: 58 mm Hg ?? Oxygen Saturation: 100 % ?? Studies Pending All tests and labs ordered during this hospital stay have been completed unless listed below. Please discuss all pending results with your provider listed above in these instructions. ?? No incomplete studies found What to do next Instructions From Your Doctor Discharge Orders Scheduled Follow-Up Appointments Monday 10:00 AM EDT ?? Where: [facility] [address] [place] [address]- Status: Pending 2022 10:20 AM EDT ?? Where: [facility] [address] [place] [address]- Status: Pending Monday 10:40 AM EDT ?? With: Ivory Gomez MD Where: [facility] [address] [place] [address]- Status: Pending Monday 9:20 AM EDT ?? With: Charlotte Rojas CNM Where: [facility] [address] [place] [address]- Status: Pending You Need to Schedule the Following Appointments Follow Up with??[facility] [phone] Discharge Medications JOSE TRIVEDI :1990 Visit Date:04/29/2023 Medications: Please continue your medications until treatment [...] needed for Wheezing/Shortness of Breath Unchanged Aspirin (Aspirin Enteric Coated 81 mg [...] needed for as needed for nausea/vomiting Unchanged Promethazine (promethazine 25 mg rectal suppository) [...] Educational Leaflet Providered with your Discharge Instructions. Hyperemesis Gravidarum?? Comfort Tips During ?? Adapting to : Second Trimester?? Valuables and Belongings I fully understand and agree that [facility] accepts no responsibility for all my [...] are strongly encouraged to quit. Please call [facility] at [phone] or [phone] ([phone]) or log in to [email or web address] for referrals to smoking cessation programs. ?? 667 Suicide & Crisis Lifeline is available 10/04 if you or someone you know needs to find a reason to keep living. By calling 988 you'll be connected to a skilled, trained counselor at a crisis center in your area. INPATIENT DISCHARGE INSTRUCTIONS SIGNATURE PAGE JOSE TRIVEDI Location:[facility] Registration Date and Time:04/29/2023 00:51 EDT Primary Care Physician: Alfa ROSADO MD, Gigi Hahn, Attending Physician: Winsome RICHEY, Thuy Mahan, I FAROOQMARYANNJOSE, have received the above patient education materials/instructions and have verbalized understanding. If ambulance or transport services are being used I further acknowledge being given a choice of service. ?? If you need to contact me, please call me at this number: . Patient/Guidance And Control System Engineer Name: Patient/Guidance And Control System Engineer Signature: Relationship to Patient: Witness Name/Signature: Date: * Mae Espinoza RN: PERFORM Event Display: Patient Education Leaflets Authored Date: [id number] Hyperemesis Gravidarum ?? [id number] Hyperemesis Gravidarum Upset stomach (nausea) and vomiting [...] vitamin B6 and christopher. Don???t use any ifyc-hev-invscnw medicines or home remedies without talking with [...] advised ?? Last Reviewed Date: 2021 ?? [employer]. All rights reserved. This information is not intended as a substitute for professional medical care. Always follow your healthcare professional's instructions. ?? * Mae Espinoza RN: PERFORM Event Display: Patient Education Leaflets Authored Date: [id number] Comfort Tips During ?? [address] Comfort Tips During can bring discomfort of [...] belly. ?? Last Reviewed Date: 2023 ?? [id number] [employer]. All rights reserved. This information is not intended as a substitute for professional medical care. Always follow your healthcare professional's instructions. ?? * Mae Espinoza RN: PERFORM Event Display: Patient Education Leaflets Authored Date: [id number] Adapting to : Second Trimester ?? [address] Adapting to : Second Trimester Keep up [...] smoke. ??? Don???t breathe fumes from nail occitan, hair spray, cleansers, or other chemicals. ?? How daily issues affect your health Many things in your daily life impact your health. This can include transportation, money problems,housing, access to food, and school child care attendant. If you can???t get to medical appointments, [...] help. ?? Last Reviewed Date: 2021 ?? 0029-4024 [employer]. All rights reserved. This information is not intended as a substitute for professional medical care. Always follow your healthcare professional's instructions. ?? Patient Care team information Care Team Personnel Name: Gigi Grimm III, MD Position: Reference Physician Member Role: PCP Address: Address: [address] [place] [address] Name: Naila Martinez RN Position: [facility] RN Member Role: Primary Care Nurse Name: Lo Vernon RN Position: [facility] OB RN Member Role: Primary Care Nurse Name: Elena Cabrera RN Position: [facility] HBO Wound Member Role: Primary Care Nurse Name: Mae Espinoza RN Position: [facility] OB RN Member Role: OB RN Care Team Related Persons Name: NIYA STINSONUEL Address: home [address] Name: TOREY JIMENEZ Address: home [address] Name: TOREY JIMENEZ Address: home [address] [facility] [address] [place], [place] Name: JAMIE JMIENEZ Address: home [address] [place] [address] Name: JAMIE JIMENEZ Address: home [address] [place] [address] Name: TOREY TRIVEDI Address: home [address] [place], [place] Name: JOCELYN SANTIAGO Address: home [address] [place] [address]
--- OUTSIDE RECORDS SUMMARY | 2024-04-17 12:28 | XMS_ITS | Continuity of Care Document ---
Author Organization [facility] Address [address] [address]- Care Team Providers Care Fig Caprifier Name Role Phone Alfa ROSADO MD, Gigi Hahn Primary Care Physician [place] [facility] [place](s): 04/22/22 - 05/22/22 [facility] [address] [address] Allergies, Adverse Reactions, Alerts Substance [...] 11:43:00 EST, Inhaler, Route to Pharmacy Electronically, [id number], [facility][id number], 160, cm, 10/11/19... Start Date: 1/24/20 Status: [...] Maintenance, 01/25/21 9:00:00 EDT, REC Powder, [facility]/pharmacy #[id number], Partial fill upon patient request if the prescription is for a schedule II opioid drug., 3.5 Gm... Start Date: 01/25/21 Stop Date: 02/24/21 Status: Ordered Depo-Provera Contraceptive 150 mg/mL intramuscular suspension 1 mL = 150 mg, Intramuscular, Every 3 months, # 1 mL, 3 Refills, Maintenance, 02/04/21 10:33:00 EDT, Suspension, [facility]/pharmacy #[id number], Partial [...] Refills 0, Maintenance, Please deliver device to [address] [place] [address], [address] [place] [address], 05/12/22 10:33:00 EDT, Supply, 163, cm, 05/11/22 [...] 03/07/22 15:02:00 EDT, Route to Pharmacy Electronically, [facility]/pharmacy #[id number], Partial fill upon patient request if the prescription is for a schedule II opioid drug... Start Date: 03/07/22 Stop Date: 03/17/22 Status: Ordered Provera 10 mg oral tablet 10 mg, 1, tablet, By Mouth, Daily, # 10 tablet, Refills 0, Tot. Refills 0, Maintenance, 02/04/22 15:01:00 EDT, Route to Pharmacy Electronically, [facility]/pharmacy #[id number], Partial [...] Name: Alfa ROSADO MD, Gigi Hahn Address: [address] [place] [address]
--- OUTSIDE RECORDS SUMMARY | 2024-04-17 12:28 | XMS_ITS | Continuity of Care Document ---
Author Organization [facility] Address [address] [address]- Care Team Providers Care Student Success Coach Name Role Phone Janette RICHEY, Kiara Abbott Primary Care Physician Encounter [facility] [place] Date(s): 07/18/22 - 08/17/[address] [address] Allergies, Adverse Reactions, Alerts [...] 11:43:00 EST, Inhaler, Route to Pharmacy Electronically, [id number], [facility] #[id number], 160, cm, 10/11/19... Start Date: 10/11/19 Status: [...] Team Personnel Name: Naila Martinez RN Position: [facility] OB RN Member Role: Primary Care Nurse Name: Lo Vernon RN Position: [facility] OB RN Member Role: Primary Care Nurse Name: Elena Cabrera RN Position: [facility] HBO Wound Member Role: Primary Care Nurse Name: Kiara Savage MD Position: Reference Physician Member Role: PCP Address: Address: [address] [place] [address] [place] [address]- [place] Care Team Related Persons Name: CHERELLE STINSON Address: home [address] Name: TOREY JIMENEZ Address: home [address] Name: TOREY JIMENEZ Address: home [address] Name: JAMIE JIMENEZ Address: home [address] [place] [address] Name: JAMIE JIMENEZ Address: home [address] [place] [address] Name: TOREY TRIVEDI Address: home [address] [place], [place] Name: JOCELYN SANTIAGO Address: home [address] [place] [address]
--- OUTSIDE RECORDS SUMMARY | 2024-04-17 12:28 | XMS_ITS | Continuity of Care Document ---
Author Organization [facility] Address [address] [place] [address]- Care Team Providers Care Bank Consultant Name Role Phone Gigi Grimm III, MD Primary Care Physician [place] [facility] [place] - 06/30/[address] [address] Attending Physician: Mio Amador MD Admitting Physician: Mio Amador MD Referring Physician: iGgi Grimm III, MD Allergies, Adverse Reactions, Alerts [...] 11:43:00 EST, Inhaler, Route to Pharmacy Electronically, [id number], [facility] #[id number], 160, cm, 10/11/19... Start Date: 10/11/19 Status: [...] Refills, Maintenance, 01/25/21 9:00:00 EDT, REC Powder, [facility]/pharmacy #[id number], Partial fill upon [...] 0 Refills, Maintenance, 03/07/22 15:02:00 EDT, Tablet, [facility]/pharmacy #[id number], Partial fill upon patient request if the prescription is for a schedule II opioid drug., 163, cm, 02/01/22 13:49:00 EDT,... Start Date: 03/07/22 Stop Date: 03/28/22 Status: Ordered glycerin adult rectal suppository 1 supp, Rectally, Daily, PRN for constipation, # 24 supp, 6 Refills, Maintenance, 02/04/21 10:20:00EDT, Suppository, [facility]/pharmacy #[id number], Partial fill upon patient request if the prescription is for a schedule II opioid drug., 160, cm, 01/25/21 8:23:0... Start Date: 02/04/21 Status: Ordered Paragard IUD See Instructions, # 1 each, Refills 0, Tot. Refills 0, Maintenance, Please deliver device to [address] [place] [address], [address] [place] [address], 05/12/22 10:33:00 EDT, Supply, 163, cm, 05/11/22 13:31:00 EDT, Height, 82, kg, 10/27/21 18:02:00 EST, Dry... Start Date: 05/12/22 Status: Ordered Plan B One-Step 1.5 mg oral tablet 1.5 mg, 1, tablet, By Mouth, Once, # 1 tablet, Refills 0, Tot. Refills 0, Soft Stop, 05/31/22 11:44:00 EDT, Route to Pharmacy Electronically, [facility]/pharmacy #[id number], Partial fill upon patient request if the prescription is for a schedule II opioid drug.,... Start Date: 05/31/22 Status: Ordered PNV Plus oral tablet 1 tablet, By Mouth, Daily, # 30 tablet, 11 Refills, Maintenance, 12/07/21 9:53:00 EDT, [facility]/pharmacy#[id number], Partial fill upon patient request if the prescription is for a schedule II opioid drug., 1 tablet By Mouth Daily, 163, cm, 10/27/21 18:02:00 EST... Start Date: 12/07/21 Status: Ordered Multivitamins with Folic Acid 1 mg oral tablet 1 tablet, By Mouth, Daily, # 30 tablet, 11 Refills, Maintenance, 02/01/22 14:21:00 EDT, Tablet, [facility]/pharmacy #[id number], Partial [...] Date: 02/14/22 Status: Ordered Problem List Condition Confirmation Course Effective Dates Status Health St atus Informant Right ovarian cyst Confirmed Active Infertility, Female, Associated with Anovulation Confirmed Active Brain aneurysm Confirmed Active Migraine Confirmed Active Asthma, mild intermittent Confirmed Active Obese class I Confirmed Active Pain in female pelvis Confirmed Active Encounter for liletta IUD insertion Confirmed 01/11/19 Active PCOS - Polycystic ovarian syndrome Confirmed Active Social History Social History Type Response Smoking Status Never smoker; Tobacc o user in household: No entered on: 11/01/17 Sex Patient Care team information Personnel Name: Alfa ROSADO MD, Gigi Hahn Address: Address: [address] [place] [address]
--- OUTSIDE RECORDS SUMMARY | 2024-04-17 12:28 | XMS_ITS | Continuity of Care Document ---
Author Organization [facility] Address [address] [place] [address]- Care Team Providers Care Telephone Advice Nurse Name Role Phone Alfa ROSADO MD, Gigi Hahn Primary Care Physician [id number] - 11/19/[address] [address] Allergies, Adverse Reactions, Alerts Substance Reaction Severity [...] 11:43:00 EST, Inhaler, Route to Pharmacy Electronically, [id number], [facility] #[id number], 160, cm, 10/11/19... Start Date: 10/11/19 Status: Ordered Aspirin Enteric Coated 81 mg oral delayed release tablet 1 tablet = 81 mg, By Mouth, Daily Start Date: 10/09/19 Status: Ordered Depo-Provera Contraceptive 150 mg/mL intramuscular suspension 1 mL = 150 mg, Intramuscular, Every 3 months, # 1 mL, 3 Refills, Maintenance, 11/16/20 14:57:00 EST, Suspension, [id number], Partial fill upon patient request if the [...]
--- OUTSIDE RECORDS SUMMARY | 2024-04-17 12:28 | XMS_ITS | Continuity of Care Document ---
Author Organization [facility] Address [address] [place] [address]- Care Team Providers Care Church History Professor Name Role Phone Alfa ROSADO MD, Gigi Hahn Primary Care Physician [place] [facility] [place] Date(s): 10/06/23 - 11/05/23 [facility] [address] [place] [address]- Attending Physician: AdmBaldo dudley Admitting Physician: AdmtrBaldo Referring Physician: Admtr, Ar8 Allergies, Adverse Reactions, Alerts Substance Reaction Severity Status ibuprofen throat swelling body rash Active shellfish Anaphylaxis Active Latex Rash Active Lobster Anaphylaxis Dust allergy Dogs Allergy to cats Active Pineapple Anaphylaxis Active Immunizations Given and Recorded Vaccine Date Status Refusal Reason tetanus/diphtheria/pertussis, acel(Tdap) 08/18/23 Given tetanus/diphtheria/pertussis, acel(Tdap) 01/25/17 Given SARS-CoV-2 mRNA (vkjbozk-imjq-slkpr) vax 10/17/21 Recorded SARS-CoV-2 mRNA (wmzctlz-ygfp-ukyld) vax 12/25/20 Recorded SARS-CoV-2 mRNA (hqiztxr-ajjx-lyeoa) vax 12/04/20 Recorded pneumococcal 23-valent vaccine 03/31/16 Given Varicella Virus Vaccine 08/14/13 Recorded Medications albuterol CFC free 90 mcg/inh inhalation aerosol 180 mcg, 2, puffs, Inhalation, Every 4 hours, PRN, # 1 each, Refills 2, Tot. Refills 2, Maintenance, 10/11/19 11:43:00 EST, Inhaler, Route to Pharmacy Electronically, [id number], [facility] #[id number], 160, cm, 10/11/19... Start Date: 10/11/19 Status: [...] Reference Physician Member Role: PCP Address: Address: [address] [place] [address] - Name: Naila Martinez RN Position: S OB RN Member Role: Primary Care Nurse Name: Lo Vernon RN Position: S OB RN Member Role: Primary Care Nurse Name: Elena Cabrera RN Position: [facility] HBO Wound Member Role: Primary Care Nurse Care Team Related Persons Name: CHERELLE STINSON Address: home [address] [address] Name: TOREY JIMENEZ Address: home [address] [address] Name: TOREY JIMENEZ Address: home [address] [address] Name: JAMIE JIMENEZ Address: home [address] [address] Name: JAMIE JIMENEZ Address: home [address] [place] [address] Name: TOREY QUESADA Address: home [address] [place] [address] Name: JOSE TRIVEDI Address: [address] Address: home [address] [place] [address] [place] Name: JOCELYN SANTIAGO Address: home [address] [place] [address]
--- OUTSIDE RECORDS SUMMARY | 2024-04-17 12:28 | XMS_ITS | Continuity of Care Document ---
Author Organization [facility] Address [address] [place] [address], 4t [place] [address]- Care Team Providers Care Architecture Instructor Name Role Phone Alfa ROSADO MD, Gigi Hahn Primary Care Physician En[place] [facility] [place] Date(s): 10/28/22 - 11/27/22 [facility] [address] [place] [address], 4th [address] [place], [place] [address] Allergies, Adverse Reactions, Alerts Substance Reaction [...] 11:43:00 EST, Inhaler, Route to Pharmacy Electronically, [id number], [facility][id number], 160, cm, 10/11/19... Start Date: 10/11/19 Status: [...] Personnel Name: Gigi Grimm III, MD Position: [facility] Ambulatory (view) Member Role: PCP Address: Address: [address] [place] [address]- Name: Naila Martinez RN Position: [facility] OB RN Member Role: Primary Care Nurse Name: Lo Vernon RN Position: [facility] OB RN Member Role: Primary Care Nurse Name: Elena Cabrera RN Position: [facility] HBO Wound Member Role: Primary Care Nurse Care Team Related Persons Name: CHERELLE STINSON Address: home [address] [address] Name: TOREY JIMENEZ Address: home [address] [address] Name: TOREY JIMENEZ Address: home [address] [address] Name: JAMIE JIMENEZ Address: home [address] [address] Name: JAMIE JIMENEZ Address: home [address] [place] [address] Name: TOREY TRIVEDI Address: home [address] [place] [address] Name: JOCELYN SANTIAGO Address: home [address] [place] [address]
--- OUTSIDE RECORDS SUMMARY | 2024-04-17 12:28 | XMS_ITS | Continuity of Care Document ---
Author Organization [facility] Address [address] [place] [address]- Care Team Providers Care Police Matron Name Role Phone Alfa ROSADO MD, Gigi Hahn Primary Care Physician [phone] Encounter [facility] [place] Date(s): 08/02/23 - 09/01/[address] [email or web address] Allergies, Adverse Reactions, Alerts Substance Reaction Severity Status ibuprofen throat swelling body rash Active shellfish Anaphylaxis Active Pineapple Anaphylaxis Active Latex Rash Active Lobster Anaphylaxis Dust allergy Dogs Allergy to cats Active Immunizations Given and Recorded Vaccine Date Status Refusal Reason tetanus/diphtheria/pertussis, acel(Tdap) 08/18/23 Given tetanus/diphtheria/pertussis, acel(Tdap) 01/25/17 Given SARS-CoV-2 mRNA (hxnnkmc-tqqr-fgjsr) vax 10/17/21 Recorded SARS-CoV-2 mRNA (oijhpjf-azof-iuoon) vax 12/25/20 Recorded SARS-CoV-2 mRNA (crlzfet-mhvb-idupp) vax 12/04/20 Recorded pneumococcal 23-valent vaccine 03/31/16 [...] 11:43:00 EST, Inhaler, Route to Pharmacy Electronically, [id number], [id number], 160, cm, 10/11/19... Start Date: 10/11/19 Status: Ordered aspirin 81 mg oral tablet, chewable 162 mg, 2, tablet, Chew, Daily, # 180 tablet, Refills 3, Tot. Refills 3, Maintenance, 05/03/23 15:24:00 EDT, Route to Pharmacy Electronically, [facility]/pharmacy #[id number], Partial fill [...] Refills, Maintenance, 04/07/23 2:01:00 EDT, DIS Tablet, [facility]/pharmacy #[id number], Partial fill upon patient request if the prescription is for a schedule II opioid d... Start Date: 04/07/23 Status: Ordered ondansetron 8 mg oral tablet, disintegrating 1 tablet = 8 mg, By Mouth, 2 times a day, # 12 tablet, 0 Refills, Maintenance, 04/29/23 7:48:00 EDT, DIS Tablet, [facility]/pharmacy #[id number], Partial [...] 0 Refills, Maintenance, 04/25/23 11:26:00 EDT, Suppository, [facility]/pharmacy #[id number], Partial fill [...] tablet, 2 Refills, Maintenance, 03/30/23 19:35:00 EDT, [facility]/pharmacy #[id number], Partial fill [...] Refills, Maintenance, 07/21/23 15:16:00 EDT, Tablet, [id number], Partial fill upon patient request if the [...] Reference Physician Member Role: PCP Address: Address: [address] [place] [address]- Name: Naila Martinez RN Position: [facility] OB RN Member Role: Primary Care Nurse Name: Lo Vernon RN Position: [facility] OB RN Member Role: Primary Care Nurse Name: Elena Cabrera RN Position: [facility] HBO Wound Member Role: Primary Care Nurse Care Team Related Persons Name: CHERELLE STINSON Address: home [address] Name: TOREY JIMENEZ Address: home [address] Name: TOREY JIMENEZ Address: home [address] Name: JAMIE JIMENEZ Address: home [address] [place], [place] Name: JAMIE JIMENEZ Address: home [address] [place] [address] Name: TOREY QUESADA Address: home [address] [place], [place] Name: JOCELYN SANTIAGO Address: home [address] [place] [address]
--- OUTSIDE RECORDS SUMMARY | 2024-04-17 12:28 | XMS_ITS | Continuity of Care Document ---
Author Organization [facility] Address [address] [place] [address]- Care Team Providers Care Movie Projectionist Name Role Phone Gigi Grimm III, MD Primary Care Physician [phone] [place] [facility] [place]23 [place] 10/13/23 [facility] [address] [place] [address]- Attending Physician: Chayo RICHEY, Jonas Wang Referring Physician: Gigi Grimm III, MD Allergies, Adverse Reactions, Alerts Substance Reaction Severity Status ibuprofen throat swelling body rash Active Pineapple Anaphylaxis Active shellfish Anaphylaxis Active Latex Rash Active Lobster Anaphylaxis Dust allergy Dogs Allergy to cats Active Immunizations Given and Recorded Vaccine Date Status Refusal Reason tetanus/diphtheria/pertussis, acel(Tdap) 08/18/23 Given tetanus/diphtheria/pertussis, acel(Tdap) 01/25/17 Given SARS-CoV-2 mRNA (yyimqjh-qayu-opqvt) vax 10/17/21 Recorded SARS-CoV-2 mRNA (tvgqbfi-zvbe-drchj) vax 12/25/20 Recorded SARS-CoV-2 mRNA (psflxwp-ceyz-ybbyt) vax 12/04/20 Recorded pneumococcal 23-valent vaccine 03/31/16 Given Varicella Virus Vaccine 08/14/13 Recorded Medications albuterol CFC free 90 mcg/inh inhalation aerosol 180 mcg, 2, puffs, Inhalation, Every 4 hours, PRN, # 1 each, Refills 2, Tot. Refills 2, Maintenance, 10/11/19 11:43:00 EST, Inhaler, Route to Pharmacy Electronically, [id number], [facility] #[id number], 160, cm, 10/11/19... Start Date: 10/11/19 Status: [...] Refills, Maintenance, 02/03/23 17:52:00 EDT, Tablet, [id number], Partial fill upon patient request if the [...] recent to oldest [Reference Range]: 1 Weight 86.183 kg (10/06/23 11:03 AM) Dry Weight 86.183 kg (10/06/23 11:03 AM) Weight Obtained Via Patient/family state d (10/06/23 11:03 AM) Dry Weight Obtained Via Patient/family s tated (10/06/23 11:03 AM) Social History Social History Type Response Smoking Status Never smoker; Tobacc o user in household: No entered on: 11/01/17 Sex Female Note * Julieta Jesusita: PERFORM, SIGN, VERIFY Event Display: Patient Education/Instruction Authored Date: [id number] [facility] *[facility] Clinical Summary Name JOSE TRIVEDI Age 33 Years 1990 PCP Alfa ROSADO MD, Gigi Hahn PCP Visit Date 10/06/2023 11:17:00 Additional Instructions: Scheduled Appointments?? Future Appointments ?*[facility] ?[address]??[place],??[place],??[address] ?Phone:??--?Fax:??-- ?Appt. Date:??10/20/2023?9:40 AM ?Scheduled Provider:??Lise RICHEY, Aniya Follow-Up Instructions ?? Diagnosis Medications: Please continue your medications until treatment is completed or stopped by your provider. Discuss any questions related to medications with your provider. Medications to Continue with No Changes These medications were not printed or sent to your pharmacy Albuterol (albuterol CFC free 90 mcg/inh inhalation aerosol) 2 puff(s) Inhalation every 4 hours as needed Wheezing/Shortness of Breath. Refills: 2. Next Dose: Aspirin (aspirin 81 mg oral tablet) 2 tab(s) Oral Daily. Refills: 2. Next Dose: Durable Medical Equipment ( Cradle) Abdominal Band for . Refills: 0. Next Dose: Levothyroxine (levothyroxine 0.025 mg oral tablet) 1 tab(s) Oral Daily. Next Dose: Multivitamin, ( Multivitamins with Folic Acid 1 mg oral tablet) 1 tab(s) Oral Daily. Refills: 11. Next Dose: Allergy Info:?? Pineapple; Lobster; Latex; shellfish; ibuprofen Medications Given This Visit Future Orders ?No future orders Vital Signs Height Weight 86.183 kg BMI Blood Pressure / Temperature Pulse Rate Respiratory Rate 02 Sat Mode of Delivery / You can now view a summary of your hospital visit from the comfort of your home through a free online portal called [employer]. [employer] is a website that allows you to securely view your medical information including discharge summary, medications and follow-up visits. ??You can alsosend a secure electronic message to your doctor???s office to request appointments, renew medications or just ask a question. You can enroll at [email or web address] or register during your next office visit. [...] primary care provider, you may find a [facility] provider by calling [facility] at [phone]. [facility], in keeping with [facility] guidance, no longer requires face masks for staff, patientsor visitors in most situations. Similar to time spent indoors at other locations, there is the chance that you were exposed to respiratory viruses during your time with us (such as flu or COVID-19).? If you develop symptoms concerning for a viral respiratory infection, please seek testing (and treatment if indicated) from your medical provider or home test kit. For information about the plan of care including goals and instructions for your diagnosis, please see the patient education orders section of this document. Patient Education Materials?? The content of this educational material or handout may have been modified, supplemented, or adapted from its original content and format to support your individualized medical care. Patient Care team information Care Team Personnel Name: Alfa ROSADO MD, Gigi Hahn Position: Reference Physician Member Role: PCP Address: Address: [address] [place] [address] Name: Naila Martinez RN Position: S OB RN Member Role: Primary Care Nurse Name: Lo Vernon RN Position: S OB RN Member Role: Primary Care Nurse Name: Elena Cabrera RN Position: S HBO Wound Member Role: Primary Care Nurse Care Team Related Persons Name: CHERELLE STINSON Address: home [address] Name: TOREY JIMENEZ Address: home [address] Name: TOREY JIMENEZ Address: home [address] Name: JAMIE JIMENEZ Address: home [address] [place] [address] Name: JAMIE JIMENEZ Address: home [address] [address] Name: TOREY QUESADA Address: home [address] [place], [place] Name: JOCELYN SANTIAGO Address: home [address] [place] [address]
--- OUTSIDE RECORDS SUMMARY | 2024-04-17 12:28 | XMS_ITS | Continuity of Care Document ---
Author Organization [facility] ter Address [address] [place] [address]- Care Team Providers Care Post Partum Nurse Name Role Phone Alfa ROSADO MD, Gigi Hahn [id number] Date[facility]/07/22 - 07/07/[address] [address] Attending Physician: Admtr, [id number] Admitting [...] 11:43:00 EST, Inhaler, Route to Pharmacy Electronically, [id number], [facility][id number], 160, cm, 10/11/19... Start Date: 10/11/19 Status: [...] Refills, Maintenance, 01/25/21 9:00:00 EDT, REC Powder, [facility]/pharmacy #[id number], Partial fill upon patient request if the prescription is for a schedule II opioid drug., 3.5 Gm... Start Date: 01/25/21 Stop Date: 02/24/21 Status: Ordered Depo-Provera Contraceptive 150 mg/mL intramuscular suspension 1 mL = 150 mg, Intramuscular, Every 3 months, # 1 mL, 3 Refills, Maintenance, 02/04/21 10:33:00 EDT, Suspension, [facility]/pharmacy #[id number], Partial fill upon patient request if the prescription is for a schedule II opioid drug., 160, cm, 02/04/21 10:18:00 ED... Start Date: 02/04/21 Status: Ordered Janie 30 mg oral tablet 1 tablet = 30 mg, By Mouth, Once, # 1 tablet, 0 Refills, Soft Stop, 05/02/22 16:13:00 EDT, Tablet, [facility]/pharmacy #[id number], Partial fill upon patient request [...] 0 Refills, Maintenance, 03/07/22 15:02:00 EDT, Tablet, [facility]/pharmacy #[id number], Partial fill upon patient request if the prescription is for a schedule II opioid drug., 163, cm, 02/01/22 13:49:00 EDT,... Start Date: 03/07/22 Stop Date: 03/28/22 Status: Ordered glycerin adult rectal suppository 1 supp, Rectally, Daily, PRN for constipation, # 24 supp, 6 Refills, Maintenance, 02/04/21 10:20:00EDT, Suppository, [facility]/pharmacy #[id number], Partial fill upon patient request if the prescription is for a schedule II opioid drug., 160, cm, 01/25/21 8:23:0... Start Date: 02/04/21 Status: Ordered Paragard IUD See Instructions, # 1 each, Refills 0, Tot. Refills 0, Maintenance, Please deliver device to [address] [place] [address], [address] [place] [address], 05/12/22 10:33:00 EDT, Supply, 163, cm, 05/11/22 [...] Active Pain in female pelvis Confirmed Active PCOS - Polycystic ovarian syndrome Confirmed Active Social History Social History Type Response Smoking Status Never smoker; Tobacc o user in household: No entered on: 11/01/17 Sex Patient Care team information Personnel Name: Alfa ROSADO MD, Gigi Hahn Address: Address: [address] [place] [address]
--- OUTSIDE RECORDS SUMMARY | 2024-04-17 12:28 | XMS_ITS | Continuity of Care Document ---
Author Organization [facility] Address [address] [address]- Care Team Providers Care Biomedical Equipment Support Specialist Name Role Phone Alfa ROSADO MD, Gigi Hahn Primary Care Physician [place] [facility] [place] 12/10/19 - 12/20/19 [facility] [address] [place] [address]- [facility] Attending Physician: Admtr, [id number] Admitting Physician: Admtr, [...] 11:43:00 EST, Inhaler, Route to Pharmacy Electronically, [id number], [id number], 160, cm, 10/11/19... Start Date: 10/11/19 Status: [...] 0 Refills, Maintenance, 10/11/19 10:15:00 EST, [id number], 160, cm, 10/11/19 5:03:00 EST, Height, 80.7, [...]
--- OUTSIDE RECORDS SUMMARY | 2024-04-17 12:28 | XMS_ITS | Continuity of Care Document ---
Author Organization [facility] Address [address] [place] [address]- Care Team Providers Care Screw Machine Set Up Operator Tool Name Role Phone Alfa ROSADO MD, Gigi Hahn Primary Care Physician Encounter [facility] Date(s): 11/02/21 - 12/02/21 [facility] [address] [place] [address]- [place] Allergies, Adverse Reactions, Alerts Substance Reaction [...] 11:43:00 EST, Inhaler, Route to Pharmacy Electronically, [id number], [facility] #[id number], 160, cm, 10/11/19... Start Date: 10/11/19 Status: [...] Refills, Maintenance, 02/04/21 10:33:00 EDT, Suspension, [facility]/pharmacy #[id number], Partial fill upon patient request if the prescription is for a schedule II opioid drug., 160, cm, 02/04/21 10:18:00 ED... Start Date: 02/04/21 Status: Ordered glycerin adult rectal suppository 1 supp, Rectally, Daily, PRN for constipation, # 24 supp, 6 Refills, Maintenance, 02/04/21 10:20:00EDT, Suppository, [facility]/pharmacy #[id number], Partial fill upon patient request if the prescription is for a schedule II opioid drug., 160, cm, 01/25/21 8:23:0... Start Date: 02/04/21 Status: Ordered PNV Plus oral tablet 1 tablet, By Mouth, Daily, # 30 tablet, 0 Refills, Maintenance, 11/08/21 11:38:00 EST, [facility]/pharmacy#0693, Partial fill upon patient request if the prescription is for a schedule II opioid drug., 1 tablet By Mouth Daily, 163, cm, 10/27/21 18:02:00 EST... Start Date: 11/08/21 Status: Ordered Provera 10 mg oral tablet 10 mg, 1, tablet, By Mouth, Daily, # 10 tablet, Refills 0, Tot. Refills 0, Maintenance, 11/08/21 15:07:00 EST, Route to Pharmacy Electronically, [facility]/pharmacy #[id number], Partial fill upon patient request if the [...]
--- OUTSIDE RECORDS SUMMARY | 2024-04-17 12:28 | XMS_ITS | Continuity of Care Document ---
Author Organization [facility] Address Unknown Care Team Providers Care Retail Sales Lead Name Role Phone Alfa ROSADO MD, Gigi Hahn Primary Care Physician [place] [facility] [place] 02/04/22 - 03/06/22 [facility] Allergies, Adverse Reactions, Alerts Substance Reaction Severity [...] 11:43:00 EST, Inhaler, Route to Pharmacy Electronically, [id number], [facility] #[id number], 160, cm, 10/11/19... Start Date: 10/11/19 Status: [...] 01/25/21 9:00:00 EDT, REC Powder, [facility]/pharmacy #[id number], Partial fill upon patient request if the prescription is for a schedule II opioid drug., 3.5 Gm... Start Date: 01/25/21 Stop Date: 02/24/21 Status: Ordered Depo-Provera Contraceptive 150 mg/mL intramuscular suspension 1 mL = 150 mg, Intramuscular, Every 3 months, # 1 mL, 3 Refills, Maintenance, 02/04/21 10:33:00 EDT, Suspension, [facility]/pharmacy #[id number], Partial fill upon patient request if the prescription is for a schedule II opioid drug., 160, cm, 02/04/21 10:18:00 ED... Start Date: 02/04/21 Status: Ordered glycerin adult rectal suppository 1 supp, Rectally, Daily, PRN for constipation, # 24 supp, 6 Refills, Maintenance, 02/04/21 10:20:00EDT, Suppository, [facility]/pharmacy #[id number], Partial fill upon patient request if the prescription is for a schedule II opioid drug., 160, cm, 01/25/21 8:23:0... Start Date: 02/04/21 Status: Ordered PNV Plus oral tablet 1 tablet, By Mouth, Daily, # 30 tablet, 11 Refills, Maintenance, 12/07/21 9:53:00 EDT, [facility]/pharmacy#0693, Partial fill upon patient request if the prescription is for a schedule II opioid drug., 1 tablet By Mouth Daily, 163, cm, 10/27/21 18:02:00 EST... Start Date: 12/07/21 Status: Ordered Multivitamins with Folic Acid 1 mg oral tablet 1 tablet, By Mouth, Daily, # 30 tablet, 11 Refills, Maintenance, 02/01/22 14:21:00 EDT, Tablet, [facility]/pharmacy #[id number], Partial fill upon patient request if the prescription is for a schedule II opioid drug., 1 tablet By Mouth Daily, 163, cm, 02/01/22 13:... Start Date: 02/01/22 Status: Ordered Provera 10 mg oral tablet 10 mg, 1, tablet, By Mouth, Daily, # 10 tablet, Refills 0, Tot. Refills 0, Maintenance, 02/04/22 15:01:00 EDT, Route to Pharmacy Electronically, [facility]/pharmacy #[id number], Partial fill upon patient request if the [...]
--- OUTSIDE RECORDS SUMMARY | 2024-04-17 12:28 | XMS_ITS | Continuity of Care Document ---
Author Organization [facility] Address [address] [address]- Care Team Providers Care Soils Analyst Name Role Phone Gigi Grimm III, MD Primary Care Physician [id number] Date(s): 02/04/21 - 03/07/21 [facility] [address] [address] Attending Physician: Not on Staff, Attending MD [...] 11:43:00 EST, Inhaler, Route to Pharmacy Electronically, [id number], [facility] #[id number], 160, cm, 10/11/19... Start Date: 10/11/19 Status: [...] Refills, Maintenance, 01/25/21 9:00:00 EDT, REC Powder, [facility]/pharmacy #[id number], Partial fill upon patient [...] 8:59:00 EDT, 01/25/21 8:59:00 EDT, REC Powder, [facility]/pharmacy #[id number], Partial fill upon patient request if the prescription is for a schedule II o... Start Date: 01/25/21 Stop Date: 03/26/21 Status: Ordered NuLYTELY with Flavor Packs oral powder for reconstitution See Instructions, 4 liters By Mouth Once for colonoscopy, # 1 each, 0 Refills, Maintenance, 01/25/21 9:13:00 EDT, [facility]/pharmacy #[id number], Partial fill upon patient [...]
--- OUTSIDE RECORDS SUMMARY | 2024-04-17 12:28 | XMS_ITS | Continuity of Care Document ---
Author Organization [facility] Address [address] [address]- Care Team Providers Care Machine Wedger Name Role Phone Alfa ROSADO MD, Gigi Hahn Primary Care Physician [id number] Date(s): 11/16/20 - 11/23/20 [facility] and [address] [address]- Attending Physician: Not on Staff, Attending MD Referring Physician: Umu RICHEY, Isadora Mahan Allergies, Adverse Reactions, Alerts Substance Reaction Severity [...] 11:43:00 EST, Inhaler, Route to Pharmacy Electronically, [id number], [facility] #[id number], 160, cm, 10/11/19... Start Date: 10/11/19 Status: Ordered Aspirin Enteric Coated 81 mg oral delayed release tablet 1 tablet = 81 mg, By Mouth, Daily Start Date: 10/09/19 Status: Ordered Depo-Provera Contraceptive 150 mg/mL intramuscular suspension 1 mL = 150 mg, Intramuscular, Every 3 months, # 1 mL, 3 Refills, Maintenance, 11/16/20 14:57:00 EST, Suspension, [id number], Partial fill upon patient request if the [...] Active PCOS - Polycystic ovarian syndrome(Confirmed) Active Procedures Procedure Date Related Diagnosis Body Site Status Carotid artery Completed Vital Signs Most recent to oldest [Reference Range]: 1 Height 160 cm (11/16/20 2:50 PM) Weight 73 kg (11/16/20 2:50 PM) Body Mass Index [18.5-24.99] 28.52 *H* (11/16/20 2:50 PM) Social History Social History Type Response Smoking Status Never (less than 100 in lifetime) entered on: 04/16/19 Sex
--- OUTSIDE RECORDS SUMMARY | 2024-04-17 12:28 | XMS_ITS | Continuity of Care Document ---
Author Organization [facility] Address [address] [place] [address]- Care Team Providers Care Net Developer Consultant Name Role Phone Alfa ROSADO MD, Gigi Hahn Primary Care Physician [phone] [id number] Date(s): 05/26/23 - 06/25/[address] [address] Allergies, Adverse Reactions, Alerts Substance Reaction Severity Status ibuprofen throat swelling body rash Active shellfish Anaphylaxis Active Latex Rash Active Lobster Anaphylaxis Dust allergy Dogs Allergy to cats Active Pineapple Anaphylaxis Active Immunizations Given and Recorded Vaccine Date Status Refusal Reason SARS-CoV-2 mRNA (nihdfco-heiy-dpmzj) vax 10/17/21 Recorded SARS-CoV-2 mRNA (xluvahu-slno-hncaa) vax 12/25/20 Recorded SARS-CoV-2 mRNA (vtmwadk-cnci-klswy) vax 12/04/20 Recorded tetanus/diphtheria/pertussis, acel(Tdap) 01/25/17 Given [...] 11:43:00 EST, Inhaler, Route to Pharmacy Electronically, [id number], [id number], 160, cm, 10/11/19... Start Date: 10/11/19 Status: Ordered aspirin 81 mg oral tablet, chewable 162 mg, 2, tablet, Chew, Daily, # 180 tablet, Refills 3, Tot. Refills 3, Maintenance, 05/03/23 15:24:00 EDT, Route to Pharmacy Electronically, [facility]/pharmacy #[id number], Partial fill upon patient [...] Maintenance, 04/07/23 2:01:00 EDT, DIS Tablet, [facility]/pharmacy #[id number], Partial fill upon patient request if the prescription is for a schedule II opioid d... Start Date: 04/07/23 Status: Ordered ondansetron 8 mg oral tablet, disintegrating 1 tablet = 8 mg, By Mouth, 2 times a day, # 12 tablet, 0 Refills, Maintenance, 04/29/23 7:48:00 EDT, DIS Tablet, [facility]/pharmacy #[id number], Partial fill upon patient request if the prescription is for a schedule II opioid drug., 165, cm, 04/24/23 13:25:00 ED... Start Date: 04/29/23 Status: Ordered Multivitamins with Folic Acid 1 mg oral tablet 1 tablet, By Mouth, Daily, # 30 tablet, 11 Refills, Maintenance, 02/03/23 17:52:00 EDT, Tablet, [facility]/pharmacy #[id number], Partial fill upon patient request if the prescription is for a schedule II opioid drug., 1 tablet By Mouth Daily, 163, cm, 02/03/23 16:... Start Date: 02/03/23 Status: Ordered promethazine 25 mg rectal suppository 1 supp = 25 mg, Rectally, Every 4 hours, PRN for nausea/vomiting, # 12 supp, 0 Refills, Maintenance, 04/25/23 11:26:00 EDT, Suppository, [facility]/pharmacy #[id number], Partial fill upon patient request if the prescription is for a schedule II opioid drug., 165,... Start Date: 04/25/23 Status: Ordered pyridoxine 25 mg oral tablet 1 tablet = 25 mg, By Mouth, 3 times a day, PRN Nausea & Vomiting, # 100 tablet, 8 Refills, Maintenance, 03/27/23 17:46:00 EDT, Tablet, [facility]/pharmacy #[id number], Partial fill upon patient request if theprescription is for a schedule II opioid drug., 163, cm... Start Date: 03/27/23 Status: Ordered Reglan 10 mg oral tablet 1 tablet = 10 mg, By Mouth, 3 times a day, PRN Nausea & Vomiting, # 28 tablet, 2 Refills, Maintenance, 03/30/23 19:35:00 EDT, [facility]/pharmacy #[id number], Partial fill upon patient [...] Refills, Maintenance, 03/27/23 17:46:00 EDT, Tablet, [facility]/pharmacy #[id number], Partial fill upon patient [...] Reference Physician Member Role: PCP Address: Address: [address] [place] [address] - Name: Naila Martinez RN Position: S OB RN Member Role: Primary Care Nurse Name: Lo Vernon RN Position: S OB RN Member Role: Primary Care Nurse Name: Elena Cabrera RN Position: [facility] HBO Wound Member Role: Primary Care Nurse Care Team Related Persons Name: CHERELLE STINSON Address: home [address] Name: TOREY JIMENEZ Address: home [address] Name: TOREY JIMENEZ Address: [address] Name: JAMIE JIMENEZ Address: home [address] [place], [place] Name: JAMIE JIMENEZ Address: home [address] [place] [address] Name: TOREY QUESADA Address: home [address] [place], [place] Name: JOCELYN SANTIAGO Address: home [address] [place] [address]
--- OUTSIDE RECORDS SUMMARY | 2024-04-17 12:28 | XMS_ITS | Continuity of Care Document ---
Author Organization [facility] Address Unknown Care Team Providers Care Receivables Specialist Name Role Phone Gigi Grimm III, MD Primary Care Physician [phone] [place] [facility] Date(s): 03/03/22 - 04/02/22 [facility] Allergies, Adverse Reactions, Alerts [...] 11:43:00 EST, Inhaler, Route to Pharmacy Electronically, [id number], [facility] #[id number], 160, cm, 10/11/19... Start Date: 10/11/19 Status: [...] Refills, Maintenance, 01/25/21 9:00:00 EDT, REC Powder, [facility]/pharmacy #[id number], Partial fill upon patient request if the prescription is for a schedule II opioid drug., 3.5 Gm... Start Date: 01/25/21 Stop Date: 02/24/21 Status: Ordered Depo-Provera Contraceptive 150 mg/mL intramuscular suspension 1 mL = 150 mg, Intramuscular, Every 3 months, # 1 mL, 3 Refills, Maintenance, 02/04/21 10:33:00 EDT, Suspension, [facility]/pharmacy #[id number], Partial fill upon patient [...]
--- OUTSIDE RECORDS SUMMARY | 2024-04-17 12:29 | XMS_ITS | Continuity of Care Document ---
Author Organization [facility] Address [address] [place] [address]- Care Team Providers Care Grinding Mill Operator Name Role Phone Alfa ROSADO MD, Gigi Hahn Primary Care Physician [id number] Date(s): 10/19/20 - 11/18/[address] [address] Allergies, Adverse Reactions, Alerts [...] 11:43:00 EST, Inhaler, Route to Pharmacy Electronically, [id number], [facility] #[id number], 160, cm, 10/11/19... Start Date: 10/11/19 Status: Ordered Aspirin Enteric Coated 81 mg oral delayed release tablet 1 tablet = 81 mg, By Mouth, Daily Start Date: 10/09/19 Status: Ordered Depo-Provera Contraceptive 150 mg/mL intramuscular suspension 1 mL = 150 mg, Intramuscular, Every 3 months, # 1 mL, 3 Refills, Maintenance, 11/16/20 14:57:00 EST, Suspension, [id number], Partial fill upon patient request if the [...]
--- OUTSIDE RECORDS SUMMARY | 2024-04-17 12:29 | XMS_ITS | Continuity of Care Document ---
Author Organization [facility] Address [address] [place] [address]- Care Team Providers Care Inoculator Name Role Phone Alfa ROSADO MD, Gigi Hahn Primary Care Physician Encounter [facility] R [id number] Date(s): 10/12/23 - 11/11/[address] [address]- Allergies, Adverse Reactions, Alerts Substance Reaction Severity Status ibuprofen throat swelling body rash Active shellfish Anaphylaxis Active Latex Rash Active Lobster Anaphylaxis Dust allergy Dogs Allergy to cats Active Pineapple Anaphylaxis Active Immunizations Given and Recorded Vaccine Date Status Refusal Reason tetanus/diphtheria/pertussis, acel(Tdap) 08/18/23 Given tetanus/diphtheria/pertussis, acel(Tdap) 01/25/17 Given SARS-CoV-2 mRNA (uhjdzbz-moly-pgvgf) vax 10/17/21 Recorded SARS-CoV-2 mRNA (afdqilf-wuox-lrisu) vax 12/25/20 Recorded SARS-CoV-2 mRNA (mxhbhnb-srzy-ehuyd) vax 12/04/20 Recorded pneumococcal 23-valent vaccine 03/31/16 Given Varicella Virus Vaccine 08/14/13 Recorded Medications acetaminophen 325 mg oral tablet 975 mg, 3, tablet, By Mouth, Every 6 hours, PRN, # 50 tablet, Refills 0, Tot. Refills 0, Maintenance, Pain , Moderate, 11/07/23 7:35:00 EST, Route to Pharmacy Electronically, [facility]acy #[id number], Partial fill upon patient request if the prescription is... Start Date: 11/07/23 Status: Ordered albuterol CFC free 90 mcg/inh inhalation aerosol 180 mcg, 2, puffs, Inhalation, Every 4 hours, PRN, # 1 each, Refills 2, Tot. Refills 2, Maintenance, 10/11/19 11:43:00 EST, Inhaler, Route to Pharmacy Electronically, [id number], [facility][id number], 160, cm, 10/11/19... Start Date: 10/11/19 Status: [...] Physician Member Role: PCP Address: Address: [address] [place] [address] [facility] Name: Naila Martinez RN Position: S OB RN Member Role: Primary Care Nurse Name: Lo Vernon RN Position: [facility] OB RN Member Role: Primary Care Nurse Name: Elena Cabrera RN Position: [facility] HBO Wound Member Role: Primary Care Nurse Care Team Related Persons Name: CHERELLE STINSON Address: home [address] Name: JOSS BOBO Address: [id number] Address: home [address] [place], [place] Name: TOREY JIMENEZ Address: home [address] Name: TOREY JIMENEZ Address: [address] Name: JAMIE JIMENEZ Address: home [address] [place] [address] Name: JAMIE JIMENEZ Address: home [address] [address] Name: TOREY QUESADA Address: home [address] [place], [place] Name: JOCELYN SANTIAGO Address: home [address] [place] [address]
--- OUTSIDE RECORDS SUMMARY | 2024-04-17 12:29 | XMS_ITS | Continuity of Care Document ---
Author Organization [facility] Address [address] [place] [address]- Care Team Providers Care Design Verification Engineer Name Role Phone Alfa ROSADO MD, Gigi Hahn Primary Care Physician [id number] Date(s): 05/26/23 - 09/15/[address] [address]- Attending Physician: Not on Staff, Attending MD Admitting Physician: Charlotte Rojas CNM Allergies, Adverse Reactions, Alerts Substance Reaction Severity Status ibuprofen throat swelling body rash Active shellfish Anaphylaxis Active Latex Rash Active Lobster Anaphylaxis Dust allergy Dogs Allergy to cats Active Pineapple Anaphylaxis Active Immunizations Given and Recorded Vaccine Date Status Refusal Reason tetanus/diphtheria/pertussis, acel(Tdap) 08/18/23 Given tetanus/diphtheria/pertussis, acel(Tdap) 01/25/17 Given SARS-CoV-2 mRNA (ewultse-eepe-ruabk) vax 10/17/21 Recorded SARS-CoV-2 mRNA (kqbjjsa-lelr-khxzj) vax 12/25/20 Recorded SARS-CoV-2 mRNA (qptvwta-fgwb-ipsjk) vax 12/04/20 Recorded pneumococcal 23-valent vaccine 03/31/16 [...] 11:43:00 EST, Inhaler, Route to Pharmacy Electronically, [id number], [id number], 160, cm, 10/11/19... Start Date: 10/11/19 Status: Ordered aspirin 81 mg oral tablet 2 tablet = 162 mg, By Mouth, Daily, # 180 tablet, 1 Refills, Maintenance, 09/13/23 6:56:00 EST, Tablet, [facility]/pharmacy #[id number], Partial fill upon patient request if the prescription is for a schedule II opioid drug., 165, cm, 09/01/23 11:54:00 EST, Height... Start Date: 09/13/23 Status: Ordered aspirin 81 mg oral tablet, chewable 162 mg, 2, tablet, Chew, Daily, # 180 tablet, Refills 3, Tot. Refills 3, Maintenance, 05/03/23 15:24:00 EDT, Route to Pharmacy Electronically, [facility]/pharmacy #[id number], Partial fill upon patient request [...] 03/14/23 16:14:00 EDT, Route to Pharmacy Electronically, [facility]/pharmacy #[id number] Tablet,Partial fill upon patient request if the prescripti... Start Date: 03/14/23 Status: Ordered Unisom 25 mg oral tablet 1 tablet = 25 mg, By Mouth, Daily at bedtime, PRN for sleep, # 32 tablet, 1 Refills, Maintenance, 07/21/23 15:16:00 EDT, Tablet, [facility]/pharmacy #[id number], Partial fill upon patient request [...] Reference Physician Member Role: PCP Address: Address: [address] [place] [address] Name: Naila Martinez RN Position: [facility] OB RN Member Role: Primary Care Nurse Name: Lo Vernon RN Position: [facility] OB RN Member Role: Primary Care Nurse Name: Elena Cabrera RN Position: [facility] HBO Wound Member Role: Primary Care Nurse Care Team Related Persons Name: CHERELLE STINSON Address: home [address] Name: TOREY JIMENEZ Address: home [address] Name: TOREY JIMENEZ Address: home [address] [facility] [address] [place], [place] Name: JAMIE JIMENEZ Address: home [address] [place] [address] Name: JAMIE JIMENEZ Address: home [address] [place] [address] Name: TOREY QUESADA Address: home [address] [place], [place] Name: JOCELYN SANTIAGO Address: home [address] [place] [address]
--- OUTSIDE RECORDS SUMMARY | 2024-04-17 12:29 | XMS_ITS | Continuity of Care Document ---
Author Organization [facility] Address [address] [place] [address]- Care Team Providers Care Jacquard Loom Fixer Name Role Phone Alfa ROSADO MD, Gigi Hahn Primary Care Physician [phone] Encounter [facility] Date(s): 07/11/23 - 08/10/[address] [address] Allergies, Adverse Reactions, Alerts Substance Reaction Severity Status ibuprofen throat swelling body rash Active Pineapple Anaphylaxis Active shellfish Anaphylaxis Active Latex Rash Active Lobster Anaphylaxis Dust allergy Dogs Allergy to cats Active Immunizations Given and Recorded Vaccine Date Status Refusal Reason SARS-CoV-2 mRNA (ecphksz-lhbg-vadei) vax 10/17/21 Recorded SARS-CoV-2 mRNA (ifncztb-ufld-ppyax) vax 12/25/20 Recorded SARS-CoV-2 mRNA (qfbrwci-wuky-nvlbx) vax 12/04/20 Recorded tetanus/diphtheria/pertussis, acel(Tdap) 01/25/17 Given [...] 11:43:00 EST, Inhaler, Route to Pharmacy Electronically, [id number], [id number], 160, cm, 10/11/19... Start Date: 10/11/19 Status: [...] Refills, Maintenance, 04/29/23 7:48:00 EDT, DIS Tablet, [facility] [...] 11 Refills, Maintenance, 02/03/23 17:52:00 EDT, Tablet, [facility]/pharmacy [...] EDT, Tablet, [facility]/pharmacy #[id number], Partial fill upon patient request if the [...] Reference Physician Member Role: PCP Address: Address: [address] [place] [address] [facility] Name: Naila Martinez RN Position: [facility] OB RN Member Role: Primary Care Nurse Name: Lo Vernon RN Position: [facility] OB RN Member Role: Primary Care Nurse Name: Elena Cabrera RN Position: [facility] HBO Wound Member Role: Primary Care Nurse Care Team Related Persons Name: CHERELLE STINSON Address: home [address] Name: TOREY JIMENEZ Address: home [address] Name: TOREY JIMENEZ Address: home [address] Name: JAMIE JIMENEZ Address: home [address] [address] Name: JAMIE JIMENEZ Address: home [address] [place], [place] Name: TOREY QUESADA Address: home [address] [place], [place] Name: JOCELYN SANTIAGO Address: home [address] [place], [place]
--- OUTSIDE RECORDS SUMMARY | 2024-04-17 12:29 | XMS_ITS | Continuity of Care Document ---
[facility] Address Unknown Care Team Providers Care Design Supervisor Name Role Phone Alfa ROSADO MD, Gigi Hahn Primary Care Physician En[place] [facility] Date(s): 02/01/22 - 02/08/22 [facility] Attending Physician: Micaela RICHEY, Maddie Rolle Referring Physician: Irlanda Costa CNM Allergies, Adverse [...] 11:43:00 EST, Inhaler, Route to Pharmacy Electronically, [id number], [facility] #[id number], 160, cm, 10/11/19... Start Date: 10/11/19 Status: [...] Refills, Maintenance, 01/25/21 9:00:00 EDT, REC Powder, [facility]/pharmacy #[id number], Partial fill upon patient request if the prescription is for a schedule II opioid drug., 3.5 Gm... Start Date: 01/25/21 Stop Date: 02/24/21 Status: Ordered Depo-Provera Contraceptive 150 mg/mL intramuscular suspension 1 mL = 150 mg, Intramuscular, Every 3 months, # 1 mL, 3 Refills, Maintenance, 02/04/21 10:33:00 EDT, Suspension, [facility]/pharmacy #[id number], Partial fill upon patient request if [...] 11 Refills, Maintenance, 02/01/22 14:21:00 EDT, Tablet, [facility]/pharmacy #[id number], Partial fill upon patient request if the prescription is for a schedule II opioid drug., 1 tablet By Mouth Daily, 163, cm, 02/01/22 13:... Start Date: 02/01/22 Status: Ordered Provera 10 mg oral tablet 10 mg, 1, tablet, By Mouth, Daily, # 10 tablet, Refills 0, Tot. Refills 0, Maintenance, 02/04/22 15:01:00 EDT, Route to Pharmacy Electronically, [facility]/pharmacy #[id number], Partial fill upon patient request if [...] oldest [Reference Range]: 1 Height 163 cm (02/01/22 1:00 PM) Social History Social History Type Response Smoking Status Never smoker; Tobacc o user in household: No entered on: 11/01/17 Sex
--- OUTSIDE RECORDS SUMMARY | 2024-04-17 12:29 | XMS_ITS | Continuity of Care Document ---
Author Organization [facility] Address [address] [place] [address]- Care Team Providers Care Personnel Interviewer Name Role Phone Alfa ROSADO MD, Gigi Hahn Primary Care Physician [place] [facility] [id number] Date(s): 11/08/23 - 12/08/[address] [address]- Allergies, Adverse Reactions, Alerts Substance Reaction Severity Status ibuprofen throat swelling body rash Active shellfish Anaphylaxis Active Latex Rash Active Lobster Anaphylaxis Dust allergy Dogs Allergy to cats Active Pineapple Anaphylaxis Active Immunizations Given and Recorded Vaccine Date Status Refusal Reason tetanus/diphtheria/pertussis, acel(Tdap) 08/18/23 Given tetanus/diphtheria/pertussis, acel(Tdap) 01/25/17 Given SARS-CoV-2 mRNA (bqfsvff-xpwy-pinag) vax 10/17/21 Recorded SARS-CoV-2 mRNA (mtxiwzu-pnak-glrym) vax 12/25/20 Recorded SARS-CoV-2 mRNA (nhswysr-lnic-ugrqg) vax 12/04/20 Recorded pneumococcal 23-valent vaccine 03/31/16 Given Varicella Virus Vaccine 08/14/13 Recorded Medications acetaminophen 325 mg oral tablet 975 mg, 3, tablet, By Mouth, Every 6 hours, PRN, # 50 tablet, Refills 0, Tot. Refills 0, Maintenance, Pain , Moderate, 11/07/23 7:35:00 EST, Route to Pharmacy Electronically, [facility]/pharmacy #[id number], Partial fill upon patient request if the prescription is... Start Date: 11/07/23 Status: Ordered albuterol CFC free 90 mcg/inh inhalation aerosol 180 mcg, 2, puffs, Inhalation, Every 4 hours, PRN, # 1 each, Refills 2, Tot. Refills 2, Maintenance, 10/11/19 11:43:00 EST, Inhaler, Route to Pharmacy Electronically, [id number], [facility] #[id number], 160, cm, 10/11/19... Start Date: 10/11/19 Status: [...] Physician Member Role: PCP Address: Address: [address] [place] [address] [facility] Name: Naila Martinez RN Position: S OB RN Member Role: Primary Care Nurse Name: Lo Vernon RN Position: [facility] OB RN Member Role: Primary Care Nurse Name: Elena Cabrera RN Position: [facility] HBO Wound Member Role: Primary Care Nurse Care Team Related Persons Name: CHERELLE STINSON Address: home [address] Name: JOSS BOBO Address: [id number] Address: home [address] [place], [place] Name: TOREY JIMENEZ Address: home [address] Name: TOREY JIMENEZ Address: home [address] Name: JAMIE JIMENEZ Address: home [address] [place] [address] Name: JAMIE JIMENEZ Address: home [address] [place], [place] Name: TOREY QUESADA Address: home [address] [place], [place] Name: JOCELYN SANTIAGO Address: home [address] [place] [address]
--- OUTSIDE RECORDS SUMMARY | 2024-04-17 12:29 | XMS_ITS | Continuity of Care Document ---
Author Organization [facility] Address Unknown Care Team Providers Care Radiocommunications Technician Name Role Phone Alfa ROSADO MD, Gigi Hahn Primary Care Physician [phone] Encounter [facility] Date(s): 04/04/22 - 05/04/22 [facility] Allergies, Adverse Reactions, Alerts [...] 11:43:00 EST, Inhaler, Route to Pharmacy Electronically, [id number], [facility] #[id number], 160, cm, 10/11/19... Start Date: 10/11/19 Status: [...] Maintenance, 01/25/21 9:00:00 EDT, REC Powder, [facility]/pharmacy #[id number], Partial fill upon patient request [...] Height, 82,... Start Date: 05/02/22 Status: Ordered Estrace 2 mg oral tablet [...]
--- OUTSIDE RECORDS SUMMARY | 2024-04-17 12:29 | XMS_ITS | Continuity of Care Document ---
Author Organization [facility] Address [address] [address]- Care Team Providers Care Software Verification Engineer Name Role Phone Alfa ROSADO MD, Gigi Hahn Primary Care Physician [phone] Encounter [facility] Date(s): 06/22/20 - 07/22/20 [facility] [address] [address]- [facility] Allergies, Adverse Reactions, Alerts Substance [...] 11:43:00 EST, Inhaler, Route to Pharmacy Electronically, [id number], [facility] #[id number], 160, cm, 10/11/19... Start Date: 10/11/19 Status: [...] 06/19/20 10:03:00 EDT, Route to Pharmacy Electronically, [facility][id number], 160, cm, 06/19/20 9:41:00 EDT, Height, 80.7... Start Date: 06/19/20 Status: Ordered fluconazole 150 mg oral tablet 1 tablet = 150 mg, By Mouth, Once, # 1 tablet, 0 Refills, Soft Stop, 07/10/20 14:15:00 EDT, Tablet,[facility] #[id number], 160, cm, 07/09/20 8:55:00 EDT, Height, 80.7, [...] Refills, Maintenance, 06/19/20 10:23:00 EDT, REC Powder, [facility] #[id number], 17 Gm By Mouth Daily,Instr:dissolve in water before taking, 160, cm, 06/19/20 9:41:00 EDT, Hei... Start Date: 06/19/20 Status: Ordered Multivitamin Tablet 1 tablet, By Mouth, Daily, 0 Refills, Maintenance, 10/09/19 16:58:00 EST Start Date: 10/09/19 Status: Ordered Multivitamins with Folic Acid 1 mg oral tablet 1 tablet, By Mouth, Daily, # 30 tablet, 11 Refills, Maintenance, 02/05/20 17:12:00 EDT, [facility] #[id number], 1 tablet By Mouth Daily, 160, cm, [...] 0 Refills, Maintenance, 10/11/19 10:15:00 EST, Tablet, [facility] #[id number], 160, cm, 10/11/19 5:03:00 EST, Height, 80.7, [...]
--- OUTSIDE RECORDS SUMMARY | 2024-04-17 12:29 | XMS_ITS | Continuity of Care Document ---
Author Organization [facility] Address [address] [place] [address]- Care Team Providers Care Mortgage Specialist Name Role Phone Alfa ROSADO MD, Gigi Hahn Primary Care Physician Encounter [facility] Date(s): 05/05/23 - 06/10/[address] [address] Attending Physician: Kinga Steve DO Admitting Physician: Kinga Steve DO Referring Physician: Kinga Steve DO Allergies, Adverse Reactions, Alerts Substance Reaction Severity Status ibuprofen throat swelling body rash Active shellfish Anaphylaxis Active Pineapple Anaphylaxis Active Latex Rash Active Lobster Anaphylaxis Dust allergy Dogs Allergy to cats Active Immunizations Given and Recorded Vaccine Date Status Refusal Reason SARS-CoV-2 mRNA (wmbjtjz-btjz-dfdcn) vax 10/17/21 Recorded SARS-CoV-2 mRNA (giumcsc-ezex-sfpxp) vax 12/25/20 Recorded SARS-CoV-2 mRNA (dojkwdz-tptu-nvgbq) vax 12/04/20 Recorded tetanus/diphtheria/pertussis, acel(Tdap) 01/25/17 Given [...] 11:43:00 EST, Inhaler, Route to Pharmacy Electronically, [id number], [facility] #[id number], 160, cm, 10/11/19... Start Date: 10/11/19 Status: Ordered aspirin 81 mg oral tablet, chewable 162 mg, 2, tablet, Chew, Daily, # 180 tablet, Refills 3, Tot. Refills 3, Maintenance, 05/03/23 15:24:00 EDT, Route to Pharmacy Electronically, [facility]/pharmacy #[id number], Partial fill upon [...] 0 Refills, Maintenance, 04/25/23 11:26:00 EDT, Suppository, [facility]/pharmacy #[id number], Partial fill upon patient request if the prescription is for a schedule II opioid drug., 165,... Start Date: 04/25/23 Status: Ordered pyridoxine 25 mg oral tablet 1 tablet = 25 mg, By Mouth, 3 times a day, PRN Nausea & Vomiting, # 100 tablet, 8 Refills, Maintenance, 03/27/23 17:46:00 EDT, Tablet, [facility]/pharmacy #[id number], Partial fill upon patient request if theprescription is for a schedule II opioid drug., 163, cm... Start Date: 03/27/23 Status: Ordered Reglan 10 mg oral tablet 1 tablet = 10 mg, By Mouth, 3 times a day, PRN Nausea & Vomiting, # 28 tablet, 2 Refills, Maintenance, 03/30/23 19:35:00 EDT, [facility]/pharmacy #[id number], Partial fill upon patient request if the prescription is for a schedule II opioid drug., 163, cm, ... Start Date: 03/30/23 Status: Ordered Senna 8.6 mg oral tablet 1 or 2 tablets, By Mouth, Daily at bedtime, PRN, # 60 tablet, Refills 0, Tot. Refills 0, Maintenance, Constipation, 03/14/23 16:14:00 EDT, Route to Pharmacy Electronically, [facility]/pharmacy #[id number] Tablet,Partial fill upon patient request [...] Physician Member Role: PCP Address: Address: [address] [place] [address] Name: Naila Martinez RN Position: [facility] OB RN Member Role: Primary Care Nurse Name: Lo Vernon RN Position: [facility] OB RN Member Role: Primary Care Nurse Name: Elena Cabrera RN Position: [facility] HBO Wound Member Role: Primary Care Nurse Care Team Related Persons Name: CHERELLE STINSON Address: home [address] Name: TOREY JIMENEZ Address: home [address] Name: TOREY JIMENEZ Address: home [address] Name: JAMIE JIMENEZ Address: home [address] [place], [place] Name: JAMIE JIMENEZ Address: home [address] [place] [address] Name: TOREY QUESADA Address: home [address] [place], [place] Name: JOCELYN SANTIAGO Address: home [address] [place] [address]
--- OUTSIDE RECORDS SUMMARY | 2024-04-17 12:29 | XMS_ITS | Continuity of Care Document ---
Author Organization [facility] Address [address] [place] [id number]- Care Team Providers Care Vocational Rehab Consultant Name Role Phone Alfa ROSADO MD, Gigi Hahn Primary Care Physician Encounter [facility] Date(s): 09/04/23 - 09/04/[address] [address] Discharge Disposition: A-D/C Home Attending Physician: Unruly [...] Given tetanus/diphtheria/pertussis, acel(Tdap) 01/25/17 Given SARS-CoV-2 mRNA (sdjfghx-htfb-vfatx) vax 10/17/21 Recorded SARS-CoV-2 mRNA (yguwlcf-rqjv-xznqc) vax 12/25/20 Recorded SARS-CoV-2 mRNA (apgqftg-vdlh-huudf) vax 12/04/20 Recorded pneumococcal 23-valent vaccine 03/31/16 [...] 11:43:00 EST, Inhaler, Route to Pharmacy Electronically, [id number], [facility] #[id number], 160, cm, 10/11/19... Start Date: 10/11/19 Status: Ordered aspirin 81 mg oral tablet, chewable 162 mg, 2, tablet, Chew, Daily, # 180 tablet, Refills 3, Tot. Refills 3, Maintenance, 05/03/23 15:24:00 EDT, Route to Pharmacy Electronically, [facility]/pharmacy #[id number], Partial fill upon patient request ifthe prescription is for a schedule II opioid drug.,... Start Date: 05/03/23 Stop Date: 04/27/24 Status: Ordered levothyroxine 0.025 mg oral tablet 1 tablet = 25 mcg, By Mouth, Daily, 0 Refills, Maintenance, 03/09/23 14:14:00 EDT, Partial fill upon patient request if the prescription is for a schedule II opioid drug. Start Date: 03/09/23 Status: Ordered metroNIDAZOLE 500 mg oral tablet 1 tablet = 500 mg, By Mouth, 2 times a day, for 7 days, # 14 tablet, 0 Refills, Acute 09/11/23 15:32:00 EST, 09/04/23 15:32:00 EST, Tablet, [facility][id number], Partial fill upon patient request if the prescription is for a schedule II opioid drug., 16... Start Date: 09/04/23 Stop Date: 09/11/23 Status: Ordered ondansetron 4 mg oral tablet, [...] 03/14/23 16:14:00 EDT, Route to Pharmacy Electronically, [facility]/pharmacy #[id number] Tablet,Partial fill upon patient request if the prescripti... Start Date: 03/14/23 Status: Ordered Unisom 25 mg oral tablet 1 tablet = 25 mg, By Mouth, Daily at bedtime, PRN for sleep, # 32 tablet, 1 Refills, Maintenance, 07/21/23 15:16:00 EDT, Tablet, [facility]/pharmacy #[id number], Partial fill upon patient [...] Most recent to oldest [Reference Range]: 1 Oxygen Saturation [94-100 %] 100 % (09/04/23 1:57 PM) Blood Pressure [90-138/55-84 mm Hg] 102/ 58mm Hg (09/04/23 1:57 PM) Respiratory Rate [16-30 br/min] 18 br/mi n (09/04/23 1:57 PM) Temperature [96.8-100.4 DegF] 98.6 DegF (09/04/23 1:48 PM) Mode of Delivery (Oxygen) Room air (09/04/23 1:57 PM) Blood pressure sites Arm, left (09/04/23 1:57 PM) Temperature Route Oral (09/04/23 1:48 PM) Dry Weight 90.2 kg (09/04/23 1:48 PM) Dry Weight Obtained Via Standing scale (09/04/23 1:48 PM) Social History Social History Type Response Smoking Status Never smoker; Tobacc o user in household: No entered on: 11/01/17 Sex Female Note * Meche Salazar RN: PERFORM Event Display: Discharge/Transfer Note Hospital Authored Date: [id number] Nursing Discharge Note Entered On: 09/04/2023 15:57 EST Performed On: 09/04/2023 15:35 EST by Meche Salazar RN Nursing Discharge Note 2 Discharge Time : 09/04/2023 15:35 EST Discharge Level of Care at Discharge : Home/Nursing Home/Foster Care Patient Left Unit Via : Ambulatory Patient Accompanied Off Unit with : Significant other DC Instructions Provided & Signed by Pt : Yes Patient Understands D/C Instructions : Yes Patient Instructions Discharge Signed : Yes Did Pt have Specialty Bed or Wound Vac : No Meche Salazar RN - 09/04/2023 15:56 EST * Meche Salazar RN: PERFORM Event Display: Patient Education/Instruction Authored Date: [id number] Inpatient Adult Discharge Instructions [address] [address] Name: JOSE TRIVEDI : 1990 Visit: 09/04/2023 13:12:00 Current Date: 09/04/2023 15:16 Account: [id number] Inpatient Adult Discharge Instructions We would like [...] and their families. Surveys are administered by [employer] ?? If further treatment with your primary care physician or another doctor is recommended, it is important for you to keep the appointment. Call your primary care physician or return to the Emergency Department immediately if your condition worsens, fails to improve, or new symptoms develop. If you need to find a doctor, you can call [facility] Link for a referral at [phone] or toll free at [phone]) or log in to [email or web address].. ?? [facility], in keeping with [facility] guidance, no longer requires face masks [...] a health care ambrocio of your choosing. [employer] is a website that allows you to securely view your medical information including your hospital discharge summary, office visit summaries, medications and follow-up visits. You can also request appointments, renew medications, and request access to your medical information using a health care ambrocio of your choosing, or just ask a question. You can enroll at [email or web address] or register during your next office visit. You have been discharged from [facility], Patient Care Unit: WETU1. If you have any questions regarding these instructions after you leave, please call us and we will be happy to assist you. [facility] Your Care Team Attending Physician Unruly Martinez MD Tests Performed Below is a partial list of the tests performed during your hospitalization. You may have had other tests and procedures not included in this list. Please discuss all test results with your provider. Primary Care Provider Gigi Grimm III, MD Advance Directive Health Care Proxy on File No Discharge Vitals Temperature: 98.6 DegF Respiratory Rate: 18 br/min Systolic Blood Pressure: 102 mm Hg Diastolic Blood Pressure: 58 mm Hg Oxygen Saturation: 100 % Studies Pending All tests and labs ordered during this hospital stay have been completed unless listed below. Please discuss all pending results with your provider listed above in these instructions. ?? No incomplete studies found What to do next Instructions From Your Doctor Discharge Orders Scheduled Follow-Up Appointments Monday 3:40 PM EST ?? Where: [facility] - Administrative Services Assistant [address] [place] [address]- Status: Pending Monday 2:20 PM EST ?? With: Tess Medeiros MD Where: [facility] - Administrative Services Assistant [address] [place] [phone]- Status: Pending You Need to Schedule the Following Appointments Follow Up with??[facility] [phone] Discharge Medications JOSE TRIVEDI :1990 Visit Date:09/04/2023 Medications: Please continue your medications until treatment [...] Bedtime as needed for for sleep Unchanged Durable Medical Equipment ( [employer]rad[employer]) See [...] Educational Leaflet Providered with your Discharge Instructions. Bacterial Vaginosis?? Vaginal Infection: Bacterial Vaginosis?? Vaginal Infection: Understanding the Vaginal Environment?? Kick Counts?? Understanding Labor?? Valuables and Belongings I fully understand and agree that [facility] accepts no responsibility for all my [...] are strongly encouraged to quit. Please call [facility] Link at [phone] or [phone] ([phone]) or log in to [email or web address] for referrals to smoking cessation programs. ?? 322 Suicide & Crisis Lifeline is available 10/04 if you or someone you know needs to find a reason to keep living. By calling 005 you'll be connected to a skilled, trained counselor at a crisis center in your area. INPATIENT DISCHARGE INSTRUCTIONS SIGNATURE PAGE JOSE TRIVEDI Location:[facility] Registration Date and Time:09/04/2023 13:12 EST Primary Care Physician: Gigi Grimm III, MD, Attending Physician: Unruly Martinez MD, JOSE QUACH, have received the above patient education materials/instructions and have verbalized understanding. If ambulance or transport services are being used I further acknowledge being given a choice of service. ?? If you need to contact me, please call me at this number: . Patient/Collection Specialist Name: Patient/Collection Specialist Signature: Relationship to Patient: Witness Name/Signature: Date: * Meche Salazar RN: PERFORM Event Display: Patient Education Leaflets Authored Date: [id number] Bacterial Vaginosis ?? [id number] Bacterial Vaginosis You have a vaginal infection called bacterial vaginosis (BV). Both good and bad bacteria are present in a healthy vagina. BV occurs when these bacteria get out of balance. The number of bad bacteria increase. And the number of good bacteria decrease. BV is linked with sexual activity, but it's not a sexually transmitted infection (STI). BV may or may not cause symptoms. If symptoms do occur, they can include: ??? Thin, william, milky-white, or sometimes green discharge ??? Unpleasant odor or ???fishy?? smell ??? Itching, burning, or pain in or around the vagina It's not known what causes BV, but certain factors can make the problem more likely. These can include: ??? Douching ??? Spermicides ??? Use of antibiotics ??? Change in hormone levels with , , or menopause ??? Having sex with a new partner ??? Having sex with more than one partner BV will sometimes go away on its own. But treatment is often advised. This is because untreated BV can raise the risk of more serious health problems, such as: ??? Pelvic inflammatory disease (PID) ??? delivery (giving to a baby early if you???re ) ??? HIV and some other sexually transmitted infections (STIs) ??? Infection after surgery on the reproductive organs Home care General care ??? BV is most often treated with medicines called antibiotics. These may be given as pills or as avaginal cream.??If antibiotics are prescribed, be sure to use them exactly as directed. And complete all of the medicine, even if your symptoms go away. ??? Don't douche or have sex during treatment.??? If you have sex with a female partner, ask your healthcare provider if she should also be treated. Prevention ??? Don't douche. ??? Don't have sex. If you do have sex, take steps to lower your risk:o Use condoms when having sex. o Limit the number of sex partners you have. ?? Follow-up care Follow up with your healthcare provider, or as advised. ?? When to get medical advice Call your healthcare provider right away if any of the following occur: ??? You have a fever of??100.4??F (38??C)??or higher, or as directed by your healthcare provider. ??? Your symptoms get worse, or they don???t go away within a few days of starting treatment. ??? You have new pain in the lower belly??or pelvic region. ??? You have side effects that bother you or a reaction to the pills or cream you???re prescribed. ??? You or any of your sex partners have new symptoms, such as a rash, jointpain, or sores. ?? Last Reviewed Date: 2022 ?? [employer]. All rights reserved. This information is not intended as a substitute for professional medical care. Always follow your healthcare professional's instructions. ?? * Meche Salazar RN: PERFORM Event Display: Patient Education Leaflets Authored Date: [id number] Vaginal Infection: Bacterial Vaginosis ?? [address]150 Vaginal Infection: Bacterial Vaginosis Both good and bad bacteria are present in a healthy vagina. Bacterial vaginosis (BV) occurs when these bacteria get out of balance. The numbers of good bacteria decrease. This allows the numbers of bad bacteria to increase and cause BV. BV is not a serious problem in most cases. Causes of bacterial vaginosis The cause of BV is not clear. Douching may lead to it. Having sex with a new partner or more than??one partner makes it more likely. ?? Symptoms of bacterial vaginosis Symptoms of BV vary for each person. Some people have few symptoms or none at all. If symptoms are present, they can include: ??? Thin, milky white or william or sometimes green discharge ??? Unpleasant???fishy?? odor ??? Irritation, itching, and burning at opening of vagina. This may mean it's caused by more than one type of bacteria. ??? Burning or irritation with sex or when you pee. This may mean it's caused by more than one type of bacteria. ?? Diagnosing bacterial vaginosis Your healthcare provider will ask about your symptoms and health history. They will also do a pelvic exam. This is an exam of your vagina and cervix. They may take a sample of vaginal fluid or discharge. This sample is checked for signs of BV. ?? Treating bacterial vaginosis BV is often treated with antibiotics. They may be given as a pill you take by mouth or as a vaginalcream. To use these medicines: ??? Be sure to take all of your medicine, even if your symptoms go away. ??? If you???re taking antibiotic pills, don't drink alcohol until you???re finished with all of your medicine. ??? If you???re using vaginal cream, apply it as directed. Be aware that the cream may make condoms and diaphragms less effective. ??? Call your healthcare provider if symptoms don't go away within 4 days of starting treatment. Also call if you have a reaction to the medicine. ?? Why treatment matters BV should be treated even if you have no symptoms or your symptoms are mild. Untreated BV can lead to health problems such as: ??? Increased risk for delivery if you???re ??? Increased risk for complications after surgery on the reproductive organs ??? Possible increased risk for pelvic inflammatory disease (PID) ?? Last Reviewed Date: 2022 ?? [employer]. All rights reserved. This information is not intended as a substitute for professional medical care. Always follow your healthcare professional's instructions. ?? * Meche Salazar RN: PERFORM Event Display: Patient Education Leaflets Authored Date: [id number] Vaginal Infection: Understanding the Vaginal Environment ?? [address] Vaginal Infection: Understanding the Vaginal Environment The vagina is a canal. It connects the uterus (womb) to the outside of the body.??It's home to manytypes of bacteria and other tiny organisms. These different bacteria most often stay balanced in number. This keeps the vagina healthy. If the balance changes, it can cause infection.?? A healthy environment Many types of bacteria are present in a healthy vagina. When balanced, they don???t cause problems.Small amounts of yeast may also be present without causing problems. The most common type of bacteria in the vagina is lactobacillus. It helps keep the vagina at a low pH. A low pH keeps bad bacteria from taking over. ?? Normal vaginal discharge The vagina makes fluid. It's sent out as discharge. This also keeps the vagina healthy. Normal discharge can be clear, white, or yellowish. Most women find that normal discharge varies in amount and color through the month. ?? An unhealthy environment The vaginal environment may get out of balance. This may result in a vaginal infection. There are afew reasons this can happen. The pH may have changed. The amount of one organism, such as yeast, may increase. Or an outside organism may get into the vagina and throw off the balance: ??? Bacterial vaginosis (BV). BV is due to an imbalance in the normal bacteria in the vagina. Lactobacillus bacteria decrease. As a result, the numbers of bad bacteria increase. ??? Candidiasis (yeast infection). Yeast is a type of fungus. A yeast infection occurs when yeast cells in the vagina increase. They then attack vaginal tissues. A type of yeast called Anh albicans is often involved. ??? Trichomoniasis ( trich ). Trich is a parasite. It's passed from 1 person to another during sex. Men with trich often don???t have any symptoms. In women, it can take weeks or months before symptoms appear. ?? Last Reviewed Date: 2022 ?? [employer]. All rights reserved. This information is not intended as a substitute for professional medical care. Always follow your healthcare professional's instructions. ?? Patient Care team information Care Team Personnel Name: Gigi Grimm III, MD Position: Reference Physician Member Role: PCP Address: Address: [address] [place] [address]- Name: Naila Martinez RN Position: S OB RN Member Role: Primary Care Nurse Name: Lo Vernon RN Position: [facility] OB RN Member Role: Primary Care Nurse Name: Elena Cabrera RN Position: [facility] HBO Wound Member Role: Primary Care Nurse Name: Meche Salazar RN Position: [facility] OB RN Member Role: Patient Care Provider Care Team Related Persons Name: CHERELLE STINSON Address: home [address] Name: TOREY JIMENEZ Address: home [address] Name: TOREY JIMENEZ Address: home [address] Name: JAMIE JIMENEZ Address: home [address] [address] Name: JAMIE JIMENEZ Address: home [address] [place], [place] Name: TOREY QUESADA Address: home [address] [place], [place] Name: JOCELYN SANTIAGO Address: home [address] [place] [address]
[2024-04-17 12:32] LABS: Troponin-I High Sensitivity < 2.7 ng/L (<3.5-17.0)
[2024-04-17 14:43] VITALS: BP 137/61; PULSE 57; RESP 16; TEMP 36.8; O2SAT 100
== END 2024-04-17 14:49 | disposition home or self-care (01) ==
PROVIDERS: Physician Assistant Medical; Emergency Provider Emergency Medicine; PCP Internal Medicine
DX: R10.11 Right upper quadrant pain (principal); R50.9 Fever, unspecified; R11.2 Nausea with vomiting, unspecified; Z79.899 Other long term (current) drug therapy
CPT/HCPCS: 36415; 76705; 80053; 81001; 81025; 83690; 83735; 84484; 85025; 96361; 96374; 96375; 99283; 99284; J2270; J2405; J7120